=== PATIENT | male | born 1980 | race Hispanic/Latino ===

== ENCOUNTER 2020-10-26 19:21 | Emergency (ER) | payer SELFPAY ==
--- NOTE | 2020-10-26 22:32 | ER ---
Nurse's Notes [facility] Name: Piyush Sauer Age: 40 yrs Sex: Male : 1980 Arrival Date: 10/26/2020 Time: 19:26 Bed 20 Private MD: Diagnosis: Cellulitis of right lower limb Presentation: 10/26 19:57 Chief complaint: Patient states: R pinky toe pain, red and swollen x 1 week. Now it ca1 hurts to walk on it. Had new pair of shoes 2 weeks ago and then when it started. Denies injury to the toe. Coronavirus screen: Client denies travel out of the [place] in the last 14 days. At this time, the client does not indicate any symptoms associated with coronavirus-19. Ebola Screen: Patient negative for fever greater than or equal to 101.5 degrees Fahrenheit, and additional compatible Ebola Virus Disease symptoms Patient denies exposure to infectious person. Patient denies travel to an Ebola-affected area in the 21 days before illness onset. No symptoms or risks identified at this time. Initial Sepsis Screen: Does the patient meet any 2 criteria? No. Patient's initial sepsis screen is negative. Does the patient have a suspected source of infection? No. Patient's initial sepsis screen is negative. Risk Assessment: Do you want to hurt yourself or someone else? Patient reports no desire to harm self or others. Onset of symptoms was October 26, 2020. 19:57 Method Of Arrival: Ambulatory ca1 19:57 Acuity: DEEPA 3 ca1 Historical: - Allergies: 20:00 No Known Allergies; ca1 - Home Meds: 20:00 Metformin Oral [Active]; ca1 - PMHx: 20:00 Diabetes - NIDDM; ca1 - PSHx: 20:00 None; ca1 - Immunization history:: Flu vaccine is up to date. - Social history:: Smoking status: Patient denies any tobacco usage or history of. Screenin:32 Abuse screen: Denies threats or abuse. Nutritional screening: No deficits noted. ea Tuberculosis screening: No symptoms or risk factors identified. Fall Risk None identified. Assessment: 22:37 General: Appears in no apparent distress. Behavior is calm, cooperative, appropriate ea for age. Pain: Complains of pain in lateral aspect of right foot. Neuro: Level of Consciousness is awake, alert, obeys commands, Oriented to person, place, time. Cardiovascular: Patient's skin is warm and dry. Respiratory: Airway is patent Respiratory effort is even, unlabored, Respiratory pattern is regular, symmetrical. Derm: Skin is pink, warm \T\ dry. 22:42 Reassessment: Patient and/or family updated on plan of care and expected duration. Pain ea level reassessed. Patient is alert, oriented x 3, equal unlabored respirations, skin warm/dry/pink. Discharge instruction given to patient, verbalized the understanding of instruction. Vital Signs: 19:57 BP 208 / 120 LA; Pulse 107; Resp 16 S; Temp 99.1(TE); Pulse Ox 100% on R/A; Weight ca1 83.91 kg (R); Height 5 ft. 6 in. (167.64 cm) (R); Pain 9/10; 20:03 BP 189 / 109 RA; ca1 22:38 BP 172 / 98; Pulse 84; Resp 18; Pulse Ox 99% ; ea 19:57 Body Mass Index 29.86 (83.91 kg, 167.64 cm) ca1 ED Course: 19:26 Patient arrived in ED. bp1 20:00 Triage completed. ca1 20:00 Arm band placed on right wrist. ca1 21:58 Shahid Mcelroy PA is PHCP. jr8 21:58 Gerardo Simms MD is Attending Physician. jr8 22:29 Kamille Hermosillo, CECIYL is Primary Nurse. ea 22:32 Patient has correct armband on for positive identification. Bed in low position. Call ea light in reach. Side rails up X2. 22:38 No provider procedures requiring assistance completed. Patient did not have IV access ea during this emergency room visit. Administered Medications: No medications were administered Outcome: 22:31 Discharge ordered by . jr8 22:42 Discharged to home ambulatory. ea 22:42 Condition: stable 22:42 Discharge instructions given to patient, Instructed on discharge instructions, follow up and referral plans. medication usage, Demonstrated understanding of instructions, follow-up care, medications, Prescriptions given X 1. 22:43 Patient left the ED. ea Signatures: Shahid Mcelroy PA PA jrKamille Leija RN RN Mere Casarez RN RN ca1 Marcella Terrell bp1 Corrections: (The following items were deleted from the chart) 20:01 19:57 BP 208 / 120; Pulse 107bpm; Resp 16bpm; Spontaneous; Pulse Ox 100% RA; Temp 99.1F ca1 Temporal; 83.91 kg Reported; Height 5 ft. 6 in. Reported; BMI: 29.8; Pain 9/10; ca1 20:03 19:57 Chief complaint: Patient states: R pinky toe pain, red and swollen x 1 week. Now ca1 it hurts to walk on it ca1
--- NOTE | 2020-10-26 22:32 | EDPHYS ---
Physician Documentation [facility] Name: Piyush Sauer Age: 40 yrs Sex: Male : 1980 Arrival Date: 10/26/2020 Time: 19:26 Bed 20 Private MD: RISA Physician Gerardo Simms HPI: 10/26 22:27 This 40 yrs old Male presents to ER via Ambulatory with complaints of Foot jr8 Pain. 22:27 The patient presents with pain, tenderness, erythema. The complaints affect the lateral jr8 aspect of right foot. Onset: The symptoms/episode began/occurred gradually, 2 day(s) ago. Modifying factors: The symptoms are alleviated by nothing. the symptoms are aggravated by movement. Associated signs and symptoms: The patient has no apparent associated signs or symptoms. Severity of symptoms: At their worst the symptoms were mild, in the emergency department the symptoms are unchanged. The patient has not experienced similar symptoms in the past. The patient has not recently seen a physician. Patient stated that he bought some new shoes for work. Was rubbing on foot and was painful. Got another pair since then but now has redness, tenderness to right 5th digit with extension of redness to dorsum and lateral foot. Known history of diabetes . Historical: - Allergies: 20:00 No Known Allergies; ca1 - Home Meds: 20:00 Metformin Oral [Active]; ca1 - PMHx: 20:00 Diabetes - NIDDM; ca1 - PSHx: 20:00 None; ca1 - Immunization history:: Flu vaccine is up to date. - Social history:: Smoking status: Patient denies any tobacco usage or history of. ROS: 22:27 Eyes: Negative for injury, pain, redness, and discharge, ENT: Negative for injury, jr8 pain, and discharge, Neck: Negative for injury, pain, and swelling, Cardiovascular: Negative for chest pain, palpitations, and edema, Respiratory: Negative for shortness of breath, cough, wheezing, and pleuritic chest pain, Abdomen/GI: Negative for abdominal pain, nausea, vomiting, diarrhea, and constipation, Back: Negative for injury and pain, MS/Extremity: Negative for injury and deformity. Positive for pain, redness, tenderness to right foot Neuro: Negative for headache, weakness, numbness, tingling, and seizure. 22:27 Skin: Positive for erythema, of the right foot. Exam: 22:27 Constitutional: This is a well developed, well nourished patient who is awake, alert, jr8 and in no acute distress. Cardiovascular: Regular rate and rhythm with a normal S1 and S2. No gallops, murmurs, or rubs. Normal PMI, no JVD. No pulse deficits. Respiratory: Lungs have equal breath sounds bilaterally, clear to auscultation and percussion. No rales, rhonchi or wheezes noted. No increased work of breathing, no retractions or nasal flaring. Skin: Warm, dry with normal turgor. Normal color with no rashes, no lesions, and no evidence of cellulitis. Neuro: Awake and alert, GCS 15, oriented to person, place, time, and situation. Cranial nerves II-XII grossly intact. Motor strength 5/5 in all extremities. Sensory grossly intact. Cerebellar exam normal. Normal gait. 22:27 Musculoskeletal/extremity: Extremities: grossly normal except: noted in the lateral aspect of right foot: Patient has redness to right 5th digit with extension of erythema to right dorsum and lateral foot. Tender to palpation. No ulcerations or open wounds noted , ROM: intact in all extremities, Circulation is intact in all extremities. Sensation intact. Vital Signs: 19:57 BP 208 / 120 LA; Pulse 107; Resp 16 S; Temp 99.1(TE); Pulse Ox 100% on R/A; Weight ca1 83.91 kg (R); Height 5 ft. 6 in. (167.64 cm) (R); Pain 9/10; 20:03 BP 189 / 109 RA; ca1 22:38 BP 172 / 98; Pulse 84; Resp 18; Pulse Ox 99% ; ea 19:57 Body Mass Index 29.86 (83.91 kg, 167.64 cm) ca1 MDM: 22:01 Patient medically screened. [facility] 22:27 Data reviewed: vital signs, nurses notes, and as a result, I will discharge patient. jr8 Data interpreted: Pulse oximetry: on room air is 100 %. Interpretation: normal. Counseling: I had a detailed discussion with the patient and/or guardian regarding: the historical points, exam findings, and any diagnostic results supporting the discharge/admit diagnosis, the need for outpatient follow up, a family practitioner, to return to the emergency department if symptoms worsen or persist or if there are any questions or concerns that arise at home. Administered Medications: No medications were administered Disposition: 10/27 07:55 Co-signature as Attending Physician, Gerardo Simms MD I agree with the assessment and teodoro plan of care. Disposition: 10/26/20 22:31 Discharged to Home. Impression: Cellulitis of right lower limb. - Condition is Stable. - Discharge Instructions: Cellulitis, Adult. - Prescriptions for Bactrim DS 800- 160 mg Oral Tablet - take 1 tablet by ORAL route every 12 hours for 10 days; 20 tablet. - Medication Reconciliation Form, Thank You Letter, Antibiotic Education, Prescription Opioid Use form. - Follow up: Private Physician; When: 2 - 3 days; Reason: Recheck today's complaints, Continuance of care, Re-evaluation by your physician. - Problem is new. - Symptoms have improved. Signatures: Gerardo Simms MD MD cha Roszak, Josh, PA PA jr8 Kamille Hermosillo RN RN ea Acob, Cheryl, RN RN ca1 Corrections: (The following items were deleted from the chart) 10/26 22:43 22:31 10/26/2020 22:31 Discharged to Home. Impression: Cellulitis of right lower limb. ea Condition is Stable. Forms are Medication Reconciliation Form, Thank You Letter, Antibiotic Education, Prescription Opioid Use. Follow up: Private Physician; When: 2 - 3 days; Reason: Recheck today's complaints, Continuance of care, Re-evaluation by your physician. Problem is new. Symptoms have improved. jr8
[2020-10-27 02:42] VITALS: TEMP 99.1
[2020-10-27 02:44] VITALS: BP 172/98; O2SAT 99
== END 2020-10-26 22:43 | disposition home or self-care (01) ==
LOC: ER 19:21
DX: L03.115 Cellulitis of right lower limb (principal); E11.9 Type 2 diabetes mellitus without complications; Z79.84 Long term (current) use of oral hypoglycemic drugs
CPT/HCPCS: 99282

== ENCOUNTER 2022-01-22 12:25 | Inpatient (IN) | payer SELFPAY ==
--- OUTSIDE RECORDS SUMMARY | 2022-01-22 12:35 | XMS REPORT | Continuity of Care Document ---
:1980 Author Organization [facility] t Address [address] [place] [address] Care Team Providers Name Role Phone SONG Attending Clinician Unavailable Doctor Unassigned, Name Attending Clinician Unavailable Erwin Attending Clinician Parish Oakes MD Attending Clinician Abdulaziz CABRERA Attending Clinician Satya NEWMAN Attending Clinician Leonid JONES, E Attending Clinician Abdulaziz CABRERA Admitting Clinician Payers Payer Name Policy Type Policy Number Effective Date Expiration Date S ource Problems Condition Condition Condition Status Onset Resolution Last Treating Co mments Source Name Details Category Date Date Treatment Clinician Date Type 2 Type 2 Disease Active Univers diabetes diabetes 4-10 ity of mellitus mellitus 00:00: [place] without without 00 Medical complicati complicati Br anch on, on, without without long-term long-term current current use of use of insulin insulin Essential Essential Disease Active Uni vers hypertensi hypertensi 4-10 it y of on on 00:00: [address] Branch BRYCE (acute BRYCE (acute Disease Active U nivers kidney kidney 4-10 ity of injury) injury) 00:00: [address] Branch Elevated Elevated Disease Active Unive rs brain brain 4-10 ity of natriureti natriureti [place] c peptide c peptide 00 Medi mala (BNP) (BNP) Branch level level Hypertensi Hypertensi Disease Active U nivers ve urgency ve urgency 4-10 it y of 00:00: [address] Branch Preop Preop Disease Active Univers cardiovasc cardiovasc 4-10 it y of ular exam ular exam [place] 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 Branch Obesity Obesity Disease Active Univers (BMI (BMI 5-31 ity of 30-39.9) 30-39.9) 00:00: [place] 00 Medical Branch Cellulitis Cellulitis Disease Active U nivers 5-31 ity of 00:00: 00 Medical [place] Allergies, Adverse Reactions, Alerts Allergy Allergy Status Severity Reaction(s) Onset Inactive Treating Comm ents Source Name Type Date Date Clinician NO KNOWN Drug Active [facility] ALLERGIE Class ity of S [facility] Social History Social Habit Start Date Stop Date Quantity Comments Source Exposure to Not sure [facility] SARS-CoV-2 [facility] (event) [place] Tobacco use and 2020-11-15 2020-11-15 Never used Universit y of exposure 00:00:00 00:00:00 [facility] Alcohol intake 2020-11-15 2020-11-15 Current drinker of Un iversity of 00:00:00 00:00:00 alcohol (finding) [facility] edical [place] Alcohol Comment 2019-01-02 2019-01-02 occasional drinks Un iversity of 00:00:00 00:00:00 [facility] Sex Ass[birth year] At [birth year] Universit y of 00:00:00 00:00:00 [facility] Smoking Status Start Date Stop Date Source Former smoker 2020-11-15 00:00:00 2020-11-15 00:00:00 Universi ty of [facility] Medications Ordered Filled Start Stop Current Ordering Indication Dosage Frequency Signature Comments Components Source Medication Medication Date Date Medication? Clinician (SIG) Name Name amLODIPine 2020- No [id number] 10mg Take 1 Univers 10 mg 4-15 05-16 tablet by ity of tablet 00:00: 04:59 mouth [place] 00 :00 daily for Medical 30 days. Branch glipiZIDE 5 2020- No [id number] 5mg Take 1 Univers mg tablet 4-15 05-16 tablet by ity of 00:00: 04:59 mouth [place] 00 :00 daily for Medical 30 days. Branch amLODIPine 2020- No [id number] 10mg Take 1 Univers 10 mg 4-15 05-16 tablet by ity of tablet 00:00: 04:59 mouth [place] 00 :00 daily for Medical 30 days. Branch glipiZIDE 5 2020- No [id number] 5mg Take 1 Univers mg tablet 11-17-16 tablet by ity of 00:00: 04:59 mouth [place] 00 :00 daily for Medical 30 days. Branch aspirin 81 Yes 81mg Take 81 mg U nivers mg chewable 4-14 by mouth ity of tablet 23:26: daily. [address] metFORMIN Yes 500mg Take 500 Uni vers 500 mg 4-14 mg by ity of tablet 23:26: mouth 2 [place] [address] [facility] daily with meals. aspirin 81 Yes 81mg Take 81 mg U nivers mg chewable 4-14 by mouth ity of tablet 23:26: daily. [address] metFORMIN Yes 500mg Take 500 Uni vers 500 mg 4-14 mg by ity of tablet 23:26: mouth 2 [place] [address] [facility] daily with meals. aspirin 81 Yes 81mg Take 81 mg U nivers mg chewable 4-14 by mouth ity of tablet 23:26: daily. [address] metFORMIN Yes 500mg Take 500 Uni vers 500 mg 4-14 mg by ity of tablet 23:26: mouth 2 [place] [address] [facility] daily with meals. doxycycline Yes 100mg 100 mg, Un angel hyclate 4-14 Oral, ity of (Vibramycin 23:00: Q12HA2, Xavi as ) capsule 00 First dose Medi mala 100 mg on Sat [place] 11/16/20 at 1800, Until Discontinu ed, LUPE
Re ason for Anti-Infec tive: Documented Infection< br>Documen cesar Infection Site: Skin / Soft Tissue<br& gt;Duratio n of Therapy: Other (see Comments) vancomycin Yes 1250mg 1,250 mg, Univers 1250 mg in 4-14 IV ity of NS 250 mL 02:00: Infusion, [place] as RTU IV 00 Q24H ABX, Medical Piggyback First dose Bran ch 1,250 mg on Sat11/15/20 at 2100, Until Discontinu ed
Reas on for Anti-Infec tive: Documented Infection< br>Documen cesar Infection Site: Skin / Soft Tissue
Duration of Therapy: Other (see Comments) vancomycin 2020- No 1250mg 1,250 mg, Univers 1250 mg in 11-16-14 IV ity of NS 250 mL 02:00: 17:16 Infusion, [place] RTU IV 00 :39 Q24H ABX, Medical Piggyback First dose Bran ch 1,250 mg on Sat11/15/20 at 2100, Until Discontinu ed
Reas on for Anti-Infec tive: Documented Infection< br>Documen cesar Infection Site: Skin / Soft Tissue
Duration of Therapy: Other (see Comments) atorvastati 2020- No [id number] 20mg Take 1 Univers n 20 mg 11-16-15 tablet by ity of tablet 00:00: 04:59 mouth at [place] 00 :00 bedtime Medical for 30 Branch days. carvediloL 2020- No [id number] 12.5mg Take 1 Univers 12.5 mg 11-16-15 tablet by ity of tablet 00:00: 04:59 mouth 2 [place] 00 :00 (two) Medical times Branch daily with meals for 30 days. ferrous 2020- No [id number] 325mg Take 1 U nivers sulfate 325 11-16-15 tablet by it y of mg (65 mg 00:00: 04:59 [place] iron[place] 00 :00 (two) Medical tablet times Branch daily for 30 days. atorvastati 2020- No [id number] 20mg Take 1 Univers n 20 mg 11-16-15 tablet by ity of tablet 00:00: 04:59 mouth at [place] 00 :00 bedtime Medical for 30 Branch days. carvediloL 2020- No [id number] 12.5mg Take 1 Univers 12.5 mg 4-14 05-15 tablet by ity of tablet 00:00: 04:59 mouth 2 [place] 00 :00 (two) Medical times Branch daily with meals for 30 days. ferrous 2020- No [id number] 325mg Take 1 U nivers sulfate 325 11-16 tablet by it y of mg (65 mg 00:00: 04:59 [place] iron[place] 00 :00 (two) Medical tablet times Branch daily for 30 days. lactobacill 2020- No [id number] 1{tbl} Take 1 Univers us 11-16-25 tablet by ity of acidophilus 00:00: 04:59 mouth 2 [place] 25 million 00 :00 (two) Medical cell -100 times Branch mg captab daily for 10 days. lactobacill 2020- No [id number] 1{tbl} Take 1 Univers us 11-16-25 tablet by ity of acidophilus 00:00: 04:59 mouth 2 [place] 25 million 00 :00 (two) Medical cell -100 times Branch mg captab daily for 10 days. doxycycline 2020- No [id number] 100mg Take 1 Univers hyclate 100 11-16-20 capsule by i ty of mg capsule 00:00: 04:59 mouth [place] 00 :00 every 12 Medical (twelve) Branch hours for 5 days. doxycycline 2020- No [id number] 100mg Take 1 Univers hyclate 100 11-16-20 capsule by i ty of mg capsule 00:00: 04:59 mouth [place] 00 :00 every 12 Medical (twelve) Branch hours for 5 days. sulfamethox 2020- No [id number] 1{tbl} Take 1 Univers azole-trime 11-16 tablet by it y of thoprim 00:00: 00:00 mouth 2 [place] 800-160 mg 00 :00 (two) Medical per tablet times Branch daily for 5 days. HYDROcodone Yes 1{tbl} 1 tablet, Univers -acetaminop 11-15 Oral, ity of hen (NORCO) 17:56: Q6HPRN, [place] as 10-325 mg 59 Starting Medica l tablet 1 Tue Branch tablet 11/15/20 at 1256, Until Discontinu ed, Routine, Pain (scale 4-6), pain HYDROcodone 2020-0 Yes 1{tbl} 1 tablet, Univers -acetaminop 4-13 Oral, ity of hen (NORCO) 17:56: Q6HPRN, [place] 10-325 mg 59 Starting Medica l tablet 1 Sat Branch tablet 11/15/20 at 1256, Until Discontinu ed, Routine, Pain (scale 4-6), pain amLODIPine 2020-0 Yes 10mg 10 mg, Unive rs (NORVASC) 4-13 Oral, ity of tablet 10 13:30: DAILY, [place] mg 00 First dose Medical (after Branch last modificati on) on Sat11/15/20 at 0830, Until Discontinu ed, Routine amLODIPine 2020-0 Yes 10mg 10 mg, Unive rs (NORVASC) 4-13 Oral, ity of tablet 10 13:30: DAILY, [place] mg 00 First dose Medical (after Branch last modificati on) on Sat11/15/20 at 0830, Until Discontinu ed, Routine metFORMIN 2020-0 Yes 500mg Take 500 Uni vers 500 mg 4-12 mg by ity of tablet 16:58: mouth 2 [place] 30 (two) Medical times Branch daily with meals. metFORMIN 2020-0 Yes 500mg Take 500 Uni vers 500 mg 4-12 mg by ity of tablet 16:58: mouth 2 [place] 30 (two) Medical times Branch daily with meals. bupivacaine 2021-0 2021- No PRN, Unive rs (preserv 11-14 04-12 Starting ity of free) 0.5% 16:06: 16:58 [facility] (SENSORCAIN 00 :30 11/14/20 at [facility]) 0.5 1106, Branch % (5 mg/mL) Intra-op 10 mL, lidocaine 1% (PF) (XYLOCAINE) 10 mL glipiZIDE 2020-0 Yes 5mg 5 mg, Univers (GLUCOTROL) 4-12 Oral, ity of tablet 5 mg 14:00: DAILY, [place] 00 First dose Medical (after Branch last modificati on) on Sat11/14/20 at 0900, Until Discontinu ed, Routine glipiZIDE 2020-0 Yes 5mg 5 mg, Univers (GLUCOTROL) 4-12 Oral, ity of tablet 5 mg 14:00: DAILY, [place] 00 First dose Medical (after Branch last modificati on) on Sat11/14/20 at 0900, Until Discontinu ed, Routine glipiZIDE 2020-0 Yes 5mg 5 mg, Univers (GLUCOTROL) 4-12 Oral, ity of tablet 5 mg 14:00: DAILY, [place] 00 First dose Medical (after Branch last modificati on) on Sat11/14/20 at 0900, Until Discontinu ed, Routine NaCl 0.45% 2020-0 Yes 1000mL at 100 Uni vers (1/2NS) IV 4-11 mL/hr, ity of infusion 23:45: 1,000 mL, [place] 1,000 mL 00 IV Medical Infusion, Branch CONTINUOUS , Starting [place] 11/13/20 at 1845, Until Discontinu ed, Routine NaCl 0.45% 1-0 Yes 1000mL at 100 Uni vers (1/2NS) IV 4-11 mL/hr, ity of infusion 23:45: 1,000 mL, [place] 1,000 mL 00 IV Medical Infusion, Branch CONTINUOUS , Starting [place] 11/13/20 at 1845, Until Discontinu ed, Routine NaCl 0.45% 2021-0 Yes 1000mL at 100 Uni vers (1/2NS) IV 4-11 mL/hr, ity of infusion 23:45: 1,000 mL, [place] 1,000 mL 00 IV Medical Infusion, Branch CONTINUOUS , Starting [place] 11/13/20 at 1845, Until Discontinu ed, Routine hydralAZINE 2020-0 Yes 10mg 10 mg, Univ ers (APRESOLINE 4-11 Slow IV ity o f ) injection 22:15: [place], [place] 10 mg 07 Q4HPRN, Medical Starting [facility] 11/13/20 at 1715, Until Discontinu ed, STAT, DBP=>100; SBP=>180<b r>Indicati on: Hypertensi ve Emergency hydralAZINE 2020-0 Yes 10mg 10 mg, Univ ers (APRESOLINE 4-11 Slow IV ity o f ) injection 22:15: [place], [place] 10 mg 07 Q4HPRN, Medical Starting [facility] 11/13/20 at 1715, Until Discontinu ed, STAT, DBP=>100; SBP=>180<b r>Indicati on: Hypertensi ve Emergency hydralAZINE 2020-0 Yes 10mg 10 mg, Univ ers (APRESOLINE 11-13 Slow IV ity o f ) injection 22:15: Push, [place] 10 mg 07 Q4HPRN, Medical Starting Branch [place] 11/13/20 at 1715, Until Discontinu ed, STAT, DBP=>100; SBP=>180<b r>Indicati on: Hypertensi ve Emergency carvediloL 2020-0 Yes 12.5mg 12.5 mg, U nivers (COREG) 4-11 Oral, BID ity of tablet 12.5 22:15: MEALS, [place] mg 00 First dose Medical (after Branch last modificati on) on [place] 11/13/20 at 1715, Until Discontinu ed, Routine carvediloL 0 Yes 12.5mg 12.5 mg, U nivers (COREG) 4-11 Oral, BID ity of tablet 12.5 22:15: MEALS, [place] mg 00 First dose Medical (after Branch last modificati on) on [place] 11/13/20 at 1715, Until Discontinu ed, Routine carvediloL 2020-0 Yes 12.5mg 12.5 mg, U nivers (COREG) 4-11 Oral, BID ity of tablet 12.5 22:15: MEALS, [place] mg 00 First dose Medical (after Branch last modificati on) on [place] 11/13/20 at 1715, Until Discontinu ed, Routine calcitrioL 0 Yes .5ug 0.5 mcg, Uni vers (ROCALTROL) 11-13 Oral, ity of capsule 0.5 14:00: DAILY, [place] mcg 00 First dose Medical on [place] Branch 11/13/20 at 0900, Until Discontinu ed, Routine calcitrioL 0 Yes .5ug 0.5 mcg, Uni vers (ROCALTROL) 11 Oral, ity of capsule 0.5 14:00: DAILY, [place] mcg 00 First dose Medical on [place] Branch 11/13/20 at 0900, Until Discontinu ed, Routine calcitrioL 2020-0 Yes .5ug 0.5 mcg, Uni vers (ROCALTROL) 4-11 Oral, ity of capsule 0.5 14:00: DAILY, [place] mcg First dose Medical on [facility] 11/13/20 at 0900, Until Discontinu ed, Routine ferrous Yes 325mg 325 mg, Univer s sulfate 11-13 Oral, BID, ity of tablet 325 13:00: First dose [place] mg on [facility] 11/13/20 at Branch 0800, Until Discontinu ed, Routine ferrous Yes 325mg 325 mg, Univer s sulfate 11-13 Oral, BID, ity of tablet 325 13:00: First dose [place] mg 00 on [facility] 11/13/20 at Branch 0800, Until Discontinu ed, Routine ferrous Yes 325mg 325 mg, Univer s sulfate 11-13 Oral, BID, ity of tablet 325 13:00: First dose [place] mg 00 on [facility] 11/13/20 at Branch 0800, Until Discontinu ed, Routine glipiZIDE 2020- No 2.5mg 2.5 mg, Uni vers (GLUCOTROL) 11-13 04-12 Oral, QAM it y of tablet 2.5 13:00: 12:50 WITH [place] mg 00 :36 BREAKFAST, Medical First dose Branch on [place] 11/13/20 at 0800, Until Discontinu ed, Routine insulin NPH Yes 3U 3 Units, Un angel and regular 11-13 Subcutaneo it y of human 70-30 12:30: , [place], [place] (HUMULIN 00 First dose Medic al 70-30 U-100 on [facility] INSULIN) 11/13/20 at 100 unit/mL 0730, (70-30) Until injection 3 Discontinu Units ed, Routine insulin NPH Yes 3U 3 Units, Un angel and regular 11-13 Subcutaneo it y of human 70-30 12:30: , [place], [place] (HUMULIN 00 First dose Medic al 70-30 U-100 on [facility] INSULIN) 11/13/20 at 100 unit/mL 0730, (70-30) Until injection 3 Discontinu Units ed, Routine insulin NPH Yes 3U 3 Units, Un angel and regular 11-13 Subcutaneo it y of human 70-30 12:30: us, BIDAC, [place] (HUMULIN 00 First dose Medic al 70-30 U-100 on [facility] INSULIN) 11/13/20 at 100 unit/mL 0730, (70-30) Until injection 3 Discontinu Units ed, Routine magnesium 2021-0 Yes 400mg 400 mg, Univ ers oxide 4-11 Oral, BID, ity of (MAG-OX 11:30: First dose [place] 400) tablet 00 on [facility] 400 mg 11/13/20 at [place] 0630, Until Discontinu ed, Routine magnesium 2020-0 Yes 400mg 400 mg, Univ ers oxide 4-11 Oral, BID, ity of (MAG-OX 11:30: First dose [place] 400) tablet 00 on [facility] 400 mg 11/13/20 at [place] 0630, Until Discontinu ed, Routine magnesium 2020-0 Yes 400mg 400 mg, Univ ers oxide 4-11 Oral, BID, ity of (MAG-OX 11:30: First dose [place] 400) tablet 00 on [facility] 400 mg 11/13/20 at Branch 0630, Until Discontinu ed, Routine atorvastati 2020-0 Yes 20mg 20 mg, Univ ers n (LIPITOR) 4-11 Oral, QHS, it y of tablet 20 02:00: First dose [place] mg 00 on [facility] 11/12/20 at Branch 2100, Until Discontinu ed, Routine atorvastati 2020-0 Yes 20mg 20 mg, Univ ers n (LIPITOR) 4-11 Oral, QHS, it y of tablet 20 02:00: First dose [place] mg 00 on [facility] 11/12/20 at Branch 2100, Until Discontinu ed, Routine vancomycin 2020-0 Yes 1000mg 1,000 mg, Univers (VANCOCIN) 4-11 IV ity of 1,000 mg in 02:00: [place], [place] NaCl 0.9% 00 Q24H, Medical (NS) 250 mL First dose Br anch VIAL-MATE (after IV last piggyback modificati on) on [facility] 11/12/20 at 2100, Until Discontinu ed, 250 mL
Reas on for Anti-Infec tive: Documented Infection< br>Documen cesar Infection Site: Skin / Soft Tissue
Duration of Therapy: Other (see Comments) atorvastati Yes 20mg 20 mg, Univ ers n (LIPITOR) 4-11 Oral, QHS, it y of tablet 20 02:00: First dose [place] mg 00 on [facility] 11/12/20 at Branch 2100, Until Discontinu ed, Routine vancomycin 2020-0 2020- No 1000mg 1,000 mg, Univers (VANCOCIN) 11-13 04-13 IV ity of 1,000 mg in 02:00: 13:00 [place], [place] NaCl 0.9% 00 :56 Q24H, Medical (NS) 250 mL First dose Br anch VIAL-MATE (after IV last piggyback modificati on) on [facility] 11/12/20 at 2100, Until Discontinu ed, 250 mL
Reas on for Anti-Infec tive: Documented Infection< br>Documen cesar Infection Site: Skin / Soft Tissue
Duration of Therapy: Other (see Comments) NaCl 0.9% 2020- No 1000mL at 100 Uni vers (NS) IV 11-12 04-11 mL/hr, IV ity of infusion 18:15: 22:38 Infusion, [place] 1,000 mL 00 :44 CONTINUOUS Medic al , Starting [facility] 11/12/20 at 1315, Until [place] 11/13/20 at 1738, Routine morpHINE Yes 2mg 2 mg, Slow Uni vers injection 2 4-10 IV [place], ity of mg 17:07: [place] [id number] Starting [facility] 11/12/20 at 1207, Until Discontinu ed, Routine, Pain (scale 7-10) morpHINE 2020-0 Yes 2mg 2 mg, Slow Uni vers injection 2 4-10 IV [place], ity of mg 17:07: [place] [id number] Starting [facility] 11/12/20 at 1207, Until Discontinu ed, Routine, Pain (scale 7-10) morpHINE 2020-0 Yes 2mg 2 mg, Slow Uni vers injection 2 4-10 IV Push, ity of mg 17:07: Q4HPRN, [place] [id number] Starting [facility] 11/12/20 at 1207, Until Discontinu ed, Routine, Pain (scale 7-10) HYDROcodone 2020-0 Yes 1{tbl} 1 tablet, Univers -acetaminop 4-10 Oral, ity of hen (NORCO 17:07: Q4HPRN, [place] 5) 5-325 mg 24 Starting Medi mala tablet 1 Sat Branch tablet 11/12/20 at 1207, Until Discontinu ed, Routine, Pain (scale 4-6) HYDROcodone 2020-0 202- No 1{tbl} 1 tablet, Univers -acetaminop 4-10 - Oral, ity of hen (NORCO 17:07: 17:58 Q4HPRN, [place] 5) 5-325 mg 24 :40 Starting Medi mala tablet 1 Sat Branch tablet 11/12/20 at 1207, Until 11/15/20 at 1258, Routine, Pain (scale 4-6) acetaminoph 2020-0 Yes 650mg 650 mg, Un angel en 4-10 Oral, ity of (TYLENOL) 17:07: Q4HPRN, [place] tablet 650 07 Starting Medic al mg Sat Branch 11/12/20 at 1207, Until Discontinu ed, Routine, Pain (scale 1-3) acetaminoph 2020-0 Yes 650mg 650 mg, Un angel en 4-10 Oral, ity of (TYLENOL) 17:07: Q4HPRN, [place] tablet 650 07 Starting Medic al mg Sat Branch 11/12/20 at 1207, Until Discontinu ed, Routine, Pain (scale 1-3) acetaminoph 2020-0 Yes 650mg 650 mg, Un angel en 4-10 Oral, ity of (TYLENOL) 17:07: Q4HPRN, [place] tablet 650 07 Starting Medic al mg Sat Branch 11/12/20 at 1207, Until Discontinu ed, Routine, Pain (scale 1-3) bupivacaine 2020-0 2020- No PRN, Unive rs (preserv 11-1212 Starting ity of free) 0.5% 15:40: 16:58 Sat [place] (SENSORCAIN 00 :30 11/12/20 at [facility]) 0.5 1040, Branch % (5 mg/mL) Intra-op 7.5 mL, lidocaine 1% (PF) (XYLOCAINE) 7.5 mL enoxaparin 2020-0 Yes 30mg 30 mg, Unive rs (LOVENOX) 4-10 Subcutaneo ity of injection 14:00: [place], DAILY, [place] 30 mg 00 First dose Medical on [facility] Branch 11/12/20 at 0900, Until Discontinu ed, Routine enoxaparin 2020-0 Yes 30mg 30 mg, Unive rs (LOVENOX) 4-10 Subcutaneo ity of injection 14:00: [place], DAILY, [place] 30 mg 00 First dose Medical on [facility] Branch 11/12/20 at 0900, Until Discontinu ed, Routine enoxaparin 2020-0 Yes 30mg 30 mg, Unive rs (LOVENOX) 4-10 Subcutaneo ity of injection 14:00: [place], DAILY, [place] 30 mg 00 First dose Medical on [facility] Branch 11/12/20 at 0900, Until Discontinu ed, Routine NaCl 0.9% 2020- No 1000mL at 100 Uni vers (NS) IV 410 04-10 mL/hr, IV ity of infusion 13:15: 17:06 Infusion, [place] 1,000 mL 00 :58 CONTINUOUS Medic al , Starting Branch [facility] 11/12/20 at 0815, Until [facility] 11/12/20 at 1206, Routine docusate 2020-0 Yes 100mg 100 mg, Unive rs (COLACE) 4-10 Oral, BID, ity o f capsule 100 13:00: First dose [place] mg 00 on [facility] 11/12/20 at Branch 0800, Until Discontinu ed, Routine docusate 2020-0 Yes 100mg 100 mg, Unive rs (COLACE) 4-10 Oral, BID, ity o f capsule 100 13:00: First dose [place] mg 00 on [facility] 11/12/20 at Branch 0800, Until Discontinu ed, Routine docusate 2020-0 Yes 100mg 100 mg, Unive rs (COLACE) 4-10 Oral, BID, ity o f capsule 100 13:00: First dose [place] mg 00 on [facility] 11/12/20 at Branch 0800, Until Discontinu ed, Routine traMADoL 2020-0 2020- No 50mg 50 mg, Univer s (ULTRAM) 4-10 04-10 Oral, ity of tablet 50 10:30: 09:25 ONCE, 1 [place] mg 00 :00 dose, [facility] Medical 11/12/20 at Branch 0530, Routine piperacilli No 2.25g 2.25 g, IV Univers n-tazobacta 11-12 04-12 Piggyback, i ty of m (ZOSYN) 07:30: 16:13 Q8H ABX, [place] as 2.25 g in 00 :42 First dose Medi mala NaCl 0.9% (after Branch (NS) 100 mL last MINI-BAG reorder) on 11/12/20 at 0230, Until Discontinu ed, 100 mL
Reas on for Anti-Infec tive: Documented Infection< br>Documen cesar Infection Site: Skin / Soft Tissue
Duration of Therapy: Other (see Comments) Sliding Yes [facility] ers Scale 4-10 us, TID ity of Insulin - 06:45: MEALS, [place] Lispro 00 First dose Medical (HumaLOG) + on [facility] Branch [facility] 11/12/20 at Testing 0145, Until Discontinu ed, Routine aspirin Yes 81mg 81 mg, Univers chewable 4-10 Oral, QAM ity of tablet 81 06:45: WITH [place] mg 00 BREAKFAST, Medical First dose Branch on 11/12/20 at 0145, Until Discontinu ed, Routine lactobacill Yes 1{tbl} 1 tablet, Univers us 4-10 Oral, BID, ity of acidophilus 06:45: First dose [place] (ACIDOPHILL 00 on [facility] Medica l US) 25 11/12/20 at Branch million 0145, cell -100 Until mg captab 1 Discontinu tablet ed, Routine [facility] 4-10 us, TID ity of Insulin - 06:45: MEALS, [place] Lispro 00 First dose Medical (HumaLOG) + on [facility] Branch [facility] 11/12/20 at Testing 0145, Until Discontinu ed, Routine aspirin 2020-0 Yes 81mg 81 mg, Univers chewable 4-10 Oral, QAM ity of tablet 81 06:45: WITH [place] mg 00 BREAKFAST, Medical First dose Branch on 11/12/20 at 0145, Until Discontinu ed, Routine lactobacill Yes 1{tbl} 1 tablet, Univers us 4-10 Oral, BID, ity of acidophilus 06:45: First dose [facility] at [facility] 0145, cell -100 Until mg captab 1 Discontinu tablet ed, Routine amLODIPine Yes 5mg 5 mg, Univer s ([facility]) 4-10 Oral, ity of tablet 5 mg 06:45: DAILY, [place] 00 First dose Medical on [facility] 11/12/20 at 0145, Until Discontinu ed, Routine Sliding Yes Subcutaneo Univ ers Scale 4-10 us, TID ity of Insulin - 06:45: MEALS, [place] Lispro 00 First dose Medical (HumaLOG) + on [facility] 11/12/20 at Testing 0145, Until Discontinu ed, Routine aspirin Yes 81mg 81 mg, Univers chewable 4-10 Oral, QAM ity of tablet 81 06:45: WITH [place] mg 00 BREAKFAST, Medical First dose Branch on [facility] 11/12/20 at 0145, Until Discontinu ed, Routine lactobacill Yes 1{tbl} 1 tablet, Univers us 4-10 Oral, BID, ity of acidophilus 06:45: First dose [place] (ACIDOPHILL 00 on [facility]) 11/12/20 at [facility] 0145, cell -100 Until mg captab 1 Discontinu tablet ed, Routine amLODIPine 2020- No 5mg 5 mg, Unive rs ([facility]) 11-12-13 Oral, ity of tablet 5 mg 06:45: 13:16 DAILY, [place] as 00 :33 First dose Medical on [facility] 11/12/20 at 0145, Until Discontinu ed, Routine carvediloL 2020- No 6.25mg 6.25 mg, Univers (COREG) 11-12-11 Oral, BID ity of tablet 6.25 06:45: 22:14 MEALS, [place] mg 00 :43 First dose Medical on [facility] 11/12/20 at 0145, Until Discontinu ed, Routine NaCl 0.9% 2020- No 1000mL at 125 Uni vers (NS) IV 4-10 04-10 mL/hr, IV ity of infusion 06:45: 13:10 Infusion, [place] as 1,000 mL 00 :52 CONTINUOUS Medic al , Starting Branch 11/12/20 at 0145, Until 11/12/20 at 0810, Routine aspirin 81 1-0 Yes 81mg Take 81 mg U nivers mg chewable 4-10 by mouth ity of tablet 06:38: daily. [address] aspirin 81 1-0 Yes 81mg Take 81 mg U nivers mg chewable 4-10 by mouth ity of tablet 06:38: daily. [address] ondansetron 1-0 Yes 4mg 4 mg, Slow Univers (ZOFRAN 4-10 IV Push, ity of (PF)) 06:37: Q6HPRN, [place] injection 4 47 Starting Medi mala mg Sat Branch 11/12/20 at 0137, Until Discontinu ed, Routine, Nausea and Vomiting (N/V) ondansetron 1-0 Yes 4mg 4 mg, Slow Univers (ZOFRAN 4-10 IV Push, ity of (PF)) 06:37: Q6HPRN, [place] injection 4 47 Starting Medi mala mg Sat Branch 11/12/20 at 0137, Until Discontinu ed, Routine, Nausea and Vomiting (N/V) ondansetron 1-0 Yes 4mg 4 mg, Slow Univers (ZOFRAN 4-10 IV Push, ity of (PF)) 06:37: Q6HPRN, [place] injection 4 47 Starting Medi mala mg Sat Branch 11/12/20 at 0137, Until Discontinu ed, Routine, Nausea and Vomiting (N/V) glucagon 2020-0 Yes 1mg 1 mg, Univers (GLUCAGEN 4-10 Intramuscu ity of DIAGNOSTIC 06:35: [place] 31 Starting Medical injection 1 Sat Branch mg 11/12/20 at 0135, Until Discontinu ed, LUPE, Blood Glucose < or = 70 mg/dL and patient is unable to swallow or has mental changes. dextrose 50 1-0 Yes 25mL 25 mL, Univ ers % in water 4-10 Slow IV ity of (D50W) 06:35: Push, PRN, [place] injection 31 Starting Medica l 25 mL Sat Branch 11/12/20 at 0135, Until Discontinu ed, LUPE, Blood Glucose < or = 70 mg/dL and patient is unable to swallow or has mental status changes. glucagon Yes 1mg 1 mg, Univers (GLUCAGEN 4-10 Intramuscu ity of DIAGNOSTIC 06:35: [place], [place], [place]) 31 Starting Medical injection 1 Sat Branch mg 11/12/20 at 0135, Until Discontinu ed, LUPE, Blood Glucose < or = 70 mg/dL and patient is unable to swallow or has mental changes. dextrose 50 Yes 25mL 25 mL, Univ ers % in water 4-10 Slow IV ity of (D50W) 06:35: Push, PRN, [place] injection 31 Starting Medica l 25 mL Sat Branch 11/12/20 at 0135, Until Discontinu ed, LUPE, Blood Glucose < or = 70 mg/dL and patient is unable to swallow or has mental status changes. glucagon Yes 1mg 1 mg, Univers (GLUCAGEN 4-10 Intramuscu ity of DIAGNOSTIC 06:35: [place]N, [place]) 31 Starting Medical injection 1 Sat Branch mg 11/12/20 at 0135, Until Discontinu ed, LUPE, Blood Glucose < or = 70 mg/dL and patient is unable to swallow or has mental changes. dextrose 50 0 Yes 25mL 25 mL, Univ ers % in water 4-10 Slow IV ity of (D50W) 06:35: Push, PRN, [place] injection 31 Starting Medica l 25 mL Sat Branch 11/12/20 at 0135, Until Discontinu ed, LUPE, Blood Glucose < or = 70 mg/dL and patient is unable to swallow or has mental status changes. FENTanyl PF 2020- No 50ug 50 mcg, Un angel (SUBLIMAZE 11-1210 Slow IV ity o f (PF)) 02:45: 01:51 Push, [place] injection 00 :00 ONCE, 1 Medical 50 mcg dose, Fri Branch 11/11/20 at 2145, Routine piperacilli 2020-2020- No 3.375g 3.375 g, Univers n-tazobacta 4-10 04-10 IV ity of m (ZOSYN) 02:45: 02:21 [place], [place] 3.375 g in 00 :00 ONCE, 1 Medica l NaCl 0.9% dose, Satc h (NS) 100 mL 11/11/20 at MINI-BAG 2145, 100 mL
Reas on for Anti-Infec tive: Documented Infection< br>Documen cesar Infection Site: Skin / Soft Tissue
Duration of Therapy: Other (see Comments) vancomycin 2020- No 1000mg 1,000 mg, Univers (VANCOCIN) 11-12 IV ity of 1,000 mg in 02:45: 06:33 [place], [place] NaCl 0.9% 00 :16 Q12H ABX, Medic al (NS) 250 mL First dose Br anch VIAL-MATE on Sat IV 11/11/20 at piggyback 2145, Until Discontinu ed, 250 mL
R pia for Anti-Infec tive: Documented Infection< br>Documen cesar Infection Site: Skin / Soft Tissue
Duration of Therapy: Other (see Comments) lisinopril Yes [id number] 10mg Take 1 Univers 10 mg 6-05 [id number] tablet by ity of tablet 00:00: mouth [place] 00 daily. Medical Branch lisinopril Yes [id number] 10mg Take 1 Univers 10 mg 6-05 [id number] tablet by ity of tablet 00:00: mouth [place] 00 daily. Medical Branch lisinopril 2020- No [id number] 10mg Take 1 Univers 10 mg 6-05 -14 [id number] tablet by ity of tablet 00:00: 00:00 mouth [place] 00 :00 daily. Medical Branch Insulin Yes [id number] Use as U nivers Syringe-Nee 6-04 [id number] directed it y of dle U-100 00:00: [place] 0.3 mL 30 00 Medical gauge x Branch 12/18 Syrg acetaminoph 2018- Yes [id number] 1{tbl} Take 1 Univers en-codeine 6-04 tablet by ity of (TYLENOL-CO 00:00: mouth [place] DEINE #3) 00 every 4 Medical 300-30 mg (four) Branch tablet hours as needed for Pain (scale 4-6). acetaminoph Yes [id number] 1{tbl} Take 1 Univers en-codeine 6-04 tablet by ity of (TYLENOL-CO 00:00: mouth [place] DEINE #3) 00 every 4 Medical 300-30 mg (four) Branch tablet hours as needed for Pain (scale 4-6). Insulin Yes [id number] Use as U nivers Syringe-Nee - [id number] directed it y of dle U-100 00:00: [place] 0.3 mL 30 00 Medical gauge x Branch 5/16 Syrg acetaminoph Yes [id number] 1{tbl} Take 1 Univers en-codeine 6-04 tablet by ity of (TYLENOL-CO 00:00: mouth [place] DEINE #3) 00 every 4 Medical 300-30 mg (four) Branch tablet hours as needed for Pain (scale 4-6). acetaminoph Yes [id number] 1{tbl} Take 1 Univers en-codeine 6-04 tablet by ity of (TYLENOL-CO 00:00: mouth [place] DEINE #3) 00 every 4 Medical 300-30 mg (four) Branch tablet hours as needed for Pain (scale 4-6). Insulin Yes [id number] Use as U nivers Syringe-Nee 01-06 [id number] directed it y of dle U-100 00:00: [place] 0.3 mL 30 00 Medical gauge x Branch 5/16 Syrg acetaminoph Yes [id number] 1{tbl} Take 1 Univers en-codeine 6-04 tablet by ity of (TYLENOL-CO 00:00: mouth [place] DEINE #3) 00 every 4 Medical 300-30 mg (four) Branch tablet hours as needed for Pain (scale 4-6). acetaminoph Yes [id number] 1{tbl} Take 1 Univers en-codeine 6-04 tablet by ity of (TYLENOL-CO 00:00: mouth [place] DEINE #3) 00 every 4 Medical 300-30 mg (four) Branch tablet hours as needed for Pain (scale 4-6). Insulin Yes [id number] Use as U nivers Syringe-Nee - [id number] directed it y of dle U-100 00:00: [place] 0.3 mL 30 00 Medical gauge x Branch 5/16 Syrg acetaminoph Yes [id number] 1{tbl} Take 1 Univers en-codeine 6-04 tablet by ity of (TYLENOL-CO 00:00: mouth [place] DEINE #3) 00 every 4 Medical 300-30 mg (four) Branch tablet hours as needed for Pain (scale 4-6). acetaminoph Yes [id number] 1{tbl} Take 1 Univers en-codeine 6-04 tablet by ity of (TYLENOL-CO 00:00: mouth [place] DEINE #3) 00 every 4 Medical 300-30 mg (four) Branch tablet hours as needed for Pain (scale 4-6). Insulin Yes [id number] Use as U nivers Syringe-Nee 01-06 [id number] directed it y of dle U-100 00:00: [place] 0.3 mL 30 00 Medical gauge x Branch 5/16 Syrg acetaminoph Yes [id number] 1{tbl} Take 1 Univers en-codeine 6-04 tablet by ity of (TYLENOL-CO 00:00: mouth [place] DEINE #3) 00 every 4 Medical 300-30 mg (four) Branch tablet hours as needed for Pain (scale 4-6). acetaminoph Yes [id number] 1{tbl} Take 1 Univers en-codeine 6-04 tablet by ity of (TYLENOL-CO 00:00: mouth [place] DEINE #3) 00 every 4 Medical 300-30 mg (four) Branch tablet hours as needed for Pain (scale 4-6). Immunizations Ordered Filled Immunization Date Status Comments [facility] e Immunization Name Name Pneumococcal 2019-01-06 Completed [place] o f Polysaccharide, 00:00:00 [place] Med ical PPSV23 (PNEUMOVAX) Branch Pneumococcal 2019-01-06 Completed [place] o f Polysaccharide, 00:00:00 [place] Med ical PPSV23 (PNEUMOVAX) Branch Pneumococcal 2019-01-06 Completed [place] o f Polysaccharide, 00:00:00 [place] Med ical PPSV23 (PNEUMOVAX) Branch Pneumococcal 2019-01-06 Completed [place] o f Polysaccharide, 00:00:00 [place] Med ical PPSV23 (PNEUMOVAX) Branch Pneumococcal 2019-01-06 Completed University o f Polysaccharide, 00:00:00 [place] Med ical PPSV23 (PNEUMOVAX) Branch Vital Signs Vital Name Observation Time Observation Value Comments Source Systolic blood 2020-11-16 21:30:00 144 mm[Hg] Univer sity of pressure [place] Medical [place] Diastolic blood 2020-11-16 21:30:00 88 mm[Hg] Unive rsity of pressure [facility] Heart rate 2020-11-16 21:30:00 68 /min [facility] ty [facility] [place] [facility] Body temperature 2020-11-16 21:30:00 36.39 [place] Univ ersity of [place] [facility] Respiratory rate 2020-11-16 21:30:00 18 /min Univ ersity of [place] [facility] Oxygen saturation in 2020-11-16 21:30:00 96 /min University of Arterial blood by [place] [employer] mala Pulse oximetry Branch Body weight 2020-11-12 09:44:00 78.971 kg [facility] ty [facility] [place] [facility] BMI 2020-11-12 09:44:00 28.10 kg/m2 [facility] [place] [facility] Body height 2020-11-12 04:54:00 167.6 cm [facility] [place] [facility] Systolic blood 2020-11-14 17:28:00 177 mm[Hg] Univer sity of pressure [facility] Branch Diastolic blood 2020-11-14 17:28:00 99 mm[Hg] Unive rsity of pressure [place] [facility] Heart rate 2020-11-14 17:28:00 73 /min [facility]i ty [facility] [place] [facility] Body temperature 2020-11-14 17:28:00 36.61 [place] Univ ersity of [place] [facility] Respiratory rate 2020-11-14 17:28:00 18 /min Univ ersity of [place] [facility] Oxygen saturation in 2020-11-14 17:28:00 98 /min University of Arterial blood by [place] [employer] mal[facility] Pulse oximetry Branch Body weight 2020-11-12 09:44:00 78.971 kg [facility]i ty [facility] [place] [facility] BMI 2020-11-12 09:44:00 28.10 kg/m2 [facility] [place] [facility] Body height 2020-11-12 04:54:00 167.6 cm [facility] [place] [facility] Systolic blood 2020-11-12 16:14:00 165 mm[Hg] Univer sity of pressure [facility] Diastolic blood 2020-11-12 16:14:00 97 mm[Hg] Unive rsity of [facility] Heart rate 2020-11-12 16:14:00 97 /min [facility] Body temperature 2020-11-12 16:14:00 36.94 [place] [facility] Respiratory rate 2020-11-12 16:14:00 15 /min [facility] Oxygen saturation in 2020-11-12 16:14:00 100 /min [facility] Arterial blood by [facility] Pulse oximetry [place] Body weight 2020-11-12 09:44:00 78.971 kg [facility] BMI 2020-11-12 09:44:00 28.10 kg/m2 [facility] Body height 2020-11-12 04:54:00 167.6 cm [facility] Procedures Procedure Date / Time Performing Clinician Source Performed AUTHORIZATION FOR RELEASE 2021-02-21 05:01:00 Doctor Unassigned, [facility] OF [facility] [place] [facility] POCT GLUCOSE (AUTOMATED) 2020-11-16 21:51:00 Chava Oakes Un iversity of [facility] POCT GLUCOSE (AUTOMATED) 2020-11-16 16:23:00 Chava Oakes Un iversity of [facility] POCT GLUCOSE (AUTOMATED) 2020-11-16 12:34:00 Chava Oakes Un iversity of [facility] COMP. METABOLIC PANEL 2020-11-16 08:41:00 Derek Cintron [facility] ([id number]) [facility] CBC WITH DIFF 2020-11-16 08:41:00 Erum Daniel [place] o f [facility] POCT GLUCOSE (AUTOMATED) 2020-11-16 00:38:00 Chava Oakes Un iversity of [facility] POCT GLUCOSE (AUTOMATED) 2020-11-15 21:08:00 Chava Oakes Un iversity of [facility] POCT GLUCOSE (AUTOMATED) 2020-11-15 16:39:00 Chava Oakes Un iversity of [facility] POCT GLUCOSE (AUTOMATED) 2020-11-15 16:39:00 Chava Oakes Un iversity of [facility] Branch TRANSTHORACIC ECHO (TTE) 2020-11-15 13:25:00 John Díaz [facility] POCT GLUCOSE (AUTOMATED) 2020-11-15 12:32:00 Chava Oakes Un iversity of [facility] POCT GLUCOSE (AUTOMATED) 2020-11-15 12:32:00 Chava Oakes Un iversity of [facility] COMP. METABOLIC PANEL 2020-11-15 08:30:00 Abdulaziz litzy [facility] ([id number]) [facility] CBC WITH DIFF 2020-11-15 08:30:[address] [facility] COMP. METABOLIC PANEL 2020-11-15 08:30:00 Derek Cintron [facility] ([id number]) [facility] CBC WITH DIFF 2020-11-15 08:30:[address] [facility] POCT GLUCOSE (AUTOMATED) 2020-11-15 08:11:00 Chava Oakes Un iversity of [facility] POCT GLUCOSE (AUTOMATED) 2020-11-15 08:11:00 Chava Oakes Un iversity of [facility] VANCOMYCIN TROUGH 2020-11-15 01:34:00 Abdulaziz [facility] VANCOMYCIN TROUGH 2020-11-15 01:34:00 Derek Cintron [facility] POCT GLUCOSE (AUTOMATED) 2020-11-14 21:40:00 Chava Oakes Un iversity of [facility] POCT GLUCOSE (AUTOMATED) 2020-11-14 21:40:00 Chava Oakes Un iversity of [facility] POCT GLUCOSE (AUTOMATED) 2020-11-14 17:28:00 hCava Oakes Un iversity of [facility] POCT GLUCOSE (AUTOMATED) 2020-11-14 17:28:00 Chava Oakes Un [facility] [place] [facility] POCT GLUCOSE (AUTOMATED) 2020-11-14 17:28:00 Chava Oakes Un iversity of [place] [facility] CLOSURE SURGICAL WOUND 2020-11-14 15:36:00 [facility]nie [facility]z [facility] [place] LOWER EXTREMITY Medical Branch INCISION AND DRAINAGE 2020-11-14 15:36:00 Ronnie Jaquez [facility] [place] sity of [place] LOWER EXTREMITY Medical Branch CLOSURE SURGICAL WOUND 2020-11-14 15:36:00 Ronnie [facility]z [facility] [place] LOWER EXTREMITY Medical Branch INCISION AND DRAINAGE 2020-11-14 15:36:[address] [facility] of [place] LOWER EXTREMITY Medical Branch US RETROPERITONEAL 2020-11-14 13:43:05 Abdulaziz litzy [facility] COMPLETE Medical Branch US RETROPERITONEAL 2020-11-14 13:43:05 Abdulaziz [facility] COMPLETE Medical Branch US RETROPERITONEAL 2020-11-14 13:43:05 Abdulaziz [facility] Medical Branch POCT GLUCOSE (AUTOMATED) 2020-11-14 12:55:00 Chava Oakes Un iversity of [facility] POCT GLUCOSE (AUTOMATED) 2020-11-14 12:55:00 Chava Oakes Un [facility]versity of [place] [facility] POCT GLUCOSE (AUTOMATED) 2020-11-14 12:55:00 Chava Oakes [facility] [place] [facility] POCT GLUCOSE (AUTOMATED) 2020-11-14 08:26:00 Chava Oakes [facility] [place] [facility] POCT GLUCOSE (AUTOMATED) 2020-11-14 08:26:00 Chava Oakes [facility] [place] [facility] POCT GLUCOSE (AUTOMATED) 2020-11-14 08:26:00 Chava Oakes Un [facility] [place] [facility] COMP. METABOLIC PANEL 2020-11-14 08:21:00 Derek Cintron [facility] ([id number]) Medical Branch CBC WITH DIFF 2020-11-14 08:21:00 Derek Cintron [facility] Branch COMP. METABOLIC PANEL 2020-11-14 08:21:00 Abdulaziz litzy [facility] ([id number]) Medical Branch CBC WITH DIFF 2020-11-14 08:21:00 Abdulaziz [facility] COMP. METABOLIC PANEL 2020-11-14 08:21:00 Derek Cintron [facility] ([id number]) Medical Branch CBC WITH DIFF 2020-11-14 08:21:00 Abdulaziz [facility] POCT GLUCOSE (AUTOMATED) 2020-11-13 21:30:00 Chava Oakes Un iversity of [place] [facility] POCT GLUCOSE (AUTOMATED) 2020-11-13 21:30:00 Chava Oakes Un [facility] [place] [facility] POCT GLUCOSE (AUTOMATED) 2020-11-13 21:30:00 Chava Oakes [facility] [place] [facility] POCT GLUCOSE (AUTOMATED) 2020-11-13 16:26:00 Chava Oakes Un [facility] [place] [facility] POCT GLUCOSE (AUTOMATED) 2020-11-13 16:26:00 Chava Oakes Un iversity of [place] [facility] POCT GLUCOSE (AUTOMATED) 2020-11-13 16:26:00 Chava Oakes Un iversity of [place] [facility] POCT GLUCOSE (AUTOMATED) 2020-11-13 12:32:00 Chava Oakes Un iversity of [place] [facility] POCT GLUCOSE (AUTOMATED) 2020-11-13 12:32:00 Chava Oakes Un iversity of [place] [facility] POCT GLUCOSE (AUTOMATED) 2020-11-13 12:32:00 Chava Oakes Un iversity of [place] [facility] POCT GLUCOSE (AUTOMATED) 2020-11-13 08:55:00 Chava Oakes Un [facility] [place] [facility] POCT GLUCOSE (AUTOMATED) 2020-11-13 08:55:00 Chava Oakes Un [facility] [place] [facility] POCT GLUCOSE (AUTOMATED) 2020-11-13 08:55:00 [facility] 2020-11-13 08:51:00 Abdulaziz [facility] CREATINE KINASE 2020-11-13 08:51:00 Abdulaziz [facility] URIC ACID 2020-11-13 08:51:00 Abdulaziz [facility] MAGNESIUM 2020-11-13 08:51:00 Abdulaziz [facility] COMP. METABOLIC PANEL 2020-11-13 08:51:00 Abdulaziz [facility] ([id number]) [facility] CBC WITH DIFF 2020-11-13 08:51:00 Abdulaziz [facility] N-TERMINAL PRO-BNP 2020-11-13 08:51:00 Abdulaziz [facility] PHOSPHORUS 2020-11-13 08:51:00 Abdulaziz [facility] CREATINE KINASE 2020-11-13 08:51:00 Abdulaziz [facility] URIC ACID 2020-11-13 08:51:00 Abdulaziz [facility] MAGNESIUM 2020-11-13 08:51:00 Abdulaziz [facility] COMP. METABOLIC PANEL 2020-11-13 08:51:00 Abdulaziz litzy [facility] ([id number]) [facility] CBC WITH DIFF 2020-11-13 08:51:00 Abdulaziz [facility] N-TERMINAL PRO-BNP 2020-11-13 08:51:00 Abdulaziz [facility] PHOSPHORUS 2020-11-13 08:51:00 Abdulaziz [facility] CREATINE KINASE 2020-11-13 08:51:00 Abdulaziz [facility] URIC ACID 2020-11-13 08:51:00 Abdulaziz [facility] MAGNESIUM 2020-11-13 08:51:00 Abdulaziz [facility] COMP. METABOLIC PANEL 2020-11-13 08:51:00 Derek Cintron [facility] ([id number]) Medical Branch CBC WITH DIFF 2020-11-13 08:51:[address] [facility] N-TERMINAL PRO-BNP 2020-11-13 08:51:[address] [facility] POCT GLUCOSE (AUTOMATED) 2020-11-12 21:39:00 Chava Oakes Un iversity of [facility] POCT GLUCOSE (AUTOMATED) 2020-11-12 21:39:00 Chava Oakes Un iversity of [facility] POCT GLUCOSE (AUTOMATED) 2020-11-12 21:39:00 Chava Oakes Un iversity of [facility] POCT GLUCOSE (AUTOMATED) 2020-11-12 17:03:00 Chava Oakes Un iversity of [facility] POCT GLUCOSE (AUTOMATED) 2020-11-12 17:03:00 Chava Oakes Un iversity of [facility] POCT GLUCOSE (AUTOMATED) 2020-11-12 17:03:00 Chava Oakes Un iversity of [facility] ASPIRATE OR ABSCESS 2020-11-12 15:58:00 Ronnie Jaquez [facility] CULTURE(AEROBIC/ANAEROBIC) [facility] [employer] CULTURE 2020-11-12 15:58:[address] [facility] FUNGUS (ROUTINE) CULTURE 2020-11-12 15:58:00 Ronnie Jaquez Uni versity of [facility] ASPIRATE OR ABSCESS 2020-11-12 15:58:00 Ronnie [facility]aquez [facility] CULTURE(AEROBIC/ANAEROBIC) [facility] [employer] CULTURE 2020-11-12 15:58:[address] [facility] FUNGUS (ROUTINE) CULTURE 2020-11-12 15:58:00 Ronnie Jaquez Uni versity of [facility] ASPIRATE OR ABSCESS 2020-11-12 15:58:00 Ronnie [facility]aquez [facility] CULTURE(AEROBIC/ANAEROBIC) [facility] Branch [employer] CULTURE 2020-11-12 15:58:[address] [facility] FUNGUS (ROUTINE) CULTURE 2020-11-12 15:58:00 Ronnie Jaquez [facility] SURGICAL PATHOLOGY EXAM 2020-11-12 15:56:00 Ronnie Jaquez [facility] TOE AMPUTATION 2020-11-12 15:18:[address] [facility] TOE AMPUTATION 2020-11-12 15:18:[address] [facility] URINALYSIS 2020-11-12 14:10:[address] [facility] SODIUM, URINE RANDOM 2020-11-12 14:10:00 Derek Cintron [facility] PROTEIN CREAT RATIO URINE 2020-11-12 14:10:00 Derek Cintron iversity of [facility] URINALYSIS 2020-11-12 14:10:[address] [facility] SODIUM, URINE RANDOM 2020-11-12 14:10:00 Derek Cintron [facility] PROTEIN CREAT RATIO URINE 2020-11-12 14:10:00 Derek Cintron Un iversity of [facility] URINALYSIS 2020-11-12 14:10:[address] [facility] SODIUM, URINE RANDOM 2020-11-12 14:10:00 Derek Cintron [facility] PROTEIN CREAT RATIO URINE 2020-11-12 14:10:00 Derek Cintron iversity of [facility] POCT GLUCOSE (AUTOMATED) 2020-11-12 13:03:00 Chava Oakes Un iversity [facility] POCT GLUCOSE (AUTOMATED) 2020-11-12 13:03:00 Chava Oakes Un iversity [facility] POCT GLUCOSE (AUTOMATED) 2020-11-12 13:03:00 [facility] ROUT[facility] & RHYTHM 2020-11-12 09:07:57 Derek Cintron [facility] HB ECG ROUTINE & RHYTHM 2020-11-12 09:07:57 Abdulaziz [facility] HB ECG ROUTINE & RHYTHM 2020-11-12 09:07:57 [facility] 2020-11-12 08:45:00 Abdulaziz [facility] CREATINE KINASE 2020-11-12 08:45:00 Abdulaziz [facility] URIC ACID 2020-11-12 08:45:00 Abdulaziz [facility] MAGNESIUM 2020-11-12 08:45:00 Abdulaziz [facility] FERRITIN SERUM 2020-11-12 08:45:00 Abdulaziz [facility] VITAMIN B12, LEVEL 2020-11-12 08:45:00 Abdulaziz [facility] C-REACTIVE PROTEIN 2020-11-12 08:45:00 Abdulaziz [facility] THYROID STIMULATING 2020-11-12 08:45:00 Abdulaziz litzy [facility] HORMONE [facility] COMP. METABOLIC PANEL 2020-11-12 08:45:00 Derek Cintron [facility] ([id number]) Medical [place] LIPID PANEL ([id number])(TOTAL 2020-11-12 08:45:00 Derek Cintron [facility] TRIGLYCERIDES, HDL) IRON PANEL 2020-11-12 08:45:00 Abdulaziz [facility] CBC WITH DIFF 2020-11-12 08:45:00 Abdulaziz [facility] PROTHROMBIN TIME / INR 2020-11-12 08:45:00 Abdulaziz litzy [facility] N-TERMINAL PRO-BNP 2020-11-12 08:45:00 Abdulaziz [facility] LACTIC ACID WHOLE BLOOD 2020-11-12 08:45:00 Abdulaziz [facility] PROCALCITONIN 2020-11-12 08:45:00 Abdulaziz [facility] PHOSPHORUS 2020-11-12 08:45:00 Abdulaziz [facility] CREATINE KINASE 2020-11-12 08:45:00 Abdulaziz [facility] URIC ACID 2020-11-12 08:45:00 Abdulaziz [facility] MAGNESIUM 2020-11-12 08:45:00 Abdulaziz [facility] FERRITIN SERUM 2020-11-12 08:45:00 Abdulaziz [facility] VITAMIN B12, LEVEL 2020-11-12 08:45:00 Abdulaziz [facility] C-REACTIVE PROTEIN 2020-11-12 08:45:00 Abdulaziz [facility] THYROID STIMULATING 2020-11-12 08:45:00 Abdulaziz litzy [facility] HORMONE [facility] COMP. METABOLIC PANEL 2020-11-12 08:45:00 Derek Cintron [facility] ([id number]) Medical [place] LIPID PANEL ([id number])(TOTAL 2020-11-12 08:45:00 Derek Cintron [facility] TRIGLYCERIDES, HDL) IRON PANEL 2020-11-12 08:45:00 Abdulaziz [facility] CBC WITH DIFF 2020-11-12 08:45:00 Abdulaziz [facility] PROTHROMBIN TIME / INR 2020-11-12 08:45:00 Derek Cintron [facility] N-TERMINAL PRO-BNP 2020-11-12 08:45:[address] [facility] VITAMIN D, 25-OH 2020-11-12 08:45:00 Abdulaziz [facility] LACTIC ACID WHOLE BLOOD 2020-11-12 08:45:00 Derek Cintron [facility] PROCALCITONIN 2020-11-12 08:45:00 Abdulaziz [facility] PHOSPHORUS 2020-11-12 08:45:00 Abdulaziz [facility] CREATINE KINASE 2020-11-12 08:45:00 Abdulaziz [facility] URIC ACID 2020-11-12 08:45:[address] [facility] MAGNESIUM 2020-11-12 08:45:00 Abdulaziz [facility] FERRITIN SERUM 2020-11-12 08:45:00 Abdulaziz [facility] VITAMIN B12, LEVEL 2020-11-12 08:45:[address] [facility] C-REACTIVE PROTEIN 2020-11-12 08:45:[address] [facility] THYROID STIMULATING 2020-11-12 08:45:00 Derek Cintron [facility] HORMONE [facility] COMP. METABOLIC PANEL 2020-11-12 08:45:00 Derek Cintron [facility] ([id number]) Medical Branch LIPID PANEL ([id number])(TOTAL 2020-11-12 08:45:00 Derek Cintron [facility] CHOLESTEROL, [facility] TRIGLYCERIDES, HDL) IRON PANEL 2020-11-12 08:45:[address] [facility] CBC WITH DIFF 2020-11-12 08:45:00 Abdulaziz [facility] PROTHROMBIN TIME / INR 2020-11-12 08:45:00 Derek Cintron [facility] N-TERMINAL PRO-BNP 2020-11-12 08:45:[address] [facility] VITAMIN D, 25-OH 2020-11-12 08:45:00 Abdulaziz litzy [facility] LACTIC ACID WHOLE BLOOD 2020-11-12 08:45:00 Derek Cintron [facility] PROCALCITONIN 2020-11-12 08:45:[address] [facility] SEDIMENTATION RATE 2020-11-12 08:38:00 Abdulaziz [facility] SEDIMENTATION RATE 2020-11-12 08:38:00 Abdulaziz [facility] SEDIMENTATION RATE 2020-11-12 08:38:[address] [facility] CT FOOT RIGHT WO CONTRAST 2020-11-12 07:09:41 [facility] CONTRAST 2020-11-12 07:09:41 [facility]OT RIGHT WO CONTRAST 2020-11-12 07:09:41 Derek Cintron [facility] XR CHEST 1 VW 2020-11-12 07:09:[address] [facility] XR CHEST 1 VW 2020-11-12 07:09:[address] [facility] XR CHEST 1 VW 2020-11-12 07:09:[address] [facility] XR FOOT 3+ VW RIGHT 2020-11-12 01:44:18 Chava Oakes [facility] XR FOOT 3+ VW RIGHT 2020-11-12 01:44:18 Chava Oakes [facility] XR FOOT 3+ VW RIGHT 2020-11-12 01:44:18 Chava Oakes [facility] BLOOD CULTURE SCREEN 2020-11-12 01:37:00 Chava Oakes [facility] COMP. METABOLIC PANEL 2020-11-12 01:37:00 Chava Oakes [facility] ([id number]) [facility] CBC WITH DIFF 2020-11-12 01:37:00 Chava Oakes [facility] GLYCOSYLATED HEMOGLOBIN 2020-11-12 01:37:00 Derek Cintron [facility] (A1C) [facility] EXTRA TUBE LT. BLUE 2020-11-12 01:37:00 Chava Oakes [facility] EXTRA TUBE LT. GREEN 2020-11-12 01:37:00 Chava Oakes [facility] COVID-19 (ID NOW RAPID 2020-11-12 01:37:00 Chava Oakes [facility] TESTING) Medical Branch BLOOD CULTURE SCREEN 2020-11-12 01:37:00 Chava Oakes [facility] COMP. METABOLIC PANEL 2020-11-12 01:37:00 Chava Oakes [facility] ([id number]) Medical Branch CBC WITH DIFF 2020-11-12 01:37:00 Chava Oakes [facility] GLYCOSYLATED HEMOGLOBIN 2020-11-12 01:37:00 Derek Cintron [facility] (A1C) Medical Branch EXTRA TUBE LT. BLUE 2020-11-12 01:37:00 Chava Oakes [facility] EXTRA TUBE LT. GREEN 2020-11-12 01:37:00 Chava Oakes [facility] COVID-19 (ID NOW RAPID 2020-11-12 01:37:00 Chava Oakes [facility] TESTING) Medical Branch BLOOD CULTURE SCREEN 2020-11-12 01:37:00 Chava Oakes [facility] COMP. METABOLIC PANEL 2020-11-12 01:37:00 Chava Oakes [facility] ([id number]) Medical Branch CBC WITH DIFF 2020-11-12 01:37:00 Chava Oakes [facility] GLYCOSYLATED HEMOGLOBIN 2020-11-12 01:37:00 Derek Cintron [facility] (A1C) Medical [place] EXTRA TUBE LT. BLUE 2020-11-12 01:37:00 Chava Oakes [facility] EXTRA TUBE LT. GREEN 2020-11-12 01:37:00 Chava Oakes [facility] COVID-19 (ID NOW RAPID 2020-11-12 01:37:00 Chava Oakes [facility] TESTING) Medical Branch BLOOD CULTURE SCREEN 2020-11-12 01:22:00 Chava Oakes [facility] BLOOD CULTURE SCREEN 2020-11-12 01:22:00 Chava Oakes [facility] BLOOD CULTURE SCREEN 2020-11-12 01:22:00 Chava Oakes [facility] NOTICE OF PRIVACY 2020-11-12 00:41:02 Doctor Unassmichelle, [facility] [place] [facility] [place] NOTICE OF PRIVACY 2020-11-12 00:41:02 Doctor Unassigned, [facility] [place] [facility] [place] NOTICE OF PRIVACY 2020-11-12 00:41:02 Doctor Unassigned, [facility] [place] [facility] CONSENT/REFUSAL FOR 2020-11-12 00:40:11 [facility] [place] [facility] CONSENT/REFUSAL FOR 2020-11-12 00:40:11 [facility] [place] [facility] CONSENT/REFUSAL FOR 2020-11-12 00:40:11 Doctor Unassmichelle, [facility] DIAGNOSIS AND TREATMENT [place] [facility] [place] Encounters Start End Encounter Admission Attending Care Care Encounter Source Date/Time Date/Time Type Type Clinicians Facility Department ID 2021-04-03 2021-04-03 Outpatient R ANGEL [facility] [id number] Univers 19:00:00 19:00:00 ETHAN [facility] 2021-02-21 2021-02-21 Orders Doctor ESPOSITO [id number] Univers 00:00:00 00:00:00 Only Unassigned, SONIDO [id number] [facility] [place] [facility] 4.2.7.2.686 Xavi as [phone] [facility] 009 Branch 2020-11-17 2020-11-17 Transition Manny Hood [id number] Univers 00:00:00 00:00:00 of Care Leandra Allred [id number] [place] [id number] [facility] 403 Branch 2020-11-11 2020-11-16 [facility] Chava Oakes [facility] 1.2.840. 114 [id number] Univers 19:49:00 18:26:00 Encounter Derek Cintron Am[place] [id number] ity of [place] 4.2.7.2.686 [facility] [id number] [facility] 081 Branch 2020-11-14 2020-11-14 Surgery [facility] [id number] Univers 10:50:00 12:42:00 Ronnie Goel [id number] [place] [id number] [facility] 020 Branch 2020-11-12 2020-11-12 Surgery [facility] [id number] Univers 10:10:00 11:17:00 Ronnie Crump [place] [id number] [place] [id number] [facility] 020 Branch 2020-11-11 2020-11-11 Emergency X [facility] ERT [id number] Univers 19:43:00 19:43:00 [facility] Results Test Description Test Time Test Comments Results Result Comments Source POCT GLUCOSE (AUTOMATED) 2020-11-16 22:18:06 Test Item Value Reference Range Interpretation Comme nts POCT GLU (test code = 9106293405) 108 mg/dL 70-110 Lab Interpretation (test code = 74990-8) [facility]-11-16 16:49:24 Test Item Value Reference Range Interpretation Comments POCT GLU (test code = 5340069656) 93 mg/dL 70-110 Lab Interpretation (test code = Normal 00128-3) [facility] [id number] 14:39:00 Test Item Value Reference Range Interpretation Comments Case Report (test code Surgical Pathology ? ? = [id number]) ?Case: [id number] ? Authorizing Provider: ?Ronnie Jaquez Jr., DPM ? Collected: ? 11/12/2020 1056 ?Ordering Location: ? ? [facility] ? ? ?Received: ?11/12/20201130 ? [facility] Center ?Pathologist: ? Sia, Kam, PHD ?Specimens: ? A) - TOE, FIFTH METATARSAL/TOE, RIGHT ? B) - BONE, FIFTH METATARSAL BONE BIOPSY, RIGHT ? Final Diagnosis (test q9krtAZnUJWsm6niWDGvcZG code = 4105726978) uZzEwMzNcZnRuYmpcdWMxIH tccnRmMVxlcGljOTQwMlxhb rViQEZvrKAjY8NkltugWCrp PZ4cLI8puLrzxQQstBQxTTW cXkGtf4fel336gVNkl3muXM YEtqqbmLu0qYvcU52ga9T8Z slrN83viQOkDQR8HAXsIYXj kNEiQAEnYVP8THDxtSVxB7g fKNVeMD5zbpzoEUupUPqjYR WhaHR3MYCllDLgE3DeJCDhS RczONBczos8DeWwGe4haXGb eTcyMFxwYXJkXHBsYWluXGZ eYlRzpQWyBFBmKHQUB7hPLL BSSUdIVCBGSUZUSCBNRVRBV BEGX0AVFXVAXRKMP1BkLSEB MRIYALYZN116UINaupEsROE jDWNEW3OJAWDGE1UDO35CXH tBIVrVOSiANMvmF3MXCvhCV Y3IDMOTW7ZZZZNEU81qvYSz ICAgICAtIEFSVElDVUxBUiB TVVJGQUNFIFdJVEggQUNVVE HpI6PKCG6DFKAMBTYATyVDG KRJEAHLT0JYT3EjY7dECJzQ NYHJIsJBMF7YWHYAPfSfPHU hciAgICAgICBUSVNTVUVccG UzNHWoCOLuTOSXEF9xRC1UK PFMKgHmBDwRF9PSUJ2BKoqQ MhWQBADUALTSJ4PXH6LkVGV mifuxOMXyPy1iAu4FCTbuOc lHSFQgRklGVEggTUVUQVRBU lNBTCwgQklPUFNZOlxwYXIg TBFaEN8gYk7uSWYBRNYJCE5 TVEVPTVlFTElUSVMgSURFTl RJRklFRFxwYXJccGFyIEFyd 9isKGI5vb0ihvxrUV7iXBEJ FSAlldkiQCJ7v2bukZFdJDL nmKRpKwCuAGZxUMVlf0sxBD VmbGFuZzEwMzNcZnRuYmpcd JJtGGPkXwZlt5siv822zPQg z4lyUSSgPsJ4vLMoIDEfjVf gqlb3oAfvOuBrIQIto8azli BcZmNoYXJzZXQwIEFyaWFsO 661ZUNyRXrhk2bcj3ZdGVRg lXVlm3X6KUTXBHfxXbCgS47 8y5sta8sxkwOfcXE3DICaRB Y2NZousrTzgiQ0FNgyjPKqT xW9SAteneUvCGbwchQhetVo Cyi0CVUmX462WHG0yCcjx6o yAUH5QKFxLAAeWcnmJx6yiD AsR311PZIzXDXFDAFuyCc6A OTafrGbmvLtcROUd851M662 j5ooHIZejyDtoPkRpmvyb9u aU940JCPkdEWzaaDpNzNnFH RdnLNnnRM3MCNpDW2ascwnF TeaVGfgUQMrswM5OBZkgPHr K7HfUCBfMA2wynknHQL2WFn nPGKhMXJ8FfQmEZDeb4Jhov b3NjFpxa8btp64ZNQ8x3Bpj YxaCKN1DJH4XwUiZb9gdABf UUMkGG5kLvRoiUCbOIIuzh3 8tPfpFRoxspSgzT8pZaQvOJ NouXHcXBLpKE6qzFNeRAEkq T3jzodvGQXlTaIxzmvwGVLg iFwqqqMtTx4wxUzyGCB3HGb tK2djmO9aRdO4QIotO9ktiK 2rJCn1KSohcTQ9KQCrjN5jV F3tbqoni8yzXWljGFssTLZj vvW5xpF0NFYbnCTaN3RyqO9 dJOIvUD2uqleml5kwYDO8OL lqWAUsAYI4BvNxRZIsk5Gnc nt8DkYha5PqkFGlCTbnO76e r935YTLlqfPoU5nwuLAkyjl rzBKwrcdaEQxakzO1AYRbEX BsYWluXGYxXGZzMjBcbGFuZ zEwMzNcaGljaFxmMVxkYmNo OXOcJHvzN7sdDlQsF5CmFLB vWcUtxPAiMNhopUL4GYRdMR Izp83fsGf5IUEsgcrdm9OsE XDjhLRfmODdqK6crmKjr8bf CUIpONLgDHZmG1ZlQMA0xVQ gTMZnpUWzfIM3SJ7inxKqPD 1hZGUgYnkgcmVzaWRlbnRzL ILwPQdem0fjTX1nWUHxbVgs yI9jgGE9INRqz5khtFWueTY ic9pep9GqulDpPFbkVYZzWA fgLZWlAOWbLO9pFUDdeWTss rBms4D7JwqjlVEumpgnIewq bkT6ACyefiphCMPaCRdkE3f bKqMhNMWufDbnSpojc0HtGV YyXGZzMjhccGFyfX0= Clinical Information RIGHT FIFTH DIGIT (test code = OSTEOMYELITIS WITH FOOT [id number]) ABSCESS Gross Description b5uvyVSdHQTukMCJOOUeFvw (test code = qlbNqVMMxpDDzB0PehocuDQ 9336589471) brXQ7mAU1bnPwijJLeoACdJ P0VPSGyMyMkGYOasZZbflTn OiMeVSIlfGOsmDT5ACJaDJ8 argleIJaeBHshXGJuyuP6EU WcmAUtN4AgIXHjDK0mtkqjD LA7HBoltW2ltsZSApfvCe7o dHRibHtcZjFcZmNoYXJzZXQ dAFOulKaoVBHvHIs5mX3MUn etVWF5FYMTWthsTJRzGJ0Vh 9ccDXFitAUjXOB3RZjseSFp UZPvXFRfYTf4ODLqOWuktXL kOX6rsVaxNnedzAdvs6JfgE BcXGlkIDUxMDAyIFxcZGIgI C4BJpGjIMy4HpB5QxEvNIn3 JVq5ZG9BWgIzXBUlKEl2ZuQ 5TJVnBBa5HNukET2YJEIlIX M5AUw6ZSFqDQM0KPShUMi8E DIgXFxmIEFyaWFsIFxcZnMg GOVvWEaszQQqGL2ndSxqwGZ pblxmczIwXHBhciANClxwbG FpblxlcGljTmVzdERvYzEgD QpcbHRycGFyXGxpbjBccmlu MCANClxsdHJjaFxmczIyIFN wZWNpbWVuIEEgaXMgcmVjZW h1RGTwkF9ePd0hsIWubW6wa XSaXUziOOE3ePIfKXAyLSLw XVQhON10N0LjkzNpBHgsWLj irqWeXvXmETEdmYB0dLOeLK SpcWFyq4LtB7KlKZpjavkrq UJlBFPxfoTiQ70nx2yecAXu m1QeKEZzuIG4fIAkyXirdCO gLY5fKYuxGr7rDYdxCX28BC WoVTIkvBOqsrQdC0IlTVZrI IYzrXC6rUAclUJ3YTGsirHi sDvteYVjI4VnxOFzn5ithU6 iPATtPCUdk2lkMYtpTEKqne 3jlB5lPWCuEUNyz4P2iMMeF EnurJibZDX7SJ6mjAYrpM17 NEU7cAnev9JrSLOxyiYrpL3 yBImyGHAsZ8l0TPuvFQGoX9 Cay15uJFW1bnZmBAYbICxiN OI9RY3toWNlhL56MGWbc4O4 NP5eRLCtbuRlNQhlFhBvcJT qHwObeKZwZljbW01pSOIzRE PlWGO2cFEpmFalULFdqlOpv 89zdKfmPFByKZ08UXTgh4re NMGyslPiI0Chn0VpqHItgnP zdRYqxkP6qWPqu2hgxfYwko Hwn51bjOH0xKLvnBItatHjZ FK2cM9hFB2viplanoZhkaEz kARqe5UoBHOcXT63WEZuJVO ml56mlCryTMLbjlHkYLqyAW H7zUM4kXE1LVZqk8PgLmEcF D4fMHzsRCR0fNYniJEgICPf wcMcExF4yPNfLj4qBSAhscC leUwomq21ZPjji8mjIP6nWD Ehvr9vONHXWDWyMLWztwGpj Jb9DUZaTKJ7dH2uldStqzPn g7EthFz2cGJdJOvcFTMrICD oHRUla7fuk7zdylvmHGLnJL fdeHFoN8P2uB6oFE8dFWKuY BBnOaoqCFJuTHwkbKUpFJ9C X7RjmXnbkxUlp4XhIxrySAB xTGxHATnuB6xokqMouaBdl3 0mlCP0oSOvdGSlqcXwSZG1k I2tXG7mapmarbxdDP24zLSy fZiwCFEmTEJoY5BqzFRpRC5 LXXE5YLRbdvIwPMntZEX0tU D5wQV1MQCie3XxBgFeIDorV B49mVLwgShhKXWaGPNqF8Jz MVLmmRwzt5dtTsEdOZNwaZE sByyaEYVgm80osGWdMS8ICP I3FDKjtPCda9NypLS6uJDfZ BHsf4JuCTMrQ5Tid70gi4Vn SWtkgYAfKGTauUqlo0yuGaZ kCLFqiLKnPprsAIGil66GJh xwbGFpblxlcGljTmVzdERvY sOvpLufsH88HZYdcBWfRHE6 DG5vSFRewphxLYOvCNAfEGY 7QKyskH70zVSmVPFxXBIvqC KkfF0Hu0lbYCAyeTIrQOB8Q FxcaWQgNTEwMDIgXFxkYiAg P7MTODRwVOxqTDt7KzOkKTm 3XEbbE2OTZZTeWYB6XWn8DN BvAdU1KJe9DYGSWi4pHVD9S CB6BFO5KlS5JJY3LPLeODQe MiBcXGYgQXJpYWwgXFxmcyA cMWEjBMUlDJutxzM7JOGjVa CaqNYhYS0KMODlBUvmUTUdm GPTYUC7ED5qCPZMGstfxLWn HFUmzBqcQUvkpL4hZG5JLCl 4zwPxLIFjErGcK1OnH6hnML 4gQiBpcyByZWNpZXZlZCBpb iAck4LhHLybxgNiASElcFSs IHdpdGggdGhlIHBhdGllbnQ bydAsOV3qTWJFJMNukT3dVP MxFcCoaUC3dNUhRDMwwXWoa 1VnUFBqkiVaPviiyNT5QUOs kEpmlVJuFB9lBMOaerGjd1X fHN3kLLPrh9mqN0igQMAgmz 4zxQ8sRUIbunMiQxYyL69yh bAtNMLtNpG4FGXgYbF1KODj MiBjbSkuIFRoZSBzcGVjaW1 detZancHfuFq0JRWjZDI9xR LbgOgbDRQcSzkdtWY8WNKwG fQlfzYrp0HcmLu3jLGsAKtq KWQmgA1nyX9lPfIhQBSsyJg fc6kuSpDdHDCxrANxHvmfHN Lfk17yRUJxpaYSYbqfZGSlU YjQTKV8MGTpmnCtgHlyFRDI JNCjCGDbY1V2TZGngFapWXD tXJaJcNmmIARAF3pdaTHiCP uyVZMYDFbNR0ZRTY4YBPVuL ZwoZCWqdWCVXIZ0BW4pPLxs qRNwrwngVLMaB6YiT3TmfpV ylBYgBZInhdXhd6xeBLF3ZC IbySPwwOUwNcUxHjlpTDM6V Vkib7wvBYU1MVEhdESgpHBj CGtvNhJtBnkgXJGrU5OzI4L vtkJ6KRn7 Embedded Images (test code = 0827760156) [facility] GLUCOSE (AUTOMATED)2020-11-16 12:40:09 Test Item Value Reference Range Interpretation Comments POCT GLU (test code = 0048276562) 179 mg/dL 70-110 H Lab Interpretation (test code = Abnormal 46153-4) [facility] METABOLIC PANEL (00652)2020-11-16 09:53:25 Test Item Value Reference Range Interpretation Comments NA (test code = 137 mmol/L 135-145 7597958234) K (test code = 3.9 mmol/L 3.5-5.0 8876840052) CL (test code = 107 mmol/L 98-108 1855749348) CO2 TOTAL (test code = 24 mmol/L 23-31 0445622713) AGAP (test code = 2-16 7224872381) BUN (test code = 25 mg/dL 7-23 H 7721988397) GLUCOSE (test code = 161 mg/dL 70-110 H 0416692071) CREATININE (test code = 2.03 mg/dL 0.60-1.25 H 4518428083) TOTAL BILI (test code = 0.3 mg/dL 0.1-1.1 5961683156) CALCIUM (test code = 8.4 mg/dL 8.6-10.6 L 8223945087) T PROTEIN (test code = 5.7 g/dL 6.3-8.2 L 4679739660) ALBUMIN (test code = 2.6 g/dL 3.5-5.0 L 7015870233) ALK PHOS (test code = 74 U/L 34-122 6415289509) ALTv (test code = 23 U/L 5-50 1742-6) AST(SGOT) (test code = 38 U/L 13-40 0918118556) eGFR (test code = mL/min/1.73m2 7165060791) REBECCA (test code = REBECCA) Association of Glomerular Filtration Rate (GFR) and Staging of Kidney Disease* + --+ --+ ------+| GFR (mL/min/1.73 m2) ?| With Kidney Damage ?| ?Without Kidney Damage+ --------+ --------+ +| ?>90 ?| ?Stage one ?| ? Normal ?+ ---+ ---+ -------+| ?60-89 ?| ?Stage two ?| ? Decreased GFR ? + --+ --+ ------+| ?30-59 ?| ?Stage three ?| ? Stage three ? + --+ --+ ------+| ?15-29 ?| ?Stage four ? | ? Stage four ?+ ---+ ---+ -------+| ?<15 (or dialysis) ? ?| ?Stage five ? | ? Stage five ?+ ---+ ---+ -------+ *Each stage assumes the associated GFR level has been in effect for at least three months. ?Stages 1 to 5, with or without kidney disease, indicate chronic kidney disease. Notes: Determination of stages one and two (with eGFR >59mL/min/1.73 m2) requires estimation of kidney damage for at least three months as defined by structural or functional abnormalities of the kidney, manifested by either:Pathological abnormalities or Markers of kidney damage (including abnormalities in the composition of the blood or urine or abnormalities in imaging tests). Lab Interpretation Abnormal (test code = 62002-8) [facility] WITH [id number] 09:10:57 Test Item Value Reference Range Interpretation Comments WBC (test code = See_Comment [Automated 6690-2) message] The sy stem which generated this result transmitted reference range : 4.20 - 10.70 10*3/?L. The reference range was not used to interpret this result as normal/abnormal . RBC (test code = See_Comment L [Automated 789-8) message] The sy stem which generated this result transmitted reference range : 4.26 - 5.52 10*6/?L. The reference range was not used to interpret this result as normal/abnormal . HGB (test code = 10.8 g/dL 12.2-16.4 L 718-7) HCT (test code = 31.8 % 38.4-49.3 L 4544-3) MCV (test code = 85.0 fL 81.7-95.6 787-2) MCH (test code = 28.9 pg 26.1-32.7 785-6) MCHC (test code = 34.0 g/dL 31.2-35.0 786-4) RDW-SD (test code = 36.2 fL 38.5-51.6 L 31782-0) RDW-CV (test code = 11.7 % 12.1-15.4 L 788-0) PLT (test code = See_Comment H [Automated 777-3) message] The sy stem which generated this result transmitted reference range : 150 - 328 10*3/ ?L. The reference r rose was not used to interpret this result as normal/abnormal . MPV (test code = 9.7 fL 9.8-13.0 L 36271-7) NRBC/100 WBC (test See_Comment [Automat ed code = 3575579441) message] The system which generated this result transmitted reference range : 0.0 - 10.0 /100 WBCs. The refer ence range was not u sed to interpret th is result as normal/abnormal . NRBC x10^3 (test code <0.01 See_Comment [Auto mated = 5136509383) message] The s ystem which generated this result transmitted reference range : 10*3/?L. The reference range was not used to interpret this result as normal/abnormal . GRAN MAT (NEUT) % 68.8 % (test code = 770-8) IMM GRAN % (test code 0.50 % = 6618277263) LYMPH % (test code = 17.8 % 736-9) MONO % (test code = 7.2 % 5905-5) EOS % (test code = 5.0 % 713-8) BASO % (test code = 0.7 % 706-2) GRAN MAT x10^3(ANC) 7.09 10*3/uL 1.99-6.95 H (test code = 9204246865) IMM GRAN x10^3 (test 0.05 10*3/uL 0.00-0.06 code = 1574765409) LYMPH x10^3 (test code 1.83 10*3/uL 1.09-3.23 = 731-0) MONO x10^3 (test code 0.74 10*3/uL 0.36-1.02 = 742-7) EOS x10^3 (test code = 0.51 10*3/uL 0.06-0.53 711-2) BASO x10^3 (test code 0.07 10*3/uL 0.01-0.09 = 704-7) Lab Interpretation Abnormal (test code = 46139-6) [facility] GLUCOSE (AUTOMATED)2020-11-16 01:41:59 Test Item Value Reference Range Interpretation Comments POCT GLU (test code = 6221625357) 101 mg/dL 70-110 Lab Interpretation (test code = Normal 23704-0) [facility] GLUCOSE (AUTOMATED)2020-11-15 21:10:22 Test Item Value Reference Range Interpretation Comments POCT GLU (test code = 4748216807) 100 mg/dL 70-110 Lab Interpretation (test code = Normal 34483-1) [facility] GLUCOSE (AUTOMATED)2020-11-15 16:46:17 Test Item Value Reference Range Interpretation Comments POCT GLU (test code = 8120242712) 164 mg/dL 70-110 H Lab Interpretation (test code = Abnormal 09924-6) [facility] GLUCOSE (AUTOMATED)2020-11-15 16:46:17 Test Item Value Reference Range Interpretation Comments POCT GLU (test code = 2688893873) 164 mg/dL 70-110 H Lab Interpretation (test code = Abnormal 58085-1) [facility] 2020-11-15 14:19:34 Test Item Value Reference Range Interpretation Comments Aspirate or Abscess No aerobic/anaerobic Culture (test code = organisms isolated 07368-2) Gram stain (test code No PMNs or Mononuclear = 664-3) [facility]ANAEROBIC) 2020-11-15 14:19:34 Test Item Value Reference Range Interpretation Comments Aspirate or Abscess No aerobic/anaerobic Culture (test code = organisms isolated 73849-0) Gram stain (test code No PMNs or Mononuclear = 664-3) cells observed [facility] GLUCOSE (AUTOMATED)2020-11-15 12:59:29 Test Item Value Reference Range Interpretation Comments POCT GLU (test code = 9870545413) 162 mg/dL 70-110 H Lab Interpretation (test code = Abnormal 42470-0) [facility] GLUCOSE (AUTOMATED)2020-11-15 12:59:29 Test Item Value Reference Range Interpretation Comments POCT GLU (test code = 8183252082) 162 mg/dL 70-110 H Lab Interpretation (test code = Abnormal 74622-0) [facility] METABOLIC PANEL ([id number])2020-11-15 09:57:17 Test Item Value Reference Range Interpretation Comments NA (test code = 137 mmol/L 135-145 4752495104) K (test code = 3.9 mmol/L 3.5-5.0 4181987382) CL (test code = 109 mmol/L 98-108 H 0150838086) CO2 TOTAL (test code = 24 mmol/L 23-31 5995122521) AGAP (test code = 2-16 5090765964) BUN (test code = 23 mg/dL 7-23 5119891550) GLUCOSE (test code = 162 mg/dL 70-110 H 7130547071) CREATININE (test code = 1.98 mg/dL 0.60-1.25 H 9090521846) TOTAL BILI (test code = 0.3 mg/dL 0.1-1.1 5838711522) CALCIUM (test code = 8.0 mg/dL 8.6-10.6 L 3213060242) T PROTEIN (test code = 5.3 g/dL 6.3-8.2 L 7308635819) ALBUMIN (test code = 2.4 g/dL 3.5-5.0 L 6156665674) ALK PHOS (test code = 63 U/L 34-122 5027433221) ALTv (test code = 10 U/L 5-50 1742-6) AST(SGOT) (test code = 19 U/L 13-40 1759287293) eGFR (test code = mL/min/1.73m2 8837060949) REBECCA (test code = REBECCA) Association of Glomerular Filtration Rate (GFR) and Staging of Kidney Disease* + --+ --+ ------+| GFR (mL/min/1.73 m2) ?| With Kidney Damage ?| ?Without Kidney Damage+ --------+ --------+ +| ?>90 ?| ?Stage one ?| ? Normal ?+ ---+ ---+ -------+| ?60-89 ?| ?Stage two ?| ? Decreased GFR ? + --+ --+ ------+| ?30-59 ?| ?Stage three ?| ? Stage three ? + --+ --+ ------+| ?15-29 ?| ?Stage four ? | ? Stage four ?+ ---+ ---+ -------+| ?<15 (or dialysis) ? ?| ?Stage five ? | ? Stage five ?+ ---+ ---+ -------+ *Each stage assumes the associated GFR level has been in effect for at least three months. ?Stages 1 to 5, with or without kidney disease, indicate chronic kidney disease. Notes: Determination of stages one and two (with eGFR >59mL/min/1.73 m2) requires estimation of kidney damage for at least three months as defined by structural or functional abnormalities of the kidney, manifested by either:Pathological abnormalities or Markers of kidney damage (including abnormalities in the composition of the blood or urine or abnormalities in imaging tests). Lab Interpretation Abnormal (test code = 33716-9) [facility]. METABOLIC PANEL ([id number])2020-11-15 09:57:17 Test Item Value Reference Range Interpretation Comments NA (test code = 137 mmol/L 135-145 8857671723) K (test code = 3.9 mmol/L 3.5-5.0 0146925867) CL (test code = 109 mmol/L 98-108 H 1997351034) CO2 TOTAL (test code = 24 mmol/L 23-31 1096590845) AGAP (test code = 2-16 3529766975) BUN (test code = 23 mg/dL 7-23 5178551809) GLUCOSE (test code = 162 mg/dL 70-110 H 2187726524) CREATININE (test code = 1.98 mg/dL 0.60-1.25 H 3422673926) TOTAL BILI (test code = 0.3 mg/dL 0.1-1.9 3741780319) CALCIUM (test code = 8.0 mg/dL 8.6-10.6 L 0486921402) T PROTEIN (test code = 5.3 g/dL 6.3-8.2 L 7842892539) ALBUMIN (test code = 2.4 g/dL 3.5-5.0 L 3831399445) ALK PHOS (test code = 63 U/L 34-122 0461963174) ALTv (test code = 10 U/L 5-50 1742-6) AST(SGOT) (test code = 19 U/L 13-40 2206929754) eGFR (test code = mL/min/1.73m2 9981531046) REBECCA (test code = REBECCA) Association of Glomerular Filtration Rate (GFR) and Staging of Kidney Disease* + --+ --+ ------+| GFR (mL/min/1.73 m2) ?| With Kidney Damage ?| ?Without Kidney Damage+ --------+ --------+ +| ?>90 ?| ?Stage one ?| ? Normal ?+ ---+ ---+ -------+| ?60-89 ?| ?Stage two ?| ? Decreased GFR ? + --+ --+ ------+| ?30-59 ?| ?Stage three ?| ? Stage three ? + --+ --+ ------+| ?15-29 ?| ?Stage four ? | ? Stage four ?+ ---+ ---+ -------+| ?<15 (or dialysis) ? ?| ?Stage five ? | ? Stage five ?+ ---+ ---+ -------+ *Each stage assumes the associated GFR level has been in effect for at least three months. ?Stages 1 to 5, with or without kidney disease, indicate chronic kidney disease. Notes: Determination of stages one and two (with eGFR >59mL/min/1.73 m2) requires estimation of kidney damage for at least three months as defined by structural or functional abnormalities of the kidney, manifested by either:Pathological abnormalities or Markers of kidney damage (including abnormalities in the composition of the blood or urine or abnormalities in imaging tests). Lab Interpretation Abnormal (test code = 80114-0) [facility] WITH [id number] 09:20:14 Test Item Value Reference Range Interpretation Comments WBC (test code = See_Comment H [Automated 3390-2) message] The sy stem which generated this result transmitted reference range : 4.20 - 10.70 10*3/?L. The reference range was not used to interpret this result as normal/abnormal . RBC (test code = See_Comment L [Automated 539-8) message] The sy stem which generated this result transmitted reference range : 4.26 - 5.52 10*6/?L. The reference range was not used to interpret this result as normal/abnormal . HGB (test code = 10.4 g/dL 12.2-16.4 L 718-7) HCT (test code = 31.2 % 38.4-49.3 L 4544-3) MCV (test code = 86.7 fL 81.7-95.6 787-2) MCH (test code = 28.9 pg 26.1-32.7 785-6) MCHC (test code = 33.3 g/dL 31.2-35.0 786-4) RDW-SD (test code = 37.5 fL 38.5-51.6 L 04541-5) RDW-CV (test code = 11.9 % 12.1-15.4 L 788-0) PLT (test code = See_Comment H [Automated 777-3) message] The sy stem which generated this result transmitted reference range : 150 - 328 10*3/ ?L. The reference r rose was not used to interpret this result as normal/abnormal . MPV (test code = 9.8 fL 9.8-13.0 69273-9) NRBC/100 WBC (test See_Comment [Automat ed code = 0622248197) message] The system which generated this result transmitted reference range : 0.0 - 10.0 /100 WBCs. The refer ence range was not u sed to interpret th is result as normal/abnormal . NRBC x10^3 (test code <0.01 See_Comment [Auto mated = 8551663749) message] The s ystem which generated this result transmitted reference range : 10*3/?L. The reference range was not used to interpret this result as normal/abnormal . GRAN MAT (NEUT) % 69.2 % (test code = 770-8) IMM GRAN % (test code 0.20 % = 5863716139) LYMPH % (test code = 18.2 % 736-9) MONO % (test code = 8.3 % 5905-5) EOS % (test code = 3.4 % 713-8) BASO % (test code = 0.7 % 706-2) GRAN MAT x10^3(ANC) 7.42 10*3/uL 1.99-6.95 H (test code = 4558731361) IMM GRAN x10^3 (test <0.03 0.00-0.06 code = 8548703010) LYMPH x10^3 (test code 1.95 10*3/uL 1.09-3.23 = 731-0) MONO x10^3 (test code 0.89 10*3/uL 0.36-1.02 = 742-7) EOS x10^3 (test code = 0.36 10*3/uL 0.06-0.53 711-2) BASO x10^3 (test code 0.07 10*3/uL 0.01-0.09 = 704-7) Lab Interpretation Abnormal (test code = 03841-2) [facility] WITH [id number] 09:20:14 Test Item Value Reference Range Interpretation Comments WBC (test code = See_Comment H [Automated 6690-2) message] The sy stem which generated this result transmitted reference range : 4.20 - 10.70 10*3/?L. The reference range was not used to interpret this result as normal/abnormal . RBC (test code = See_Comment L [Automated 789-8) message] The sy stem which generated this result transmitted reference range : 4.26 - 5.52 10*6/?L. The reference range was not used to interpret this result as normal/abnormal . HGB (test code = 10.4 g/dL 12.2-16.4 L 718-7) HCT (test code = 31.2 % 38.4-49.3 L 4544-3) MCV (test code = 86.7 fL 81.7-95.6 787-2) MCH (test code = 28.9 pg 26.1-32.7 785-6) MCHC (test code = 33.3 g/dL 31.2-35.0 786-4) RDW-SD (test code = 37.5 fL 38.5-51.6 L 51695-9) RDW-CV (test code = 11.9 % 12.1-15.4 L 788-0) PLT (test code = See_Comment H [Automated 777-3) message] The sy stem which generated this result transmitted reference range : 150 - 328 10*3/ ?L. The reference r rose was not used to interpret this result as normal/abnormal . MPV (test code = 9.8 fL 9.8-13.0 17681-7) NRBC/100 WBC (test See_Comment [Automat ed code = 0815870740) message] The system which generated this result transmitted reference range : 0.0 - 10.0 /100 WBCs. The refer ence range was not u sed to interpret th is result as normal/abnormal . NRBC x10^3 (test code <0.01 See_Comment [Auto mated = 0031612095) message] The s ystem which generated this result transmitted reference range : 10*3/?L. The reference range was not used to interpret this result as normal/abnormal . GRAN MAT (NEUT) % 69.2 % (test code = 770-8) IMM GRAN % (test code 0.20 % = 8532431984) LYMPH % (test code = 18.2 % 736-9) MONO % (test code = 8.3 % 5905-5) EOS % (test code = 3.4 % 713-8) BASO % (test code = 0.7 % 706-2) GRAN MAT x10^3(ANC) 7.42 10*3/uL 1.99-6.95 H (test code = 1065831501) IMM GRAN x10^3 (test <0.03 0.00-0.06 code = 9626547171) LYMPH x10^3 (test code 1.95 10*3/uL 1.09-3.23 = 731-0) MONO x10^3 (test code 0.89 10*3/uL 0.36-1.02 = 742-7) EOS x10^3 (test code = 0.36 10*3/uL 0.06-0.53 711-2) BASO x10^3 (test code 0.07 10*3/uL 0.01-0.09 = 704-7) Lab Interpretation Abnormal (test code = 64496-2) [facility] GLUCOSE (AUTOMATED)2020-11-15 08:17:07 Test Item Value Reference Range Interpretation Comments POCT GLU (test code = 1039748582) 187 mg/dL 70-110 H Lab Interpretation (test code = Abnormal 32404-6) [facility] GLUCOSE (AUTOMATED)2020-11-15 08:17:07 Test Item Value Reference Range Interpretation Comments POCT GLU (test code = 7261652191) 187 mg/dL 70-110 H Lab Interpretation (test code = Abnormal 99864-8) [facility] - Draw immediately prior to the 2100 dose, but, no more than 60 minutes [id number] 03:04:05 Test Item Value Reference Range Interpretation Comments VANCO TROUGH (test code 8.8 ug/mL 10.0-20.0 L = 0147416464) REBECCA (test code = REBECCA) Toxic Range: ?>20 ug/mL 15-20 ug/mL is recommended for severe infection or when Vancomycin KVNG is greater than or equal to 2. Lab Interpretation (test Abnormal code = 31677-4) [facility] - Draw immediately prior to the 2100 dose, but, no more than 60 minutes [id number] 03:04:05 Test Item Value Reference Range Interpretation Comments VANCO TROUGH (test code 8.8 ug/mL 10.0-20.0 L = 0621928586) REBECCA (test code = REBECCA) Toxic Range: ?>20 ug/mL 15-20 ug/mL is recommended for severe infection or when Vancomycin KVNG is greater than or equal to 2. Lab Interpretation (test Abnormal code = 12995-1) [facility] GLUCOSE (AUTOMATED)2020-11-14 21:55:02 Test Item Value Reference Range Interpretation Comments POCT GLU (test code = 2290340913) 218 mg/dL 70-110 H Lab Interpretation (test code = Abnormal 31584-6) [facility] GLUCOSE (AUTOMATED)2020-11-14 21:55:02 Test Item Value Reference Range Interpretation Comments POCT GLU (test code = 4687231261) 218 mg/dL 70-110 H Lab Interpretation (test code = Abnormal 42208-9) [facility], [id number] 21:08:00 Test Item Value Reference Range Interpretation Comments VIT D 25OH (test code = <13 25-80 L 01719-5) REBECCA (test code = REBECCA) Deficiency: <20 ng/mLInsufficiency: 20-24 ng/mLOptimal: 25-80 ng/mL Lab Interpretation (test Abnormal code = 77389-4) [facility], [id number] 21:08:00 Test Item Value Reference Range Interpretation Comments VIT D 25OH (test code = <13 25-80 L 85630-2) REBECCA (test code = REBECCA) Deficiency: <20 ng/mLInsufficiency: 20-24 ng/mLOptimal: 25-80 ng/mL Lab Interpretation (test Abnormal code = 86658-0) [facility] GLUCOSE (AUTOMATED)2020-11-14 17:35:51 Test Item Value Reference Range Interpretation Comments POCT GLU (test code = 8146728926) 161 mg/dL 70-110 H Lab Interpretation (test code = Abnormal 59300-0) [facility] GLUCOSE (AUTOMATED)2020-11-14 17:35:51 Test Item Value Reference Range Interpretation Comments POCT GLU (test code = 3385967170) 161 mg/dL 70-110 H Lab Interpretation (test code = Abnormal 21087-6) [facility] GLUCOSE (AUTOMATED)2020-11-14 17:35:51 Test Item Value Reference Range Interpretation Comments POCT GLU (test code = 9787800198) 161 mg/dL 70-110 H Lab Interpretation (test code = Abnormal 85856-6) [facility] GLUCOSE (AUTOMATED)2020-11-14 17:19:43 Test Item Value Reference Range Interpretation Comments POCT GLU (test code = 5624739690) 174 mg/dL 70-110 H Lab Interpretation (test code = Abnormal 24107-1) [facility] GLUCOSE (AUTOMATED)2020-11-14 17:19:43 Test Item Value Reference Range Interpretation Comments POCT GLU (test code = 4171357274) 174 mg/dL 70-110 H Lab Interpretation (test code = Abnormal 05823-8) [facility] GLUCOSE (AUTOMATED)2020-11-14 17:19:43 Test Item Value Reference Range Interpretation Comments POCT GLU (test code = 2871665209) 174 mg/dL 70-110 H Lab Interpretation (test code = Abnormal 86816-1) [facility] [id number] 14:06:58 Unremarkable sonographic appearance of the kidneys. No hydronephrosis ornephrolithiasis seen. Hepatomegaly. Preliminary Report Dictated by Resident: Roland Coffman. I, Fabian Cabrera MD., have reviewed this study and agree with theabove report.EXAM: US RETROPERITONEAL COMPLETE HISTORY: 40 years- old Male with BRYCE. TECHNIQUE: Survey ultrasound of the kidneys and bladder was performed withgrayscale and selected color Doppler imaging. [employer] images wereobtained for the record. COMPARISON: Ultrasound kidneys 01/02/2019. FINDINGS: RIGHT KIDNEY:Size: The right kidney is normal in size, and measures 11.2 x 5.9 x 5.6.Parenchyma: The renal parenchyma exhibits normal cortical echogenicity andthickness. No focal solid or cystic renal lesion is detected.Collecting System: No hydronephrosis is seen. LEFT KIDNEY:Size: The left kidney is normal in size, and measures 1.1 x 6.0 x 5.0.Parenchyma: The renal parenchyma exhibits normal cortical echogenicity andthickness. No focal solid or cystic renal lesion is detected.Collecting System: No hydronephrosis is seen. Bladder: The urinary bladder isunremarkable. OTHER: The liver is enlarged measuring 18.4 cm in length. [facility], Radiant Results Inft User - 11/14/2020 9:08 AM CDTEXAM: US RETROPERITONEAL COMPLETEHISTORY: 40 years-old Male with BRYCE.SOLA HNIQUE: Survey ultrasound of the kidneys and bladder was performed withgrayscale and selected color Doppler imaging. [employer] images wereobtained for the record.COMPARISON: Ultrasound kidneys 01/02/2019.FINDINGS: RIGHT KIDNEY:Size: The right kidney is normal in size, and measures 11.2 x 5.9 x 5.6.Parenchyma: The renal parenchyma exhibits normal cortical echogenicity andthickness. No focal solid or cystic renal lesion is detected.Collecting System: No hydronephrosis is seen.LEFT KIDNEY:Size: Theleft kidney is normal in size, and measures 1.1 x 6.0 x 5.0.Parenchyma: The renal parenchyma exhibits normal cortical echogenicity andthickness. No focal solid or cystic renal lesion is detected.Collecting System: No hydronephrosis is seen.Bladder: The urinary bladder is unremarkable. OTHER: The liveris enlarged measuring 18.4 cm in length.IMPRESSIONUnremarkable sonographic appearance of the kidneys. No hydronephrosis ornephrolithiasis seen.Hepatomegaly.Preliminary Report Dictated by Resident: Roland Coffman.I, Fabian Tiwari MD., have reviewed this study and agree with theabove report.[facility] RETROPERITONEAL [id number] 14:06:58 Unremarkable sonographic appearance of the kidneys. No hydronephrosis ornephrolithiasis seen. Hepatomegaly. Preliminary Report Dictated by Resident: Roland Coffman. Fabian Augustin MD., have reviewed this study and agree with theabove report.EXAM: US RETROPERITONEAL COMPLETE HISTORY: 40 years- old Male with BRYCE. TECHNIQUE: Survey ultrasound of the kidneys and bladder was performed withgrayscale and selected color Doppler imaging. [employer] images wereobtained for the record. COMPARISON: Ultrasound kidneys 01/02/2019. FINDINGS: RIGHT KIDNEY:Size: The right kidney is normal in size, and measures 11.2 x 5.9 x 5.6.Parenchyma: The renal parenchyma exhibits normal cortical echogenicity andthickness. No focal solid or cystic renal lesion is detected.Collecting System: No hydronephrosis is seen. LEFT KIDNEY:Size: The left kidney is normal in size, and measures 1.1 x 6.0 x 5.0.Parenchyma: The renal parenchyma exhibits normal cortical echogenicity andthickness. No focal solid or cystic renal lesion is detected.Collecting System: No hydronephrosis is seen. Bladder: The urinary bladder isunremarkable. OTHER: The liver is enlarged measuring 18.4 cm in length. [facility], Radiant Results Inft User - 11/14/2020 9:08 AM CDTEXAM: US RETROPERITONEAL COMPLETEHISTORY: 40 years-old Male with BRYCE.SOLA HNIQUE: Survey ultrasound of the kidneys and bladder was performed withgrayscale and selected color Doppler imaging. [employer] images wereobtained for the record.COMPARISON: Ultrasound kidneys 01/02/2019.FINDINGS: RIGHT KIDNEY:Size: The right kidney is normal in size, and measures 11.2 x 5.9 x 5.6.Parenchyma: The renal parenchyma exhibits normal cortical echogenicity andthickness. No focal solid or cystic renal lesion is detected.Collecting System: No hydronephrosis is seen.LEFT KIDNEY:Size: Theleft kidney is normal in size, and measures 1.1 x 6.0 x 5.0.Parenchyma: The renal parenchyma exhibits normal cortical echogenicity andthickness. No focal solid or cystic renal lesion is detected.Collecting System: No hydronephrosis is seen.Bladder: The urinary bladder is unremarkable. OTHER: The liveris enlarged measuring 18.4 cm in length.IMPRESSIONUnremarkable sonographic appearance of the kidneys. No hydronephrosis ornephrolithiasis seen.Hepatomegaly.Preliminary Report Dictated by Resident: Fabian Nichole MD., have reviewed this study and agree with theabove report.[facility] RETROPERITONEAL [id number] 14:06:58 Unremarkable sonographic appearance of the kidneys. No hydronephrosis ornephrolithiasis seen. Hepatomegaly. Preliminary Report Dictated by Resident: Fabian Sotelo MD., have reviewed this study and agree with theabove report.EXAM: US RETROPERITONEAL COMPLETE HISTORY: 40 years- old Male with BRYCE. TECHNIQUE: Survey ultrasound of the kidneys and bladder was performed withgrayscale and selected color Doppler imaging. [employer] images wereobtained for the record. COMPARISON: Ultrasound kidneys 01/02/2019. FINDINGS: RIGHT KIDNEY:Size: The right kidney is normal in size, and measures 11.2 x 5.9 x 5.6.Parenchyma: The renal parenchyma exhibits normal cortical echogenicity andthickness. No focal solid or cystic renal lesion is detected.Collecting System: No hydronephrosis is seen. LEFT KIDNEY:Size: The left kidney is normal in size, and measures 1.1 x 6.0 x 5.0.Parenchyma: The renal parenchyma exhibits normal cortical echogenicity andthickness. No focal solid or cystic renal lesion is detected.Collecting System: No hydronephrosis is seen. Bladder: The urinary bladder isunremarkable. OTHER: The liver is enlarged measuring 18.4 cm in length. [facility], Radiant Results Inft User - 11/14/2020 9:08 AM CDTEXAM: US RETROPERITONEAL COMPLETEHISTORY: 40 years-old Male with BRYCE.SOLA HNIQUE: Survey ultrasound of the kidneys and bladder was performed withgrayscale and selected color Doppler imaging. [employer] images wereobtained for the record.COMPARISON: Ultrasound kidneys 01/02/2019.FINDINGS: RIGHT KIDNEY:Size: The right kidney is normal in size, and measures 11.2 x 5.9 x 5.6.Parenchyma: The renal parenchyma exhibits normal cortical echogenicity andthickness. No focal solid or cystic renal lesion is detected.Collecting System: No hydronephrosis is seen.LEFT KIDNEY:Size: Theleft kidney is normal in size, and measures 1.1 x 6.0 x 5.0.Parenchyma: The renal parenchyma exhibits normal cortical echogenicity andthickness. No focal solid or cystic renal lesion is detected.Collecting System: No hydronephrosis is seen.Bladder: The urinary bladder is unremarkable. OTHER: The liveris enlarged measuring 18.4 cm in length.IMPRESSIONUnremarkable sonographic appearance of the kidneys. No hydronephrosis ornephrolithiasis seen.Hepatomegaly.Preliminary Report Dictated by Resident: Roland Coffman.I, Fabian Tiwari MD., have reviewed this study and agree with theabove report.[facility] GLUCOSE (AUTOMATED)2020-11-14 11:07:45 Test Item Value Reference Range Interpretation Comments POCT GLU (test code = 8043297342) 175 mg/dL 70-110 H Lab Interpretation (test code = Abnormal 31781-6) [facility] GLUCOSE (AUTOMATED)2020-11-14 11:07:45 Test Item Value Reference Range Interpretation Comments POCT GLU (test code = 9733095040) 175 mg/dL 70-110 H Lab Interpretation (test code = Abnormal 96572-9) [facility] GLUCOSE (AUTOMATED)2020-11-14 11:07:45 Test Item Value Reference Range Interpretation Comments POCT GLU (test code = 1678606830) 175 mg/dL 70-110 H Lab Interpretation (test code = Abnormal 89619-9) [facility] WITH [id number] 11:00:52 Test Item Value Reference Range Interpretation Comments WBC (test code = See_Comment [Automated 2590-2) message] The sy stem which generated this result transmitted reference range : 4.20 - 10.70 10*3/?L. The reference range was not used to interpret this result as normal/abnormal . RBC (test code = See_Comment L [Automated 609-8) message] The sy stem which generated this result transmitted reference range : 4.26 - 5.52 10*6/?L. The reference range was not used to interpret this result as normal/abnormal . HGB (test code = 10.8 g/dL 12.2-16.4 L 718-7) HCT (test code = 32.9 % 38.4-49.3 L 4544-3) MCV (test code = 86.8 fL 81.7-95.6 787-2) MCH (test code = 28.5 pg 26.1-32.7 785-6) MCHC (test code = 32.8 g/dL 31.2-35.0 786-4) RDW-SD (test code = 37.6 fL 38.5-51.6 L 12481-1) RDW-CV (test code = 11.9 % 12.1-15.4 L 788-0) PLT (test code = See_Comment H [Automated 777-3) message] The sy stem which generated this result transmitted reference range : 150 - 328 10*3/ ?L. The reference r rose was not used to interpret this result as normal/abnormal . MPV (test code = 10.0 fL 9.8-13.0 21081-8) NRBC/100 WBC (test See_Comment [Automat ed code = 0029483785) message] The system which generated this result transmitted reference range : 0.0 - 10.0 /100 WBCs. The refer ence range was not u sed to interpret th is result as normal/abnormal . NRBC x10^3 (test code <0.01 See_Comment [Auto mated = 7106180705) message] The s ystem which generated this result transmitted reference range : 10*3/?L. The reference range was not used to interpret this result as normal/abnormal . GRAN MAT (NEUT) % 66.7 % (test code = 770-8) IMM GRAN % (test code 0.40 % = 5380714123) LYMPH % (test code = 21.0 % 736-9) MONO % (test code = 7.7 % 5905-5) EOS % (test code = 3.4 % 713-8) BASO % (test code = 0.8 % 706-2) GRAN MAT x10^3(ANC) 7.10 10*3/uL 1.99-6.95 H (test code = 4342630545) IMM GRAN x10^3 (test 0.04 10*3/uL 0.00-0.06 code = 4510541256) LYMPH x10^3 (test code 2.23 10*3/uL 1.09-3.23 = 731-0) MONO x10^3 (test code 0.82 10*3/uL 0.36-1.02 = 742-7) EOS x10^3 (test code = 0.36 10*3/uL 0.06-0.53 711-2) BASO x10^3 (test code 0.09 10*3/uL 0.01-0.09 = 704-7) Lab Interpretation Abnormal (test code = 65004-4) [facility] WITH [id number] 11:00:52 Test Item Value Reference Range Interpretation Comments WBC (test code = See_Comment [Automated 6690-2) message] The sy stem which generated this result transmitted reference range : 4.20 - 10.70 10*3/?L. The reference range was not used to interpret this result as normal/abnormal . RBC (test code = See_Comment L [Automated 789-8) message] The sy stem which generated this result transmitted reference range : 4.26 - 5.52 10*6/?L. The reference range was not used to interpret this result as normal/abnormal . HGB (test code = 10.8 g/dL 12.2-16.4 L 718-7) HCT (test code = 32.9 % 38.4-49.3 L 4544-3) MCV (test code = 86.8 fL 81.7-95.6 787-2) MCH (test code = 28.5 pg 26.1-32.7 785-6) MCHC (test code = 32.8 g/dL 31.2-35.0 786-4) RDW-SD (test code = 37.6 fL 38.5-51.6 L 38772-3) RDW-CV (test code = 11.9 % 12.1-15.4 L 788-0) PLT (test code = See_Comment H [Automated 777-3) message] The sy stem which generated this result transmitted reference range : 150 - 328 10*3/ ?L. The reference r rose was not used to interpret this result as normal/abnormal . MPV (test code = 10.0 fL 9.8-13.0 83963-8) NRBC/100 WBC (test See_Comment [Automat ed code = 1593040886) message] The system which generated this result transmitted reference range : 0.0 - 10.0 /100 WBCs. The refer ence range was not u sed to interpret th is result as normal/abnormal . NRBC x10^3 (test code <0.01 See_Comment [Auto mated = 2698484565) message] The s ystem which generated this result transmitted reference range : 10*3/?L. The reference range was not used to interpret this result as normal/abnormal . GRAN MAT (NEUT) % 66.7 % (test code = 770-8) IMM GRAN % (test code 0.40 % = 3555551748) LYMPH % (test code = 21.0 % 736-9) MONO % (test code = 7.7 % 5905-5) EOS % (test code = 3.4 % 713-8) BASO % (test code = 0.8 % 706-2) GRAN MAT x10^3(ANC) 7.10 10*3/uL 1.99-6.95 H (test code = 9972868063) IMM GRAN x10^3 (test 0.04 10*3/uL 0.00-0.06 code = 7255422091) LYMPH x10^3 (test code 2.23 10*3/uL 1.09-3.23 = 731-0) MONO x10^3 (test code 0.82 10*3/uL 0.36-1.02 = 742-7) EOS x10^3 (test code = 0.36 10*3/uL 0.06-0.53 711-2) BASO x10^3 (test code 0.09 10*3/uL 0.01-0.09 = 704-7) Lab Interpretation Abnormal (test code = 14285-8) [facility] WITH [id number] 11:00:52 Test Item Value Reference Range Interpretation Comments WBC (test code = See_Comment [Automated 6690-2) message] The sy stem which generated this result transmitted reference range : 4.20 - 10.70 10*3/?L. The reference range was not used to interpret this result as normal/abnormal . RBC (test code = See_Comment L [Automated 789-8) message] The sy stem which generated this result transmitted reference range : 4.26 - 5.52 10*6/?L. The reference range was not used to interpret this result as normal/abnormal . HGB (test code = 10.8 g/dL 12.2-16.4 L 718-7) HCT (test code = 32.9 % 38.4-49.3 L 4544-3) MCV (test code = 86.8 fL 81.7-95.6 787-2) MCH (test code = 28.5 pg 26.1-32.7 785-6) MCHC (test code = 32.8 g/dL 31.2-35.0 786-4) RDW-SD (test code = 37.6 fL 38.5-51.6 L 88038-6) RDW-CV (test code = 11.9 % 12.1-15.4 L 788-0) PLT (test code = See_Comment H [Automated 777-3) message] The sy stem which generated this result transmitted reference range : 150 - 328 10*3/ ?L. The reference r rose was not used to interpret this result as normal/abnormal . MPV (test code = 10.0 fL 9.8-13.0 92920-3) NRBC/100 WBC (test See_Comment [Automat ed code = 2980071961) message] The system which generated this result transmitted reference range : 0.0 - 10.0 /100 WBCs. The refer ence range was not u sed to interpret th is result as normal/abnormal . NRBC x10^3 (test code <0.01 See_Comment [Auto mated = 7200993094) message] The s ystem which generated this result transmitted reference range : 10*3/?L. The reference range was not used to interpret this result as normal/abnormal . GRAN MAT (NEUT) % 66.7 % (test code = 770-8) IMM GRAN % (test code 0.40 % = 9182759282) LYMPH % (test code = 21.0 % 736-9) MONO % (test code = 7.7 % 5905-5) EOS % (test code = 3.4 % 713-8) BASO % (test code = 0.8 % 706-2) GRAN MAT x10^3(ANC) 7.10 10*3/uL 1.99-6.95 H (test code = 5592497134) IMM GRAN x10^3 (test 0.04 10*3/uL 0.00-0.06 code = 6463047432) LYMPH x10^3 (test code 2.23 10*3/uL 1.09-3.23 = 731-0) MONO x10^3 (test code 0.82 10*3/uL 0.36-1.02 = 742-7) EOS x10^3 (test code = 0.36 10*3/uL 0.06-0.53 711-2) BASO x10^3 (test code 0.09 10*3/uL 0.01-0.09 = 704-7) Lab Interpretation Abnormal (test code = 40816-2) [facility]. METABOLIC PANEL (08380)2020-11-14 09:48:42 Test Item Value Reference Range Interpretation Comments NA (test code = 137 mmol/L 135-145 2793777351) K (test code = 4.0 mmol/L 3.5-5.0 0654255886) CL (test code = 111 mmol/L 98-108 H 0705629011) CO2 TOTAL (test code = 22 mmol/L 23-31 L 6973670698) AGAP (test code = 2-16 3641189849) BUN (test code = 29 mg/dL 7-23 H 7162772910) GLUCOSE (test code = 174 mg/dL 70-110 H 6056020637) CREATININE (test code = 2.22 mg/dL 0.60-1.25 H 1658595303) TOTAL BILI (test code = 0.4 mg/dL 0.1-1.2 1903889550) CALCIUM (test code = 8.0 mg/dL 8.6-10.6 L 0261766485) T PROTEIN (test code = 5.3 g/dL 6.3-8.2 L 6263673390) ALBUMIN (test code = 2.4 g/dL 3.5-5.0 L 0080527457) ALK PHOS (test code = 59 U/L 34-122 4430282453) ALTv (test code = 11 U/L 5-50 1742-6) AST(SGOT) (test code = 20 U/L 13-40 2302894347) eGFR (test code = mL/min/1.73m2 9284022454) REBECCA (test code = REBECCA) Association of Glomerular Filtration Rate (GFR) and Staging of Kidney Disease* + --+ --+ ------+| GFR (mL/min/1.73 m2) ?| With Kidney Damage ?| ?Without Kidney Damage+ --------+ --------+ +| ?>90 ?| ?Stage one ?| ? Normal ?+ ---+ ---+ -------+| ?60-89 ?| ?Stage two ?| ? Decreased GFR ? + --+ --+ ------+| ?30-59 ?| ?Stage three ?| ? Stage three ? + --+ --+ ------+| ?15-29 ?| ?Stage four ? | ? Stage four ?+ ---+ ---+ -------+| ?<15 (or dialysis) ? ?| ?Stage five ? | ? Stage five ?+ ---+ ---+ -------+ *Each stage assumes the associated GFR level has been in effect for at least three months. ?Stages 1 to 5, with or without kidney disease, indicate chronic kidney disease. Notes: Determination of stages one and two (with eGFR >59mL/min/1.73 m2) requires estimation of kidney damage for at least three months as defined by structural or functional abnormalities of the kidney, manifested by either:Pathological abnormalities or Markers of kidney damage (including abnormalities in the composition of the blood or urine or abnormalities in imaging tests). Lab Interpretation Abnormal (test code = 90484-5) [facility]. METABOLIC PANEL ([id number])2020-11-14 09:48:42 Test Item Value Reference Range Interpretation Comments NA (test code = 137 mmol/L 135-145 7550700789) K (test code = 4.0 mmol/L 3.5-5.0 9178033769) CL (test code = 111 mmol/L 98-108 H 4752317469) CO2 TOTAL (test code = 22 mmol/L 23-31 L 8368762792) AGAP (test code = 2-16 7032928420) BUN (test code = 29 mg/dL 7-23 H 4901421321) GLUCOSE (test code = 174 mg/dL 70-110 H 9982895193) CREATININE (test code = 2.22 mg/dL 0.60-1.25 H 4531884428) TOTAL BILI (test code = 0.4 mg/dL 0.1-1.5 5669798462) CALCIUM (test code = 8.0 mg/dL 8.6-10.6 L 8372209916) T PROTEIN (test code = 5.3 g/dL 6.3-8.2 L 3607023295) ALBUMIN (test code = 2.4 g/dL 3.5-5.0 L 9294047755) ALK PHOS (test code = 59 U/L 34-122 5427126073) ALTv (test code = 11 U/L 5-50 1742-6) AST(SGOT) (test code = 20 U/L 13-40 1040565805) eGFR (test code = mL/min/1.73m2 1968643271) REBECCA (test code = REBECCA) Association of Glomerular Filtration Rate (GFR) and Staging of Kidney Disease* + --+ --+ ------+| GFR (mL/min/1.73 m2) ?| With Kidney Damage ?| ?Without Kidney Damage+ --------+ --------+ +| ?>90 ?| ?Stage one ?| ? Normal ?+ ---+ ---+ -------+| ?60-89 ?| ?Stage two ?| ? Decreased GFR ? + --+ --+ ------+| ?30-59 ?| ?Stage three ?| ? Stage three ? + --+ --+ ------+| ?15-29 ?| ?Stage four ? | ? Stage four ?+ ---+ ---+ -------+| ?<15 (or dialysis) ? ?| ?Stage five ? | ? Stage five ?+ ---+ ---+ -------+ *Each stage assumes the associated GFR level has been in effect for at least three months. ?Stages 1 to 5, with or without kidney disease, indicate chronic kidney disease. Notes: Determination of stages one and two (with eGFR >59mL/min/1.73 m2) requires estimation of kidney damage for at least three months as defined by structural or functional abnormalities of the kidney, manifested by either:Pathological abnormalities or Markers of kidney damage (including abnormalities in the composition of the blood or urine or abnormalities in imaging tests). Lab Interpretation Abnormal (test code = 52076-9) [facility]. METABOLIC PANEL ([id number])2020-11-14 09:48:42 Test Item Value Reference Range Interpretation Comments NA (test code = 137 mmol/L 135-145 9157915410) K (test code = 4.0 mmol/L 3.5-5.0 3546096228) CL (test code = 111 mmol/L 98-108 H 2104324499) CO2 TOTAL (test code = 22 mmol/L 23-31 L 6703388537) AGAP (test code = 2-16 8211538573) BUN (test code = 29 mg/dL 7-23 H 4135435154) GLUCOSE (test code = 174 mg/dL 70-110 H 6594867250) CREATININE (test code = 2.22 mg/dL 0.60-1.25 H 1918320984) TOTAL BILI (test code = 0.4 mg/dL 0.1-1.7 7245834395) CALCIUM (test code = 8.0 mg/dL 8.6-10.6 L 3967988057) T PROTEIN (test code = 5.3 g/dL 6.3-8.2 L 4108155728) ALBUMIN (test code = 2.4 g/dL 3.5-5.0 L 2350772980) ALK PHOS (test code = 59 U/L 34-122 3174565025) ALTv (test code = 11 U/L 5-50 1742-6) AST(SGOT) (test code = 20 U/L 13-40 0216512445) eGFR (test code = mL/min/1.73m2 2407228387) REBECCA (test code = REBECCA) Association of Glomerular Filtration Rate (GFR) and Staging of Kidney Disease* + --+ --+ ------+| GFR (mL/min/1.73 m2) ?| With Kidney Damage ?| ?Without Kidney Damage+ --------+ --------+ +| ?>90 ?| ?Stage one ?| ? Normal ?+ ---+ ---+ -------+| ?60-89 ?| ?Stage two ?| ? Decreased GFR ? + --+ --+ ------+| ?30-59 ?| ?Stage three ?| ? Stage three ? + --+ --+ ------+| ?15-29 ?| ?Stage four ? | ? Stage four ?+ ---+ ---+ -------+| ?<15 (or dialysis) ? ?| ?Stage five ? | ? Stage five ?+ ---+ ---+ -------+ *Each stage assumes the associated GFR level has been in effect for at least three months. ?Stages 1 to 5, with or without kidney disease, indicate chronic kidney disease. Notes: Determination of stages one and two (with eGFR >59mL/min/1.73 m2) requires estimation of kidney damage for at least three months as defined by structural or functional abnormalities of the kidney, manifested by either:Pathological abnormalities or Markers of kidney damage (including abnormalities in the composition of the blood or urine or abnormalities in imaging tests). Lab Interpretation Abnormal (test code = 46906-2) [facility] GLUCOSE (AUTOMATED)2020-11-13 21:54:23 Test Item Value Reference Range Interpretation Comments POCT GLU (test code = 0666327534) 204 mg/dL 70-110 H Lab Interpretation (test code = Abnormal 21885-9) [facility] GLUCOSE (AUTOMATED)2020-11-13 21:54:23 Test Item Value Reference Range Interpretation Comments POCT GLU (test code = 1951082312) 204 mg/dL 70-110 H Lab Interpretation (test code = Abnormal 71033-0) [facility] GLUCOSE (AUTOMATED)2020-11-13 21:54:23 Test Item Value Reference Range Interpretation Comments POCT GLU (test code = 0230392031) 204 mg/dL 70-110 H Lab Interpretation (test code = Abnormal 87957-5) [facility] GLUCOSE (AUTOMATED)2020-11-13 17:00:50 Test Item Value Reference Range Interpretation Comments POCT GLU (test code = 2555184884) 222 mg/dL 70-110 H Lab Interpretation (test code = Abnormal 84282-1) [facility] GLUCOSE (AUTOMATED)2020-11-13 17:00:50 Test Item Value Reference Range Interpretation Comments POCT GLU (test code = 2887328812) 222 mg/dL 70-110 H Lab Interpretation (test code = Abnormal 37644-8) [facility] GLUCOSE (AUTOMATED)2020-11-13 17:00:50 Test Item Value Reference Range Interpretation Comments POCT GLU (test code = 1744149925) 222 mg/dL 70-110 H Lab Interpretation (test code = Abnormal 71414-9) [facility] GLUCOSE (AUTOMATED)2020-11-13 12:56:35 Test Item Value Reference Range Interpretation Comments POCT GLU (test code = 1657693820) 182 mg/dL 70-110 H Lab Interpretation (test code = Abnormal 37460-8) [facility] GLUCOSE (AUTOMATED)2020-11-13 12:56:35 Test Item Value Reference Range Interpretation Comments POCT GLU (test code = 0643002342) 182 mg/dL 70-110 H Lab Interpretation (test code = Abnormal 53944-6) [facility] GLUCOSE (AUTOMATED)2020-11-13 12:56:35 Test Item Value Reference Range Interpretation Comments POCT GLU (test code = 2617638639) 182 mg/dL 70-110 H Lab Interpretation (test code = Abnormal 23366-7) [id number] 09:53:52 Test Item Value Reference Range Interpretation Comments NT-proBNP (test code 495 pg/mL See_Comment H [Autom ated = 5087934504) message] The system which generated this result transmitted reference range : <=125. The reference range was not used to interpret this result as normal/abnormal . REBECCA (test code = REBECCA) Biotin has been reported to cause a negative bias, interpret results relative to patient's use of biotin. Lab Interpretation Abnormal (test code = 20744-1) [id number] 09:53:52 Test Item Value Reference Range Interpretation Comments NT-proBNP (test code 495 pg/mL See_Comment H [Autom ated = 0121656192) message] The system which generated this result transmitted reference range : <=125. The reference range was not used to interpret this result as normal/abnormal . REBECCA (test code = REBECCA) Biotin has been reported to cause a negative bias, interpret results relative to patient's use of biotin. Lab Interpretation Abnormal (test code = 85065-5) [facility] [id number] 09:53:52 Test Item Value Reference Range Interpretation Comments NT-proBNP (test code 495 pg/mL See_Comment H [Autom ated = 1555313515) message] The system which generated this result transmitted reference range : <=125. The reference range was not used to interpret this result as normal/abnormal . REBECCA (test code = REBECCA) Biotin has been reported to cause a negative bias, interpret results relative to patient's use of biotin. Lab Interpretation Abnormal (test code = 72646-9) [facility] Test Item Value Reference Range Interpretation Comments MAGNESIUM (test code = 5799976641) 1.8 mg/dL 1.7-2.4 Lab Interpretation (test code = Normal 28696-2) [facility] Test Item Value Reference Range Interpretation Comments MAGNESIUM (test code = 7277006907) 1.8 mg/dL 1.7-2.4 Lab Interpretation (test code = Normal 10059-7) [facility] Test Item Value Reference Range Interpretation Comments MAGNESIUM (test code = 9175099303) 1.8 mg/dL 1.7-2.4 Lab Interpretation (test code = Normal 96683-3) [facility]OLIC PAN[facility] (09588)2020-11-13 09:48:31 Test Item Value Reference Range Interpretation Comments NA (test code = 140 mmol/L 135-145 7148164046) K (test code = 4.1 mmol/L 3.5-5.0 7954116395) CL (test code = 113 mmol/L 98-108 H 7482002933) CO2 TOTAL (test code = 24 mmol/L 23-31 0348572440) AGAP (test code = 2-16 6834476370) BUN (test code = 34 mg/dL 7-23 H 4232774480) GLUCOSE (test code = 209 mg/dL 70-110 H 6031568576) CREATININE (test code = 2.54 mg/dL 0.60-1.25 H 8122858166) TOTAL BILI (test code = 0.3 mg/dL 0.1-1.9 9429706661) CALCIUM (test code = 8.0 mg/dL 8.6-10.6 L 6150115375) T PROTEIN (test code = 6.1 g/dL 6.3-8.2 L 3694440816) ALBUMIN (test code = 2.9 g/dL 3.5-5.0 L 9882807254) ALK PHOS (test code = 67 U/L 34-122 7455329470) ALTv (test code = 14 U/L 5-50 1742-6) AST(SGOT) (test code = 22 U/L 13-40 5606273901) eGFR (test code = mL/min/1.73m2 1208359893) REBECCA (test code = REBECCA) Association of Glomerular Filtration Rate (GFR) and Staging of Kidney Disease* + --+ --+ ------+| GFR (mL/min/1.73 m2) ?| With Kidney Damage ?| ?Without Kidney Damage+ --------+ --------+ +| ?>90 ?| ?Stage one ?| ? Normal ?+ ---+ ---+ -------+| ?60-89 ?| ?Stage two ?| ? Decreased GFR ? + --+ --+ ------+| ?30-59 ?| ?Stage three ?| ? Stage three ? + --+ --+ ------+| ?15-29 ?| ?Stage four ? | ? Stage four ?+ ---+ ---+ -------+| ?<15 (or dialysis) ? ?| ?Stage five ? | ? Stage five ?+ ---+ ---+ -------+ *Each stage assumes the associated GFR level has been in effect for at least three months. ?Stages 1 to 5, with or without kidney disease, indicate chronic kidney disease. Notes: Determination of stages one and two (with eGFR >59mL/min/1.73 m2) requires estimation of kidney damage for at least three months as defined by structural or functional abnormalities of the kidney, manifested by either:Pathological abnormalities or Markers of kidney damage (including abnormalities in the composition of the blood or urine or abnormalities in imaging tests). Lab Interpretation Abnormal (test code = 35247-1) [facility]. METABOLIC PANEL (99194)2020-11-13 09:48:31 Test Item Value Reference Range Interpretation Comments NA (test code = 140 mmol/L 135-145 7583134423) K (test code = 4.1 mmol/L 3.5-5.0 3802775545) CL (test code = 113 mmol/L 98-108 H 0054998200) CO2 TOTAL (test code = 24 mmol/L 23-31 8658383929) AGAP (test code = 2-16 2600999243) BUN (test code = 34 mg/dL 7-23 H 5300291376) GLUCOSE (test code = 209 mg/dL 70-110 H 8891088177) CREATININE (test code = 2.54 mg/dL 0.60-1.25 H 9428102363) TOTAL BILI (test code = 0.3 mg/dL 0.1-1.3 4500993686) CALCIUM (test code = 8.0 mg/dL 8.6-10.6 L 4370841826) T PROTEIN (test code = 6.1 g/dL 6.3-8.2 L 7984137958) ALBUMIN (test code = 2.9 g/dL 3.5-5.0 L 0331194982) ALK PHOS (test code = 67 U/L 34-122 3779068893) ALTv (test code = 14 U/L 5-50 1742-6) AST(SGOT) (test code = 22 U/L 13-40 1446598563) eGFR (test code = mL/min/1.73m2 3856879364) REBECCA (test code = REBECCA) Association of Glomerular Filtration Rate (GFR) and Staging of Kidney Disease* + --+ --+ ------+| GFR (mL/min/1.73 m2) ?| With Kidney Damage ?| ?Without Kidney Damage+ --------+ --------+ +| ?>90 ?| ?Stage one ?| ? Normal ?+ ---+ ---+ -------+| ?60-89 ?| ?Stage two ?| ? Decreased GFR ? + --+ --+ ------+| ?30-59 ?| ?Stage three ?| ? Stage three ? + --+ --+ ------+| ?15-29 ?| ?Stage four ? | ? Stage four ?+ ---+ ---+ -------+| ?<15 (or dialysis) ? ?| ?Stage five ? | ? Stage five ?+ ---+ ---+ -------+ *Each stage assumes the associated GFR level has been in effect for at least three months. ?Stages 1 to 5, with or without kidney disease, indicate chronic kidney disease. Notes: Determination of stages one and two (with eGFR >59mL/min/1.73 m2) requires estimation of kidney damage for at least three months as defined by structural or functional abnormalities of the kidney, manifested by either:Pathological abnormalities or Markers of kidney damage (including abnormalities in the composition of the blood or urine or abnormalities in imaging tests). Lab Interpretation Abnormal (test code = 86391-5) [facility]. METABOLIC PANEL ([id number])2020-11-13 09:48:31 Test Item Value Reference Range Interpretation Comments NA (test code = 140 mmol/L 135-145 2704250394) K (test code = 4.1 mmol/L 3.5-5.0 4483707437) CL (test code = 113 mmol/L 98-108 H 8584227835) CO2 TOTAL (test code = 24 mmol/L 23-31 2318875939) AGAP (test code = 2-16 9648228278) BUN (test code = 34 mg/dL 7-23 H 0429559974) GLUCOSE (test code = 209 mg/dL 70-110 H 9753152574) CREATININE (test code = 2.54 mg/dL 0.60-1.25 H 7744643500) TOTAL BILI (test code = 0.3 mg/dL 0.1-1.9 7522991360) CALCIUM (test code = 8.0 mg/dL 8.6-10.6 L 8081479343) T PROTEIN (test code = 6.1 g/dL 6.3-8.2 L 4112527227) ALBUMIN (test code = 2.9 g/dL 3.5-5.0 L 0436239328) ALK PHOS (test code = 67 U/L 34-122 5986513112) ALTv (test code = 14 U/L 5-50 1742-6) AST(SGOT) (test code = 22 U/L 13-40 0503869026) eGFR (test code = mL/min/1.73m2 8629624204) REBECCA (test code = REBECCA) Association of Glomerular Filtration Rate (GFR) and Staging of Kidney Disease* + --+ --+ ------+| GFR (mL/min/1.73 m2) ?| With Kidney Damage ?| ?Without Kidney Damage+ --------+ --------+ +| ?>90 ?| ?Stage one ?| ? Normal ?+ ---+ ---+ -------+| ?60-89 ?| ?Stage two ?| ? Decreased GFR ? + --+ --+ ------+| ?30-59 ?| ?Stage three ?| ? Stage three ? + --+ --+ ------+| ?15-29 ?| ?Stage four ? | ? Stage four ?+ ---+ ---+ -------+| ?<15 (or dialysis) ? ?| ?Stage five ? | ? Stage five ?+ ---+ ---+ -------+ *Each stage assumes the associated GFR level has been in effect for at least three months. ?Stages 1 to 5, with or without kidney disease, indicate chronic kidney disease. Notes: Determination of stages one and two (with eGFR >59mL/min/1.73 m2) requires estimation of kidney damage for at least three months as defined by structural or functional abnormalities of the kidney, manifested by either:Pathological abnormalities or Markers of kidney damage (including abnormalities in the composition of the blood or urine or abnormalities in imaging tests). Lab Interpretation Abnormal (test code = 86506-7) [facility]11 Test Item Value Reference Range Interpretation Comments PHOSPHORUS (test code = 4938480533) 4.5 mg/dL 2.5-5.0 Lab Interpretation (test code = Normal 34057-3) [facility] 09:48:11 Test Item Value Reference Range Interpretation Comments PHOSPHORUS (test code = 4897185490) 4.5 mg/dL 2.5-5.0 Lab Interpretation (test code = Normal 00510-7) [facility] 09:48:11 Test Item Value Reference Range Interpretation Comments PHOSPHORUS (test code = 8724163288) 4.5 mg/dL 2.5-5.0 Lab Interpretation (test code = Normal 91184-8) [facility] [id number] 09:47:51 Test Item Value Reference Range Interpretation Comments URIC ACID (test code = 1201767151) 5.6 mg/dL 3.6-8.0 Lab Interpretation (test code = Normal 80745-2) [facility] [id number] 09:47:51 Test Item Value Reference Range Interpretation Comments URIC ACID (test code = 2309156551) 5.6 mg/dL 3.6-8.0 Lab Interpretation (test code = Normal 54738-8) [facility] [id number] 09:47:51 Test Item Value Reference Range Interpretation Comments URIC ACID (test code = 6119291908) 5.6 mg/dL 3.6-8.0 Lab Interpretation (test code = Normal 12925-6) [facility] [id number] 09:47:50 Test Item Value Reference Range Interpretation Comments CK (test code = 0975001858) 121 U/L 33-194 Lab Interpretation (test code = Normal 13135-4) [facility] [id number] 09:47:50 Test Item Value Reference Range Interpretation Comments CK (test code = 9981685778) 121 U/L 33-194 Lab Interpretation (test code = Normal 35435-8) [facility] [id number] 09:47:50 Test Item Value Reference Range Interpretation Comments CK (test code = 5069393468) 121 U/L 33-194 Lab Interpretation (test code = Normal 73502-4) [facility] WITH [id number] 09:30:30 Test Item Value Reference Range Interpretation Comments WBC (test code = See_Comment H [Automated 6690-2) message] The sy stem which generated this result transmitted reference range : 4.20 - 10.70 10*3/?L. The reference range was not used to interpret this result as normal/abnormal . RBC (test code = See_Comment L [Automated 789-8) message] The sy stem which generated this result transmitted reference range : 4.26 - 5.52 10*6/?L. The reference range was not used to interpret this result as normal/abnormal . HGB (test code = 10.5 g/dL 12.2-16.4 L 718-7) HCT (test code = 31.6 % 38.4-49.3 L 4544-3) MCV (test code = 88.0 fL 81.7-95.6 787-2) MCH (test code = 29.2 pg 26.1-32.7 785-6) MCHC (test code = 33.2 g/dL 31.2-35.0 786-4) RDW-SD (test code = 38.5 fL 38.5-51.6 13839-1) RDW-CV (test code = 11.9 % 12.1-15.4 L 788-0) PLT (test code = See_Comment H [Automated 777-3) message] The sy stem which generated this result transmitted reference range : 150 - 328 10*3/ ?L. The reference r rose was not used to interpret this result as normal/abnormal . MPV (test code = 9.8 fL 9.8-13.0 80815-6) NRBC/100 WBC (test See_Comment [Automat ed code = 4879240736) message] The system which generated this result transmitted reference range : 0.0 - 10.0 /100 WBCs. The refer ence range was not u sed to interpret th is result as normal/abnormal . NRBC x10^3 (test code <0.01 See_Comment [Auto mated = 9555368410) message] The s ystem which generated this result transmitted reference range : 10*3/?L. The reference range was not used to interpret this result as normal/abnormal . GRAN MAT (NEUT) % 71.0 % (test code = 770-8) IMM GRAN % (test code 0.40 % = 1026144171) LYMPH % (test code = 17.4 % 736-9) MONO % (test code = 7.9 % 5905-5) EOS % (test code = 2.7 % 713-8) BASO % (test code = 0.6 % 706-2) GRAN MAT x10^3(ANC) 8.76 10*3/uL 1.99-6.95 H (test code = 7441696268) IMM GRAN x10^3 (test 0.05 10*3/uL 0.00-0.06 code = 0628363490) LYMPH x10^3 (test code 2.15 10*3/uL 1.09-3.23 = 731-0) MONO x10^3 (test code 0.97 10*3/uL 0.36-1.02 = 742-7) EOS x10^3 (test code = 0.33 10*3/uL 0.06-0.53 711-2) BASO x10^3 (test code 0.07 10*3/uL 0.01-0.09 = 704-7) Lab Interpretation Abnormal (test code = 84423-2) [facility] WITH [id number] 09:30:30 Test Item Value Reference Range Interpretation Comments WBC (test code = See_Comment H [Automated 6690-2) message] The sy stem which generated this result transmitted reference range : 4.20 - 10.70 10*3/?L. The reference range was not used to interpret this result as normal/abnormal . RBC (test code = See_Comment L [Automated 789-8) message] The sy stem which generated this result transmitted reference range : 4.26 - 5.52 10*6/?L. The reference range was not used to interpret this result as normal/abnormal . HGB (test code = 10.5 g/dL 12.2-16.4 L 718-7) HCT (test code = 31.6 % 38.4-49.3 L 4544-3) MCV (test code = 88.0 fL 81.7-95.6 787-2) MCH (test code = 29.2 pg 26.1-32.7 785-6) MCHC (test code = 33.2 g/dL 31.2-35.0 786-4) RDW-SD (test code = 38.5 fL 38.5-51.6 76935-8) RDW-CV (test code = 11.9 % 12.1-15.4 L 788-0) PLT (test code = See_Comment H [Automated 777-3) message] The sy stem which generated this result transmitted reference range : 150 - 328 10*3/ ?L. The reference r rose was not used to interpret this result as normal/abnormal . MPV (test code = 9.8 fL 9.8-13.0 33976-8) NRBC/100 WBC (test See_Comment [Automat ed code = 3954911436) message] The system which generated this result transmitted reference range : 0.0 - 10.0 /100 WBCs. The refer ence range was not u sed to interpret th is result as normal/abnormal . NRBC x10^3 (test code <0.01 See_Comment [Auto mated = 5854641687) message] The s ystem which generated this result transmitted reference range : 10*3/?L. The reference range was not used to interpret this result as normal/abnormal . GRAN MAT (NEUT) % 71.0 % (test code = 770-8) IMM GRAN % (test code 0.40 % = 8541155002) LYMPH % (test code = 17.4 % 736-9) MONO % (test code = 7.9 % 5905-5) EOS % (test code = 2.7 % 713-8) BASO % (test code = 0.6 % 706-2) GRAN MAT x10^3(ANC) 8.76 10*3/uL 1.99-6.95 H (test code = 6902961882) IMM GRAN x10^3 (test 0.05 10*3/uL 0.00-0.06 code = 8070251706) LYMPH x10^3 (test code 2.15 10*3/uL 1.09-3.23 = 731-0) MONO x10^3 (test code 0.97 10*3/uL 0.36-1.02 = 742-7) EOS x10^3 (test code = 0.33 10*3/uL 0.06-0.53 711-2) BASO x10^3 (test code 0.07 10*3/uL 0.01-0.09 = 704-7) Lab Interpretation Abnormal (test code = 32319-4) [facility] WITH [id number] 09:30:30 Test Item Value Reference Range Interpretation Comments WBC (test code = See_Comment H [Automated 6690-2) message] The sy stem which generated this result transmitted reference range : 4.20 - 10.70 10*3/?L. The reference range was not used to interpret this result as normal/abnormal . RBC (test code = See_Comment L [Automated 789-8) message] The sy stem which generated this result transmitted reference range : 4.26 - 5.52 10*6/?L. The reference range was not used to interpret this result as normal/abnormal . HGB (test code = 10.5 g/dL 12.2-16.4 L 718-7) HCT (test code = 31.6 % 38.4-49.3 L 4544-3) MCV (test code = 88.0 fL 81.7-95.6 787-2) MCH (test code = 29.2 pg 26.1-32.7 785-6) MCHC (test code = 33.2 g/dL 31.2-35.0 786-4) RDW-SD (test code = 38.5 fL 38.5-51.6 70922-8) RDW-CV (test code = 11.9 % 12.1-15.4 L 788-0) PLT (test code = See_Comment H [Automated 777-3) message] The sy stem which generated this result transmitted reference range : 150 - 328 10*3/ ?L. The reference r rose was not used to interpret this result as normal/abnormal . MPV (test code = 9.8 fL 9.8-13.0 91638-8) NRBC/100 WBC (test See_Comment [Automat ed code = 1220366439) message] The system which generated this result transmitted reference range : 0.0 - 10.0 /100 WBCs. The refer ence range was not u sed to interpret th is result as normal/abnormal . NRBC x10^3 (test code <0.01 See_Comment [Auto mated = [id number]) message] The s ystem which generated this result transmitted reference range : 10*3/?L. The reference range was not used to interpret this result as normal/abnormal . GRAN MAT (NEUT) % 71.0 % (test code = 770-8) IMM GRAN % (test code 0.40 % = 4375545502) LYMPH % (test code = 17.4 % 736-9) MONO % (test code = 7.9 % 5905-5) EOS % (test code = 2.7 % 713-8) BASO % (test code = 0.6 % 706-2) GRAN MAT x10^3(ANC) 8.76 10*3/uL 1.99-6.95 H (test code = 0342613009) IMM GRAN x10^3 (test 0.05 10*3/uL 0.00-0.06 code = 5526646102) LYMPH x10^3 (test code 2.15 10*3/uL 1.09-3.23 = 731-0) MONO x10^3 (test code 0.97 10*3/uL 0.36-1.02 = 742-7) EOS x10^3 (test code = 0.33 10*3/uL 0.06-0.53 711-2) BASO x10^3 (test code 0.07 10*3/uL 0.01-0.09 = 704-7) Lab Interpretation Abnormal (test code = 27862-7) [facility] GLUCOSE (AUTOMATED)2020-11-13 08:58:39 Test Item Value Reference Range Interpretation Comments POCT GLU (test code = 8123309911) 203 mg/dL 70-110 H Lab Interpretation (test code = Abnormal 46428-3) [facility] GLUCOSE (AUTOMATED)2020-11-13 08:58:39 Test Item Value Reference Range Interpretation Comments POCT GLU (test code = 6519845274) 203 mg/dL 70-110 H Lab Interpretation (test code = Abnormal 93407-7) [facility] GLUCOSE (AUTOMATED)2020-11-13 08:58:39 Test Item Value Reference Range Interpretation Comments POCT GLU (test code = 4115169402) 203 mg/dL 70-110 H Lab Interpretation (test code = Abnormal 32784-5) [facility] GLUCOSE (AUTOMATED)2020-11-12 21:41:59 Test Item Value Reference Range Interpretation Comments POCT GLU (test code = 4146792147) 228 mg/dL 70-110 H Lab Interpretation (test code = Abnormal 78606-1) [facility] GLUCOSE (AUTOMATED)2020-11-12 21:41:59 Test Item Value Reference Range Interpretation Comments POCT GLU (test code = 5501507825) 228 mg/dL 70-110 H Lab Interpretation (test code = Abnormal 22097-6) [facility] GLUCOSE (AUTOMATED)2020-11-12 21:41:59 Test Item Value Reference Range Interpretation Comments POCT GLU (test code = 3413170548) 228 mg/dL 70-110 H Lab Interpretation (test code = Abnormal 80583-4) [facility] [id number] 19:53:58 Test Item Value Reference Range Interpretation Comments VIT B12 (test code = 686 pg/mL 240-930 6495931441) REBECCA (test code = REBECCA) Biotin has been reported to cause a positive bias, interpret results relative to patient's use of biotin. Lab Interpretation (test Normal code = 21803-9) [facility] [id number] 19:53:58 Test Item Value Reference Range Interpretation Comments VIT B12 (test code = 686 pg/mL 240-930 8596053539) REBECCA (test code = REBECCA) Biotin has been reported to cause a positive bias, interpret results relative to patient's use of biotin. Lab Interpretation (test Normal code = 05155-3) [facility], [id number] 19:53:58 Test Item Value Reference Range Interpretation Comments VIT B12 (test code = 686 pg/mL 240-930 0897795434) REBECCA (test code = REBECCA) Biotin has been reported to cause a positive bias, interpret results relative to patient's use of biotin. Lab Interpretation (test Normal code = 09143-6) [facility] [id number] 18:41:36 Test Item Value Reference Range Interpretation Comments CRP (test code = 9505998029) 7.6 mg/dL <0.8 H Lab Interpretation (test code = Abnormal 01253-9) [facility] [id number] 18:41:36 Test Item Value Reference Range Interpretation Comments CRP (test code = 6321927135) 7.6 mg/dL <0.8 H Lab Interpretation (test code = Abnormal 58003-4) [facility] [id number] 18:41:36 Test Item Value Reference Range Interpretation Comments CRP (test code = 0794261039) 7.6 mg/dL <0.8 H Lab Interpretation (test code = Abnormal 70170-5) [facility] GLUCOSE (AUTOMATED)2020-11-12 17:10:56 Test Item Value Reference Range Interpretation Comments POCT GLU (test code = 2434156642) 164 mg/dL 70-110 H Lab Interpretation (test code = Abnormal 97584-6) [facility] GLUCOSE (AUTOMATED)2020-11-12 17:10:56 Test Item Value Reference Range Interpretation Comments POCT GLU (test code = 7482462663) 164 mg/dL 70-110 H Lab Interpretation (test code = Abnormal 27802-5) [facility] GLUCOSE (AUTOMATED)2020-11-12 17:10:56 Test Item Value Reference Range Interpretation Comments POCT GLU (test code = 4862705090) 164 mg/dL 70-110 H Lab Interpretation (test code = Abnormal 36098-8) [facility] 16:49:34 Test Item Value Reference Range Interpretation Comments Procalcitonin (test 0.09 ng/mL <0.07 H code = 8326384340) REBECCA (test code = REBECCA) INTERPRETATION OF PROCALCITONIN RESULTS IN ADULTS >= 18 YEARS OF AGE Initiation and discontinuation of antibiotics on patients with suspected or confirmed Lower Respiratory Tract Infection in Adults >= 18 years of age. + +-------- --------+ + -----+|Procalcitonin |Interpretation ?|Antibiotic ? ? |Considerations ? |ng/mL ? | ?|recommendation | ? + +-------- --------+ + -----+| <0.1 ? | Bacterial ? ? ?| Strongly ? ? ?| ? | ?| infection very | discouraged ? | Overruling: ? | ?| unlikely ? ? ? | ? | ? Clinically unstable ? ? ? + +-------- --------+ + ? High risk for adverse ? ? | <0.25 ?| Bacterial ? ? ?| Discouraged ? | ? outcome ? | ?| infection ? ? ?| ? | ? SEE IMPORTANT NOTE ?| ?| unlikely ? ? ? | ? | ? + +-------- --------+ + -----+| >=0.25 ? ? ? | Bacterial ? ? ?| Encouraged ? ?| ? | ?| infection ? ? ?| ? | ? | ?| likely ? | ? | Consider treatment failure ?+ +------- ---------+ -+ if levels does not decrease | >0.5 ? | Bacterial ? ? ?| Strongly ? ? ?| appropriately ? | ?| infection very | encouraged ? ?| ? | ?| likely ? | ? | ? + +-------- --------+ + -----+ Discontinuation of antibiotics in high-acuity patients with suspected or confirmed sepsis in Adults >= 18 years of age. + +-------- --------+ + -----+|Procalcitonin |Interpretation ?|Antibiotic ? ? |Considerations ? |ng/mL ? | ?|recommendation | ? + +-------- --------+ + -----+| <0.25 ?| Bacterial ? ? ?| Strongly ? ? ?| ? | ?| infection very | discouraged ? | Overruling: ? | ?| unlikely ? ? ? | ? | ? Clinically unstable ? ? ? + +-------- --------+ + ? High risk for adverse ? ? | <0.5 or drop | Bacterial ? ? ?| Discouraged ? | ? outcome ? | >80% from ? ?| infection ? ? ?| ? | ? SEE IMPORTANT NOTE ?| highest PCT ?| unlikely ? ? ? | ? | ? | level ?| ?| ? | ? + +-------- --------+ + -----+| >=0.5 ?| Bacterial ? ? ?| Encouraged ? ?| ? | ?| infection ? ? ?| ? | ? | ?| likely ? | ? | Consider treatment failure ?+ +------- ---------+ -+ if levels does not decrease | >1.0 ? | Bacterial ? ? ?| Strongly ? ? ?| appropriately ? | ?| infection very | encouraged ? ?| ? | ?| likely ? | ? | ? + +-------- --------+ + -----+ Percentage of drop of Procalcitonin calculation for Discontinuation of antibiotics in high-acuity patients with suspected or confirmed sepsis in Adults >= 18 years of age. ? Procalcitonin highest{}-Procalcitonin current{}Delta Procalcitonin = x100% ? Procalcitonin current {} IMPORTANT NOTE: Procalcitonin may be elevated without bacterial infection by physiologic stress related to trauma, rees, chronic dialysis, metastatic cancer, surgery in the past seven days, malaria, some fungal infections, and some forms of vasculitis. The interpretation algorithm may not apply to patients with immunosuppression (equivalent of >10 mg of prednisone daily), HIV with CD4 cell count < 350 cells/mm3, active malignancy on systemic chemotherapy, solid organ transplant or hematopoietic stem cell transplantation, or hospital acquired pneumonia. Additionally, some clinical trials of procalcitonin have excluded patients with shock requiring vasopressor use, acute respiratory failure requiring mechanical ventilation, or those with known lung abscess/empyema. For further information please refer to:[email or web address] Lab Interpretation Abnormal (test code = 31492-6) [facility] 16:49:34 Test Item Value Reference Range Interpretation Comments Procalcitonin (test 0.09 ng/mL <0.07 H code = 9289932940) REBECCA (test code = REBECCA) INTERPRETATION OF PROCALCITONIN RESULTS IN ADULTS >= 18 YEARS OF AGE Initiation and discontinuation of antibiotics on patients with suspected or confirmed Lower Respiratory Tract Infection in Adults >= 18 years of age. + +-------- --------+ + -----+|Procalcitonin |Interpretation ?|Antibiotic ? ? |Considerations ? |ng/mL ? | ?|recommendation | ? + +-------- --------+ + -----+| <0.1 ? | Bacterial ? ? ?| Strongly ? ? ?| ? | ?| infection very | discouraged ? | Overruling: ? | ?| unlikely ? ? ? | ? | ? Clinically unstable ? ? ? + +-------- --------+ + ? High risk for adverse ? ? | <0.25 ?| Bacterial ? ? ?| Discouraged ? | ? outcome ? | ?| infection ? ? ?| ? | ? SEE IMPORTANT NOTE ?| ?| unlikely ? ? ? | ? | ? + +-------- --------+ + -----+| >=0.25 ? ? ? | Bacterial ? ? ?| Encouraged ? ?| ? | ?| infection ? ? ?| ? | ? | ?| likely ? | ? | Consider treatment failure ?+ +------- ---------+ -+ if levels does not decrease | >0.5 ? | Bacterial ? ? ?| Strongly ? ? ?| appropriately ? | ?| infection very | encouraged ? ?| ? | ?| likely ? | ? | ? + +-------- --------+ + -----+ Discontinuation of antibiotics in high-acuity patients with suspected or confirmed sepsis in Adults >= 18 years of age. + +-------- --------+ + -----+|Procalcitonin |Interpretation ?|Antibiotic ? ? |Considerations ? |ng/mL ? | ?|recommendation | ? + +-------- --------+ + -----+| <0.25 ?| Bacterial ? ? ?| Strongly ? ? ?| ? | ?| infection very | discouraged ? | Overruling: ? | ?| unlikely ? ? ? | ? | ? Clinically unstable ? ? ? + +-------- --------+ + ? High risk for adverse ? ? | <0.5 or drop | Bacterial ? ? ?| Discouraged ? | ? outcome ? | >80% from ? ?| infection ? ? ?| ? | ? SEE IMPORTANT NOTE ?| highest PCT ?| unlikely ? ? ? | ? | ? | level ?| ?| ? | ? + +-------- --------+ + -----+| >=0.5 ?| Bacterial ? ? ?| Encouraged ? ?| ? | ?| infection ? ? ?| ? | ? | ?| likely ? | ? | Consider treatment failure ?+ +------- ---------+ -+ if levels does not decrease | >1.0 ? | Bacterial ? ? ?| Strongly ? ? ?| appropriately ? | ?| infection very | encouraged ? ?| ? | ?| likely ? | ? | ? + +-------- --------+ + -----+ Percentage of drop of Procalcitonin calculation for Discontinuation of antibiotics in high-acuity patients with suspected or confirmed sepsis in Adults >= 18 years of age. ? Procalcitonin highest{}-Procalcitonin current{}Delta Procalcitonin = x100% ? Procalcitonin current {} IMPORTANT NOTE: Procalcitonin may be elevated without bacterial infection by physiologic stress related to trauma, rees, chronic dialysis, metastatic cancer, surgery in the past seven days, malaria, some fungal infections, and some forms of vasculitis. The interpretation algorithm may not apply to patients with immunosuppression (equivalent of >10 mg of prednisone daily), HIV with CD4 cell count < 350 cells/mm3, active malignancy on systemic chemotherapy, solid organ transplant or hematopoietic stem cell transplantation, or hospital acquired pneumonia. Additionally, some clinical trials of procalcitonin have excluded patients with shock requiring vasopressor use, acute respiratory failure requiring mechanical ventilation, or those with known lung abscess/empyema. For further information please refer to:[email or web address] Lab Interpretation Abnormal (test code = 97714-0) [facility] 16:49:34 Test Item Value Reference Range Interpretation Comments Procalcitonin (test 0.09 ng/mL <0.07 H code = 2032551092) REBECCA (test code = REBECCA) INTERPRETATION OF PROCALCITONIN RESULTS IN ADULTS >= 18 YEARS OF AGE Initiation and discontinuation of antibiotics on patients with suspected or confirmed Lower Respiratory Tract Infection in Adults >= 18 years of age. + +-------- --------+ + -----+|Procalcitonin |Interpretation ?|Antibiotic ? ? |Considerations ? |ng/mL ? | ?|recommendation | ? + +-------- --------+ + -----+| <0.1 ? | Bacterial ? ? ?| Strongly ? ? ?| ? | ?| infection very | discouraged ? | Overruling: ? | ?| unlikely ? ? ? | ? | ? Clinically unstable ? ? ? + +-------- --------+ + ? High risk for adverse ? ? | <0.25 ?| Bacterial ? ? ?| Discouraged ? | ? outcome ? | ?| infection ? ? ?| ? | ? SEE IMPORTANT NOTE ?| ?| unlikely ? ? ? | ? | ? + +-------- --------+ + -----+| >=0.25 ? ? ? | Bacterial ? ? ?| Encouraged ? ?| ? | ?| infection ? ? ?| ? | ? | ?| likely ? | ? | Consider treatment failure ?+ +------- ---------+ -+ if levels does not decrease | >0.5 ? | Bacterial ? ? ?| Strongly ? ? ?| appropriately ? | ?| infection very | encouraged ? ?| ? | ?| likely ? | ? | ? + +-------- --------+ + -----+ Discontinuation of antibiotics in high-acuity patients with suspected or confirmed sepsis in Adults >= 18 years of age. + +-------- --------+ + -----+|Procalcitonin |Interpretation ?|Antibiotic ? ? |Considerations ? |ng/mL ? | ?|recommendation | ? + +-------- --------+ + -----+| <0.25 ?| Bacterial ? ? ?| Strongly ? ? ?| ? | ?| infection very | discouraged ? | Overruling: ? | ?| unlikely ? ? ? | ? | ? Clinically unstable ? ? ? + +-------- --------+ + ? High risk for adverse ? ? | <0.5 or drop | Bacterial ? ? ?| Discouraged ? | ? outcome ? | >80% from ? ?| infection ? ? ?| ? | ? SEE IMPORTANT NOTE ?| highest PCT ?| unlikely ? ? ? | ? | ? | level ?| ?| ? | ? + +-------- --------+ + -----+| >=0.5 ?| Bacterial ? ? ?| Encouraged ? ?| ? | ?| infection ? ? ?| ? | ? | ?| likely ? | ? | Consider treatment failure ?+ +------- ---------+ -+ if levels does not decrease | >1.0 ? | Bacterial ? ? ?| Strongly ? ? ?| appropriately ? | ?| infection very | encouraged ? ?| ? | ?| likely ? | ? | ? + +-------- --------+ + -----+ Percentage of drop of Procalcitonin calculation for Discontinuation of antibiotics in high-acuity patients with suspected or confirmed sepsis in Adults >= 18 years of age. ? Procalcitonin highest{}-Procalcitonin current{}Delta Procalcitonin = x100% ? Procalcitonin current {} IMPORTANT NOTE: Procalcitonin may be elevated without bacterial infection by physiologic stress related to trauma, rees, chronic dialysis, metastatic cancer, surgery in the past seven days, malaria, some fungal infections, and some forms of vasculitis. The interpretation algorithm may not apply to patients with immunosuppression (equivalent of >10 mg of prednisone daily), HIV with CD4 cell count < 350 cells/mm3, active malignancy on systemic chemotherapy, solid organ transplant or hematopoietic stem cell transplantation, or hospital acquired pneumonia. Additionally, some clinical trials of procalcitonin have excluded patients with shock requiring vasopressor use, acute respiratory failure requiring mechanical ventilation, or those with known lung abscess/empyema. For further information please refer to:[email or web address] Lab Interpretation Abnormal (test code = 51732-6) [facility] URINE [id number] 16:33:00 Test Item Value Reference Range Interpretation Comments T. PROT U (test code = 2888-6) 793 mg/dL CREAT U (test code = 2329096915) 85.4 mg/dL Protein/Creatinine Ratio Urine 0.0-2.0 H (test code = 7872673119) Lab Interpretation (test code = Abnormal 57962-3) [facility] [id number] 16:33:00 Test Item Value Reference Range Interpretation Comments T. PROT U (test code = 2888-6) 793 mg/dL CREAT U (test code = 4363698064) 85.4 mg/dL Protein/Creatinine Ratio Urine 0.0-2.0 H (test code = 8871509146) Lab Interpretation (test code = Abnormal 32991-3) [facility] [id number] 16:33:00 Test Item Value Reference Range Interpretation Comments T. PROT U (test code = 2888-6) 793 mg/dL CREAT U (test code = 9322786282) 85.4 mg/dL Protein/Creatinine Ratio Urine 0.0-2.0 H (test code = 1600871128) Lab Interpretation (test code = Abnormal 89642-5) [facility] 15:39:39 Test Item Value Reference Range Interpretation Comments APPEARANCE (test code = Clear Clear 4119991219) COLOR (test code = Yellow Yellow 6981688388) PH (test code = 4.8-8.0 1549255126) SP GRAVITY (test code = 1.003-1.030 0019536060) GLU U QUAL (test code = 500 mg/dL Normal A 3708640905) BLOOD (test code = Negative Negative 4338682100) KETONES (test code = Negative Negative 2645542168) PROTEIN (test code = 100 mg/dL Negative A 2887-8) UROBILIN (test code = Normal Normal 5732673546) BILIRUBIN (test code = Negative Negative 1475451399) NITRITE (test code = Negative Negative 8219447681) LEUK ABDULKADIR (test code = Negative Negative 5069972889) RBC/HPF (test code = See_Comment H [Autom ated message] 8439955175) The system [employer] generated this result transmit cesar reference range : 0 - 3 HPF. The refe rence range was not u sed to interpret th is result as normal/abnormal . WBC/HPF (test code = See_Comment [Autom ated message] 1622041501) The system [employer] generated this result transmit cesar reference range : 0 - 5 HPF. The refe rence range was not u sed to interpret th is result as normal/abnormal . BACTERIA (test code = Negative Negative 8972170499) MUCOUS (test code = Slight Negative LPF A 9753197379) AMORPHOUS (test code = Rare Rare HPF 6079659355) SQ EPITH (test code = <1 HPF 7147216553) Lab Interpretation (test Abnormal code = 49799-3) [facility] 15:39:39 Test Item Value Reference Range Interpretation Comments APPEARANCE (test code = Clear Clear 1949533665) COLOR (test code = Yellow Yellow 6837419575) PH (test code = 4.8-8.0 4291522238) SP GRAVITY (test code = 1.003-1.030 8056244640) GLU U QUAL (test code = 500 mg/dL Normal A 9680689678) BLOOD (test code = Negative Negative 0303577425) KETONES (test code = Negative Negative 6367447426) PROTEIN (test code = 100 mg/dL Negative A 2887-8) UROBILIN (test code = Normal Normal 6607231598) BILIRUBIN (test code = Negative Negative 5567265841) NITRITE (test code = Negative Negative 8823925979) LEUK ABDULKADIR (test code = Negative Negative 5495425257) RBC/HPF (test code = See_Comment H [Autom ated message] 6315988909) The system [employer] generated this result transmit cesar reference range : 0 - 3 HPF. The refe rence range was not u sed to interpret th is result as normal/abnormal . WBC/HPF (test code = See_Comment [Autom ated message] 9857192221) The system [employer] generated this result transmit cesar reference range : 0 - 5 HPF. The refe rence range was not u sed to interpret th is result as normal/abnormal . BACTERIA (test code = Negative Negative 1580631515) MUCOUS (test code = Slight Negative LPF A 9909249192) AMORPHOUS (test code = Rare Rare HPF 2650606334) SQ EPITH (test code = <1 HPF 0509564993) Lab Interpretation (test Abnormal code = 15922-4) [facility] 15:39:39 Test Item Value Reference Range Interpretation Comments APPEARANCE (test code = Clear Clear 1516111963) COLOR (test code = Yellow Yellow 4737404027) PH (test code = 4.8-8.0 6430496071) SP GRAVITY (test code = 1.003-1.030 5957964893) GLU U QUAL (test code = 500 mg/dL Normal A 1834704516) BLOOD (test code = Negative Negative 9856565247) KETONES (test code = Negative Negative 3551652242) PROTEIN (test code = 100 mg/dL Negative A 2887-8) UROBILIN (test code = Normal Normal 4700358116) BILIRUBIN (test code = Negative Negative 9540523429) NITRITE (test code = Negative Negative 9136120146) LEUK ABDULKADIR (test code = Negative Negative 2646286410) RBC/HPF (test code = See_Comment H [Autom ated message] 6721196586) The system [employer] generated this result transmit cesar reference range : 0 - 3 HPF. The refe rence range was not u sed to interpret th is result as normal/abnormal . WBC/HPF (test code = See_Comment [Autom ated message] 6810173840) The system [employer] generated this result transmit cesar reference range : 0 - 5 HPF. The refe rence range was not u sed to interpret th is result as normal/abnormal . BACTERIA (test code = Negative Negative 9849452913) MUCOUS (test code = Slight Negative LPF A 4205426819) AMORPHOUS (test code = Rare Rare HPF 8571203323) SQ EPITH (test code = <1 HPF 5936449778) Lab Interpretation (test Abnormal code = 80559-7) [facility], URINE [id number] 15:29:18 Test Item Value Reference Range Interpretation Comments NA URINE (test code = 4931433861) 83 mmol/L [facility], URINE [id number] 15:29:18 Test Item Value Reference Range Interpretation Comments NA URINE (test code = 8421650800) 83 mmol/L [facility], URINE [id number] 15:29:18 Test Item Value Reference Range Interpretation Comments NA URINE (test code = 2171175344) 83 mmol/L [facility] GLUCOSE (AUTOMATED)2020-11-12 13:14:12 Test Item Value Reference Range Interpretation Comments POCT GLU (test code = 2249976755) 186 mg/dL 70-110 H Lab Interpretation (test code = Abnormal 03206-9) [facility] GLUCOSE (AUTOMATED)2020-11-12 13:14:12 Test Item Value Reference Range Interpretation Comments POCT GLU (test code = 9684370323) 186 mg/dL 70-110 H Lab Interpretation (test code = Abnormal 76516-5) [facility] GLUCOSE (AUTOMATED)2020-11-12 13:14:12 Test Item Value Reference Range Interpretation Comments POCT GLU (test code = 8597648938) 186 mg/dL 70-110 H Lab Interpretation (test code = Abnormal 50940-4) [facility] [id number] 11:15:35 Test Item Value Reference Range Interpretation Comments FERRITIN (test code = 129.0 ng/mL 18.0-464.0 5576055981) REBECCA (test code = REBECCA) Biotin has been reported to cause a negative bias, interpret results relative to patient's use of biotin. Lab Interpretation (test Normal code = 51728-4) [facility] [id number] 11:15:35 Test Item Value Reference Range Interpretation Comments FERRITIN (test code = 129.0 ng/mL 18.0-464.0 8545956285) REBECCA (test code = REBECCA) Biotin has been reported to cause a negative bias, interpret results relative to patient's use of biotin. Lab Interpretation (test Normal code = 71981-3) [facility] [id number] 11:15:35 Test Item Value Reference Range Interpretation Comments FERRITIN (test code = 129.0 ng/mL 18.0-464.0 3450130745) REBECCA (test code = REBECCA) Biotin has been reported to cause a negative bias, interpret results relative to patient's use of biotin. Lab Interpretation (test Normal code = 43474-1) [facility] VW [id number] 11:15:00 Small toe distal phalanx osteomyelitis. Preliminary Report Dictated by Resident: Wyatt Jacome I, Zaki Wynne MD., have reviewed this study and agree with the abovereport.EXAM: XR FOOT 3+ VW RIGHT HISTORY: Right Fifth toe pain, erthema, swelling. R/O Osteo COMPARISON: None. FINDINGS: Radiographs of the right foot demonstrate cystic resorption of the smalltoe distal phalanx. Prominent talar beaking is noted. An os peroneum isnoted. Joint spaces are preserved. Alignment is within normal limits. Softtissue swelling over the lateral forefoot. Extensive diabetic type vascularcalcifications are visualized. [facility], Radiant Results Inft User - 11/12/2020 6:16 AM CDTEXAM: XR FOOT 3+ VW RIGHTHISTORY: Right Fifth toe pain, erthema, swelling. R/O Osteo COMPARISON: None.FINDINGS: Radiographs of the right foot demonstrate cystic resorption of the smalltoe distal phalanx. Prominent talar beaking is noted. An os peroneum isnoted. Joint spaces are preserved. Alignment is within normal limits. Softtissue swelling over the lateral forefoot. Extensive diabetic type vascularcalcifications are visualized.IMPRESSIONSmall toe distal phalanx osteomyelitis.Preliminary Report Dictated by Resident: Aviva Mejía MD., have reviewed this study and agree with the abovereport.[facility] [id number] 11:15:00 Small toe distal phalanx osteomyelitis. Preliminary Report Dictated by Resident: Zaki Bond MD., have reviewed this study and agree with the abovereport.EXAM: XR FOOT 3+ VW RIGHT HISTORY: Right Fifth toe pain, erthema, swelling. R/O Osteo COMPARISON: None. FINDINGS: Radiographs of the right foot demonstrate cystic resorption of the smalltoe distal phalanx. Prominent talar beaking is noted. An os peroneum isnoted. Joint spaces are preserved. Alignment is within normal limits. Softtissue swelling over the lateral forefoot. Extensive diabetic type vascularcalcifications are visualized. [facility], Radiant Results Inft User - 11/12/2020 6:16 AM CDTEXAM: XR FOOT 3+ VW RIGHTHISTORY: Right Fifth toe pain, erthema, swelling. R/O Osteo COMPARISON: None.FINDINGS: Radiographs of the right foot demonstrate cystic resorption of the smalltoe distal phalanx. Prominent talar beaking is noted. An os peroneum isnoted. Joint spaces are preserved. Alignment is within normal limits. Softtissue swelling over the lateral forefoot. Extensive diabetic type vascularcalcifications are visualized.IMPRESSIONSmall toe distal phalanx osteomyelitis.Preliminary Report Dictated by Resident: Aviva Mejía MD., have reviewed this study and agree with the abovereport.[facility] VW [id number] 11:15:00 Small toe distal phalanx osteomyelitis. Preliminary Report Dictated by Resident: Wyatt Jacome I, Zaki M Ricci, MD., have reviewed this study and agree with the abovereport.EXAM: XR FOOT 3+ VW RIGHT HISTORY: Right Fifth toe pain, erthema, swelling. R/O Osteo COMPARISON: None. FINDINGS: Radiographs of the right foot demonstrate cystic resorption of the smalltoe distal phalanx. Prominent talar beaking is noted. An os peroneum isnoted. Joint spaces are preserved. Alignment is within normal limits. Softtissue swelling over the lateral forefoot. Extensive diabetic type vascularcalcifications are visualized. [facility], Radiant Results Inft User - 11/12/2020 6:16 AM CDTEXAM: XR FOOT 3+ VW RIGHTHISTORY: Right Fifth toe pain, erthema, swelling. R/O Osteo COMPARISON: None.FINDINGS: Radiographs of the right foot demonstrate cystic resorption of the smalltoe distal phalanx. Prominent talar beaking is noted. An os peroneum isnoted. Joint spaces are preserved. Alignment is within normal limits. Softtissue swelling over the lateral forefoot. Extensive diabetic type vascularcalcifications are visualized.IMPRESSIONSmall toe distal phalanx osteomyelitis.Preliminary Report Dictated by Resident: Wyatt Skinner, Aviva Wynne MD., have reviewed this study and agree with the abovereport.[facility] LancasterTHYROID STIMULATING [id number] 11:11:36 Test Item Value Reference Range Interpretation Comments TSH (test code = See_Comment [Automated message] [id number]) The system Night Up generated this result transmitted ref erence range: 0.45 - 4 .70 mIU/L. The refe rence range was not u sed to interpret this result as normal/abnor mal. Lab Interpretation (test Normal code = 54699-7) [facility] [id number] 11:11:36 Test Item Value Reference Range Interpretation Comments TSH (test code = See_Comment [Automated message] [id number]) The system Night Up generated this result transmitted ref erence range: 0.45 - 4 .70 mIU/L. The refe rence range was not u sed to interpret this result as normal/abnor mal. Lab Interpretation (test Normal code = 38022-9) [facility] [id number] 11:11:36 Test Item Value Reference Range Interpretation Comments TSH (test code = See_Comment [Automated message] [id number]) The system Night Up generated this result transmitted ref erence range: 0.45 - 4 .70 mIU/L. The refe rence range was not u sed to interpret this result as normal/abnor mal. Lab Interpretation (test Normal code = 85393-9) [facility] [id number] 11:02:44 Test Item Value Reference Range Interpretation Comments ESR (test code = See_Comment [Automated message] [id number]) The system Night Up generated this result transmitted ref erence range: 0 - 10 m m/HR. The reference r rose was not used to interpret this result as normal/abnor mal. Lab Interpretation (test Normal code = 02915-7) [facility] [id number] 11:02:44 Test Item Value Reference Range Interpretation Comments ESR (test code = See_Comment [Automated message] 9587605421) The system Night Up generated this result transmitted ref erence range: 0 - 10 m m/HR. The reference r rose was not used to interpret this result as normal/abnor mal. Lab Interpretation (test Normal code = 27806-2) [facility] [id number] 11:02:44 Test Item Value Reference Range Interpretation Comments ESR (test code = See_Comment [Automated message] 6124765380) The system Night Up generated this result transmitted ref erence range: 0 - 10 m m/HR. The reference r rose was not used to interpret this result as normal/abnor mal. Lab Interpretation (test Normal code = 56713-2) [facility] WITH [id number] 10:55:36 Test Item Value Reference Range Interpretation Comments WBC (test code = See_Comment H [Automated 6690-2) message] The system which generated this result transmit cesar reference range : 4.20 - 10.70 10*3/?L. The reference range was not used to interpret this result as normal/abnormal . RBC (test code = See_Comment L [Automated 789-8) message] The system which generated this result transmit cesar reference range : 4.26 - 5.52 10*6/?L. The reference range was not used to interpret this result as normal/abnormal . HGB (test code = 11.6 g/dL 12.2-16.4 L 718-7) HCT (test code = 35.1 % 38.4-49.3 L 4544-3) MCV (test code = 86.5 fL 81.7-95.6 787-2) MCH (test code = 28.6 pg 26.1-32.7 785-6) MCHC (test code = 33.0 g/dL 31.2-35.0 786-4) RDW-SD (test code = 38.0 fL 38.5-51.6 L 99555-5) RDW-CV (test code = 11.9 % 12.1-15.4 L 788-0) PLT (test code = See_Comment H [Automated 777-3) message] The system which generated this result transmit cesar reference range : 150 - 328 10*3/ ?L. The reference range was not u sed to interpret th is result as normal/abnormal . MPV (test code = 9.9 fL 9.8-13.0 35673-8) NRBC/100 WBC (test See_Comment [Automat ed code = 1763135016) message] The system which generated this result transmit cesar reference range : 0.0 - 10.0 /100 WBCs. The reference range was not used to interpret this result as normal/abnormal . NRBC x10^3 (test code <0.01 See_Comment [Auto mated = 8125005517) message] The system which generated this result transmit cesar reference range : 10*3/?L. The reference range was not used to interpret this result as normal/abnormal . GRAN MAT (NEUT) % 77.8 % (test code = 770-8) IMM GRAN % (test code 0.50 % = 7708339869) LYMPH % (test code = 11.4 % 736-9) MONO % (test code = 6.7 % 5905-5) EOS % (test code = 3.1 % 713-8) BASO % (test code = 0.5 % 706-2) GRAN MAT x10^3(ANC) 11.98 10*3/uL 1.99-6.95 H (test code = 6778653792) IMM GRAN x10^3 (test 0.08 10*3/uL 0.00-0.06 H code = 1847091759) LYMPH x10^3 (test code 1.76 10*3/uL 1.09-3.23 = 731-0) MONO x10^3 (test code 1.03 10*3/uL 0.36-1.02 H = 742-7) EOS x10^3 (test code = 0.47 10*3/uL 0.06-0.53 711-2) BASO x10^3 (test code 0.08 10*3/uL 0.01-0.09 = 704-7) Lab Interpretation Abnormal (test code = 42441-4) [facility] WITH [id number] 10:55:36 Test Item Value Reference Range Interpretation Comments WBC (test code = See_Comment H [Automated 6690-2) message] The system which generated this result transmit cesar reference range : 4.20 - 10.70 10*3/?L. The reference range was not used to interpret this result as normal/abnormal . RBC (test code = See_Comment L [Automated 789-8) message] The system which generated this result transmit cesar reference range : 4.26 - 5.52 10*6/?L. The reference range was not used to interpret this result as normal/abnormal . HGB (test code = 11.6 g/dL 12.2-16.4 L 718-7) HCT (test code = 35.1 % 38.4-49.3 L 4544-3) MCV (test code = 86.5 fL 81.7-95.6 787-2) MCH (test code = 28.6 pg 26.1-32.7 785-6) MCHC (test code = 33.0 g/dL 31.2-35.0 786-4) RDW-SD (test code = 38.0 fL 38.5-51.6 L 97512-0) RDW-CV (test code = 11.9 % 12.1-15.4 L 788-0) PLT (test code = See_Comment H [Automated 777-3) message] The system which generated this result transmit cesar reference range : 150 - 328 10*3/ ?L. The reference range was not u sed to interpret th is result as normal/abnormal . MPV (test code = 9.9 fL 9.8-13.0 54219-2) NRBC/100 WBC (test See_Comment [Automat ed code = 4465435741) message] The system which generated this result transmit cesar reference range : 0.0 - 10.0 /100 WBCs. The reference range was not used to interpret this result as normal/abnormal . NRBC x10^3 (test code <0.01 See_Comment [Auto mated = 3879547043) message] The system which generated this result transmit cesar reference range : 10*3/?L. The reference range was not used to interpret this result as normal/abnormal . GRAN MAT (NEUT) % 77.8 % (test code = 770-8) IMM GRAN % (test code 0.50 % = 7583535563) LYMPH % (test code = 11.4 % 736-9) MONO % (test code = 6.7 % 5905-5) EOS % (test code = 3.1 % 713-8) BASO % (test code = 0.5 % 706-2) GRAN MAT x10^3(ANC) 11.98 10*3/uL 1.99-6.95 H (test code = 3396503813) IMM GRAN x10^3 (test 0.08 10*3/uL 0.00-0.06 H code = 5024773306) LYMPH x10^3 (test code 1.76 10*3/uL 1.09-3.23 = 731-0) MONO x10^3 (test code 1.03 10*3/uL 0.36-1.02 H = 742-7) EOS x10^3 (test code = 0.47 10*3/uL 0.06-0.53 711-2) BASO x10^3 (test code 0.08 10*3/uL 0.01-0.09 = 704-7) Lab Interpretation Abnormal (test code = 90039-5) [facility] WITH [id number] 10:55:36 Test Item Value Reference Range Interpretation Comments WBC (test code = See_Comment H [Automated 6690-2) message] The system which generated this result transmit cesar reference range : 4.20 - 10.70 10*3/?L. The reference range was not used to interpret this result as normal/abnormal . RBC (test code = See_Comment L [Automated 789-8) message] The system which generated this result transmit cesar reference range : 4.26 - 5.52 10*6/?L. The reference range was not used to interpret this result as normal/abnormal . HGB (test code = 11.6 g/dL 12.2-16.4 L 718-7) HCT (test code = 35.1 % 38.4-49.3 L 4544-3) MCV (test code = 86.5 fL 81.7-95.6 787-2) MCH (test code = 28.6 pg 26.1-32.7 785-6) MCHC (test code = 33.0 g/dL 31.2-35.0 786-4) RDW-SD (test code = 38.0 fL 38.5-51.6 L 89593-8) RDW-CV (test code = 11.9 % 12.1-15.4 L 788-0) PLT (test code = See_Comment H [Automated 777-3) message] The system which generated this result transmit cesar reference range : 150 - 328 10*3/ ?L. The reference range was not u sed to interpret th is result as normal/abnormal . MPV (test code = 9.9 fL 9.8-13.0 05475-1) NRBC/100 WBC (test See_Comment [Automat ed code = 8744772622) message] The system which generated this result transmit cesar reference range : 0.0 - 10.0 /100 WBCs. The reference range was not used to interpret this result as normal/abnormal . NRBC x10^3 (test code <0.01 See_Comment [Auto mated = 6125659264) message] The system which generated this result transmit cesar reference range : 10*3/?L. The reference range was not used to interpret this result as normal/abnormal . GRAN MAT (NEUT) % 77.8 % (test code = 770-8) IMM GRAN % (test code 0.50 % = 7643863412) LYMPH % (test code = 11.4 % 736-9) MONO % (test code = 6.7 % 5905-5) EOS % (test code = 3.1 % 713-8) BASO % (test code = 0.5 % 706-2) GRAN MAT x10^3(ANC) 11.98 10*3/uL 1.99-6.95 H (test code = 2593816664) IMM GRAN x10^3 (test 0.08 10*3/uL 0.00-0.06 H code = 9931943685) LYMPH x10^3 (test code 1.76 10*3/uL 1.09-3.23 = 731-0) MONO x10^3 (test code 1.03 10*3/uL 0.36-1.02 H = 742-7) EOS x10^3 (test code = 0.47 10*3/uL 0.06-0.53 711-2) BASO x10^3 (test code 0.08 10*3/uL 0.01-0.09 = 704-7) Lab Interpretation Abnormal (test code = 49797-0) [facility] [id number] 10:51:55 Test Item Value Reference Range Interpretation Comments IRON (test code = 0109074945) 29 ug/dL 50-160 L TIBC (test code = 1510178935) 245 ug/dL 250-410 L % FE SAT (test code = 8630811883) 12 % 20-50 L Lab Interpretation (test code = Abnormal 33314-4) [facility] [id number] 10:51:55 Test Item Value Reference Range Interpretation Comments IRON (test code = 4437033614) 29 ug/dL 50-160 L TIBC (test code = 4890156446) 245 ug/dL 250-410 L % FE SAT (test code = 4741897883) 12 % 20-50 L Lab Interpretation (test code = Abnormal 28111-2) [facility] [id number] 10:51:55 Test Item Value Reference Range Interpretation Comments IRON (test code = 5569796445) 29 ug/dL 50-160 L TIBC (test code = 1849905268) 245 ug/dL 250-410 L % FE SAT (test code = 6929918681) 12 % 20-50 L Lab Interpretation (test code = Abnormal 72008-5) [facility] [id number] 10:49:53 Test Item Value Reference Range Interpretation Comments NT-proBNP (test code 439 pg/mL See_Comment H [Autom ated = 2991676030) message] The system which generated this result transmitted reference range : <=125. The reference range was not used to interpret this result as normal/abnormal . REBECCA (test code = REBECCA) Biotin has been reported to cause a negative bias, interpret results relative to patient's use of biotin. Lab Interpretation Abnormal (test code = 94012-3) [facility] [id number] 10:49:53 Test Item Value Reference Range Interpretation Comments NT-proBNP (test code 439 pg/mL See_Comment H [Autom ated = 3136044396) message] The system which generated this result transmitted reference range : <=125. The reference range was not used to interpret this result as normal/abnormal . REBECCA (test code = REBECCA) Biotin has been reported to cause a negative bias, interpret results relative to patient's use of biotin. Lab Interpretation Abnormal (test code = 15517-5) [facility] [id number] 10:49:53 Test Item Value Reference Range Interpretation Comments NT-proBNP (test code 439 pg/mL See_Comment H [Autom ated = 1993407036) message] The system which generated this result transmitted reference range : <=125. The reference range was not used to interpret this result as normal/abnormal . REBECCA (test code = REBECCA) Biotin has been reported to cause a negative bias, interpret results relative to patient's use of biotin. Lab Interpretation Abnormal (test code = 76924-3) [facility] Lancaster[facility]2021-04-10 10:48:12 Test Item Value Reference Range Interpretation Comments MAGNESIUM (test code = 3309530178) 1.8 mg/dL 1.7-2.4 Lab Interpretation (test code = Normal 48779-8) [facility] LancasterLIPID PANEL (26645)(TOTAL CHOLESTEROL, TRIGLYCERIDES, HDL)2020-11-12 10:48:12 Test Item Value Reference Range Interpretation Comments CHOL (test code = 199 mg/dL 120-200 5888901810) HDL (test code = 33 mg/dL >40 L 3331907525) HDLC RATIO (test code = See_Comment H [Au tomated message] 0588079871) The system Night Up generated this result transmit cesar reference range : <=5.0. The refe rence range was not u sed to interpret th is result as normal/abnormal . TRIG (test code = 219 mg/dL 30-170 H 3388334602) LDL CHOL (test code = 122 mg/dL See_Comment [Auto mated message] 49274-2) The system Night Up generated this result transmit cesar reference range : <=160. The refe rence range was not u sed to interpret th is result as normal/abnormal . VLDL (test code = 44 mg/dL 5-60 4553808599) Lab Interpretation (test Abnormal code = 11368-7) [facility]2021-04-10 10:48:12 Test Item Value Reference Range Interpretation Comments MAGNESIUM (test code = 0060791529) 1.8 mg/dL 1.7-2.4 Lab Interpretation (test code = Normal 58335-5) [facility] Lancaster[facility]IP[facility] (16719)(TOTAL CHOLESTEROL, TRIGLYCERIDES, HDL)2020-11-12 10:48:12 Test Item Value Reference Range Interpretation Comments CHOL (test code = 199 mg/dL 120-200 6672424701) HDL (test code = 33 mg/dL >40 L 8798777799) HDLC RATIO (test code = See_Comment H [Au tomated message] 7722720686) The system Night Up generated this result transmit cesar reference range : <=5.0. The refe rence range was not u sed to interpret th is result as normal/abnormal . TRIG (test code = 219 mg/dL 30-170 H 7377117502) LDL CHOL (test code = 122 mg/dL See_Comment [Auto mated message] 12327-7) The system Night Up generated this result transmit cesar reference range : <=160. The refe rence range was not u sed to interpret th is result as normal/abnormal . VLDL (test code = 44 mg/dL 5-60 9600986947) Lab Interpretation (test Abnormal code = 12746-0) [facility]2021-04-10 10:48:12 Test Item Value Reference Range Interpretation Comments MAGNESIUM (test code = 0748263311) 1.8 mg/dL 1.7-2.4 Lab Interpretation (test code = Normal 14919-8) [facility] (76342)(TOTAL CHOLESTEROL, TRIGLYCERIDES, HDL)2020-11-12 10:48:12 Test Item Value Reference Range Interpretation Comments CHOL (test code = 199 mg/dL 120-200 2677462543) HDL (test code = 33 mg/dL >40 L 3843136183) HDLC RATIO (test code = See_Comment H [Au tomated message] 0860043499) The system Night Up generated this result transmit cesar reference range : <=5.0. The refe rence range was not u sed to interpret th is result as normal/abnormal . TRIG (test code = 219 mg/dL 30-170 H 1565595426) LDL CHOL (test code = 122 mg/dL See_Comment [Auto mated message] 84370-5) The system Night Up generated this result transmit cesar reference range : <=160. The refe rence range was not u sed to interpret th is result as normal/abnormal . VLDL (test code = 44 mg/dL 5-60 0782313024) Lab Interpretation (test Abnormal code = 81890-7) [facility] [id number] 10:47:51 Test Item Value Reference Range Interpretation Comments URIC ACID (test code = 4116702469) 6.2 mg/dL 3.6-8.0 Lab Interpretation (test code = Normal 63406-7) [facility]PHOSPH[facility]US2021-04-10 10:47:51 Test Item Value Reference Range Interpretation Comments PHOSPHORUS (test code = 7974142936) 5.3 mg/dL 2.5-5.0 H Lab Interpretation (test code = Abnormal 19787-6) [facility] [id number] 10:47:51 Test Item Value Reference Range Interpretation Comments URIC ACID (test code = 2207933852) 6.2 mg/dL 3.6-8.0 Lab Interpretation (test code = Normal 74322-0) [facility]2021-04-10 10:47:51 Test Item Value Reference Range Interpretation Comments PHOSPHORUS (test code = 1526667279) 5.3 mg/dL 2.5-5.0 H Lab Interpretation (test code = Abnormal 76031-9) [facility] [id number] 10:47:51 Test Item Value Reference Range Interpretation Comments URIC ACID (test code = 3230503760) 6.2 mg/dL 3.6-8.0 Lab Interpretation (test code = Normal 43761-7) [facility]2021-04-10 10:47:51 Test Item Value Reference Range Interpretation Comments PHOSPHORUS (test code = 0240789205) 5.3 mg/dL 2.5-5.0 H Lab Interpretation (test code = Abnormal 18806-4) [facility] LancasterCREAT[facility] [id number] 10:47:31 Test Item Value Reference Range Interpretation Comments CK (test code = 8065711631) 368 U/L 33-194 H Lab Interpretation (test code = Abnormal 06864-3) [facility]CREAT[facility] [id number] 10:47:31 Test Item Value Reference Range Interpretation Comments CK (test code = 0185614269) 368 U/L 33-194 H Lab Interpretation (test code = Abnormal 81917-8) [facility] LancasterCREATINE [id number] 10:47:31 Test Item Value Reference Range Interpretation Comments CK (test code = 3228573084) 368 U/L 33-194 H Lab Interpretation (test code = Abnormal 76471-8) [facility] LancasterCOMP. METABOLIC PANEL (22604)2020-11-12 10:42:51 Test Item Value Reference Range Interpretation Comments NA (test code = 138 mmol/L 135-145 1871361300) K (test code = 4.3 mmol/L 3.5-5.0 9486949353) CL (test code = 108 mmol/L 98-108 7670680627) CO2 TOTAL (test code = 22 mmol/L 23-31 L 5190279783) AGAP (test code = 2-16 0533962474) BUN (test code = 37 mg/dL 7-23 H 9122472880) GLUCOSE (test code = 256 mg/dL 70-110 H 4588080965) CREATININE (test code = 2.96 mg/dL 0.60-1.25 H 4925202187) TOTAL BILI (test code = 0.3 mg/dL 0.1-1.1 0435342489) CALCIUM (test code = 8.0 mg/dL 8.6-10.6 L 4360264387) T PROTEIN (test code = 5.9 g/dL 6.3-8.2 L 0855878649) ALBUMIN (test code = 2.8 g/dL 3.5-5.0 L 7767545133) ALK PHOS (test code = 90 U/L 34-122 9711331581) ALTv (test code = 18 U/L 5-50 1742-6) AST(SGOT) (test code = 25 U/L 13-40 5849581050) eGFR (test code = mL/min/1.73m2 7119501619) REBECCA (test code = REBECCA) Association of Glomerular Filtration Rate (GFR) and Staging of Kidney Disease* + --+ --+ ------+| GFR (mL/min/1.73 m2) ?| With Kidney Damage ?| ?Without Kidney Damage+ --------+ --------+ +| ?>90 ?| ?Stage one ?| ? Normal ?+ ---+ ---+ -------+| ?60-89 ?| ?Stage two ?| ? Decreased GFR ? + --+ --+ ------+| ?30-59 ?| ?Stage three ?| ? Stage three ? + --+ --+ ------+| ?15-29 ?| ?Stage four ? | ? Stage four ?+ ---+ ---+ -------+| ?<15 (or dialysis) ? ?| ?Stage five ? | ? Stage five ?+ ---+ ---+ -------+ *Each stage assumes the associated GFR level has been in effect for at least three months. ?Stages 1 to 5, with or without kidney disease, indicate chronic kidney disease. Notes: Determination of stages one and two (with eGFR >59mL/min/1.73 m2) requires estimation of kidney damage for at least three months as defined by structural or functional abnormalities of the kidney, manifested by either:Pathological abnormalities or Markers of kidney damage (including abnormalities in the composition of the blood or urine or abnormalities in imaging tests). Lab Interpretation Abnormal (test code = 35260-9) [facility]. METABOLIC PANEL (74866)2020-11-12 10:42:51 Test Item Value Reference Range Interpretation Comments NA (test code = 138 mmol/L 135-145 5474522223) K (test code = 4.3 mmol/L 3.5-5.0 1488992236) CL (test code = 108 mmol/L 98-108 0445883433) CO2 TOTAL (test code = 22 mmol/L 23-31 L 8340636023) AGAP (test code = 2-16 0053893155) BUN (test code = 37 mg/dL 7-23 H 3343912882) GLUCOSE (test code = 256 mg/dL 70-110 H 3880757759) CREATININE (test code = 2.96 mg/dL 0.60-1.25 H 5140926109) TOTAL BILI (test code = 0.3 mg/dL 0.1-1.1 2635080010) CALCIUM (test code = 8.0 mg/dL 8.6-10.6 L 9997836566) T PROTEIN (test code = 5.9 g/dL 6.3-8.2 L 7286444198) ALBUMIN (test code = 2.8 g/dL 3.5-5.0 L 0804169896) ALK PHOS (test code = 90 U/L 34-122 1648231700) ALTv (test code = 18 U/L 5-50 1742-6) AST(SGOT) (test code = 25 U/L 13-40 6987090974) eGFR (test code = mL/min/1.73m2 3614289174) REBECCA (test code = REBECCA) Association of Glomerular Filtration Rate (GFR) and Staging of Kidney Disease* + --+ --+ ------+| GFR (mL/min/1.73 m2) ?| With Kidney Damage ?| ?Without Kidney Damage+ --------+ --------+ +| ?>90 ?| ?Stage one ?| ? Normal ?+ ---+ ---+ -------+| ?60-89 ?| ?Stage two ?| ? Decreased GFR ? + --+ --+ ------+| ?30-59 ?| ?Stage three ?| ? Stage three ? + --+ --+ ------+| ?15-29 ?| ?Stage four ? | ? Stage four ?+ ---+ ---+ -------+| ?<15 (or dialysis) ? ?| ?Stage five ? | ? Stage five ?+ ---+ ---+ -------+ *Each stage assumes the associated GFR level has been in effect for at least three months. ?Stages 1 to 5, with or without kidney disease, indicate chronic kidney disease. Notes: Determination of stages one and two (with eGFR >59mL/min/1.73 m2) requires estimation of kidney damage for at least three months as defined by structural or functional abnormalities of the kidney, manifested by either:Pathological abnormalities or Markers of kidney damage (including abnormalities in the composition of the blood or urine or abnormalities in imaging tests). Lab Interpretation Abnormal (test code = 12234-5) [facility] [facility]. METABOLIC PANEL ([id number])2020-11-12 10:42:51 Test Item Value Reference Range Interpretation Comments NA (test code = 138 mmol/L 135-145 5343846268) K (test code = 4.3 mmol/L 3.5-5.0 9479543762) CL (test code = 108 mmol/L 98-108 4556585139) CO2 TOTAL (test code = 22 mmol/L 23-31 L 7661803140) AGAP (test code = 2-16 6079653920) BUN (test code = 37 mg/dL 7-23 H 2968731096) GLUCOSE (test code = 256 mg/dL 70-110 H 7261647562) CREATININE (test code = 2.96 mg/dL 0.60-1.25 H 1172617928) TOTAL BILI (test code = 0.3 mg/dL 0.1-1.4 6744215353) CALCIUM (test code = 8.0 mg/dL 8.6-10.6 L 5180436989) T PROTEIN (test code = 5.9 g/dL 6.3-8.2 L 0563571046) ALBUMIN (test code = 2.8 g/dL 3.5-5.0 L 7927543105) ALK PHOS (test code = 90 U/L 34-122 1717954429) ALTv (test code = 18 U/L 5-50 1742-6) AST(SGOT) (test code = 25 U/L 13-40 9049064416) eGFR (test code = mL/min/1.73m2 7924348970) REBECCA (test code = REBECCA) Association of Glomerular Filtration Rate (GFR) and Staging of Kidney Disease* + --+ --+ ------+| GFR (mL/min/1.73 m2) ?| With Kidney Damage ?| ?Without Kidney Damage+ --------+ --------+ +| ?>90 ?| ?Stage one ?| ? Normal ?+ ---+ ---+ -------+| ?60-89 ?| ?Stage two ?| ? Decreased GFR ? + --+ --+ ------+| ?30-59 ?| ?Stage three ?| ? Stage three ? + --+ --+ ------+| ?15-29 ?| ?Stage four ? | ? Stage four ?+ ---+ ---+ -------+| ?<15 (or dialysis) ? ?| ?Stage five ? | ? Stage five ?+ ---+ ---+ -------+ *Each stage assumes the associated GFR level has been in effect for at least three months. ?Stages 1 to 5, with or without kidney disease, indicate chronic kidney disease. Notes: Determination of stages one and two (with eGFR >59mL/min/1.73 m2) requires estimation of kidney damage for at least three months as defined by structural or functional abnormalities of the kidney, manifested by either:Pathological abnormalities or Markers of kidney damage (including abnormalities in the composition of the blood or urine or abnormalities in imaging tests). Lab Interpretation Abnormal (test code = 81180-5) [facility] [id number] 10:19:48 Test Item Value Reference Range Interpretation Comments PROTIME PATIENT (test See_Comment [Auto mated message] code = 5964-2) The system Mersive generated this result transmitted ref erence range: 12.0 - 1 4.7 Seconds. The re ference range was not u sed to interpret this result as normal/abnor mal. INR (test code = 6301-6) Nor mal INR <1.1; Warfarin Therap eutic range 2.0 to 3. 0 or 2.5 to 3.5, dep ending upon the indica tions. Lab Interpretation (test Normal code = 55948-0) [facility] / [id number] 10:19:48 Test Item Value Reference Range Interpretation Comments PROTIME PATIENT (test See_Comment [Auto mated message] code = 5964-2) The system Micello generated this result transmitted ref erence range: 12.0 - 1 4.7 Seconds. The re ference range was not u sed to interpret this result as normal/abnor mal. INR (test code = 6301-6) Nor mal INR <1.1; Warfarin Therap eutic range 2.0 to 3. 0 or 2.5 to 3.5, dep ending upon the indica tions. Lab Interpretation (test Normal code = 52991-5) [facility] / [id number] 10:19:48 Test Item Value Reference Range Interpretation Comments PROTIME PATIENT (test See_Comment [Auto mated message] code = 5964-2) The system Micello generated this result transmitted ref erence range: 12.0 - 1 4.7 Seconds. The re ference range was not u sed to interpret this result as normal/abnor mal. INR (test code = 6301-6) Nor mal INR <1.1; Warfarin Therap eutic range 2.0 to 3. 0 or 2.5 to 3.5, dep ending upon the indica tions. Lab Interpretation (test Normal code = 77883-7) [facility]A1C)2020-11-12 09:34:14 Test Item Value Reference Range Interpretation Comments HGB A1C (test code = 9.7 % 4.0-6.0 H 4548-4) REBECCA (test code = REBECCA) %A1C (NGSP) Interpretation (ADA)4.8-5.6 ? ? Normal or (Non-Diabetic Range)5.7-6.4 ? ? Increased Risk (Pre-Diabetic)>6.5 ?Diabetes Indicated Lab Interpretation Abnormal (test code = 43065-6) [facility]2020-11-12 09:34:14 Test Item Value Reference Range Interpretation Comments HGB A1C (test code = 9.7 % 4.0-6.0 H 4548-4) REBECCA (test code = REBECCA) %A1C (NGSP) Interpretation (ADA)4.8-5.6 ? ? Normal or (Non-Diabetic Range)5.7-6.4 ? ? Increased Risk (Pre-Diabetic)>6.5 ?Diabetes Indicated Lab Interpretation Abnormal (test code = 45892-2) [facility]2020-11-12 09:34:14 Test Item Value Reference Range Interpretation Comments HGB A1C (test code = 9.7 % 4.0-6.0 H 4548-4) REBECCA (test code = REBECCA) %A1C (NGSP) Interpretation (ADA)4.8-5.6 ? ? Normal or (Non-Diabetic Range)5.7-6.4 ? ? Increased Risk (Pre-Diabetic)>6.5 ?Diabetes Indicated Lab Interpretation Abnormal (test code = 41278-8) [facility] [id number] 08:57:48 Test Item Value Reference Range Interpretation Comments LACTIC ACID (test code = 0.71 mmol/L 0.50-2.20 2567479676) Lab Interpretation (test code = Normal 95081-0) [facility] [id number] 08:57:48 Test Item Value Reference Range Interpretation Comments LACTIC ACID (test code = 0.71 mmol/L 0.50-2.20 1719099576) Lab Interpretation (test code = Normal 81378-0) [facility] [id number] 08:57:48 Test Item Value Reference Range Interpretation Comments LACTIC ACID (test code = 0.71 mmol/L 0.50-2.20 7829633146) Lab Interpretation (test code = Normal 47978-1) [facility] [id number] 07:41:31 Destruction of the plantar aspect of the fifth distal phalanx, suggestiveof osteomyelitis. No soft tissue air is appreciated. RL: 460 AFC: [id number] Ordering physician: DEREK CINTRON INDICATION: Right foot wound COMPARISON: Right foot radiographs dated 11/11/2020 TECHNIQUE: Axial images of the right foot were performed without theadministration of intravenous contrast. Images were reformatted in thecoronal and sagittal plane. CT scanwas performed according to ALARA (aslow as reasonably achievable) policy. FINDINGS: No acute fracture or dislocation of the right foot isappreciated. There is destruction of the plantar aspect of the fifth distalphalanx (series 6, image 11). There is no soft tissue air. [facility], Radiant Results Inft User- 11/12/2020 2:42 AM CDTOrdering physician: DEREK FELIXNDICATION: Right foot woundCOMPARISON: Right foot radiographs dated 11/11/2020TECHNIQUE: Axial images of the right foot were performed without theadministration of intravenous contrast. Images were reformatted in thecoronal and sagittal plane. CT scan was performed according to ALARA (aslow as reasonably achievable) policy.FINDINGS: No acute fracture or dislocation of the right foot isappreciated. There is destruction of the plantar aspect of the fifth distalphalanx (series 6, image 11). There is no soft tissue air.IMPRESSIONDestruction of the plantar aspect of the fifth distal phalanx, suggestiveof osteomyelitis. No soft tissue air is appreciated.RL: 460AFC: [id number] signed by Radha Cunningham MD, PhD at 11/12/2020 2:41 AM [facility] WO [id number] 07:41:31 Destruction of the plantar aspect of the fifth distal phalanx, suggestiveof osteomyelitis. No soft tissue air is appreciated. RL: 460 AFC: [id number] Ordering physician: DEREK CINTRON INDICATION: Right foot wound COMPARISON: Right foot radiographs dated 11/11/2020 TECHNIQUE: Axial images of the right foot were performed without theadministration of intravenous contrast. Images were reformatted in thecoronal and sagittal plane. CT scanwas performed according to ALARA (aslow as reasonably achievable) policy. FINDINGS: No acute fracture or dislocation of the right foot isappreciated. There is destruction of the plantar aspect of the fifth distalphalanx (series 6, image 11). There is no soft tissue air. [facility], Radiant Results Inft User- 11/12/2020 2:42 AM CDTOrdering physician: DEREK JAMESICATION: Right foot woundCOMPARISON: Right foot radiographs dated 11/11/2020TECHNIQUE: Axial images of the right foot were performed without theadministration of intravenous contrast. Images were reformatted in thecoronal and sagittal plane. CT scan was performed according to ALARA (aslow as reasonably achievable) policy.FINDINGS: No acute fracture or dislocation of the right foot isappreciated. There is destruction of the plantar aspect of the fifth distalphalanx (series 6, image 11). There is no soft tissue air.IMPRESSIONDestruction of the plantar aspect of the fifth distal phalanx, suggestiveof osteomyelitis. No soft tissue air is appreciated.RL: 460AFC: [id number] signed by Radha Cunningham MD, PhD at 11/12/2020 2:41 AM [facility] WO [id number] 07:41:31 Destruction of the plantar aspect of the fifth distal phalanx, suggestiveof osteomyelitis. No soft tissue air is appreciated. RL: 460 AFC: [id number] Ordering physician: DEREK CINTRON INDICATION: Right foot wound COMPARISON: Right foot radiographs dated 11/11/2020 TECHNIQUE: Axial images of the right foot were performed without theadministration of intravenous contrast. Images were reformatted in thecoronal and sagittal plane. CT scanwas performed according to ALARA (aslow as reasonably achievable) policy. FINDINGS: No acute fracture or dislocation of the right foot isappreciated. There is destruction of the plantar aspect of the fifth distalphalanx (series 6, image 11). There is no soft tissue air. [facility], Radiant Results Inft User- 11/12/2020 2:42 AM CDTOrdering physician: DEREK JAMESICATION: Right foot woundCOMPARISON: Right foot radiographs dated 11/11/2020TECHNIQUE: Axial images of the right foot were performed without theadministration of intravenous contrast. Images were reformatted in thecoronal and sagittal plane. CT scan was performed according to ALARA (aslow as reasonably achievable) policy.FINDINGS: No acute fracture or dislocation of the right foot isappreciated. There is destruction of the plantar aspect of the fifth distalphalanx (series 6, image 11). There is no soft tissue air.IMPRESSIONDestruction of the plantar aspect of the fifth distal phalanx, suggestiveof osteomyelitis. No soft tissue air is appreciated.RL: 460AFC: [id number] signed by Radha Cunningham MD, PhD at 11/12/2020 2:41 AM [facility] LancasterXR CHEST 1 [id number] 07:34:361. ?No radiographic evidence of acute cardiopulmonary process. RL: 6214AFC: [id number] End of Report EXAM: XR CHEST 1 VW ORDERING PHYSICIAN: Isabel BECKHAM HISTORY: Preoperative exam. COMPARISON: none TECHNICAL QUALITY: Adequate FINDIN GS:Portable semiupright frontal view of the chest. ?The lungs are clear. ?Theheart is normal in size. Mediastinal and hilar contours are normal. Pulmonary vascularity is normal. Osseous structures are unremarkable. [facility], Radiant Results Inft User - 11/12/2020 2:35 AM CDTEXAM: XR CHEST 1 VWORDERING PHYSICIAN: DEREK CINTRON HISTORY: Preoperative exam.COMPARISON: noneTECHNICAL QUALITY: AdequateFINDINGS:Portable semiupright frontal view of the chest. The lungs are clear. Theheart is normal in size. Mediastinal and hilar contours are normal. Pulmonary vascularity is normal. Osseous structures are unremarkable.IMPRESSION1. No radiographic evidence of acute cardiopulmonary process.RL: 6214AFC: [id number] of Report [facility] CHEST 1 [id number] 07:34:361. ?No radiographic evidence of acute cardiopulmonary process. RL: 6214AFC: [id number] End of Report EXAM: XR CHEST 1 VW ORDERING PHYSICIAN: Isabel BECKHAM HISTORY: Preoperative exam. COMPARISON: none TECHNICAL QUALITY: Adequate FINDINGS:Portable semiupright frontal view of the chest. ?The lungs are clear. ?Theheart is normal in size. Mediastinal and hilar contours are normal. Pulmonary vascularity is normal. Osseous structures are unremarkable. [facility], Radiant Results Inft User - 11/12/2020 2:35 AM CDTEXAM: XR CHEST 1 VWORDERING PHYSICIAN: DEREK CINTRON HISTORY: Preoperative exam.COMPARISON: noneTECHNICAL QUALITY: AdequateFINDINGS:Portable semiupright frontal view of the chest. The lungs are clear. Theheart is normal in size. Mediastinal and hilar contours are normal. Pulmonary vascularity is normal. Osseous structures are unremarkable.IMPRESSION1. No radiographic evidence of acute cardiopulmonary process.RL: 6214AFC: [id number] of Report [facility]ST 1 [id number] 07:34:361. ?No radiographic evidence of acute cardiopulmonary process. RL: 6214AFC: [id number] End of Report EXAM: XR CHEST 1 VW ORDERING PHYSICIAN: Isabel BECKHAM HISTORY: Preoperative exam. COMPARISON: none TECHNICAL QUALITY: Adequate FINDINGS:Portable semiupright frontal view of the chest. ?The lungs are clear. ?Theheart is normal in size. Mediastinal and hilar contours are normal. Pulmonary vascularity is normal. Osseous structures are unremarkable. [facility], Radiant Results Inft User - 11/12/2020 2:35 AM CDTEXAM: XR CHEST 1 VWORDERING PHYSICIAN: DEREK CINTRON HISTORY: Preoperative exam.COMPARISON: noneTECHNICAL QUALITY: AdequateFINDINGS:Portable semiupright frontal view of the chest. The lungs are clear. Theheart is normal in size. Mediastinal and hilar contours are normal. Pulmonary vascularity is normal. Osseous structures are unremarkable.IMPRESSION1. No radiographic evidence of acute cardiopulmonary process.RL: 6214AFC: [id number] of Report [facility]. METABOLIC PANEL ([id number])2020-11-12 02:53:14 Test Item Value Reference Range Interpretation Comments NA (test code = 138 mmol/L 135-145 2917138979) K (test code = 4.2 mmol/L 3.5-5.0 9971485868) CL (test code = 105 mmol/L 98-108 5451556580) CO2 TOTAL (test code = 23 mmol/L 23-31 8256439259) AGAP (test code = 2-16 9194418131) BUN (test code = 39 mg/dL 7-23 H 2159353091) GLUCOSE (test code = 284 mg/dL 70-110 H 3307817287) CREATININE (test code = 3.38 mg/dL 0.60-1.25 H 8565696941) TOTAL BILI (test code = 0.3 mg/dL 0.1-1.9 1888890662) CALCIUM (test code = 8.0 mg/dL 8.6-10.6 L 7008545915) T PROTEIN (test code = 7.3 g/dL 6.3-8.2 0393343122) ALBUMIN (test code = 3.4 g/dL 3.5-5.0 L 3048474633) ALK PHOS (test code = 105 U/L 34-122 8637637751) ALTv (test code = 21 U/L 5-50 1742-6) AST(SGOT) (test code = 33 U/L 13-40 8071661051) eGFR (test code = mL/min/1.73m2 8166313154) REBECCA (test code = REBECCA) Association of Glomerular Filtration Rate (GFR) and Staging of Kidney Disease* + --+ --+ ------+| GFR (mL/min/1.73 m2) ?| With Kidney Damage ?| ?Without Kidney Damage+ --------+ --------+ +| ?>90 ?| ?Stage one ?| ? Normal ?+ ---+ ---+ -------+| ?60-89 ?| ?Stage two ?| ? Decreased GFR ? + --+ --+ ------+| ?30-59 ?| ?Stage three ?| ? Stage three ? + --+ --+ ------+| ?15-29 ?| ?Stage four ? | ? Stage four ?+ ---+ ---+ -------+| ?<15 (or dialysis) ? ?| ?Stage five ? | ? Stage five ?+ ---+ ---+ -------+ *Each stage assumes the associated GFR level has been in effect for at least three months. ?Stages 1 to 5, with or without kidney disease, indicate chronic kidney disease. Notes: Determination of stages one and two (with eGFR >59mL/min/1.73 m2) requires estimation of kidney damage for at least three months as defined by structural or functional abnormalities of the kidney, manifested by either:Pathological abnormalities or Markers of kidney damage (including abnormalities in the composition of the blood or urine or abnormalities in imaging tests). Lab Interpretation Abnormal (test code = 77962-0) [facility]. METABOLIC PANEL ([id number])2020-11-12 02:53:14 Test Item Value Reference Range Interpretation Comments NA (test code = 138 mmol/L 135-145 4570234552) K (test code = 4.2 mmol/L 3.5-5.0 0056856235) CL (test code = 105 mmol/L 98-108 2975426397) CO2 TOTAL (test code = 23 mmol/L 23-31 2947756316) AGAP (test code = 2-16 4058236881) BUN (test code = 39 mg/dL 7-23 H 0702607952) GLUCOSE (test code = 284 mg/dL 70-110 H 1402939765) CREATININE (test code = 3.38 mg/dL 0.60-1.25 H 2252888393) TOTAL BILI (test code = 0.3 mg/dL 0.1-1.8 3698496324) CALCIUM (test code = 8.0 mg/dL 8.6-10.6 L 4264975110) T PROTEIN (test code = 7.3 g/dL 6.3-8.2 9613453536) ALBUMIN (test code = 3.4 g/dL 3.5-5.0 L 2616216970) ALK PHOS (test code = 105 U/L 34-122 7737038542) ALTv (test code = 21 U/L 5-50 1742-6) AST(SGOT) (test code = 33 U/L 13-40 1938239827) eGFR (test code = mL/min/1.73m2 1809442443) REBECCA (test code = REBECCA) Association of Glomerular Filtration Rate (GFR) and Staging of Kidney Disease* + --+ --+ ------+| GFR (mL/min/1.73 m2) ?| With Kidney Damage ?| ?Without Kidney Damage+ --------+ --------+ +| ?>90 ?| ?Stage one ?| ? Normal ?+ ---+ ---+ -------+| ?60-89 ?| ?Stage two ?| ? Decreased GFR ? + --+ --+ ------+| ?30-59 ?| ?Stage three ?| ? Stage three ? + --+ --+ ------+| ?15-29 ?| ?Stage four ? | ? Stage four ?+ ---+ ---+ -------+| ?<15 (or dialysis) ? ?| ?Stage five ? | ? Stage five ?+ ---+ ---+ -------+ *Each stage assumes the associated GFR level has been in effect for at least three months. ?Stages 1 to 5, with or without kidney disease, indicate chronic kidney disease. Notes: Determination of stages one and two (with eGFR >59mL/min/1.73 m2) requires estimation of kidney damage for at least three months as defined by structural or functional abnormalities of the kidney, manifested by either:Pathological abnormalities or Markers of kidney damage (including abnormalities in the composition of the blood or urine or abnormalities in imaging tests). Lab Interpretation Abnormal (test code = 69327-1) [facility]. METABOLIC PANEL ([id number])2020-11-12 02:53:14 Test Item Value Reference Range Interpretation Comments NA (test code = 138 mmol/L 135-145 6055837049) K (test code = 4.2 mmol/L 3.5-5.0 7662827618) CL (test code = 105 mmol/L 98-108 4874159321) CO2 TOTAL (test code = 23 mmol/L 23-31 3842556311) AGAP (test code = 2-16 8435628567) BUN (test code = 39 mg/dL 7-23 H 6625457174) GLUCOSE (test code = 284 mg/dL 70-110 H 5059104712) CREATININE (test code = 3.38 mg/dL 0.60-1.25 H 8103922777) TOTAL BILI (test code = 0.3 mg/dL 0.1-1.5 0496605866) CALCIUM (test code = 8.0 mg/dL 8.6-10.6 L 4894895033) T PROTEIN (test code = 7.3 g/dL 6.3-8.2 6505014890) ALBUMIN (test code = 3.4 g/dL 3.5-5.0 L 5106835957) ALK PHOS (test code = 105 U/L 34-122 0429835689) ALTv (test code = 21 U/L 5-50 1742-6) AST(SGOT) (test code = 33 U/L 13-40 5198044633) eGFR (test code = mL/min/1.73m2 2393819365) REBECCA (test code = REBECCA) Association of Glomerular Filtration Rate (GFR) and Staging of Kidney Disease* + --+ --+ ------+| GFR (mL/min/1.73 m2) ?| With Kidney Damage ?| ?Without Kidney Damage+ --------+ --------+ +| ?>90 ?| ?Stage one ?| ? Normal ?+ ---+ ---+ -------+| ?60-89 ?| ?Stage two ?| ? Decreased GFR ? + --+ --+ ------+| ?30-59 ?| ?Stage three ?| ? Stage three ? + --+ --+ ------+| ?15-29 ?| ?Stage four ? | ? Stage four ?+ ---+ ---+ -------+| ?<15 (or dialysis) ? ?| ?Stage five ? | ? Stage five ?+ ---+ ---+ -------+ *Each stage assumes the associated GFR level has been in effect for at least three months. ?Stages 1 to 5, with or without kidney disease, indicate chronic kidney disease. Notes: Determination of stages one and two (with eGFR >59mL/min/1.73 m2) requires estimation of kidney damage for at least three months as defined by structural or functional abnormalities of the kidney, manifested by either:Pathological abnormalities or Markers of kidney damage (including abnormalities in the composition of the blood or urine or abnormalities in imaging tests). Lab Interpretation Abnormal (test code = 93965-2) [facility]2020-11[facility]12 02:03:46 Test Item Value Reference Range Interpretation Comments SARS-CoV-2 Rapid ID NOW Not Detected Not Detected (test code = 98757-9) REBECCA (test code = REBECCA) ID NOW COVID-19 Assay is an isothermal nucleic acid amplification test intended for the qualitative detection of nucleic acid from SARS-CoV-2 viral RNA in nasopharyngeal ([employer]REET [employer]) specimens. It is used under Emergency Use Authorization (EUA) by FDA. The limit of detection (LOD) of the assay is 125 Genome Equivalents/mL. A positive result is indicative of the presence of SARS-CoV-2 RNA. ?Clinical correlation with patient history and other diagnostic information is necessary to determine patient infection status. A negative (Not Detected) result does not preclude SARS-CoV-2 infection. In patients with clinical symptoms and other tests that are consistent with SARS-CoV-2 infection, negative results should be treated as presumptive negative and a new specimen should be tested with alternative PCR molecular test. Invalid: Please collect a new specimen for repeat patient testing if clinically indicated. Lab Interpretation Normal (test code = 77920-9) [facility] (ID NOW RAPID TESTING)2020-11-12 02:03:46 Test Item Value Reference Range Interpretation Comments SARS-CoV-2 Rapid ID NOW Not Detected Not Detected (test code = 47151-7) REBECCA (test code = REBECCA) ID NOW COVID-19 Assay is an isothermal nucleic acid amplification test intended for the qualitative detection of nucleic acid from SARS-CoV-2 viral RNA in nasopharyngeal (STRE[employer]) specimens. It is used under Emergency Use Authorization (EUA) by FDA. The limit of detection (LOD) of the assay is 125 Genome Equivalents/mL. A positive result is indicative of the presence of SARS-CoV-2 RNA. ?Clinical correlation with patient history and other diagnostic information is necessary to determine patient infection status. A negative (Not Detected) result does not preclude SARS-CoV-2 infection. In patients with clinical symptoms and other tests that are consistent with SARS-CoV-2 infection, negative results should be treated as presumptive negative and a new specimen should be tested with alternative PCR molecular test. Invalid: Please collect a new specimen for repeat patient testing if clinically indicated. Lab Interpretation Normal (test code = 17095-4) [facility]2020-11-12 02:03:46 Test Item Value Reference Range Interpretation Comments SARS-CoV-2 Rapid ID NOW Not Detected Not Detected (test code = 59389-5) REBECCA (test code = REBECCA) ID NOW COVID-19 Assay is an isothermal nucleic acid amplification test intended for the qualitative detection of nucleic acid from SARS-CoV-2 viral RNA in nasopharyngeal (STRE[employer]) specimens. It is used under Emergency Use Authorization (EUA) by FDA. The limit of detection (LOD) of the assay is 125 Genome Equivalents/mL. A positive result is indicative of the presence of SARS-CoV-2 RNA. ?Clinical correlation with patient history and other diagnostic information is necessary to determine patient infection status. A negative (Not Detected) result does not preclude SARS-CoV-2 infection. In patients with clinical symptoms and other tests that are consistent with SARS-CoV-2 infection, negative results should be treated as presumptive negative and a new specimen should be tested with alternative PCR molecular test. Invalid: Please collect a new specimen for repeat patient testing if clinically indicated. Lab Interpretation Normal (test code = 83304-8) [facility] WITH [id number] 01:49:45 Test Item Value Reference Range Interpretation Comments WBC (test code = See_Comment H [Automated 8925-2) message] The system which generated this result transmit cesar reference range : 4.20 - 10.70 10*3/?L. The reference range was not used to interpret this result as normal/abnormal . RBC (test code = See_Comment L [Automated 119-8) message] The system which generated this result transmit cesar reference range : 4.26 - 5.52 10*6/?L. The reference range was not used to interpret this result as normal/abnormal . HGB (test code = 12.1 g/dL 12.2-16.4 L 718-7) HCT (test code = 35.9 % 38.4-49.3 L 4544-3) MCV (test code = 85.5 fL 81.7-95.6 787-2) MCH (test code = 28.8 pg 26.1-32.7 785-6) MCHC (test code = 33.7 g/dL 31.2-35.0 786-4) RDW-SD (test code = 36.7 fL 38.5-51.6 L 47137-1) RDW-CV (test code = 11.9 % 12.1-15.4 L 788-0) PLT (test code = See_Comment H [Automated 777-3) message] The system which generated this result transmit cesar reference range : 150 - 328 10*3/ ?L. The reference range was not u sed to interpret th is result as normal/abnormal . MPV (test code = 9.3 fL 9.8-13.0 L 08550-9) NRBC/100 WBC (test See_Comment [Automat ed code = [id number]) message] The system which generated this result transmit cesar reference range : 0.0 - 10.0 /100 WBCs. The reference range was not used to interpret this result as normal/abnormal . NRBC x10^3 (test code <0.01 See_Comment [Auto mated = [id number]) message] The system which generated this result transmit cesar reference range : 10*3/?L. The reference range was not used to interpret this result as normal/abnormal . GRAN MAT (NEUT) % 73.8 % (test code = 770-8) IMM GRAN % (test code 0.60 % = [id number]) LYMPH % (test code = 14.3 % 736-9) MONO % (test code = 7.9 % 5905-5) EOS % (test code = 2.8 % 713-8) BASO % (test code = 0.6 % 706-2) GRAN MAT x10^3(ANC) 11.28 10*3/uL 1.99-6.95 H (test code = 0530784413) IMM GRAN x10^3 (test 0.09 10*3/uL 0.00-0.06 H code = 0291638790) LYMPH x10^3 (test code 2.18 10*3/uL 1.09-3.23 = 731-0) MONO x10^3 (test code 1.21 10*3/uL 0.36-1.02 H = 742-7) EOS x10^3 (test code = 0.43 10*3/uL 0.06-0.53 711-2) BASO x10^3 (test code 0.09 10*3/uL 0.01-0.09 = 704-7) Lab Interpretation Abnormal (test code = 19964-3) [facility] WITH [id number] 01:49:45 Test Item Value Reference Range Interpretation Comments WBC (test code = See_Comment H [Automated 6690-2) message] The system which generated this result transmit cesar reference range : 4.20 - 10.70 10*3/?L. The reference range was not used to interpret this result as normal/abnormal . RBC (test code = See_Comment L [Automated 789-8) message] The system which generated this result transmit cesar reference range : 4.26 - 5.52 10*6/?L. The reference range was not used to interpret this result as normal/abnormal . HGB (test code = 12.1 g/dL 12.2-16.4 L 718-7) HCT (test code = 35.9 % 38.4-49.3 L 4544-3) MCV (test code = 85.5 fL 81.7-95.6 787-2) MCH (test code = 28.8 pg 26.1-32.7 785-6) MCHC (test code = 33.7 g/dL 31.2-35.0 786-4) RDW-SD (test code = 36.7 fL 38.5-51.6 L 91049-2) RDW-CV (test code = 11.9 % 12.1-15.4 L 788-0) PLT (test code = See_Comment H [Automated 777-3) message] The system which generated this result transmit cesar reference range : 150 - 328 10*3/ ?L. The reference range was not u sed to interpret th is result as normal/abnormal . MPV (test code = 9.3 fL 9.8-13.0 L 95751-6) NRBC/100 WBC (test See_Comment [Automat ed code = 3389329246) message] The system which generated this result transmit cesar reference range : 0.0 - 10.0 /100 WBCs. The reference range was not used to interpret this result as normal/abnormal . NRBC x10^3 (test code <0.01 See_Comment [Auto mated = [id number]) message] The system which generated this result transmit cesar reference range : 10*3/?L. The reference range was not used to interpret this result as normal/abnormal . GRAN MAT (NEUT) % 73.8 % (test code = 770-8) IMM GRAN % (test code 0.60 % = 7554034511) LYMPH % (test code = 14.3 % 736-9) MONO % (test code = 7.9 % 5905-5) EOS % (test code = 2.8 % 713-8) BASO % (test code = 0.6 % 706-2) GRAN MAT x10^3(ANC) 11.28 10*3/uL 1.99-6.95 H (test code = 5499802904) IMM GRAN x10^3 (test 0.09 10*3/uL 0.00-0.06 H code = 8811596181) LYMPH x10^3 (test code 2.18 10*3/uL 1.09-3.23 = 731-0) MONO x10^3 (test code 1.21 10*3/uL 0.36-1.02 H = 742-7) EOS x10^3 (test code = 0.43 10*3/uL 0.06-0.53 711-2) BASO x10^3 (test code 0.09 10*3/uL 0.01-0.09 = 704-7) Lab Interpretation Abnormal (test code = 54236-8) [facility] WITH [id number] 01:49:45 Test Item Value Reference Range Interpretation Comments WBC (test code = See_Comment H [Automated 2190-2) message] The system which generated this result transmit cesar reference range : 4.20 - 10.70 10*3/?L. The reference range was not used to interpret this result as normal/abnormal . RBC (test code = See_Comment L [Automated 659-8) message] The system which generated this result transmit cesar reference range : 4.26 - 5.52 10*6/?L. The reference range was not used to interpret this result as normal/abnormal . HGB (test code = 12.1 g/dL 12.2-16.4 L 718-7) HCT (test code = 35.9 % 38.4-49.3 L 4544-3) MCV (test code = 85.5 fL 81.7-95.6 787-2) MCH (test code = 28.8 pg 26.1-32.7 785-6) MCHC (test code = 33.7 g/dL 31.2-35.0 786-4) RDW-SD (test code = 36.7 fL 38.5-51.6 L 26800-4) RDW-CV (test code = 11.9 % 12.1-15.4 L 788-0) PLT (test code = See_Comment H [Automated 777-3) message] The system which generated this result transmit cesar reference range : 150 - 328 10*3/ ?L. The reference range was not u sed to interpret th is result as normal/abnormal . MPV (test code = 9.3 fL 9.8-13.0 L 74781-3) NRBC/100 WBC (test See_Comment [Automat ed code = 5267029912) message] The system which generated this result transmit cesar reference range : 0.0 - 10.0 /100 WBCs. The reference range was not used to interpret this result as normal/abnormal . NRBC x10^3 (test code <0.01 See_Comment [Auto mated = 6475433942) message] The system which generated this result transmit cesar reference range : 10*3/?L. The reference range was not used to interpret this result as normal/abnormal . GRAN MAT (NEUT) % 73.8 % (test code = 770-8) IMM GRAN % (test code 0.60 % = 3225462806) LYMPH % (test code = 14.3 % 736-9) MONO % (test code = 7.9 % 5905-5) EOS % (test code = 2.8 % 713-8) BASO % (test code = 0.6 % 706-2) GRAN MAT x10^3(ANC) 11.28 10*3/uL 1.99-6.95 H (test code = 6201665657) IMM GRAN x10^3 (test 0.09 10*3/uL 0.00-0.06 H code = 6575152208) LYMPH x10^3 (test code 2.18 10*3/uL 1.09-3.23 = 731-0) MONO x10^3 (test code 1.21 10*3/uL 0.36-1.02 H = 742-7) EOS x10^3 (test code = 0.43 10*3/uL 0.06-0.53 711-2) BASO x10^3 (test code 0.09 10*3/uL 0.01-0.09 = 704-7) Lab Interpretation Abnormal (test code = 20844-8) [facility]"
[2022-01-22] MEDS ORDERED: NA CHLORIDE 0.9% 1,000 ML ONE ×2 (12:44→17:45)
[2022-01-22] MEDS ORDERED: ASPIRIN 81 MG CHEWABLE TABLET ONE (12:44)
--- NOTE | 2022-01-22 13:12 | RAD REPORT ---
EXAM DESCRIPTION: RAD - Chest Single View - 01/22/2022 1:06 pm CLINICAL HISTORY: CHEST PAIN COMPARISON: No comparisons FINDINGS: Lines: None. Lungs: No evidence of edema or pneumonia. Pleural: No significant pleural effusions or pneumothorax. Cardiac: The heart size is within normal limits. Bones: No acute fractures. Other: IMPRESSION: No acute cardiopulmonary disease.
[2022-01-22 13:13] LABS: Absolute Lymphocytes (CBC) 1.8 K/uL (0.7-4.9); Hematocrit 36.7 % (39.6-49.0); Lymphocytes % 19.3 % (15.3-44.8); MCV 87.6 fL (80-100); MPV 7.8 fL (7.6-11.3); RBC Red Blood Cell Count 4.19 M/uL (4.33-5.43)
[2022-01-22 13:36] LABS: ALT/SGPT 31 U/L (12-78); AST/SGOT 32 U/L (15-37); Albumin 2.4 g/dL (3.4-5.0); Alkaline Phosphatase 109 U/L (45-117); BUN Blood Urea Nitrogen 50 mg/dL (7-18); Bicarbonate 25 mmol/L (21-32); Bilirubin Total 0.2 mg/dL (0.2-1.0); Glomerular Filtration Rate 12 ml/min (=/>90); Glucose Level 159 mg/dL (74-106); Lipase 268 U/L (73-393); Magnesium 1.9 mg/dL (1.8-2.4); NT PRO-BNP 2956 pg/mL (<125); Potassium 3.8 mmol/L (3.5-5.1); Protein, Total 6.8 g/dL (6.4-8.2); Sodium Level 142 mmol/L (136-145); Troponin High Sensitivity 355.9 pg/mL (<58.9)
[2022-01-22 13:37] LABS: Bilirubin Direct < 0.1 mg/dL (0-0.2)
--- NOTE | 2022-01-22 14:35 | ER ---
Nurse's Notes [facility] Name: Piyush Sauer Age: 41 yrs Sex: Male : 1980 Arrival Date: 01/22/2022 Time: 12:33 Bed 3 Private MD: Diagnosis: Hypertensive heart and chronic kidney disease without heart failure, with stage 5 chronic kidney disease, or end stage renal disease;Dizziness and giddiness;Type 2 diabetes mellitus with hyperglycemia Presentation: 01/22 12:33 Chief complaint: EMS states: "pt reporting he was having some dizziness with high blood jd3 pressure and working out in the heat. we gave him 2 nitro's and started an 18 G in his left AC. his BGL was 176. his pressures 216/120 and lowest we were able to get his pressure was 184/100. reports he has not been taking his blood pressure medications.". Coronavirus screen: At this time, the client does not indicate any symptoms associated with coronavirus-19. Ebola Screen: No symptoms or risks identified at this time. Initial Sepsis Screen: Does the patient meet any 2 criteria? No. Patient's initial sepsis screen is negative. Does the patient have a suspected source of infection? No. Patient's initial sepsis screen is negative. Risk Assessment: Do you want to hurt yourself or someone else? Patient reports no desire to harm self or others. Onset of symptoms was January 22, 2022. 12:33 Method Of Arrival: EMS: [facility] jd3 12:33 Acuity: DEEPA 2 jd3 Triage Assessment: 12:35 General: Appears distressed, comfortable, Behavior is cooperative, appropriate for age, bp anxious. Pain: Complains of pain in chest. EENT: No deficits noted. Neuro: Level of Consciousness is awake, alert, obeys commands, Oriented to Appropriate for age. Cardiovascular: Rhythm is sinus rhythm. Respiratory: No deficits noted. GI: No signs and/or symptoms were reported involving the gastrointestinal system. : No signs and/or symptoms were reported regarding the genitourinary system. Derm: No deficits noted. Musculoskeletal: No deficits noted. Historical: - Allergies: 12:37 No Known Allergies; jd3 - Home Meds: 12:37 Metformin Oral [Active]; jd3 - PMHx: 12:37 Diabetes - NIDDM; Hypertensive disorder; jd3 - PSHx: 12:37 right foot; jd3 - Immunization history:: Adult Immunizations up to date, Client reports having NOT received the Covid vaccine. Flu vaccine is not up to date. - Social history:: Smoking status: Patient denies any tobacco usage or history of. - Family history:: not pertinent. Screenin:35 Abuse screen: Denies threats or abuse. Denies injuries from another. Nutritional bp screening: No deficits noted. Tuberculosis screening: No symptoms or risk factors identified. Fall Risk None identified. Assessment: 12:35 General: SEE TRIAGE NOTE. bp 12:35 General: Appears in no apparent distress. comfortable, Behavior is calm, cooperative, jd3 appropriate for age. Pain: Complains of pain in head Quality of pain is described as aching. Neuro: Marques Agitation-Sedation Scale (RASS): 0 - Alert and Calm Level of Consciousness is awake, alert, obeys commands, Oriented to person, place, time, situation, Reports dizziness. Cardiovascular: Heart tones present Capillary refill < 3 seconds Patient's skin is warm and dry. Rhythm is regular. Respiratory: Airway is patent Respiratory effort is even, unlabored, Respiratory pattern is regular, symmetrical, Breath sounds are clear bilaterally. Denies cough, shortness of breath. GI: Abdomen is non-distended, Bowel sounds present X 4 quads. Abd is soft and non tender X 4 quads. Reports nausea. : No signs and/or symptoms were reported regarding the genitourinary system. EENT: No signs and/or symptoms were reported regarding the EENT system. Derm: Skin is intact, Skin is dry, Skin is normal, Skin temperature is warm. Musculoskeletal: Circulation, motion, and sensation intact. Range of motion: intact in all extremities. 13:31 Reassessment: Patient appears in no apparent distress at this time. No changes from jd3 previously documented assessment. Patient and/or family updated on plan of care and expected duration. Pain level reassessed. Patient is alert, oriented x 3, equal unlabored respirations, skin warm/dry/pink. 15:30 Reassessment: No changes from previously documented assessment. Patient and/or family bp updated on plan of care and expected duration. Pain level reassessed. PT SEEN BY HOSPITALIST. 15:58 Reassessment: ADMIT INITIATED. bp 16:05 Reassessment: Patient appears in no apparent distress at this time. Patient and/or jd3 family updated on plan of care and expected duration. Pain level reassessed. Patient is alert, oriented x 3, equal unlabored respirations, skin warm/dry/pink. 16:06 Reassessment: Patient appears in no apparent distress at this time. Patient and/or jd3 family updated on plan of care and expected duration. Pain level reassessed. Patient is alert, oriented x 3, equal unlabored respirations, skin warm/dry/pink. 17:32 Reassessment: Patient appears in no apparent distress at this time. No changes from jd3 previously documented assessment. Patient and/or family updated on plan of care and expected duration. Pain level reassessed. Patient is alert, oriented x 3, equal unlabored respirations, skin warm/dry/pink. Vital Signs: 12:38 BP 207 / 113; Pulse 101; Resp 17 S; Temp 98.0(O); Pulse Ox 98% on R/A; Weight 77.11 kg jd3 (R); Height 5 ft. 6 in. (167.64 cm) (R); Pain 3/10; 13:31 BP 198 / 107; Pulse 83; Resp 16 S; Pulse Ox 99% on R/A; jd3 14:30 BP 207 / 117; Pulse 85; Resp 13; Pulse Ox 100% ; bp 15:30 BP 211 / 108; Pulse 87; Resp 19; Pulse Ox 99% ; bp 16:05 BP 176 / 101; Pulse 69; Resp 18 S; Pulse Ox 99% on R/A; jd3 17:32 BP 193 / 105; Pulse 65; Resp 18 S; Pulse Ox 100% on R/A; jd3 12:38 Body Mass Index 27.44 (77.11 kg, 167.64 cm) jd3 13:31 provider notified of high blood pressure jd3 ED Course: 12:33 Patient arrived in ED. jd3 12:34 Gerardo iSmms MD is Attending Physician. teodoro 12:35 Patient has correct armband on for positive identification. Bed in low position. Call bp light in reach. Side rails up X2. 12:35 Inserted saline lock: 18 gauge in left antecubital area, using aseptic technique. bp 12:37 Triage completed. jd3 12:38 Arm band placed on. EKG completed in triage. Results shown to MD. jd3 12:39 EKG done, by ED staff, reviewed by Gerardo Simms MD. em1 12:44 Wyatt Brownlee, CECILY is Primary Nurse. bp 12:53 Primary Nurse role handed off by Wyatt Brownlee RN jd3 12:53 Juan Robertson, RN is Primary Nurse. jd3 13:07 XRAY Chest (1 view) In Process Unspecified. EDMS 14:[address] In Process Unspecified. EDMS 14:33 Mannie Reyes MD is Hospitalizing Provider. teodoro 14:33 Hospitalizing Provider role handed off by Mannie Reyes MD teodoro 14:33 Eden Mancia MD is Hospitalizing Provider. teodoro 15:51 Renal Ultrasound-Complete In Process Unspecified. EDMS 18:19 No provider procedures requiring assistance completed. Patient admitted, IV remains in jd3 place. Administered Medications: 12:44 Drug: Aspirin 81 mg Route: PO; bp 13:40 Follow up: Response: No adverse reaction jd3 12:44 Drug: NS 0.9% 1000 ml Route: IV; Rate: 1 bolus; Site: left antecubital; bp 13:40 Follow up: Response: No adverse reaction; IV Status: Completed infusion jd3 14:37 Drug: Norvasc (amlodipine) 10 mg Route: PO; jd3 15:30 Follow up: Response: No adverse reaction jd3 14:37 Drug: Lopressor (metoprolol TARTRATE) 50 mg Route: PO; jd3 15:30 Follow up: Response: No adverse reaction jd3 15:40 Drug: Labetalol 20 mg Route: IV; Rate: bolus; Infused Over: 2 mins; Site: left bp antecubital; 16:40 Follow up: Response: No adverse reaction; IV Status: Completed infusion jd3 Medication: 12:35 VIS not applicable for this client. bp Outcome: 14:34 Decision to Hospitalize by Provider. teodoro 18:20 Admitted to ER Hold. Please see [facility] for further documentation. jd3 18:20 Condition: stable 18:20 Instructed on the need for admit. 20:04 Patient left the ED. bb Signatures: Dispatcher [employer] Gerardo Choi MD MD cha Ballard, Brenda, RN RN bb Martinez, Eric em1 Juan Robertson RN RN jWyatt Parekh RN RN bp Corrections: (The following items were deleted from the chart) 13:53 13:31 BP 198 / 107; Pulse 83bpm; Resp 16bpm; Spontaneous; Pulse Ox 99% RA; thomas guzman
--- NOTE | 2022-01-22 14:35 | EDPHYS ---
Physician Documentation [facility] Name: Piyush Sauer Age: 41 yrs Sex: Male : 1980 Arrival Date: 01/22/2022 Time: 12:33 Bed 3 Private MD: ED Physician Gerardo Simms HPI: 01/22 14:29 This 41 yrs old Male presents to ER via EMS with complaints of Dizziness, High teodoro Blood Pressure. 14:29 The patient presents with dizziness, generalized weakness. Onset: The symptoms/episode teodoro began/occurred just prior to arrival. Context: occurred while the patient was working. Modifying factors: The symptoms are alleviated by nothing, the symptoms are aggravated by nothing. Associated signs and symptoms: Pertinent positives: nausea, shortness of breath. Severity of symptoms: At their worst the symptoms were mild moderate in the emergency department the symptoms have improved mildly. Patient's baseline: Neuro: alert and fully oriented. The patient has experienced similar episodes in the past, several times. Historical: - Allergies: 12:37 No Known Allergies; jd3 - Home Meds: 12:37 Metformin Oral [Active]; jd3 - PMHx: 12:37 Diabetes - NIDDM; Hypertensive disorder; jd3 - PSHx: 12:37 right foot; jd3 - Immunization history:: Adult Immunizations up to date, Client reports having NOT received the Covid vaccine. Flu vaccine is not up to date. - Social history:: Smoking status: Patient denies any tobacco usage or history of. - Family history:: not pertinent. ROS: 14:29 Constitutional: Negative for fever, chills, and weight loss, Eyes: Negative for injury, teodoro pain, redness, and discharge, ENT: Negative for injury, pain, and discharge, Neck: Negative for injury, pain, and swelling, Cardiovascular: Negative for chest pain, palpitations, and edema, Respiratory: Negative for shortness of breath, cough, wheezing, and pleuritic chest pain, Abdomen/GI: Negative for abdominal pain, nausea, vomiting, diarrhea, and constipation, Back: Negative for injury and pain, : Negative for injury, bleeding, discharge, and swelling, MS/Extremity: Negative for injury and deformity, Skin: Negative for injury, rash, and discoloration, Psych: Negative for depression, anxiety, suicide ideation, homicidal ideation, and hallucinations, Allergy/Immunology: Negative for hives, rash, and allergies, Endocrine: Negative for neck swelling, polydipsia, polyuria, polyphagia, and marked weight changes, Hematologic/Lymphatic: Negative for swollen nodes, abnormal bleeding, and unusual bruising. 14:29 Neuro: Positive for dizziness, weakness. Exam: 14:29 Constitutional: This is a well developed, well nourished patient who is awake, alert, teodoro and in no acute distress. Head/Face: Normocephalic, atraumatic. Eyes: Pupils equal round and reactive to light, extra-ocular motions intact. Lids and lashes normal. Conjunctiva and sclera are non-icteric and not injected. Cornea within normal limits. Periorbital areas with no swelling, redness, or edema. ENT: Nares patent. No nasal discharge, no septal abnormalities noted. Tympanic membranes are normal and external auditory canals are clear. Oropharynx with no redness, swelling, or masses, exudates, or evidence of obstruction, uvula midline. Mucous membranes moist. Neck: Trachea midline, no thyromegaly or masses palpated, and no cervical lymphadenopathy. Supple, full range of motion without nuchal rigidity, or vertebral point tenderness. No Meningismus. Chest/axilla: Normal chest wall appearance and motion. Nontender with no deformity. No lesions are appreciated. Cardiovascular: Regular rate and rhythm with a normal S1 and S2. No gallops, murmurs, or rubs. Normal PMI, no JVD. No pulse deficits. Respiratory: Lungs have equal breath sounds bilaterally, clear to auscultation and percussion. No rales, rhonchi or wheezes noted. No increased work of breathing, no retractions or nasal flaring. Abdomen/GI: Soft, non-tender, with normal bowel sounds. No distension or tympany. No guarding or rebound. No evidence of tenderness throughout. Back: No spinal tenderness. No costovertebral tenderness. Full range of motion. Male : Normal genitalia with no discharge or lesions. Skin: Warm, dry with normal turgor. Normal color with no rashes, no lesions, and no evidence of cellulitis. MS/ Extremity: Pulses equal, no cyanosis. Neurovascular intact. Full, normal range of motion. Neuro: Awake and alert, GCS 15, oriented to person, place, time, and situation. Cranial nerves II-XII grossly intact. Motor strength 5/5 in all extremities. Sensory grossly intact. Cerebellar exam normal. Normal gait. Psych: Awake, alert, with orientation to person, place and time. Behavior, mood, and affect are within normal limits. 14:36 ECG was reviewed by the Attending Physician. [facility] Vital Signs: 12:38 BP 207 / 113; Pulse 101; Resp 17 S; Temp 98.0(O); Pulse Ox 98% on R/A; Weight 77.11 kg jd3 (R); Height 5 ft. 6 in. (167.64 cm) (R); Pain 3/10; 13:31 BP 198 / 107; Pulse 83; Resp 16 S; Pulse Ox 99% on R/A; jd3 14:30 BP 207 / 117; Pulse 85; Resp 13; Pulse Ox 100% ; bp 15:30 BP 211 / 108; Pulse 87; Resp 19; Pulse Ox 99% ; bp 16:05 BP 176 / 101; Pulse 69; Resp 18 S; Pulse Ox 99% on R/A; jd3 17:32 BP 193 / 105; Pulse 65; Resp 18 S; Pulse Ox 100% on R/A; jd3 12:38 Body Mass Index 27.44 (77.11 kg, 167.64 cm) jd3 13:31 provider notified of high blood pressure jd3 MDM: 12:34 Patient medically screened. teodoro 14:31 Differential diagnosis: cardiac arrhythmia, generalized weakness, hypovolemia, teodoro idiopathic dizziness. Data reviewed: vital signs, nurses notes, lab test result(s), EKG, radiologic studies, CT scan, plain films. Data interpreted: business consult: rate is 83 beats/min, rhythm is regular, Pulse oximetry: on room air is 99 %. Test interpretation: by ED physician or midlevel provider: ECG, plain radiologic studies. Counseling: I had a detailed discussion with the patient and/or guardian regarding: the historical points, exam findings, and any diagnostic results supporting the discharge/admit diagnosis, lab results, radiology results, the need for further work-up and treatment in the hospital. 01/22 12:35 Order name: Basic Metabolic Panel; Complete Time: 14:16 teodoro 01/22 12:35 Order name: CBC with Diff; Complete Time: 14:16 [facility] 01/22 12:35 Order name: LFT's; Complete Time: 14:16 [facility] 01/22 12:35 Order name: Magnesium; Complete Time: 14:16 [facility] 01/22 12:35 Order name: NT PRO-BNP; Complete Time: 14:16 [facility] 01/22 12:35 Order name: PT-INR; Complete Time: 14:16 [facility] 01/22 12:35 Order name: Troponin HS; Complete Time: 14:16 [facility] 01/22 12:35 Order name: Lipase; Complete Time: 14:16 [facility] 01/22 14:30 Order name: COVID-19 SARS RT PCR (Document "Date of Onset" if Symptomatic); Complete bd Time: 17:01/22 14:52 Order name: Creatine Phosphokinase; Complete Time: 17:25 EDMI 01/22 14:52 Order name: Thyroid Stimulating Hormone; Complete Time: 17:25 EDMI 01/22 14:52 Order name: UR CREAT EDMS 01/22 14:52 Order name: UR SODIUM EDMS 01/22 14:52 Order name: CBC with Automated Diff EDMS 01/22 14:52 Order name: CBC with Automated Diff EDMS 01/22 14:52 Order name: Comprehensive Metabolic Panel EDMS 01/22 14:52 Order name: Comprehensive Metabolic Panel EDMS 01/22 14:52 Order name: Comprehensive Metabolic Panel EDMS 01/22 14:52 Order name: Comprehensive Metabolic Panel EDMS 01/22 14:52 Order name: Lipid Profile EDMS 01/22 14:52 Order name: Lipid Profile EDMS 01/22 14:52 Order name: Magnesium EDMS 01/22 14:52 Order name: Magnesium; Complete Time: 17:25 EDMS 01/22 14:52 Order name: Magnesium EDMS 01/22 14:52 Order name: Magnesium EDMS 01/22 14:54 Order name: Hemoglobin A1c EDMS 01/22 14:54 Order name: Hepatitis B Core IgM Antibody EDMS 01/22 14:54 Order name: Hepatitis B Surface Ab,Quant EDMS 01/22 14:54 Order name: Hepatitis B Surface Antibody EDMS 01/22 14:54 Order name: Hepatitis C RNA, Quant (PCR) EDMS 01/22 12:35 Order name: XRAY Chest (1 view); Complete Time: 14:16 [facility] 01/22 12:35 Order name: EKG; Complete Time: 12:36 [facility] 01/22 12:35 Order name: Cardiac monitoring; Complete Time: 12:44 teodoro 01/22 12:35 Order name: EKG - Nurse/Tech; Complete Time: 12:44 teodoro 01/22 12:35 Order name: IV Saline Lock; Complete Time: 12:44 teodoro 01/22 12:35 Order name: Labs collected and sent; Complete Time: 12:44 teodoro 01/22 12:35 Order name: O2 Per Protocol; Complete Time: 12:44 teodoro 01/22 12:35 Order name: O2 Sat Monitoring; Complete Time: 12:44 [facility] 01/22 13:51 Order name: Stone Protocol CT; Complete Time: 17:25 bd 01/22 14:52 Order name: Renal Ultrasound-Complete; Complete Time: 17:25 EDMS 01/22 14:54 Order name: Troponin High Sensitivity EDMS 01/22 14:54 Order name: Troponin High Sensitivity; Complete Time: 17:25 EDMS 01/22 14:54 Order name: Troponin High Sensitivity EDMS 01/22 15:07 Order name: CONS Physician Consult EDMS 01/22 19:30 Order name: Miscellaneous Test Lab EDMS EC:36 Rate is 95 beats/min. Rhythm is regular. QRS [place] is Normal. [place] interval is normal. QRS teodoro interval is normal. QT interval is normal. No Q waves. T waves are Normal. No ST changes noted. Clinical impression: NSR w/ Non-specific ST/T Changes and No evidence of ischemia. Interpreted by me. Reviewed by me. Administered Medications: 12:44 Drug: Aspirin 81 mg Route: PO; bp 13:40 Follow up: Response: No adverse reaction jd3 12:44 Drug: NS 0.9% 1000 ml Route: IV; Rate: 1 bolus; Site: left antecubital; bp 13:40 Follow up: Response: No adverse reaction; IV Status: Completed infusion jd3 14:37 Drug: Norvasc (amlodipine) 10 mg Route: PO; jd3 15:30 Follow up: Response: No adverse reaction jd3 14:37 Drug: Lopressor (metoprolol TARTRATE) 50 mg Route: PO; jd3 15:30 Follow up: Response: No adverse reaction jd3 15:40 Drug: Labetalol 20 mg Route: IV; Rate: bolus; Infused Over: 2 mins; Site: left bp antecubital; 16:40 Follow up: Response: No adverse reaction; IV Status: Completed infusion jd3 Disposition Summary: 01/22/22 14:34 Hospitalization Ordered Hospitalization Status: Observation teodoro Provider: Eden Mancia cha Condition: Stable teodoro Problem: new teodoro Symptoms: have improved teodoro Bed/Room Type: Standard teodoro Location: Intensive Care Unit(01/22/22 18:32) bd Room Assignment: 2-(01/22/22 18:32) bd Diagnosis - Hypertensive heart and chronic kidney disease without heart failure, with stage 5 teodoro chronic kidney disease, or end stage renal disease - Dizziness and giddiness teodoro - Type 2 diabetes mellitus with hyperglycemia teodoro Forms: - Medication Reconciliation Form teodoro - SBAR form teodoro Signatures: Dispatcher [employer] EDAkanksha Vallejo Corey, MD MD cha Davies, Jonathon, RN RN jWyatt Parekh RN RN bp Corrections: (The following items were deleted from the chart) 18:32 14:34 Telemetry/MedSurg (Inpatient) teodoro bd 18:32 14:34 teodoro bd
--- NOTE | 2022-01-22 14:38 | RAD REPORT ---
EXAM DESCRIPTION: CTStone Protocol - 01/22/2022 2:10 pm CLINICAL HISTORY: Abd pain COMPARISON: No comparisons TECHNIQUE: CT of the abdomen and pelvis was performed. All CT scans are performed using dose optimization technique as appropriate and may include automated exposure control or mA/KV adjustment according to patient size. FINDINGS: Lower chest: Coronary artery calcifications. Circumferential thickened distal esophagus [place] ggesting gastroesophageal reflux. Liver: No acute abnormality or suspicious lesions. Biliary: No biliary ductal dilatation. Stomach: No significant focal abnormality. Duodenum: No significant focal abnormality. Pancreas: No significant abnormality. Spleen: No significant abnormality. Adrenal: No suspicious lesions. Kidney/ureter: No hydronephrosis. No renal calculi. Renal vascular calcifications though tiny stones difficult to exclude. Retroperitoneum: No retroperitoneal adenopathy. Vascular: No aneurysm. Bowel: Moderate colonic stool.. Normal appendix. Peritoneum: No ascites or free air. Small fat containing umbilical hernia. Bladder: Grossly unremarkable. Reproductive: Mild prostatomegaly. Bones: No acute fracture. Other: n/a IMPRESSION: No acute intra-abdominal or pelvic finding. Incidental findings as noted above.
[2022-01-22] MEDS ORDERED: MORPHINE 2 MG/ML SYR IV PRN (14:40)
[2022-01-22] MEDS ORDERED: ACETAMINOPHEN 500 MG TAB PO PRN (14:40)
[2022-01-22] MEDS ORDERED: ONDANSETRON 4 MG/2 ML VIAL IV PRN (14:40)
[2022-01-22] MEDS ORDERED: METOPROLOL TAR 50 MG TAB ONE (14:41)
[2022-01-22] MEDS ORDERED: AMLODIPINE 10 MG TAB ONE (14:41)
[2022-01-22] MEDS ORDERED: LORAZEPAM 0.5 MG TABLET PO PRN (14:47)
[2022-01-22] MEDS ORDERED: GLUCAGON 1 MG/VIAL IM PRN (14:48)
[2022-01-22] MEDS ORDERED: D50W 25 GM/50 ML SYRINGE IV PRN (14:48)
--- NOTE | 2022-01-22 15:02 | P.HP ---
Certification for Inpatient With expected LOS: >2 Midnights Patient will require the following post-hospital care: None Practitioner: I am a practitioner with admitting privileges, knowledge of patient current condition, hospital course, and medical plan of care. Services: Services provided to patient in accordance with Admission requirements found in Title 42 Section 412.3 of the Code of Federal Regulations Patient History Date of Service: 01/22/22 Reason for admission: Dizziness History of Present Illness: 41-year-old male with past medical history of longstanding hypertension, diabetes mellitus type 2 since age 13 but on metformin, history of self-reported CKD -told at a [facility] year ago but not following up with any PCP, not on any blood pressure regimen since over the last 1 year after running out of his previous medication, only taking metformin presented because of new onset dizziness while at work today. He felt unwell and weak. Blood pressure was checked by the safety risk lead and noted to be markedly elevated and he was asked to come to the ED. He admits to increased sunlight exposure and decreased p.o. intake. He admits to transient nausea. He denies any diarrhea. He denies any fainting or syncope episode. He denies any chest pain. On presentation in the ED he was noted with marked elevated blood pressure with systolic of 230s over 120s. He was given p.o. amlodipine as well as IV metoprolol with slight improvement in blood pressure to the 190s over low 100s now. EKG shows normal sinus rhythm with LVH strain pattern, chest x-ray shows no acute infiltrate or pulmonary edema. Troponin was mildly elevated at 325. BNP was elevated at greater than 2600. Creatinine elevated at 5.6 with BUN of 50. Patient has been admitted for hypertensive emergency as well as acute kidney injury He admits to father being on dialysis from diabetes complication prior to his Home medications list reviewed: Yes - Past Medical/Surgical History -: Hypertension -: Diabetes mellitus -: Self-reported CKD -: Foot surgery-right great toe amputation 1 year ago - Family History Father -: Kidney disease - Social History Smoking Status: Never smoker Smoking therapy provided: No Alcohol use: No CD- Drugs: No Caffeine use: No Place of Residence: Home Review of Systems General: Weakness, Malaise Physical Examination - Physical Exam General: Alert, In no apparent distress, Oriented x3 HEENT: Atraumatic, Normocephalic Neck: Supple, 2+ carotid pulse no bruit, JVD not distended Respiratory: Clear to auscultation bilaterally, Normal air movement Cardiovascular: No edema, Normal pulses, Regular rate/rhythm, Normal S1 S2 Gastrointestinal: Normal bowel sounds, Soft and benign, Non-distended Musculoskeletal: No clubbing, No swelling Neurological: Normal gait, Normal speech, Normal strength at 5/5 x4 extr, Normal tone, Sensation intact, Cranial nerves 3-12 intact - Studies Laboratory Data (last 24 hrs) 01/22/22 12:45: PT 11.0, INR 1.00 01/22/22 12:45: WBC 9.4, Hgb 12.4 L, Hct 36.7 L, Plt Count 313 01/22/22 12:45: Sodium 142, Potassium 3.8, BUN 50 H, Creatinine 5.64 H*, Glucose 159 H, Magnesium 1.9, Total Bilirubin 0.2, AST 32, ALT 31, Alkaline Phosphatase 109, Lipase 268 Assessment and Plan - Advance Directives Does patient have a Living Will: No Does patient have a Durable POA for Healthcare: No - Code Status/Comfort Care Code Status Assessed: Yes Code Status: Full Code Physician Review: Patient Assessed, Agree with Above Assessment and Plan Physician Review Additional Text: Impression Acute kidney injurylikely due to prerenal versus malignant hypertensive nephrosclerosis CKDunclear stage Hypertensive emergency Diabetes mellitus Non-STEMI Plan We will admit patient to inpatient status Will start gentle IV fluid hydration Obtain urine studies for fractional excretion of sodium Obtain renal sonogram Minus urology work-up Follow creatinine with hydration Troponin elevated, follow trend Start aspirin/ Plavix and low-dose statin Follow cardiology consult Strict glycemic control Hold metformin for now Insulin regimen as tolerated Follow hemoglobin A1c level Initiate patient on amlodipine/metoprolol for now IV hydralazine as needed Subcutaneous heparin for DVT prophylaxis Advance directivefull code
[2022-01-22] MEDS ORDERED: LABETALOL 20 MG/4ML SYRINGE IV ONE (15:41)
--- NOTE | 2022-01-22 16:03 | RAD REPORT ---
EXAM DESCRIPTION: US - Renal Ultrasound-Complete - 01/22/2022 3:50 pm CLINICAL HISTORY: ARF COMPARISON: Stone Protocol dated 01/22/2022 FINDINGS: Both kidneys are normal in size, shape and echotexture. The right kidney measures 9.7 cm. No hydronephrosis, focal mass or perinephric fluid. The left kidney measures 10.4 cm. No hydronephrosis, focal mass or perinephric fluid. The urinary bladder is incompletely distended without gross abnormality seen. IMPRESSION: No evidence of hydronephrosis or other significant abnormality.
[2022-01-22 16:09] LABS: Thyroid Stimulating Hormone 2.28 uIU/mL (0.360-3.740)
[2022-01-22] MEDS: INSULIN -REGULAR HUMAN 50 UNIT/0.5 ML ML SQ SCH ×2 (16:30→21:00)
[2022-01-22] MEDS: NA CHLORIDE 0.9% 1,000 ML IV SCH (17:30)
[2022-01-22] MEDS: CLOPIDOGREL 75 MG TABLET PO SCH (17:30)
[2022-01-22] MEDS: ASPIRIN EC 81 MG TAB PO SCH (17:36)
[2022-01-22] MEDS ORDERED: CLOPIDOGREL 75 MG TABLET ONE (17:45)
[2022-01-22] MEDS: FAMOTIDINE 20 MG TAB PO SCH (21:00)
[2022-01-22] MEDS: ATORVASTATIN 40 MG TAB PO SCH (21:42)
[2022-01-22] MEDS: HEPARIN 5000 UNIT/ML 1 ML VIAL SQ SCH (21:42)
[2022-01-23] MEDS: HYDRALAZINE HCL 20 MG/ML VIAL IV PRN (02:08)
[2022-01-23] MEDS: NA CHLORIDE 0.9% 1,000 ML IV SCH ×3 (04:19→17:25)
[2022-01-23 05:06] LABS: Hematocrit 36.1 % (39.6-49.0); Lymphocytes % 26.5 % (15.3-44.8); MPV 7.6 fL (7.6-11.3)
[2022-01-23 05:37] LABS: Albumin 2.1 g/dL (3.4-5.0); Bilirubin Total 0.3 mg/dL (0.2-1.0); Potassium 3.7 mmol/L (3.5-5.1); Protein, Total 6.2 g/dL (6.4-8.2)
[2022-01-23] MEDS: INSULIN -REGULAR HUMAN 50 UNIT/0.5 ML ML SQ SCH ×4 (07:30→21:00)
[2022-01-23] MEDS: FAMOTIDINE 20 MG TAB PO SCH (09:52)
[2022-01-23] MEDS: HEPARIN 5000 UNIT/ML 1 ML VIAL SQ SCH ×2 (09:52→21:35)
[2022-01-23] MEDS: ZINC SULFATE 220 MG CAP PO SCH (09:53)
[2022-01-23] MEDS: AMLODIPINE 10 MG TAB PO SCH (09:53)
[2022-01-23] MEDS: CLOPIDOGREL 75 MG TABLET PO SCH (09:53)
[2022-01-23] MEDS: ASPIRIN EC 81 MG TAB PO SCH (09:53)
[2022-01-23] MEDS: METOPROLOL TAR 25 MG TAB PO SCH ×2 (09:54→17:22)
--- NOTE | 2022-01-23 12:16 | P.PN ---
Subjective Date of Service: 01/23/22 Chief Complaint: Dizziness Subjective: No new changes, Tolerating diet (Feels much better, denies any nausea vomiting No headache or dizziness Blood pressure much controlled overnight) Physical Examination - Vital Signs Temperature: 98.6 F Blood Pressure: 153/89 Pulse: 86 Respirations: 12 Pulse Ox (%): 98 - Studies Laboratory Data (last 24 hrs) 01/22/22 12:45: PT 11.0, INR 1.00 01/22/22 12:45: WBC 9.4, Hgb 12.4 L, Hct 36.7 L, Plt Count 313 01/22/22 12:45: Sodium 142, Potassium 3.8, BUN 50 H, Creatinine 5.64 H*, Glucose 159 H, Magnesium 1.9, Total Bilirubin 0.2, AST 32, ALT 31, Alkaline Phosphatase 109, Lipase 268 Assessment And Plan Physician Review: Patient Assessed, Agree with Above Assessment and Plan Physician Review Additional Text: - Physical Exam General: Alert, In no apparent distress, Oriented x3 HEENT: Atraumatic, Normocephalic Neck: Supple, 2+ carotid pulse no bruit, JVD not distended Respiratory: Clear to auscultation bilaterally, Normal air movement Cardiovascular: No edema, Normal pulses, Regular rate/rhythm, Normal S1 S2 Gastrointestinal: Normal bowel sounds, Soft and benign, Non-distended Musculoskeletal: No clubbing, No swelling Neurological: Normal gait, Normal speech, Normal strength at 5/5 x4 extr, Normal tone, Sensation intact, Cranial nerves 3-12 intact - Studies Laboratory Data (last 24 hrs) 01/22/22 12:45: PT 11.0, INR 1.00 01/22/22 12:45: WBC 9.4, Hgb 12.4 L, Hct 36.7 L, Plt Count 313 01/22/22 12:45: Sodium 142, Potassium 3.8, BUN 50 H, Creatinine 5.64 H*, Glucose 159 H, Magnesium 1.9, Total Bilirubin 0.2, AST 32, ALT 31, Alkaline Phosphatase 109, Lipase 268 Renal sonogram with normal-sized kidney 10 cm bilaterally, mild corticomedullary differentiation Urine studiespending Assessment and Plan Impression Acute kidney injurylikely due to prerenal versus malignant hypertensive nephrosclerosis CKDunclear stage Hypertensive emergency Diabetes mellitus Non-STEMI Plan Creatinine marginally improved to 5.2 Continue gentle IV fluid HbA1c of 7.0, continue insulin sliding scale with Accu-Cheks Might benefit from glipizide Mild elevated cholesterol levelstart statin Since nonuremic, no urgent need for dialysis initiation at this time, will follow for now Continue aspirin follow cardiology consult May benefit from stress test in a.m. given trending elevated troponin No urgent need for cardiac cath if not absolutely necessary since mild creatinine elevation Blood pressure much improved, continue amlodipine/metoprolol for now IV hydralazine as needed Subcutaneous heparin for DVT prophylaxis Advance directivefull code
[2022-01-23] MEDS: PENTOXIFYLLINE ER 400 MG TAB PO SCH ×2 (13:38→21:35)
[2022-01-23] MEDS: NA CIT/CITRIC AC 30 ML ORAL UDC PO SCH ×2 (13:43→21:35)
[2022-01-23] MEDS: ATORVASTATIN 40 MG TAB PO SCH (21:35)
[2022-01-24 04:09] LABS: UR PROTEIN 863.6 mg/dL (<11.9); Urine Protein/Creatinine Ratio 8.15 ratio (<0.15)
[2022-01-24 04:23] LABS: Albumin 1.9 g/dL (3.4-5.0); Bilirubin Total 0.2 mg/dL (0.2-1.0); Potassium 3.5 mmol/L (3.5-5.1); Protein, Total 5.6 g/dL (6.4-8.2)
[2022-01-24] MEDS: METOPROLOL TAR 25 MG TAB PO SCH ×2 (05:47→17:28)
--- NOTE | 2022-01-24 07:27 | EKG ---
Test Date: 2022-01-22 Test Time: 12:29:12 Linoleum Mechanic: BRADLEY MEASUREMENT RESULTS: Intervals: Rate: 95 HI: 134 QRSD: 88 QT: 364 QTc: 457 [place]: P: 57 HI: 134 QRS: 83 T: 24 INTERPRETIVE STATEMENTS: Normal sinus rhythm Normal ECG No previous ECG available for comparison Electronically Signed On 01-24-22 07:19:47 CDT by Frank Darnell
[2022-01-24] MEDS: INSULIN -REGULAR HUMAN 50 UNIT/0.5 ML ML SQ SCH ×4 (07:30→20:02)
--- NOTE | 2022-01-24 07:45 | ECHO ---
HEIGHT: 5 ft 6 in WEIGHT: 186 lb 4 oz DATE OF STUDY: 01/23/[address]: Frank Darnell MD 2-DIMENSIONAL: YES M.MODE: YES DOPPLER: YES COLOR FLOW: YES TDS: NO PORTABLE: YES DEFINITY: NO BUBBLE STUDY: NO DIAGNOSIS: TROPONIN ELEVATION CARDIAC HISTORY: CATHERIZATION: SURGERY: PROSTHETIC VALVE: PACEMAKER: MEASUREMENTS (cm) DIASTOLIC (NORMALS) SYSTOLIC (NORMALS) IVSd 1.3 (0.6-1.2) LA Diam 3.5 (1.9-4.0) LVEF 51% LVIDd 4.4 (3.5-5.7) LVIDs 3.2 (2.0-3.5) %FS 26% LVPWd 1.2 (0.6-1.2) Ao Diam 2.9 (2.0-3.7) 2 DIMENSIONAL ASSESSMENT: RIGHT ATRIUM: LEFT ATRIUM: RIGHT VENTRICLE: LEFT VENTRICLE: TRICUSPID VALVE: MITRAL VALVE: PULMONIC VALVE: AORTIC VALVE: PERICARDIAL EFFUSION: AORTIC ROOT: LEFT VENTRICULAR WALL MOTION: DOPPLER/COLOR FLOW: COMMENTS: NORMAL 2D ECHO WITH DOPPLER. NO WALL MOTION ABNORMALITY TECHNOLOGIST: JONY THOMAS
[2022-01-24] MEDS: NA CHLORIDE 0.9% 1,000 ML IV SCH ×3 (09:07→17:28)
[2022-01-24] MEDS: HEPARIN 5000 UNIT/ML 1 ML VIAL SQ SCH ×2 (09:08→20:56)
[2022-01-24] MEDS: ASPIRIN EC 81 MG TAB PO SCH (09:08)
[2022-01-24] MEDS: FAMOTIDINE 20 MG TAB PO SCH (09:08)
[2022-01-24] MEDS: AMLODIPINE 10 MG TAB PO SCH (09:08)
[2022-01-24] MEDS: ZINC SULFATE 220 MG CAP PO SCH (09:08)
[2022-01-24] MEDS: NA CIT/CITRIC AC 30 ML ORAL UDC PO SCH ×2 (09:08→21:00)
[2022-01-24] MEDS: PENTOXIFYLLINE ER 400 MG TAB PO SCH ×2 (09:08→21:29)
[2022-01-24] MEDS: HYDRALAZINE HCL 25 MG TABLET PO SCH ×2 (10:36→21:28)
[2022-01-24] MEDS: HYDRALAZINE HCL 20 MG/ML VIAL IV PRN (11:46)
--- NOTE | 2022-01-24 14:31 | P.PN ---
Subjective Date of Service: 01/24/22 Chief Complaint: Dizziness Subjective: No new changes, Ambulating Physical Examination - Vital Signs Temperature: 98.2 F Blood Pressure: 180/86 Pulse: 63 Respirations: 19 Pulse Ox (%): 98 Assessment And Plan Physician Review: Patient Assessed, Agree with Above Assessment and Plan Physician Review Additional Text: - Physical Exam General: Alert, In no apparent distress, Oriented x3 HEENT: Atraumatic, Normocephalic Neck: Supple, 2+ carotid pulse no bruit, JVD not distended Respiratory: Clear to auscultation bilaterally, Normal air movement Cardiovascular: No edema, Normal pulses, Regular rate/rhythm, Normal S1 S2 Gastrointestinal: Normal bowel sounds, Soft and benign, Non-distended Musculoskeletal: No clubbing, No swelling Neurological: Normal gait, Normal speech, Normal strength at 5/5 x4 extr, Normal tone, Sensation intact, Cranial nerves 3-12 intact - Studies Laboratory Data (last 24 hrs) 01/22/22 12:45: PT 11.0, INR 1.00 01/22/22 12:45: WBC 9.4, Hgb 12.4 L, Hct 36.7 L, Plt Count 313 01/22/22 12:45: Sodium 142, Potassium 3.8, BUN 50 H, Creatinine 5.64 H*, Glucose 159 H, Magnesium 1.9, Total Bilirubin 0.2, AST 32, ALT 31, Alkaline Phosphatase 109, Lipase 268 Renal sonogram with normal-sized kidney 10 cm bilaterally, mild corticomedullary differentiation Urine protein creatinine ratio of 8.15 Assessment and Plan Impression Acute kidney injurylikely due to prerenal versus malignant hypertensive nephrosclerosis CKDunclear stage Hypertensive emergency Diabetes mellitus Non-STEMI Hypocalcemia Plan Creatinine marginally improved to 5.1 Continue gentle IV fluid Continue pentoxifylline/Bicitra We will plan for renal biopsy in a.m. Follow pending serology Uncontrolled blood pressure today, add hydralazine, continue Norvasc/metoprolol HbA1c of 7.0, continue insulin sliding scale with Accu-Cheks Might benefit from glipizide Mild elevated cholesterol levelstarted statin Since nonuremic, no urgent need for dialysis initiation at this time Continue aspirin Start calcitriol for low calcium follow cardiology consult No urgent need for cardiac cath if not absolutely necessary since mild creatinine elevation Blood pressure much improved, continue amlodipine/metoprolol for now IV hydralazine as needed Subcutaneous heparin for DVT prophylaxis Advance directivefull code
[2022-01-24 15:37] LABS: Magnesium 1.8 mg/dL (1.8-2.4)
[2022-01-24 15:47] LABS: Troponin High Sensitivity 570.4 pg/mL (<58.9)
[2022-01-24] MEDS: ATORVASTATIN 40 MG TAB PO SCH (21:28)
[2022-01-24] MEDS ORDERED: NA CIT/CITRIC AC 30 ML ORAL UDC ONE (22:31)
[2022-01-25] MEDS: NA CHLORIDE 0.9% 1,000 ML IV SCH (02:36)
[2022-01-25 05:14] LABS: Bilirubin Total 0.2 mg/dL (0.2-1.0); Potassium 3.6 mmol/L (3.5-5.1)
[2022-01-25 05:15] LABS: Troponin High Sensitivity 505.9 pg/mL (<58.9)
[2022-01-25] MEDS: METOPROLOL TAR 25 MG TAB PO SCH (05:18)
[2022-01-25] MEDS: HYDRALAZINE HCL 20 MG/ML VIAL IV PRN (05:20)
[2022-01-25] MEDS: INSULIN -REGULAR HUMAN 50 UNIT/0.5 ML ML SQ SCH ×2 (07:30→11:30)
[2022-01-25] MEDS ORDERED: REGADENOSON 0.4 MG/5 ML SYR IV ONE (08:18)
[2022-01-25] MEDS: NA CIT/CITRIC AC 30 ML ORAL UDC PO SCH (09:00)
--- NOTE | 2022-01-25 10:10 | RAD REPORT ---
EXAM DESCRIPTION: NM - Rest Stress Cardiac Imaging - 01/25/2022 10:04 am CLINICAL HISTORY: Elevated troponin COMPARISON: None. TECHNIQUE: The patient was administered 10. 6mCi of Tc 99m Sestamibi prior to resting SPECT imaging of the heart. The patient was then administered 31.4 mCi of Tc 99m Sestamibi following exercise or ph armacologic stress. Multiplanar SPECT images were reviewed. FINDINGS: There is uniformity of radiotracer uptake involving the entire left ventricular myocardiu m on rest and stress images. The left ventricular ejection fraction equals 52% IMPRESSION: Negative for a myocardial perfusion defect
[2022-01-25] MEDS: HYDRALAZINE HCL 25 MG TABLET PO SCH (10:28)
[2022-01-25] MEDS: ZINC SULFATE 220 MG CAP PO SCH (10:28)
[2022-01-25] MEDS: FAMOTIDINE 20 MG TAB PO SCH (10:28)
[2022-01-25] MEDS: AMLODIPINE 10 MG TAB PO SCH (10:29)
[2022-01-25] MEDS: ASPIRIN EC 81 MG TAB PO SCH (10:29)
[2022-01-25] MEDS: HEPARIN 5000 UNIT/ML 1 ML VIAL SQ SCH (10:29)
[2022-01-25] MEDS: PENTOXIFYLLINE ER 400 MG TAB PO SCH (10:29)
--- NOTE | 2022-01-25 12:23 | CON ---
Date of Consultation: 01/23/2022 Reason For Consultation: Hypertensive emergency. History Of Present Illness: Mr. Sauer is 41. Has a history of hypertension, diabetes, noncomplian ce. Comes in to the emergency room with a creatinine of 5.64, his BNP was , glucose is 153 , BNP was 2956. No cardiac symptoms. Denied PND, orthopnea, pedal edema, palpitations, or syncope. Denied any fever or chills. Denied any chest pain, nausea, vomiting, or diaphoresis. He is mostly having headache and dizziness. Past Medical History: As stated above. Allergies: HE IS ALLERGIC TO NO MEDICATIONS. Medications: At home include metformin. Review of Systems: Negative. Social History: Negative. Family History: Positive for hypertension. Physical Examination: Vital Signs: Blood pressure 168/116, sinus rhythm. HEENT: Negative. Neck: Supple with no bruit. Chest: Clear to auscultation and percussion. Cardiac: Revealed a regular rhythm and rate with S4 gallops. Abdomen: Benign. Extremities: Revealed no clubbing, cyanosis, or edema. Diagnostic Data: As stated earlier. Chest x-ray is negative. EKG, LVH. CPK . Impression And Plan: 1.Hypertensive crisis. 2.Elevated BNP and CPK secondary to hypertension. 3.Diabetes. 4.Renal failure. The patient is presently on hydralazine, metoprolol, Norvasc, and metformin. Neph rology has been consulted. Echocardiogram is pending. He may have to be dialyzed down the road, but hopefully his creatinine will improve slowly with controlling his pressure and glucose. We will see what the echocardiogram shows. The patient needs to be instructed on being compliant with his regim en. NB/MODL Voice ID: [id number] Report ID: [id number]
[2022-01-25 12:43] VITALS: BP 128/71; TEMP 97.8; O2SAT 97
--- NOTE | 2022-01-25 12:45 | P.DS ---
Admission Date: 01/22/22 Discharge Date: 01/25/22 Disposition: ROUTINE DISCHARGE Discharge Condition: FAIR Reason for Admission: Dizziness Brief History of Present Illness: 41-year-old male with past medical history of longstanding hypertension, diabetes mellitus type 2 since age 13 but on metformin, history of self-reported CKD -told at a [facility] 1 year ago but not following up with any PCP, not on any blood pressure regimen since over the last 1 year after running out of his previous medication, only taking metformin presented because of new onset dizziness while at work today. He felt unwell and weak. Blood pressure was checked by the chief security and safety officer and noted to be markedly elevated and he was asked to come to the ED. He admits to increased sunlight exposure and decreased p.o. intake. He admits to transient nausea. He denies any diarrhea. He denies any fainting or syncope episode. He denies any chest pain. On presentation in the ED he was noted with marked elevated blood pressure with systolic of 230s over 120s. He was given p.o. amlodipine as well as IV metoprolol with slight improvement in blood pressure to the 190s over low 100s now. EKG shows normal sinus rhythm with LVH strain pattern, chest x-ray shows no acute infiltrate or pulmonary edema. Troponin was mildly elevated at 325. BNP was elevated at greater than 2600. Creatinine elevated at 5.6 with BUN of 50. Patient has been admitted for hypertensive emergency as well as acute kidney injury He admits to father being on dialysis from diabetes complication prior to his Hospital Course: History of diabetes admitted for hypertensive encephalopathy. Noted with elevated troponin and marked elevated creatinine. Renal sonogram showed normal- sized kidneys with no with mild corticomedullary differentiation. Urine random proteinuria level of 8.3 g/g. Patient blood pressure was controlled with adjustment of her medications. His metformin was switched to glipizide. He had an echocardiogram done with normal EF. He had a stress test for Elevated troponin with normal myocardial perfusion. His EGFR is marginally improved from 12-14 mils per minute now. He will be discharged home today and to follow-up in renal clinic. Patient has been advised to get insurance to help with his CKD outpatient management. Vital Signs/Physical Exam: Temp Pulse Resp BP Pulse Ox 97.8 F 85 18 128/71 98 01/25/22 12:00 01/25/22 12:00 01/25/22 12:00 01/25/22 12:00 01/24/22 14:36 Laboratory Data at Discharge: WBC 7.7 K/uL (4.3-10.9) D 01/23/22 04:45 Hgb 12.2 g/dL (13.6-17.9) L 01/23/22 04:45 Hct 36.1 % (39.6-49.0) L 01/23/22 04:45 Plt Count 298 K/uL (152-406) 01/23/22 04:45 PT 11.0 SECONDS (9.5-12.5) 01/22/22 12:45 INR 1.00 01/22/22 12:45 Sodium 142 mmol/L (136-145) 01/25/22 04:10 Potassium 3.6 mmol/L (3.5-5.1) 01/25/22 04:10 BUN 43 mg/dL (7-18) H 01/25/22 04:10 Creatinine 4.94 mg/dL (0.55-1.3) H 01/25/22 04:10 Glucose 129 mg/dL (74-106) H 01/25/22 04:10 Magnesium 1.8 mg/dL (1.8-2.4) 01/24/22 14:55 Total Bilirubin 0.2 mg/dL (0.2-1.0) 01/25/22 04:10 AST 21 U/L (15-37) 01/25/22 04:10 ALT 23 U/L (12-78) 01/25/22 04:10 Alkaline Phosphatase 93 U/L (45-117) 01/25/22 04:10 Triglycerides 214 mg/dL (<150) H 01/23/22 04:45 Cholesterol 238 mg/dL (<200) H 01/23/22 04:45 HDL Cholesterol 50 mg/dL (40-60) 01/23/22 04:45 Cholesterol/HDL Ratio 4.76 01/23/22 04:45 Lipase 268 U/L (73-393) 01/22/22 12:45 Home Medications: Amlodipine [Norvasc*] 10 mg PO DAILY #30 tab 01/25/22 Calcitrol [Rocaltrol*] 0.25 mcg PO DAILY #30 cap 01/25/22 Glipizide [Glipizide Xl] 2.5 mg PO DAILY #30 tab.er.24 01/25/22 Hydralazine HCl 50 mg PO BID #60 tablet 01/25/22 Metoprolol Tartrate 50 mg PO BID #60 tablet 01/25/22 Pentoxifylline 400 mg PO BID #60 tablet.er 01/25/22 New Medications: Glipizide [Glipizide Xl] 2.5 mg PO DAILY #30 tab.er.24 Hydralazine HCl 50 mg PO BID #60 tablet Metoprolol Tartrate 50 mg PO BID #60 tablet Amlodipine [Norvasc*] 10 mg PO DAILY #30 tab Pentoxifylline 400 mg PO BID #60 tablet.er Calcitrol [Rocaltrol*] 0.25 mcg PO DAILY #30 cap Physician Discharge Instructions: call Dr Mancia office - [phone] for follow up Followup: Eden Mancia [ACTIVE - CAN ADMIT] - QUAN PADILLA [Primary Care Provider] -
--- NOTE | 2022-01-25 14:25 | TREADPHA ---
DX: ELEVATED TROPONIN Date of Study: 01/25/2022 Ht: 5' 6 " Wt: 186 lb 4 oz Consulting Physician: DORCAS MEDICATIONS: TYLENOL, NORVASC, ASPIRIN, LIPITOR, ROCALTROL, PEPCID, GLUCAGEN, HEPARIN, APRESOLINE, NOVOLIN-R, ATIVAN, LOPRESSOR, MORPHINE, ZOFRAN, TRENTAL, ZINC HISTORY: 41 YEAR OLD MALE WITH COMPLAINTS OF CHEST PAIN. HISTORY OF END STAGE RENAL DISEASE, DIABETES MELLITUS TYPE 2. DENIES ALCOHOL, DRUG AND TOBACCO USE. PHYSICIAL EXAMINATION: RESTING B.P.: 159/86 RESTING H.R.: 83 RESTING EKG: WITHIN NORMAL LIMITS PROTOCOL: PHARMACOLOGIC EXERCISE TIME: 3:30 B.P. AT PEAK STRESS: 174/83 IMPRESSION: LEXISCAN INJECTED, CARDIOLITE GIVEN PER PROTOCOL. SEE NUCLEAR MEDICINE REPORT. NO COMPLAINTS OF CHEST PAIN. NO SUPRAVENTRICULAR TACHYCARDIA, VENTRICULAR TACHYCARDIA, PREMATURE ATRIAL COMPLEXES OR PREMATURE VENTRICULAR COMPLEXES. PATIENT COMPLAINS OF SHORTNESS OF BREATH. NO ST CHANGES WITH LEXISCAN, NEGATIVE ELECTROCARDIOGRAM, POSITIVE FOR ISCHEMIA.
[2022-01-25] MEDS ORDERED: CALCITROL 0.25 MCG CAP PO SCH (15:00)
== END 2022-01-25 13:16 | disposition home or self-care (01) | DRG 683 ==
LOC: ER 12:25 → ERHOLD 14:42 → 3RD-ICU 19:28 → 4TH 01-23 14:05
PROVIDERS: ADMIT Internal Medicine; ATTEND Internal Medicine
DX: N17.9 Acute kidney failure, unspecified (principal); I16.1 Hypertensive emergency; I67.4 Hypertensive encephalopathy; I12.9 Hypertensive chronic kidney disease with stage 1 through stage 4 chronic kidney disease, or unspecified chronic kidney disease; N18.9 Chronic kidney disease, unspecified; E83.51 Hypocalcemia; Z91.14 Patient's other noncompliance with medication regimen; Z89.411 Acquired absence of right great toe; Z20.822 Contact with and (suspected) exposure to COVID-19
CPT/HCPCS: 36415; 71045; 74176; 76377; 76770; 78452; 80048; 80053; 80061; 80076; 82550; 82570; 82947; 83036; 83690; 83735; 83880; 84156; 84300; 84443; 84484; 85025; 85610; 86317; 86705; 86706; 87522; 93005; 93017; 93306; 96361; 96365; 99285; A9500; J0360; J1644; J2785; J7030; U0003

== ENCOUNTER 2022-08-28 06:47 | Emergency (ER) | payer OTHER ==
--- OUTSIDE RECORDS SUMMARY | 2022-08-28 07:07 | XMS REPORT | Continuity of Care Document ---
:[address] [facility] t Address [address] [place] [address] Care Team Providers Name Role Phone Etlan Artie CONNOR Primary Care Physician [phone] HARIS NEGRON Attending Clinician Unavailable Haris Negron MD Attending Clinician Doctor Unassigned, [place] Attending Clinician Unavailable Leandra Hood LVN Attending Clinician LOREE KIRK Attending Clinician Unavailable Allen Sen DO Attending Clinician Steve Pardo DO Attending Clinician Loree Kirk DO Attending Clinician [facility], Care Transition Attending Clinician Unavailable ETHAN ORTIZ Attending Clinician Unavailable Chava Oakes MD Attending Clinician Derek Cintron MD Attending Clinician Danny Hylton DO Attending Clinician DANNY HYLTON Attending Clinician Unavailable Ronnie Jaquez DPM Attending Clinician STEVE PARDO Admitting Clinician Unavailable Steve Pardo DO Admitting Clinician Derek Cintron MD Admitting Clinician DEREK CINTRON Admitting Clinician Unavailable Payers Payer Name Policy Type Policy Number Effective Date Expiration Date [place] [facility] MEDICARE PART A [id number] 2022 \\T\\ B 00:00:00 Problems Condition Condition Condition Status Onset Resolution Last Treating Co mments Source Name Details Category Date Date Treatment Clinician Date Hypertensi Hypertensi Disease Active 2021-08 U nivers on, on, 0-28 ity of unspecifie [place] type d type 00 Medical Branch Type 2 Type 2 Disease Active Univers diabetes diabetes 4-10 ity of mellitus mellitus 00:00: [place] without without 00 Medical complicati complicati Br anch on, on, without without long-term long-term current current use of use of insulin insulin Essential Essential Disease Active Uni vers hypertensi hypertensi 4-10 it y of on on 00:00: [place] [facility] BRYCE (acute BRYCE (acute Disease Active U nivers kidney kidney 4-10 ity of injury) injury) 00:00: Medical Branch Elevated Elevated Disease Active Unive rs brain brain 4-10 ity of natriureti natriureti 00:00[place] c peptide c peptide 00 Medi mala (BNP) (BNP) Branch level level Hypertensi Hypertensi Disease Active U nivers ve urgency ve urgency 4-10 it y of 00:00: [place] [facility] Preop Preop Disease Active Univers cardiovasc cardiovasc 4-10 it y of ular exam ular exam 00:00: [facility] Osteomyeli Osteomyeli Disease Active U nivers tis tis 4-09 ity of 00:00: [place] [facility] 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 5-31 ity of 00:00: [place] [facility] Obesity Obesity Disease Active Univers (BMI (BMI 5-31 ity of 30-39.9) 30-39.9) 00:00: [place] [facility] Cellulitis Cellulitis Disease Active U nivers 5-31 ity of 00:00: [place] [facility] Allergies, Adverse Reactions, Alerts Allergy Allergy Status Severity Reaction(s) Onset Inactive Treating Comm ents Source Name Type Date Date Clinician Nicolle Valdovinos Active Intraven ty to 6-25 ous adverse 00:00: reaction 00 to drug NO KNOWN Drug Active Univers ALLERGIE Class ity of S [facility] Family History Family Member Diagnosis Comments Start Date Stop Date Source Natural father Diabetes [facility] Natural mother Asthma [facility] Natural mother Diabetes [facility] Social History Social Habit Start Date Stop Date Quantity Comments Source History of Current smoker University of tobacco use [place] [facility] History SDOH 2022-06-04 2022-06-04 3 University o f Financial 00:00:00 00:00:00 [place] [facility] History SDOH Food 2022-06-04 2022-06-04 2 Univers ity of Worry 00:00:00 00:00:00 [place] [facility] History SDOH Food 2022-06-04 2022-06-04 2 Univers ity of Scarcity 00:00:00 00:00:00 [place] [facility] History SDOH 2022-06-04 2022-06-04 2 University o f Transport Med 00:00:00 00:00:00 [place] Medic al [facility] History SDOH 2022-06-04 2022-06-04 2 University o f Transport Non-Med 00:00:00 00:00:00 [facility] edical Branch Exposure to 2022-05-22 2022-06-01 Not sure University SARS-CoV-2 00:00:00 13:12:00 [facility] (event) Branch Alcohol intake 2022-06-01 2022-06-01 Current drinker Unive rsity of 00:00:00 00:00:00 of alcohol [facility] (finding) Branch Tobacco use and 2020-11-12 2020-11-12 Smokeless tobacco Un iversity of exposure 00:00:00 00:00:00 non-user [facility] Alcohol Comment 2019-01-02 2019-01-02 occasional drinks Un iversity of 00:00:00 00:00:00 [facility] Sex [birth year] Universit y of 00:00:00 00:00:00 [facility] Smoking Status Start Date Stop Date Source Ex-smoker 2020-11-12 00:00:00 2020-11-12 00:00:00 Universi ty of [facility] Medications Ordered Filled Start Stop Current Ordering Indication Dosage Frequency Signature Comments Components Source Medication Medication Date Date Medication? Clinician (SIG) Name Name TAKE 2021-08 No TABLET 2-07 DAILY. 00:00: 00 TAKE 2021-08 No TABLET 2-07 DAILY. 00:00: 00 ergocalcife 2021-08- Yes [id number] Take 1 Univers rol, 08-17 [id number] capsule by ity of vitamin d2, 00:00: 05:59 [place] 1,250 mcg 00 :00 weekly for Medi mala (50,000 5 doses. Branch unit) capsule ergocalcife 2021-08- Yes [id number] Take 1 Univers rol, 08-17 [id number] capsule by ity of vitamin d2, 00:00: 05:59 [place] 1,250 mcg 00 :00 weekly for Medi mala (50,000 5 doses. Branch unit) capsule ergocalcife 2021-08- Yes [id number] Take 1 Univers rol, 08-17 [id number] capsule by ity of vitamin d2, 00:00: 05:59 [place] 1,250 mcg 00 :00 weekly for Medi mala (50,000 5 doses. Branch unit) capsule pantoprazol 2021-08- Yes [id number] 40mg Take 1 Univers e 40 mg EC 08-12 [id number] tablet by i ty of tablet 00:00: 05:59 mouth in [place] 00 :00 [facility] for 30 days. pantoprazol 2021-08- Yes [id number] 40mg Take 1 Univers e 40 mg EC 08-12 [id number] tablet by i ty of tablet 00:00: 05:59 mouth in [place] 00 :00 [facility] for 30 days. pantoprazol 2021-08- Yes [id number] 40mg Take 1 Univers e 40 mg EC 08-12 [id number] tablet by i ty of tablet 00:00: 05:59 mouth in [place] 00 :00 [facility] for 30 days. aspirin 81 2021-08 Yes 81mg Take 81 mg U nivers mg chewable 08-11 by mouth ity of tablet 17:41: daily. [place] 41 Medical Branch metoprolol 2021-08 Yes 25mg Take 25 mg U nivers tartrate 25 1-07 by mouth ity of mg tablet 17:41: in the [place] [address] morning Medical and 25 mg Branch in the evening. calcitrioL 2021-08 Yes .25ug Take 0.25 U nivers 0.25 mcg 1-07 mcg by ity of capsule 17:41: mouth in [place] [address] the Medical morning. Branch aspirin 81 2021-08 Yes 81mg Take 81 mg U nivers mg chewable 1-07 by mouth ity of tablet 17:41: daily. [place] [address] Medical Branch metoprolol 2021-08 Yes 25mg Take 25 mg U nivers tartrate 25 1-07 by mouth ity of mg tablet 17:41: in the [place] [address] morning Medical and 25 mg Branch in the evening. calcitrioL 2021-08 Yes .25ug Take 0.25 U nivers 0.25 mcg 1-07 mcg by ity of capsule 17:41: mouth in [place] [address] the Medical morning. Branch aspirin 81 2021-08 Yes 81mg Take 81 mg U nivers mg chewable 1-07 by mouth ity of tablet 17:41: daily. [place] [address] Medical Branch metoprolol 2021-08 Yes 25mg Take 25 mg U nivers tartrate 25 1-07 by mouth ity of mg tablet 17:41: in the [place] [address] morning Medical and 25 mg Branch in the evening. calcitrioL 2021-08 Yes .25ug Take 0.25 U nivers 0.25 mcg 1-07 mcg by ity of capsule 17:41: mouth in [place] [address] the Medical morning. Branch aspirin 81 2021-08 Yes 81mg Take 81 mg U nivers mg chewable 1-07 by mouth ity of tablet 17:41: daily. [place] [address] Medical Branch metoprolol 2021-08 Yes 25mg Take 25 mg U nivers tartrate 25 1-07 by mouth ity of mg tablet 17:41: in the [place] [address] morning Medical and 25 mg Branch in the evening. calcitrioL 2021-08 Yes .25ug Take 0.25 U nivers 0.25 mcg 1-07 mcg by ity of capsule 17:41: mouth in [place] [address] the Medical morning. Branch aspirin 81 2021-08 Yes 81mg Take 81 mg U nivers mg chewable 1-07 by mouth ity of tablet 17:41: daily. [place] [address] Medical Branch metoprolol 2021-08 Yes 25mg Take 25 mg U nivers tartrate 25 07 by mouth ity of mg tablet 17:41: in the [place] [address] morning Medical and 25 mg Branch in the evening. calcitrioL 2021-08 Yes .25ug Take 0.25 U nivers 0.25 mcg 1-07 mcg by ity of capsule 17:41: mouth in [place] [address] the Medical morning. Branch metFORMIN 2021-08- No 500mg Take 500 Un angel 500 mg 08-11 11-07 mg by ity of tablet 15:06: 00:00 mouth 2 [place] 53 :00 (two) Medical times Branch daily with meals. glipiZIDE 2021-08- No 2.5mg Take 2.5 Un angel XL 2.5 mg 08-11 mg by ity of 24 hr 15:06: 00:00 mouth [place] tablet 53 :00 daily with Medical breakfast. Branch calcium 2021-08- Yes [id number] 667mg Take 1 Univers acetate,rafaela 08-11 [id number] capsule by ity of sphat bind, 00:00: 05:59 mouth in [place] 667 mg 00 :00 the Medical capsule morning Branch and 1 capsule at noon and 1 capsule in the evening. Take with meals. Do all this for 30 days. furosemide 2021-08- Yes [id number] 20mg Take 1 Univers 20 mg 08-11 [id number] tablet by ity of tablet 00:00: 05:59 mouth in [place] 00 :00 the Medical morning Branch and 1 tablet in the evening. Do all this for 30 days. calcium 2021-08- Yes [id number] 667mg Take 1 Univers acetate,rafaela 08-11 [id number] capsule by ity of sphat bind, 00:00: 05:59 mouth in [place] 667 mg 00 :00 the Medical capsule morning Branch and 1 capsule at noon and 1 capsule in the evening. Take with meals. Do all this for 30 days. furosemide 2021-08- Yes [id number] 20mg Take 1 Univers 20 mg 08-11 [id number] tablet by ity of tablet 00:00: 05:59 mouth in [place] 00 :00 the Medical morning Branch and 1 tablet in the evening. Do all this for 30 days. calcium 2021-08- Yes [id number] 667mg Take 1 Univers acetate,rafaela 08-11 capsule by ity of sphat bind, 00:00: 05:59 mouth in [place] 667 mg 00 :00 the Medical capsule morning Branch and 1 capsule at noon and 1 capsule in the evening. Take with meals. Do all this for 30 days. furosemide 2021-08- Yes [id number] 20mg Take 1 Univers 20 mg 08-11 tablet by ity of tablet 00:00: 05:59 mouth in [place] 00 :00 the Medical morning Branch and 1 tablet in the evening. Do all this for 30 days. furosemide 2021-08 Yes 20mg 20 mg, Unive rs (LASIX) 08-10 Oral, BID, ity of tablet 20 14:00: First dose [place] mg 00 (after Medical last Branch modificati on) on Sat06/10/22 at 0800, Until Discontinu ed, Routine NaCl 0.9% 2021-08- No 5mL 5 mL, Slow U nivers (NS) 08-09 IV Push, ity of injection 5 13:45: 16:30 ONCE, 1 [place] mL 00 :00 dose, On Medical Sat Branch 06/09/22 at 0845, Routine heparin 2021-08 Yes 2000U PRN - SEE [facility] ers 1,000 1- INSTRUCTIO ity of unit/mL (10 13:41: NS, [place] mL) - 31 Starting Medical dialysis on Sat Branch catheter 06/09/22 at care 0841, Until Discontinu ed, Routine
For Priming of Ports:&nbs p; &n bsp; After initial saline flush, prime each port with heparin according to the priming volume listed on each catheter port for catheter lock.
heparin 2021-08- No 2000U PRN - SEE Uni vers 1,000 1 11- INSTRUCTIO ity of unit/mL (10 13:03: 19:56 NS, [place] mL) - 24 :58 Starting Medical dialysis on [place] Branch catheter 06/07/22 at care 0803, Until Sat06/08/22 at 1456, Routine
For Priming of Ports:&nbs p; &n bsp; After initial saline flush, prime each port with heparin according to the priming volume listed on each catheter port for catheter lock.
furosemide 2021-08- No 40mg 40 mg, Univ ers (LASIX) 08-07 Oral, BID, ity o f tablet 40 01:00: 12:45 First dose [place] mg 00 :18 (after Medical [facility] Branch modificati on) on Sat06/06/22 at 2000, Until Discontinu ed, Routine magnesium 2021-08 Yes 400mg 400 mg, Univ ers oxide 08-06 Oral, ity of (MAG-OX 14:00: DAILY, [place] 400) tablet 00 First dose Me dical 400 mg on Sat06/06/22 at 0900, Until Discontinu ed, Routine NaCl 0.9% 2021-08- No 5mL 5 mL, Slow U nivers (NS) 08-05 IV Push, ity of injection 5 22:00: 22:00 ONCE, 1 [place] mL 00 :00 dose, On [facility] 06/05/22 at 1700, Routine heparin 2021-08 No 2000U PRN - SEE Uni vers 1,000 08-05 INSTRUCTIO ity of unit/mL (10 21:49: 19:56 NS, [place] mL) - 41 :58 Starting Medical dialysis on [facility] catheter 06/05/22 at care 1649, Until Sat06/08/22 at 1456, Routine
For Priming of Ports:&nbs p; &n bsp; After initial saline flush, prime each port with heparin according to the priming volume listed on each catheter port for catheter lock.
FENTanyl PF 2021-08- No Slow IV Un angel (SUBLIMAZE 08-05 Push, PRN, it y of (PF)) 18:16: 21:24 Starting [place] injection 00 :51 on [facility] 06/05/22 at Branch 1316, Until [place] 06/07/22 at 1624, Routine midazolam 2021-08- No IV Push, Uni vers (VERSED) 08-05 PRN, ity of injection 18:16: 21:24 Starting [place] 00 :51 on [facility] Medical 06/05/22 at Branch 1316, Until [place] 06/07/22 at 1624, Routine heparin 2021-08- No Slow IV Univer s 1,000 08-05 Push, PRN, ity of unit/mL 18:07: 19:56 Starting [place] injection 46 :58 on [facility] Medical 06/05/22 at Branch 1307, Until 06/08/22 at 1456, Routine lidocaine 2021-08- No PRN, Univers 1% (PF) 08-05 Starting ity of (XYLOCAINE) 18:07: 21:24 on Sat [place] injection 18 :51 06/05/22 at [facility] mala 1307, Branch Until [place] 06/07/22 at 1624, Routine hydrALAZINE 2021-08- No 10mg 10 mg, Uni vers (APRESOLINE 06-04 Oral, ity of ) tablet 10 14:15: 14:15 ONCE, 1 [place] mg 00 :00 dose, On Medical [facility] 06/04/22 at 0915, Routine amLODIPine 2021-08- No 10mg 10 mg, Univ ers (NORVASC) 06-07 Oral, ity of tablet 10 14:00: 19:12 DAILY, [place] mg 00 :58 First dose Medical (after Branch last modificati on) on [facility] 06/04/22 at 0900, Until Discontinu ed, Routine ergocalcife 2021-08 Yes [id number] 50,000 Un angel rol 0-30 Units, ity of (vitamin 14:00: Oral, [place] d2) 00 QWEEKLY, Medical (CALCIFEROL First dose Br anch ) capsule on Sun 50,000 06/03/22 Units at 0900, Until Discontinu ed, Routine calcium 2021-08 Yes 667mg 667 mg, Univer s acetate(rafaela 0-29 Oral, TID ity of sphat bind) 22:00: MEALS, [place] (PHOSLO) 00 First dose Medic al capsule 667 on [facility] Branch mg 06/02/22 at 1700, Until Discontinu ed, Routine sevelamer 2021-08- No 800mg 800 mg, Uni vers (RENVELA) 0-29 10- Oral, TID ity of tablet 800 17:00: 21:44 MEALS, [place] mg 00 :03 First dose Medical on [facility] Branch 06/02/22 at 1200, Until Discontinu ed, Routine pantoprazol 2021-08 Yes 40mg 40 mg, Univ ers e 0- Oral, ity of (PROTONIX) 14:00: DAILY, [place] EC tablet 00 First dose Medi mala 40 mg on [facility] Branch 06/02/22 at 0900, Until Discontinu ed, Routine calcitrioL 2021-08 Yes .25ug 0.25 mcg, U nivers (ROCALTROL) 0- Oral, ity of capsule 14:00: DAILY, [place] 0.25 mcg 00 First dose Medic al on [facility] Branch 06/02/22 at 0900, Until Discontinu ed, Routine aspirin 2021-08 Yes 81mg 81 mg, Univers chewable 0- Oral, ity of tablet 81 14:00: DAILY, [place] mg 00 First dose Medical on [facility] Branch 06/02/22 at 0900, Until Discontinu ed, Routine Sliding 2021-08 Yes Subcutaneo Univ ers Scale 0-29 us, TID ity of Insulin - 13:00: MEALS+HS, [place] Lispro 00 First dose Medical (HumaLOG) + on [facility] Branch Fsbg 06/02/22 Testing at 0800, Until Discontinu ed, Routine heparin 2021-08 Yes 5000U 5,000 Univers (porcine) 0- Units, ity of injection 13:00: Subcutaneo [place] 5,000 Units 00 us, Q12H, Med ical First dose Branch on 06/02/22 at 0800, Until Discontinu ed, Routine magnesium 2021-08- No 4g 4 g, IV Univ ers sulfate in 06-02 Piggyback, it y of water 4 10:45: 15:33 at 25 [place] gram/50 mL 00 :00 mL/hr Medical (8 %) IV Administer Branc h Piggyback 4 over 120 g Minutes, ONCE, 1 dose, On [facility] 06/02/22 at 0545, Routine metoprolol 2021-08 Yes 25mg 25 mg, Unive rs tartrate 0-29 Oral, BID, ity o f (LOPRESSOR) 05:00: First dose [place] tablet 25 00 (after Medical mg last Branch modificati on) on 06/02/22 at 0000, Until Discontinu ed, Routine calcium 2021-08- No 2g 2 g, IV Univer s gluconate 2 06-02 Infusion, it y of g in NaCl 04:45: 04:45 at 200 [place] 100 mL 00 :00 mL/hr Medical (ISO-OSM) Administer Bran ch RTU IV over 30 infusion 2 Minutes, g ONCE, 1 dose, On 06/01/22 at 2345, Routine amLODIPine 2021-08- No 5mg 5 mg, Unive rs (NORVASC) 06-04 Oral, ity of tablet 5 mg 04:30: 12:16 DAILY, [place] 00 :44 First dose Medical on Fri Branch 06/01/22 at 2330, Until Discontinu ed, Routine acetaminoph 2021-08 Yes 650mg 650 mg, Un angel en Oral, ity of (TYLENOL) 03:28: Q6HPRN, [place] tablet 650 22 Starting Medic al mg on Sat Branch 06/01/22 at 2228, Until Discontinu ed, Routine, Pain (scale 1-3) cloNIDine 2021-08 No .2mg 0.2 mg, Univ ers (CATAPRES) 06-02 Oral, ity of tablet 0.2 01:15: 01:19 ONCE, 1 [place] mg 00 :00 dose, On Medical Fri Branch 06/01/22 at 2015, STAT aspirin 81 2021-08 Yes 81mg Take 81 mg U nivers mg chewable 0-28 by mouth ity of tablet 23:19: daily. [place] Medical Branch metFORMIN 2021-08 Yes 500mg Take 500 Uni vers 500 mg 0-28 mg by ity of tablet 23:19: mouth 2 [place] 09 (two) Medical times Branch daily with meals. glipiZIDE 2021-08 Yes 2.5mg Take 2.5 Uni vers XL 2.5 mg 0-28 mg by ity of 24 hr 23:19: mouth [place] tablet 09 daily with Medical breakfast. Branch metoprolol 2021-08 Yes 25mg Take 25 mg U nivers tartrate 25 0-28 by mouth ity of mg tablet 23:19: in the [place] 09 morning Medical and 25 mg Branch in the evening. calcitrioL 2021-08 Yes .25ug Take 0.25 U nivers 0.25 mcg 0-28 mcg by ity of capsule 23:19: mouth in [place] 09 the Medical morning. Branch calcium 2021-08- No 2g 2 g, IV Univer s gluconate 2 06-01 Infusion, it y of g in NaCl 21:45: 22:00 at 200 [place] 100 mL 00 :00 mL/hr Medical (ISO-OSM) Administer Bran ch RTU IV over 30 infusion 2 Minutes, g ONCE, 1 dose, On Sat06/01/22 at 1645, Routine labetaloL 2021-08- No 20mg 20 mg, Unive rs (NORMODYNE) 06-01 Slow IV ity of injection 19:15: 18:43 Push, [place] 20 mg 00 :00 ONCE, 1 Medical dose, On Branch Sat06/01/22 at 1415, Routine Dose 2021-0 No Unknown 7-14 00:00: 00 Dose 2021-0 No Unknown 7-14 00:00: 00 Dose 2021-0 No Unknown 7-14 00:00: 00 Dose 2021-0 No Unknown 7-11 00:00: 00 Dose 2021-0 No Unknown 7-11 00:00: 00 Dose 2021-0 No Unknown 7-11 00:00: 00 Dose 2021-0 No Unknown 6-29 00:00: 00 TAKE 1 2021-0 No 10 TABLET 6-29 DAILY. 00:00: 00 Dose 2021-0 No Unknown 6-29 00:00: 00 Dose 2-0 No Unknown 6-29 00:00: 00 TAKE 1 2021-0 No 400 TABLET 6-29 TWICE DAILY 00:00: WITH MEALS. 00 Dose 2021-0 No Unknown 6-29 00:00: 00 Dose 2-0 No Unknown 6-29 00:00: 00 TAKE 1 2021-0 No 400 TABLET 6-29 TWICE DAILY 00:00: WITH MEALS. 00 Dose 2021-0 No Unknown 6-29 00:00: 00 TAKE 1 2021-0 No 10 TABLET 6-29 DAILY. 00:00: 00 Dose 2022-0 No Unknown 6-29 00:00: 00 Dose 2022-0 No Unknown 6 00:00: 00 Dose 2022-0 No Unknown 01-31 00:00: 00 TAKE 1 2-0 No 400 TABLET 6-29 TWICE DAILY 00:00: WITH MEALS. 00 Dose 2022-0 No Unknown 01-31 00:00: 00 Dose 2022-0 No Unknown 01-31 00:00: 00 TAKE 1 2-0 No 400 TABLET 6-29 TWICE DAILY 00:00: WITH MEALS. 00 TAKE 1 2-0 No 10 TABLET 6-29 DAILY. 00:00: 00 Dose 2022-0 No Unknown 01-31 00:00: 00 Dose 2022-0 No Unknown 01-31 00:00: 00 TAKE 1 2-0 No 400 TABLET 6-29 TWICE DAILY 00:00: WITH MEALS. 00 Dose 2-0 No Unknown 01-31 00:00: 00 Dose 2022-0 No Unknown 01-31 00:00: 00 TAKE 1 2-0 No 400 TABLET -29 TWICE DAILY 00:00: WITH MEALS. 00 Dose 2-0 No Unknown 6 00:00: 00 TAKE 1 2-0 No 25 CAPSULE BY 6-27 MOUTH ONCE 00:00: DAILY 00 Dose 2022-0 No Unknown 01-29 00:00: 00 TAKE 1 2-0 No 25 CAPSULE BY 6-27 MOUTH ONCE 00:00: DAILY 00 Dose 2022-0 No Unknown 6 00:00: 00 TAKE 1 2-0 No 25 CAPSULE BY 6-27 MOUTH ONCE 00:00: DAILY 00 Dose 2022-0 No Unknown 6- 00:00: 00 Dose 2022-0 No Unknown 6- 00:00: 00 Dose 2022-0 No Unknown 6- 00:00: 00 Dose 2022-0 No Unknown 6- 00:00: 00 Dose 2022-0 No Unknown 6- 00:00: 00 Dose 2022-0 No Unknown 6- 00:00: 00 Dose 2022-0 No Unknown 6- 00:00: 00 Dose 2022-0 No Unknown 6- 00:00: 00 Dose 2022-0 No Unknown 6- 00:00: 00 Dose 2022-0 No Unknown 6- 00:00: 00 Dose 2022-0 No Unknown 6-25 00:00: 00 Dose 2022-0 No Unknown 6-25 00:00: 00 Dose 2022-0 No Unknown 6-25 00:00: 00 Dose 2022-0 No Unknown 6-25 00:00: 00 Dose 2022-0 No Unknown 6-25 00:00: 00 Dose 2022-0 No Unknown 6-25 00:00: 00 Dose 2022-0 No Unknown 6-25 00:00: 00 Dose 2022-0 No Unknown 6-25 00:00: 00 Dose 2022-0 No Unknown 6-25 00:00: 00 Dose 2022-0 No Unknown 6-25 00:00: 00 Dose 2022-0 No Unknown 6-25 00:00: 00 Dose 2022-0 No Unknown 6-25 00:00: 00 Dose 2022-0 No Unknown 6-25 00:00: 00 Dose 2022-0 No Unknown 6-25 00:00: 00 Dose 2021-0 No Unknown 8-19 00:00: 00 Dose 2021-0 No Unknown 8-19 00:00: 00 Dose 2021-0 No Unknown 8-19 00:00: 00 lisinopril 2021-0 No 1mg 30 mg 4-26 tablet 00:00: 00 lisinopril 2021-0 No 1mg 30 mg 4-26 tablet 00:00: 00 lisinopril 2021-0 No 1mg 30 mg 4-26 tablet 00:00: 00 amLODIPine 2020-0 2020- No [id number] 10mg Take 1 Univers 10 mg 4-15 05-16 tablet by ity of tablet 00:00: 04:59 mouth [place] 00 :00 daily for Medical 30 days. Branch glipiZIDE 5 2020-2020- No [id number] 5mg Take 1 Univers mg tablet 4-15 05-16 tablet by ity of 00:00: 04:59 mouth [place] 00 :00 daily for Medical 30 days. Branch amLODIPine 2020-0 2020- No [id number] 10mg Take 1 Univers 10 mg 4-15 05-16 tablet by ity of tablet 00:00: 04:59 mouth [place] 00 :00 daily for Medical 30 days. Branch glipiZIDE 5 2020-2020- No [id number] 5mg Take 1 Univers mg tablet 4-15 05-16 tablet by ity of 00:00: 04:59 mouth [place] 00 :00 daily for Medical 30 days. Branch aspirin 81 2020-0 Yes 81mg Take 81 mg U nivers mg chewable 4-14 by mouth ity of tablet 23:26: daily. [address] metFORMIN 2020-0 Yes 500mg Take 500 Uni vers 500 mg 4-14 mg by ity of tablet 23:26: mouth 2 [place] [address] (two) Medical times [place] daily with meals. aspirin 81 0 Yes 81mg Take 81 mg U nivers mg chewable 4-14 by mouth ity of tablet 23:26: daily. [address] metFORMIN 0 Yes 500mg Take 500 Uni vers 500 mg 4-14 mg by ity of tablet 23:26: mouth 2 [place] [address] ([facility]) Medical times [place] daily with meals. aspirin 81 0 Yes 81mg Take 81 mg U nivers mg chewable 4-14 by mouth ity of tablet 23:26: daily. [address] metFORMIN Yes 500mg Take 500 Uni vers 500 mg 4-14 mg by ity of tablet 23:26: mouth 2 [place] [address] ([facility]) [facility] times [place] daily with meals. doxycycline Yes 100mg 100 mg, Un angel hyclate 4-14 Oral, ity of (Vibramycin 23:00: Q12HA2, [place] ) capsule 00 First dose Medi mala 100 mg on Sat11/16/20 at 1800, Until Discontinu ed, LUPE
Re ason for Anti-Infec tive: Documented Infection< br>Documen cesar Infection Site: Skin / Soft Tissue<br& gt;Duratio n of Therapy: Other (see Comments) vancomycin 0 Yes 1250mg 1,250 mg, Univers 1250 mg in 4-14 IV ity of NS 250 mL 02:00: Infusion, [place] RTU IV 00 Q24H ABX, Medical Piggyback First dose Bran ch 1,250 mg on Sat11/15/20 at 2100, Until Discontinu ed
Reas on for Anti-Infec tive: Documented Infection< br>Documen cesar Infection Site: Skin / Soft Tissue
Duration of Therapy: Other (see Comments) vancomycin 2020-0 2020- No 1250mg 1,250 mg, Univers 1250 mg in 11-16 IV ity of NS 250 mL 02:00: 17:16 Infusion, [place] RTU IV 00 :39 Q24H ABX, Medical Piggyback First dose Bran ch 1,250 mg on Sat11/15/20 at 2100, Until Discontinu ed
Reas on for Anti-Infec tive: Documented Infection< br>Documen cesar Infection Site: Skin / Soft Tissue
Duration of Therapy: Other (see Comments) atorvastati 2020- No [id number] 20mg Take 1 Univers n 20 mg 11-16-15 tablet by ity of tablet 00:00: 04:59 mouth at [place] 00 :00 bedtime Medical for 30 Branch days. carvediloL 2020- No [id number] 12.5mg Take 1 Univers 12.5 mg 11-16-15 tablet by ity of tablet 00:00: 04:59 mouth 2 [place] 00 :00 (two) Medical times Branch daily with meals for 30 days. ferrous 2020- No [id number] 325mg Take 1 U nivers sulfate 325 11-16-15 tablet by it y of mg (65 mg 00:00: 04:59 [place] iron[place] 00 :00 (two) Medical tablet times Branch daily for 30 days. atorvastati 2020- No [id number] 20mg Take 1 Univers n 20 mg 11-16-15 tablet by ity of tablet 00:00: 04:59 mouth at [place] 00 :00 bedtime Medical for 30 Branch days. carvediloL 2020- No [id number] 12.5mg Take 1 Univers 12.5 mg 11-16-15 tablet by ity of tablet 00:00: 04:59 mouth 2 [place] 00 :00 (two) Medical times Branch daily with meals for 30 days. ferrous 2020- No [id number] 325mg Take 1 U nivers sulfate 325 11-16-15 tablet by it y of mg (65 mg 00:00: 04:59 [place] iron[place] 00 :00 (two) Medical tablet times Branch daily for 30 days. lactobacill 2020- No [id number] 1{tbl} Take 1 Univers us 4-14 04-25 tablet by ity of acidophilus 00:00: 04:59 mouth 2 [place] 25 million 00 :00 (two) Medical cell -100 times Branch mg captab daily for 10 days. lactobacill 2020- No [id number] 1{tbl} Take 1 Univers us 4-14 04-25 tablet by ity of acidophilus 00:00: 04:59 mouth 2 [place] 25 million 00 :00 (two) Medical cell -100 times Branch mg captab daily for 10 days. doxycycline 2020- No [id number] 100mg Take 1 Univers hyclate 100 4-14 04-20 capsule by i ty of mg capsule 00:00: 04:59 mouth [place] 00 :00 every 12 Medical (twelve) Branch hours for 5 days. doxycycline 2020- No [id number] 100mg Take 1 Univers hyclate 100 4-14 04-20 capsule by i ty of mg capsule 00:00: 04:59 mouth [place] 00 :00 every 12 Medical (twelve) Branch hours for 5 days. sulfamethox 2020- No [id number] 1{tbl} Take 1 Univers azole-trime 4-14 04-14 tablet by it y of thoprim 00:00: 00:00 mouth 2 [place] 800-160 mg 00 :00 (two) Medical per tablet times Branch daily for 5 days. HYDROcodone Yes 1{tbl} 1 tablet, Univers -acetaminop 4-13 Oral, ity of hen (NORCO) 17:56: Q6HPRN, [place] 10-325 mg 59 Starting Medica l tablet 1 Tue Branch tablet 11/15/20 at 1256, Until Discontinu ed, Routine, Pain (scale 4-6), pain HYDROcodone Yes 1{tbl} 1 tablet, Univers -acetaminop 4-13 Oral, ity of hen (NORCO) 17:56: Q6HPRN, [place] 10-325 mg 59 Starting Medica l tablet 1 Tue Branch tablet 11/15/20 at 1256, Until Discontinu ed, Routine, Pain (scale 4-6), pain amLODIPine Yes 10mg 10 mg, Unive rs (NORVASC) 4-13 Oral, ity of tablet 10 13:30: DAILY, [place] mg 00 First dose Medical (after Branch last modificati on) on Sat11/15/20 at 0830, Until Discontinu ed, Routine amLODIPine 0 Yes 10mg 10 mg, Unive rs (NORVASC) 4-13 Oral, ity of tablet 10 13:30: DAILY, [place] mg 00 First dose Medical (after Branch last modificati on) on Sat11/15/20 at 0830, Until Discontinu ed, Routine metFORMIN 0 Yes 500mg Take 500 Uni vers 500 mg 4-12 mg by ity of tablet 16:58: mouth 2 [place] 30 (two) Medical times Branch daily with meals. metFORMIN 0 Yes 500mg Take 500 Uni vers 500 mg 4-12 mg by ity of tablet 16:58: mouth 2 [place] 30 (two) Medical times Branch daily with meals. bupivacaine 202- No PRN, Unive rs (preserv 11-14-12 Starting ity of free) 0.5% 16:06: 16:58 [facility] (SENSORCAIN 00 :30 11/14/20 at [facility]) 0.5 1106, Branch % (5 mg/mL) Intra-op 10 mL, lidocaine 1% (PF) (XYLOCAINE) 10 mL glipiZIDE 0 Yes 5mg 5 mg, Univers (GLUCOTROL) 4-12 Oral, ity of tablet 5 mg 14:00: DAILY, [place] 00 First dose Medical (after Branch last modificati on) on Sat11/14/20 at 0900, Until Discontinu ed, Routine glipiZIDE 0 Yes 5mg 5 mg, Univers (GLUCOTROL) 4-12 Oral, ity of tablet 5 mg 14:00: DAILY, [place] 00 First dose Medical (after Branch last modificati on) on Sat11/14/20 at 0900, Until Discontinu ed, Routine glipiZIDE 0 Yes 5mg 5 mg, Univers (GLUCOTROL) 4-12 Oral, ity of tablet 5 mg 14:00: DAILY, [place] 00 First dose Medical (after Branch last modificati on) on Sat11/14/20 at 0900, Until Discontinu ed, Routine NaCl 0.45% 2021-0 Yes 1000mL at 100 Uni vers (1/2NS) IV 4-11 mL/hr, ity of infusion 23:45: 1,000 mL, [place] 1,000 mL 00 IV Medical Infusion, Branch CONTINUOUS , Starting [place] 11/13/20 at 1845, Until Discontinu ed, Routine NaCl 0.45% 2021-0 Yes 1000mL at 100 Uni vers (1/2NS) IV 4-11 mL/hr, ity of infusion 23:45: 1,000 mL, [place] 1,000 mL 00 IV Medical Infusion, Branch CONTINUOUS , Starting [place] 11/13/20 at 1845, Until Discontinu ed, Routine NaCl 0.45% 2021-0 Yes 1000mL at 100 Uni vers (1/2NS) IV 4-11 mL/hr, ity of infusion 23:45: 1,000 mL, [place] 1,000 mL 00 IV Medical Infusion, Branch CONTINUOUS , Starting [place] 11/13/20 at 1845, Until Discontinu ed, Routine hydralAZINE 1-0 Yes 10mg 10 mg, Univ ers (APRESOLINE 4-11 Slow IV ity o f ) injection 22:15: Push, [place] 10 mg 07 Q4HPRN, [facility] 11/13/20 at 1715, Until Discontinu ed, STAT, DBP=>100; SBP=>180<b r>Indicati on: Hypertensi ve Emergency hydralAZINE 2020-0 Yes 10mg 10 mg, Univ ers (APRESOLINE 4-11 Slow IV ity o f ) injection 22:15: Push, [place] 10 mg 07 Q4HPRN, [facility] 11/13/20 at 1715, Until Discontinu ed, STAT, DBP=>100; SBP=>180<b r>Indicati on: Hypertensi ve Emergency hydralAZINE 2021-0 Yes 10mg 10 mg, Univ ers (APRESOLINE 4-11 Slow IV ity o f ) injection 22:15: Push, [place] 10 mg 07 Q4HPRN, [facility] 11/13/20 at 1715, Until Discontinu ed, STAT, DBP=>100; SBP=>180<b r>Indicati on: Hypertensi ve Emergency carvediloL 2020-0 Yes 12.5mg 12.5 mg, U nivers (COREG) 4-11 Oral, BID ity of tablet 12.5 22:15: MEALS, [place] mg 00 First dose Medical (after Branch last modificati on) on [place] 11/13/20 at 1715, Until Discontinu ed, Routine carvediloL 2020-0 Yes 12.5mg 12.5 mg, U nivers (COREG) 4-11 Oral, BID ity of tablet 12.5 22:15: MEALS, [place] mg 00 First dose Medical (after Branch last modificati on) on [place] 11/13/20 at 1715, Until Discontinu ed, Routine carvediloL 2020-0 Yes 12.5mg 12.5 mg, U nivers (COREG) 4-11 Oral, BID ity of tablet 12.5 22:15: MEALS, [place] mg 00 First dose Medical (after Branch last modificati on) on [place] 11/13/20 at 1715, Until Discontinu ed, Routine calcitrioL 0 Yes .5ug 0.5 mcg, Uni vers (ROCALTROL) 11-13 Oral, ity of capsule 0.5 14:00: DAILY, [place] mcg 00 First dose Medical on [facility] 11/13/20 at 0900, Until Discontinu ed, Routine calcitrioL 0 Yes .5ug 0.5 mcg, Uni vers (ROCALTROL) 11-13 Oral, ity of capsule 0.5 14:00: DAILY, [place] mcg First dose Medical on [facility] 11/13/20 at 0900, Until Discontinu ed, Routine calcitrioL 0 Yes .5ug 0.5 mcg, Uni vers (ROCALTROL) 11-13 Oral, ity of capsule 0.5 14:00: DAILY, [place] mcg 00 First dose Medical on [facility] 11/13/20 at 0900, Until Discontinu ed, Routine ferrous 2020-0 Yes 325mg 325 mg, Univer s sulfate 11-13 Oral, BID, ity of tablet 325 13:00: First dose [place] mg 00 on [facility] 11/13/20 at Branch 0800, Until Discontinu ed, Routine ferrous 2020-0 Yes 325mg 325 mg, Univer s sulfate 11-13 Oral, BID, ity of tablet 325 13:00: First dose [place] mg 00 on [facility] 11/13/20 at Branch 0800, Until Discontinu ed, Routine ferrous Yes 325mg 325 mg, Univer s sulfate 11-13 Oral, BID, ity of tablet 325 13:00: First dose [place] mg 00 on [facility] 11/13/20 at Branch 0800, Until Discontinu ed, Routine glipiZIDE 2020- No 2.5mg 2.5 mg, Uni vers (GLUCOTROL) 11-13 04-12 Oral, QAM it y of tablet 2.5 13:00: 12:50 WITH [place] mg 00 :36 BREAKFAST, Medical First dose Branch on [place] 11/13/20 at 0800, Until Discontinu ed, Routine insulin NPH Yes 3U 3 Units, Un angel and regular 11-13 Subcutaneo it y of human 70-30 12:30: [place], [place] (HUMULIN 00 First dose Medic al 70-30 U-100 on [facility] INSULIN) 11/13/20 at 100 unit/mL 0730, (70-30) Until injection 3 Discontinu Units ed, Routine insulin NPH Yes 3U 3 Units, Un angel and regular 11-13 Subcutaneo it y of human 70-30 12:30: [place], [place] (HUMULIN 00 First dose Medic al 70-30 U-100 on [facility] INSULIN) 11/13/20 at 100 unit/mL 0730, (70-30) Until injection 3 Discontinu Units ed, Routine insulin NPH Yes 3U 3 Units, Un angel and regular 11-13 Subcutaneo it y of human 70-30 12:30: [place], [place] (HUMULIN 00 First dose Medic al 70-30 U-100 on [facility] INSULIN) 11/13/20 at 100 unit/mL 0730, (70-30) Until injection 3 Discontinu Units ed, Routine magnesium Yes 400mg 400 mg, Univ ers oxide 11-13 Oral, BID, ity of (MAG-OX 11:30: [place] at Branch 0630, Until Discontinu ed, Routine magnesium 0 Yes 400mg 400 mg, Univ ers oxide 4-11 Oral, BID, ity of (MAG-OX 11:30: First dose [place] 400) tablet 00 on [facility] 400 mg 11/13/20 at Branch 0630, Until Discontinu ed, Routine magnesium 0 Yes 400mg 400 mg, Univ ers oxide 4-11 Oral, BID, ity of (MAG-OX 11:30: First dose [place] 400) tablet 00 on [facility] 400 mg 11/13/20 at Branch 0630, Until Discontinu ed, Routine atorvastati 0 Yes 20mg 20 mg, Univ ers n (LIPITOR) 4-11 Oral, QHS, it y of tablet 20 02:00: First dose [place] mg 00 on [facility] Medical 11/12/20 at Branch 2100, Until Discontinu ed, Routine atorvastati 0 Yes 20mg 20 mg, Univ ers n (LIPITOR) 4-11 Oral, QHS, it y of tablet 20 02:00: First dose [place] mg 00 on [facility] 11/12/20 at Branch 2100, Until Discontinu ed, Routine vancomycin Yes 1000mg 1,000 mg, Univers (VANCOCIN) 11 IV ity of 1,000 mg in 02:00: Piggyback, [place] NaCl 0.9% 00 Q24H, Medical (NS) 250 mL First dose Br anch VIAL-MATE (after IV last piggyback modificati on) on [facility] 11/12/20 at 2100, Until Discontinu ed, 250 mL
Reas on for Anti-Infec tive: Documented Infection< br>Documen cesar Infection Site: Skin / Soft Tissue
Duration of Therapy: Other (see Comments) atorvastati 0 Yes 20mg 20 mg, Univ ers n (LIPITOR) 4-11 Oral, QHS, it y of tablet 20 02:00: First dose [place] mg 00 on [facility] 11/12/20 at Branch 2100, Until Discontinu ed, Routine vancomycin 2020- No 1000mg 1,000 mg, Univers (VANCOCIN) 11-13 04-13 IV ity of 1,000 mg in 02:00: 13:00 Piggyback, [place] NaCl 0.9% 00 :56 Q24H, Medical (NS) 250 mL First dose Br anch VIAL-MATE (after IV last piggyback modificati on) on [facility] 11/12/20 at 2100, Until Discontinu ed, 250 mL
Reas on for Anti-Infec tive: Documented Infection< br>Documen cesar Infection Site: Skin / Soft Tissue
Duration of Therapy: Other (see Comments) NaCl 0.9% 0 2020- No 1000mL at 100 Uni vers (NS) IV 4-10 04-11 mL/hr, IV ity of infusion 18:15: 22:38 Infusion, [place] 1,000 mL 00 :44 CONTINUOUS Medic al , Starting Branch [facility] 11/12/20 at 1315, Until [place] 11/13/20 at 1738, Routine morpHINE 2020-0 Yes 2mg 2 mg, Slow Uni vers injection 2 4-10 IV Push, ity of mg 17:07: [place] [id number] Starting [facility] 11/12/20 at 1207, Until Discontinu ed, Routine, Pain (scale 7-10) morpHINE 2020-0 Yes 2mg 2 mg, Slow Uni vers injection 2 4-10 IV Push, ity of mg 17:07: [place] [id number] Starting [facility] 11/12/20 at 1207, Until Discontinu ed, Routine, Pain (scale 7-10) morpHINE 2020-0 Yes 2mg 2 mg, Slow Uni vers injection 2 4-10 IV Push, ity of mg 17:07: [place] [address] Starting [facility] 11/12/20 at 1207, Until Discontinu ed, Routine, Pain (scale 7-10) HYDROcodone 2020-0 Yes 1{tbl} 1 tablet, Univers -acetaminop 4-10 Oral, ity of hen (NORCO 17:07: Q4HPRN, [place] 5) 5-325 mg 24 Starting Medi mala tablet 1 [facility] tablet 11/12/20 at 1207, Until Discontinu ed, Routine, Pain (scale 4-6) HYDROcodone 2020-0 2020- No 1{tbl} 1 tablet, Univers -acetaminop 4-10 04-13 Oral, ity of hen (NORCO 17:07: 17:58 Q4HPRN, [place] 5) 5-325 mg 24 :40 Starting Medi mala tablet 1 Sat Branch tablet 11/12/20 at 1207, Until Tu11/15/20 at 1258, Routine, Pain (scale 4-6) acetaminoph 2020-0 Yes 650mg 650 mg, Un angel en 4-10 Oral, ity of (TYLENOL) 17:07: Q4HPRN, [place] tablet 650 07 Starting Medic al mg Sat Branch 11/12/20 at 1207, Until Discontinu ed, Routine, Pain (scale 1-3) acetaminoph 2020-0 Yes 650mg 650 mg, Un angel en 4-10 Oral, ity of (TYLENOL) 17:07: Q4HPRN, [place] tablet 650 07 Starting Medic al mg Sat Branch 11/12/20 at 1207, Until Discontinu ed, Routine, Pain (scale 1-3) acetaminoph 2020-0 Yes 650mg 650 mg, Un angel en 4-10 Oral, ity of (TYLENOL) 17:07: Q4HPRN, [place] tablet 650 07 Starting Medic al mg Sat Branch 11/12/20 at 1207, Until Discontinu ed, Routine, Pain (scale 1-3) bupivacaine 2020-0 202- No PRN, Unive rs (preserv 11-12 04-12 Starting ity of free) 0.5% 15:40: 16:58 [facility] (SENSORCAIN 00 :30 11/12/20 at [facility]) 0.5 1040, Branch % (5 mg/mL) Intra-op 7.5 mL, lidocaine 1% (PF) (XYLOCAINE) 7.5 mL enoxaparin 2020-0 Yes 30mg 30 mg, Unive rs (LOVENOX) 4-10 Subcutaneo ity of injection 14:00: [place], DAILY, [place] 30 mg 00 First dose Medical on [facility] Branch 11/12/20 at 0900, Until Discontinu ed, Routine enoxaparin 2020-0 Yes 30mg 30 mg, Unive rs (LOVENOX) 4-10 Subcutaneo ity of injection 14:00: us, DAILY, [place] 30 mg 00 First dose Medical on [facility] 11/12/20 at 0900, Until Discontinu ed, Routine enoxaparin Yes 30mg 30 mg, Unive rs (LOVENOX) 4-10 Subcutaneo ity of injection 14:00: us, DAILY, [place] 30 mg 00 First dose Medical on [facility] 11/12/20 at 0900, Until Discontinu ed, Routine NaCl 0.9% 2020- No 1000mL at 100 Uni vers (NS) IV 11-12 04-10 mL/hr, IV ity of infusion 13:15: 17:06 Infusion, [place] 1,000 mL 00 :58 CONTINUOUS Medic al , Starting Branch [facility] 11/12/20 at 0815, Until [facility] 11/12/20 at 1206, Routine docusate Yes 100mg 100 mg, Unive rs (COLACE) 4-10 Oral, BID, ity o f capsule 100 13:00: First dose [place] mg 00 on [facility] 11/12/20 at Branch 0800, Until Discontinu ed, Routine docusate Yes 100mg 100 mg, Unive rs (COLACE) 4-10 Oral, BID, ity o f capsule 100 13:00: First dose [place] mg 00 on [facility] 11/12/20 at Branch 0800, Until Discontinu ed, Routine docusate 0 Yes 100mg 100 mg, Unive rs (COLACE) 4-10 Oral, BID, ity o f capsule 100 13:00: First dose [place] mg 00 on [facility] 11/12/20 at Branch 0800, Until Discontinu ed, Routine traMADoL No 50mg 50 mg, Univer s (ULTRAM) 11-12 04-10 Oral, ity of tablet 50 10:30: 09:25 ONCE, 1 [place] mg 00 :00 dose, [facility] 11/12/20 at Branch 0530, Routine piperacilli No 2.25g 2.25 g, IV Univers n-tazobacta 11-12-12 Piggyback, i ty of m (ZOSYN) 07:30: 16:13 Q8H ABX, [place] 2.25 g in 00 :42 First dose Medi mala NaCl 0.9% (after Branch (NS) 100 mL last MINI-BAG reorder) on [facility] 11/12/20 at 0230, Until Discontinu ed, 100 mL
Reas on for Anti-Infec tive: Documented Infection< br>Documen cesar Infection Site: Skin / Soft Tissue
Duration of Therapy: Other (see Comments) Sliding 2020-0 Yes Subcutaneo Univ ers Scale 4-10 us, TID ity of Insulin - 06:45: MEALS, [place] Lispro 00 First dose Medical (HumaLOG) + on [facility] Branch [facility] 11/12/20 at Testing 0145, Until Discontinu ed, Routine aspirin 2020-0 Yes 81mg 81 mg, Univers chewable 4-10 Oral, QAM ity of tablet 81 06:45: WITH [place] mg 00 BREAKFAST, Medical First dose Branch on [facility] 11/12/20 at 0145, Until Discontinu ed, Routine lactobacill 2020-0 Yes 1{tbl} 1 tablet, Univers us 4-10 Oral, BID, ity of acidophilus 06:45: First dose [place] (ACIDOPHILL 00 on [facility] ) 11/12/20 at [place] million 0145, cell -100 Until mg captab 1 Discontinu tablet ed, Routine [facility]iding [facility] us, TID ity of Insulin - 06:45: MEALS, [place] Lispro 00 First dose Medical (HumaLOG) + on [facility] 11/12/20 at Testing 0145, Until Discontinu ed, Routine aspirin 2020-0 Yes 81mg 81 mg, Univers chewable 4-10 Oral, QAM ity of tablet 81 06:45: WITH [place] mg 00 BREAKFAST, Medical First dose Branch on [facility] 11/12/20 at 0145, Until Discontinu ed, Routine lactobacill 2020-0 Yes 1{tbl} 1 tablet, [employer] us 4-10 Oral, BID, ity of acidophilus 06:45: First dose [place] (ACIDOPHILL 00 on Sat Medica l ) 11/12/20 at [place] million 0145, cell -100 Until mg captab 1 Discontinu tablet ed, Routine amLODIPine 2020-0 Yes 5mg 5 mg, Univer s (NORVASC) 4-10 Oral, ity of tablet 5 mg 06:45: DAILY, [place] 00 First dose Medical on Sat Branch 11/12/20 at 0145, Until Discontinu ed, Routine Sliding Yes Subcutaneo Univ ers Scale 4-10 us, TID ity of Insulin - 06:45: MEALS, [place] Lispro 00 First dose Medical (HumaLOG) + on Sat Branch [facility] 11/12/20 at Testing 0145, Until Discontinu ed, Routine aspirin Yes 81mg 81 mg, Univers chewable 4-10 Oral, QAM ity of tablet 81 06:45: WITH [place] mg 00 BREAKFAST, Medical First dose Branch on 11/12/20 at 0145, Until Discontinu ed, Routine lactobacill Yes 1{tbl} 1 tablet, Univers us 4-10 Oral, BID, ity of acidophilus 06:45: First dose [place] (ACIDOPHILL 00 on Sat Medica l US) 25 11/12/20 at Branch million 0145, cell -100 Until mg captab 1 Discontinu tablet ed, Routine amLODIPine 2020- No 5mg 5 mg, Unive rs (NORVASC) 4- 04-13 Oral, ity of tablet 5 mg 06:45: 13:16 DAILY, [place] 00 :33 First dose Medical on Sat Branch 11/12/20 at 0145, Until Discontinu ed, Routine carvediloL 2020- No 6.25mg 6.25 mg, Univers (COREG) 4- 04-11 Oral, BID ity of tablet 6.25 06:45: 22:14 MEALS, [place] mg 00 :43 First dose Medical on Sat Branch 11/12/20 at 0145, Until Discontinu ed, Routine NaCl 0.9% 2020- No 1000mL at 125 Uni vers (NS) IV 11-12 04-10 mL/hr, IV ity of infusion 06:45: 13:10 Infusion, [place] 1,000 mL 00 :52 CONTINUOUS Medic al , Starting Branch 11/12/20 at 0145, Until 11/12/20 at 0810, Routine aspirin 81 Yes 81mg Take 81 mg U nivers mg chewable 4-10 by mouth ity of tablet 06:38: daily. [place] 18 Medical Branch aspirin 81 Yes 81mg Take 81 mg U nivers mg chewable 4-10 by mouth ity of tablet 06:38: daily. [place] 18 Medical Branch ondansetron 2021-0 Yes 4mg 4 mg, Slow Univers (ZOFRAN 4-10 IV Push, ity of (PF)) 06:37: Q6HPRN, [place] injection 4 47 Starting Medi mala mg Sat Branch 11/12/20 at 0137, Until Discontinu ed, Routine, Nausea and Vomiting (N/V) ondansetron 2021-0 Yes 4mg 4 mg, Slow Univers (ZOFRAN 4-10 IV Push, ity of (PF)) 06:37: Q6HPRN, [place] injection 4 47 Starting Medi mala mg Sat Branch 11/12/20 at 0137, Until Discontinu ed, Routine, Nausea and Vomiting (N/V) ondansetron 2021-0 Yes 4mg 4 mg, Slow Univers (ZOFRAN 4-10 IV Push, ity of (PF)) 06:37: Q6HPRN, [place] injection 4 47 Starting Medi mala mg Sat Branch 11/12/20 at 0137, Until Discontinu ed, Routine, Nausea and Vomiting (N/V) glucagon 2021-0 Yes 1mg 1 mg, Univers (GLUCAGEN 4-10 [...] IV ity of (D50W) 06:35: Push, PRN, [place] injection 31 Starting Medica l 25 mL Sat Branch 11/12/20 at 0135, Until Discontinu ed, LUPE, Blood Glucose < or = 70 mg/dL and patient is unable to swallow or has mental status changes. glucagon 2021-0 Yes 1mg 1 mg, Univers (GLUCAGEN 4-10 [...] No 50ug 50 mcg, Un angel (SUBLIMAZE 11-12 Slow IV ity o f (PF)) 02:45: 01:51 Push, [place] injection 00 :00 ONCE, 1 Medical 50 mcg dose, Fri Branch 11/11/20 at 2145, Routine piperacilli 2020- No 3.375g 3.375 g, Univers n-tazobacta 11-12 IV ity of m (ZOSYN) 02:45: 02:21 [place]back, [place] 3.375 g in 00 :00 ONCE, 1 Medica l NaCl 0.9% dose, Fri Branc h (NS) 100 mL 11/11/20 at MINI-BAG 2145, 100 mL
Reas on for Anti-Infec tive: Documented Infection< br>Documen cesar Infection Site: Skin / Soft Tissue
Duration of Therapy: Other (see Comments) vancomycin 2020-0 2021- No 1000mg 1,000 mg, Univers (VANCOCIN) 4-10 04-10 IV ity of 1,000 mg in 02:45: 06:33 [place], [place] NaCl 0.9% 00 :16 Q12H ABX, Medic al (NS) 250 mL First dose Br anch VIAL-MATE on Sat IV 11/11/20 at [facility] 2145, Until Discontinu ed, 250 mL
R pia for Anti-Infec tive: Documented Infection< br>Documen cesar Infection Site: Skin / Soft Tissue
Duration of Therapy: Other (see Comments) metformin 2020-0 No 1mg 500 mg 4-07 tablet 00:00: 00 metformin 2020-0 No 2mg 500 mg 4-07 tablet 00:00: 00 metformin 2020-0 No 1mg 500 mg 4-07 tablet 00:00: 00 metformin 2020-0 No 2mg 500 mg 4-07 tablet 00:00: 00 metformin 2020-0 No 1mg 500 mg 4-07 tablet 00:00: 00 metformin 2020-0 No 2mg 500 mg 4-07 tablet 00:00: 00 metformin 2020-0 No 1mg 500 mg 4-01 tablet 00:00: 00 metformin 2020-0 No 1mg 500 mg 4-01 tablet 00:00: 00 indomethaci 2020-0 No 1mg n 50 mg 4-01 capsule 00:00: 00 metformin 2020-0 No 1mg 500 mg 4-01 tablet 00:00: 00 metformin 2020-0 No 1mg 500 mg 4-01 tablet 00:00: 00 indomethaci 2020-0 No 1mg n 50 mg 4-01 capsule 00:00: 00 metformin 2020-0 No 1mg 500 mg 4-01 tablet 00:00: 00 metformin 202-0 No 1mg 500 mg 4-01 tablet 00:00: 00 indomethaci 1-0 No 1mg n 50 mg 4-01 capsule 00:00: 00 lisinopril 2018- Yes [id number] 10mg Take 1 Univers 10 mg 6-05 [id number] tablet by ity of tablet 00:00: mouth [place] 00 daily. Medical Branch lisinopril 2018- Yes [id number] 10mg Take 1 Univers 10 mg 6-05 [id number] tablet by ity of tablet 00:00: mouth [place] 00 daily. Medical Branch lisinopril 2018-2020- No [id number] 10mg Take 1 Univers 10 mg 6-05 11-16 [id number] tablet by ity of tablet 00:00: 00:00 mouth [place] 00 :00 daily. Medical Branch Insulin 2018- Yes [id number] Use as U nivers Syringe-Nee 01-06 [id number] directed it y of dle U-100 00:00: [place] 0.3 mL 30 00 Medical gauge x Branch 5/16 Syrg Insulin 2018- Yes [id number] Use as U nivers Syringe-Nee 01-06 [id number] directed it y of dle U-100 00:00: [place] 0.3 mL 30 00 Medical gauge x Branch 5/16 Syrg Insulin 2018- Yes [id number] Use as U nivers Syringe-Nee 6- [id number] directed it y of dle U-100 00:00: [place] 0.3 mL 30 00 Medical gauge x Branch 5/16 Syrg acetaminoph Yes [id number] 1{tbl} Take 1 Univers en-codeine 6-04 tablet by ity of (TYLENOL-CO 00:00: mouth [place] DEINE #3) 00 every 4 Medical 300-30 mg (four) Branch tablet hours as needed for Pain (scale 4-6). acetaminoph Yes [id number] 1{tbl} Take 1 Univers en-codeine 6-04 tablet by ity of (TYLENOL-CO 00:00: mouth [place] DEINE #3) 00 every 4 Medical 300-30 mg (four) Branch tablet hours as needed for Pain (scale 4-6). Insulin Yes [id number] Use as U nivers Syringe-Nee - [id number] directed it y of dle U-100 00:00: [place] 0.3 mL 30 00 Medical gauge x Branch 5/16 Syrg acetaminoph Yes [id number] 1{tbl} Take 1 Univers en-codeine 6-04 tablet by ity of (TYLENOL-CO 00:00: mouth [place] DEINE #3) 00 every 4 Medical 300-30 mg (four) Branch tablet hours as needed for Pain (scale 4-6). acetaminoph Yes [id number] 1{tbl} Take 1 Univers en-codeine 6-04 tablet by ity of (TYLENOL-CO 00:00: mouth [place] DEINE #3) 00 every 4 Medical 300-30 mg (four) Branch tablet hours as needed for Pain (scale 4-6). Insulin Yes [id number] Use as U nivers Syringe-Nee 6- [id number] directed it y of dle U-100 00:00: [place] 0.3 mL 30 00 Medical gauge x Branch 5/16 Syrg acetaminoph Yes [id number] 1{tbl} Take 1 Univers en-codeine 6-04 tablet by ity of (TYLENOL-CO 00:00: mouth [place] DEINE #3) 00 every 4 Medical 300-30 mg (four) Branch tablet hours as needed for Pain (scale 4-6). acetaminoph Yes [id number] 1{tbl} Take 1 Univers en-codeine 6-04 tablet by ity of (TYLENOL-CO 00:00: mouth [place] DEINE #3) 00 every 4 Medical 300-30 mg (four) Branch tablet hours as needed for Pain (scale 4-6). Insulin Yes [id number] Use as U nivers Syringe-Nee - [id number] directed it y of dle U-100 00:00: [place] 0.3 mL 30 00 Medical gauge x Branch 5/16 Syrg acetaminoph Yes [id number] 1{tbl} Take 1 Univers en-codeine 6-04 tablet by ity of (TYLENOL-CO 00:00: mouth [place] DEINE #3) 00 every 4 Medical 300-30 mg (four) Branch tablet hours as needed for Pain (scale 4-6). acetaminoph Yes [id number] 1{tbl} Take 1 Univers en-codeine 6-04 tablet by ity of (TYLENOL-CO 00:00: mouth [place] DEINE #3) 00 every 4 Medical 300-30 mg (four) Branch tablet hours as needed for Pain (scale 4-6). Insulin Yes [id number] Use as U nivers Syringe-Nee 6-04 [id number] directed it y of dle U-100 00:00: [place] 0.3 mL 30 00 Medical gauge x Branch 5/16 Syrg acetaminoph Yes [id number] 1{tbl} Take 1 Univers en-codeine 6-04 tablet by ity of (TYLENOL-CO 00:00: mouth [place] DEINE #3) 00 every 4 Medical 300-30 mg (four) Branch tablet hours as needed for Pain (scale 4-6). Insulin Yes [id number] Use as U nivers Syringe-Nee 6- [id number] directed it y of dle U-100 00:00: [place] 0.3 mL 30 00 Medical gauge x Branch 5/16 Syrg acetaminoph Yes [id number] 1{tbl} Take 1 Univers en-codeine 6-04 tablet by ity of (TYLENOL-CO 00:00: mouth [place] DEINE #3) 00 every 4 Medical 300-30 mg (four) Branch tablet hours as needed for Pain (scale 4-6). acetaminoph Yes [id number] 1{tbl} Take 1 Univers en-codeine 6-04 tablet by ity of (TYLENOL-CO 00:00: mouth [place] DEINE #3) 00 every 4 Medical 300-30 mg (four) Branch tablet hours as needed for Pain (scale 4-6). acetaminoph Yes [id number] 1{tbl} Take 1 Univers en-codeine 6-04 tablet by ity of (TYLENOL-CO 00:00: mouth [place] DEINE #3) 00 every 4 Medical 300-30 mg (four) Branch tablet hours as needed for Pain (scale 4-6). Insulin Yes [id number] Use as U nivers Syringe-Nee 6- [id number] directed it y of dle U-100 00:00: [place] 0.3 mL 30 00 Medical gauge x Branch 5/16 Syrg Insulin 2018- Yes [id number] Use as U nivers Syringe-Nee 6-04 [id number] directed it y of dle U-100 00:00: [place] 0.3 mL 30 00 Medical gauge x Branch 5/16 Syrg Insulin Yes [id number] Use as U nivers Syringe-Nee 6-04 [id number] directed it y of dle U-100 00:00: [place] 0.3 mL 30 00 Medical gauge x Branch 5/16 Syrg acetaminoph 2021- No [id number] 1{tbl} Take 1 Univers en-codeine 6-11 13- tablet by ity of (TYLENOL-CO 00:00[place] :00 every 4 Medical 300-30 mg (four) Branch tablet hours as needed for Pain (scale 4-6). acetaminoph 2021- No [id number] 1{tbl} Take 1 Univers en-codeine 6-11 13- tablet by ity of (TYLENOL-CO 00:00[place] :00 every 4 Medical 300-30 mg (four) Branch tablet hours as needed for Pain (scale 4-6). Immunizations Ordered Filled Immunization Date Status Comments [facility] Immunization Name Name Pneumococcal 2019-01-06 Completed University o f Polysaccharide, 00:00:00 [place] Med ical PPSV23 (PNEUMOVAX) Branch Pneumococcal 2019-01-06 Completed University o f Polysaccharide, 00:00:00 [place] Med ical PPSV23 (PNEUMOVAX) Branch Pneumococcal 2019-01-06 Completed University o f Polysaccharide, 00:00:00 [place] Med ical PPSV23 (PNEUMOVAX) Branch Pneumococcal 2019-01-06 Completed University o f Polysaccharide, 00:00:00 [place] Med ical PPSV23 (PNEUMOVAX) Branch Pneumococcal 2019-01-06 Completed University o f Polysaccharide, 00:00:00 [place] Med ical PPSV23 (PNEUMOVAX) Branch Pneumococcal 2019-01-06 Completed University o f Polysaccharide, 00:00:00 [place] Med ical PPSV23 (PNEUMOVAX) Branch Pneumococcal 2019-01-06 Completed University o f Polysaccharide, 00:00:00 [place] Med ical PPSV23 (PNEUMOVAX) Branch Pneumococcal 2019-01-06 Completed University o f Polysaccharide, 00:00:00 [place] Med ical PPSV23 (PNEUMOVAX) Branch Pneumococcal 2019-01-06 Completed University o f Polysaccharide, 00:00:00 [place] Med ical PPSV23 (PNEUMOVAX) Branch Pneumococcal 2019-01-06 Completed University o f Polysaccharide, 00:00:00 [place] Med ical PPSV23 (PNEUMOVAX) Branch Pneumococcal 2019-01-06 Completed University o f Polysaccharide, 00:00:00 [place] [facility] ical PPSV23 (PNEUMOVAX) Branch Vital Signs Vital Name Observation Time Observation Value Comments Source Systolic blood 2022-06-11 17:38:00 135 mm[Hg] Univer sity of [facility] [place] [facility] Diastolic blood 2022-06-11 17:38:00 89 mm[Hg] Unive rsity of pressure [place] [facility] Heart rate 2022-06-11 17:38:00 67 /min [facility] [place] [facility] Body temperature 2022-06-11 17:38:00 36.94 [place] [facility] ers[facility] [place] [facility] Respiratory rate 2022-06-11 17:38:00 18 /min Univ ers[facility] [place] [facility] Oxygen saturation in 2022-06-11 17:38:00 99 /min University of Arterial blood by [place] [employer] [facility] Pulse oximetry Branch Body weight 2022-06-09 17:45:00 76 kg [facility] [place] [facility] BMI 2022-06-09 17:45:00 27.04 kg/m2 [facility] [place] [facility] Body height 2022-06-01 18:13:00 167.6 cm [facility] [place] [facility] Systolic blood 2020-11-16 21:30:00 144 mm[Hg] Univer sity of pressure [place] [facility] Diastolic blood 2020-11-16 21:30:00 88 mm[Hg] Unive rsity of pressure [place] [facility] Heart rate 2020-11-16 21:30:00 68 /min [facility] [place] [facility] Body temperature 2020-11-16 21:30:00 36.39 [place] [facility] [place] [facility] Respiratory rate 2020-11-16 21:30:00 18 /min Univ [facility] [place] [facility] Oxygen saturation in 2020-11-16 21:30:00 96 /min University of Arterial blood by [place] [employer] [facility] Pulse oximetry Branch Body weight 2020-11-12 09:44:00 78.971 kg [facility] [place] [facility] BMI 2020-11-12 09:44:00 28.10 kg/m2 [facility] [place] [facility] Body height 2020-11-12 04:54:00 167.6 cm [facility] [place] [facility] Systolic blood 2020-11-14 17:28:00 177 mm[Hg] Univer sity of [facility] [place] [facility] Diastolic blood 2020-11-14 17:28:00 99 mm[Hg] Unive rsity of pressure [place] [facility] Heart rate 2020-11-14 17:28:00 73 /min [facility] [place] [facility] Body temperature 2020-11-14 17:28:00 36.61 [place] [facility] [place] [facility] Respiratory rate 2020-11-14 17:28:00 18 /min Univ [facility] [place] [facility] Oxygen saturation in 2020-11-14 17:28:00 98 /min University of Arterial blood by [facility] Pulse oximetry Branch Body weight 2020-11-12 09:44:00 78.971 kg [facility] [place] [facility] BMI 2020-11-12 09:44:00 28.10 kg/m2 [facility] [place] [facility] Body height 2020-11-12 04:54:00 167.6 cm [facility] [place] [facility] Systolic blood 2020-11-12 16:14:00 165 mm[Hg] Univer sity of pressure [place] [facility] Diastolic blood 2020-11-12 16:14:00 97 mm[Hg] Unive rsity of pressure [place] [facility] Heart rate 2020-11-12 16:14:00 97 /min [facility] [place] [facility] Body temperature 2020-11-12 16:14:00 36.94 [place] [facility] [place] [facility] Respiratory rate 2020-11-12 16:14:00 15 /min Univ [facility] [place] [facility] Oxygen saturation in 2020-11-12 16:14:00 100 /min University of Arterial blood by [facility] Pulse oximetry Branch Body weight 2020-11-12 09:44:00 78.971 kg [facility] [place] [facility] BMI 2020-11-12 09:44:00 28.10 kg/m2 [facility] [place] [facility] Body height 2020-11-12 04:54:00 167.6 cm [facility] [place] [facility] BP Systolic 2022-07-11 10:48:00 195 mm[Hg] BP Diastolic 2022-07-11 10:48:00 107 mm[Hg] Weight Measured 2022-07-11 10:48:00 175.40 pounds Height Measured 2022-07-11 10:48:00 66.00 inches Body Temperature 2022-07-11 10:48:00 98.40 degrees Heart Rate 2022-07-11 10:48:00 64.00 /min Respiratory Rate 2022-07-11 10:48:00 17.00 /min BP Systolic 2022-06-20 13:17:00 136 mm[Hg] BP Diastolic 2022-06-20 13:17:00 89 mm[Hg] Weight Measured 2022-06-20 13:17:00 176.20 pounds Height Measured 2022-06-20 13:17:00 66.00 inches Body Temperature 2022-06-20 13:17:00 98.00 degrees Heart Rate 2022-06-20 13:17:00 68.00 /min Respiratory Rate 2022-06-20 13:17:00 18.00 /min Systolic blood 2022-06-07 17:00:00 128 mm[Hg] Univer sity of pressure [facility] Diastolic blood 2022-06-07 17:00:00 82 mm[Hg] Unive rsity of [facility] Heart rate 2022-06-07 17:00:00 85 /min [facility] Body temperature 2022-06-07 12:46:00 37.11 [place] [facility] 2022-06-07 12:46:00 18 /min [facility] Body weight 2022-06-07 12:46:00 77.8 kg [facility] BMI 2022-06-07 12:46:00 27.68 kg/m2 [facility] Oxygen saturation in 2022-06-07 08:35:00 98 /min [facility] Arterial blood by [facility] Pulse oximetry Branch Body height 2022-06-01 18:13:00 167.6 cm [facility] BP Systolic 2022-01-29 10:48:00 153 mm[Hg] BP Diastolic 2022-01-29 10:48:00 88 mm[Hg] Weight Measured 2022-01-29 10:48:00 196.60 pounds Height Measured 2022-01-29 10:48:00 66.00 inches Body Temperature 2022-01-29 10:48:00 97.70 degrees Heart Rate 2022-01-29 10:48:00 73.00 /min Respiratory Rate 2022-01-29 10:48:00 16.00 /min BP Systolic 2022-01-27 15:31:00 165 mm[Hg] BP Diastolic 2022-01-27 15:31:00 91 mm[Hg] Weight Measured 2022-01-27 15:31:00 193.80 pounds Height Measured 2022-01-27 15:31:00 66.00 inches Body Temperature 2022-01-27 15:31:00 98.20 degrees Heart Rate 2022-01-27 15:31:00 85.00 /min Respiratory Rate 2022-01-27 15:31:00 BP Systolic 2022-01-27 14:51:00 165 mm[Hg] BP Diastolic 2022-01-27 14:51:00 91 mm[Hg] Weight Measured 2022-01-27 14:51:00 193.80 pounds Height Measured 2022-01-27 14:51:00 66.00 inches Body Temperature 2022-01-27 14:51:00 98.20 degrees Heart Rate 2022-01-27 14:51:00 85.00 /min Respiratory Rate 2022-01-27 14:51:00 BP Systolic 2021-04-05 09:18:00 BP Diastolic 2021-04-05 09:18:00 Weight Measured 2021-04-05 09:18:00 165.00 pounds Height Measured 2021-04-05 09:18:00 66.00 inches Body Temperature 2021-04-05 09:18:00 Heart Rate 2021-04-05 09:18:00 Respiratory Rate 2021-04-05 09:18:00 BP Systolic 2020-11-28 16:56:00 174 mm[Hg] BP Diastolic 2020-11-28 16:56:00 96 mm[Hg] Weight Measured 2020-11-28 16:56:00 173.40 pounds Height Measured 2020-11-28 16:56:00 66.00 inches Body Temperature 2020-11-28 16:56:00 99.10 degrees Heart Rate 2020-11-28 16:56:00 82.00 /min Respiratory Rate 2020-11-28 16:56:00 BP Systolic 2020-11-03 14:35:00 208 mm[Hg] BP Diastolic 2020-11-03 14:35:00 123 mm[Hg] Weight Measured 2020-11-03 14:35:00 177.20 pounds Height Measured 2020-11-03 14:35:00 66.00 inches Body Temperature 2020-11-03 14:35:00 98.30 degrees Heart Rate 2020-11-03 14:35:00 89.00 /min Respiratory Rate 2020-11-03 14:35:00 17.00 /min Procedures Procedure Date / Time Performing Clinician Source Performed EXTERNAL PROVIDER RECORDS 2022-06-19 06:01:00 Doctor Unassigned, [facility] Name [facility] POCT GLUCOSE (AUTOMATED) 2022-06-11 18:40:00 Steve Pardo [facility] POCT GLUCOSE (AUTOMATED) 2022-06-11 14:45:00 Steve Pardo [facility] PHOSPHORUS 2022-06-11 09:34:00 [facility] MAGNESIUM 2022-06-11 09:34:00 [facility] BASIC METABOLIC PANEL (NA, 2022-06-11 09:34:00 Bobbi Mills [facility] K, CL, CO2, GLUCOSE, BUN, Medica l Branch CREATININE, CA) POCT GLUCOSE (AUTOMATED) 2022-06-11 02:40:00 Steve Pardo [facility] POCT GLUCOSE (AUTOMATED) 2022-06-10 22:51:00 Steve Pardo [facility] POCT GLUCOSE (AUTOMATED) 2022-06-10 18:18:00 Steve Pardo [facility] POCT GLUCOSE (AUTOMATED) 2022-06-10 15:58:00 Steve Pardo [facility] PHOSPHORUS 2022-06-10 09:16:00 [facility] MAGNESIUM 2022-06-10 09:16:00 Andre [facility] BASIC METABOLIC PANEL (NA, 2022-06-10 09:16:00 Ramona Powell [facility] K, CL, CO2, GLUCOSE, BUN, Medica l Branch CREATININE, CA) CBC WITH DIFF 2022-06-10 09:16:00 AndreRamona moore [facility] POCT GLUCOSE (AUTOMATED) 2022-06-10 01:23:00 Steve Pardo [facility] POCT GLUCOSE (AUTOMATED) 2022-06-09 22:04:00 Steve Pardo [facility] POCT GLUCOSE (AUTOMATED) 2022-06-09 17:53:00 Steve Pardo [facility] POCT GLUCOSE (AUTOMATED) 2022-06-09 12:34:00 Steve Pardo [facility] POCT GLUCOSE (AUTOMATED) 2022-06-09 01:20:00 Steve Pardo [facility] POCT GLUCOSE (AUTOMATED) 2022-06-08 22:07:00 Steve Pardo [facility] POCT GLUCOSE (AUTOMATED) 2022-06-08 18:43:00 Steve Pardo [facility] POCT GLUCOSE (AUTOMATED) 2022-06-08 17:07:00 Steve Pardo [facility] POCT GLUCOSE (AUTOMATED) 2022-06-08 14:28:00 Steve Pardo [facility] PHOSPHORUS 2022-06-08 08:10:00 [facility] MAGNESIUM 2022-06-08 08:10:00 [facility] BASIC METABOLIC PANEL (NA, 2022-06-08 08:10:00 Bobbi Mills [facility] K, CL, CO2, GLUCOSE, BUN, Medica l Branch CREATININE, CA) CBC WITH DIFF 2022-06-08 08:10:00 [facility] POCT GLUCOSE (AUTOMATED) 2022-06-08 01:49:00 Steve Pardo [facility] POCT GLUCOSE (AUTOMATED) 2022-06-07 21:53:00 Steve Pardo [facility] POCT GLUCOSE (AUTOMATED) 2022-06-07 17:58:00 Steve Pardo [facility] POCT GLUCOSE (AUTOMATED) 2022-06-07 14:08:00 Steve Pardo [facility] POCT GLUCOSE (AUTOMATED) 2022-06-07 14:08:00 Steve Pardo [facility] BASIC METABOLIC PANEL (NA, 2022-06-07 09:13:00 [facility] K, CL, CO2, GLUCOSE, BUN, Medica l Branch CREATININE, CA) MAGNESIUM 2022-06-07 09:13:00 [facility] PHOSPHORUS 2022-06-07 09:13:00 [facility] PHOSPHORUS 2022-06-07 09:13:00 [facility] MAGNESIUM 2022-06-07 09:13:00 [facility] BASIC METABOLIC PANEL (NA, 2022-06-07 09:13:00 [facility] K, CL, CO2, GLUCOSE, BUN, Medica l Branch CREATININE, CA) POCT GLUCOSE (AUTOMATED) 2022-06-07 01:29:00 Steve Pardo [facility] POCT GLUCOSE (AUTOMATED) 2022-06-07 01:29:00 Steve Pardo [facility] POCT GLUCOSE (AUTOMATED) 2022-06-06 22:19:00 Steve Pardo [facility] POCT GLUCOSE (AUTOMATED) 2022-06-06 22:19:00 Steve Pardo [facility] POCT GLUCOSE (AUTOMATED) 2022-06-06 18:38:00 Steve Pardo [facility] POCT GLUCOSE (AUTOMATED) 2022-06-06 18:38:00 Steve Pardo [facility] CBC WITH DIFF 2022-06-06 11:00:00 [facility] CBC WITH DIFF 2022-06-06 11:00:00 [facility] COMP. METABOLIC PANEL 2022-06-06 10:59:00 Ramona Powell [facility] ([id number]) Medical Branch MAGNESIUM 2022-06-06 10:59:00 [facility] PHOSPHORUS 2022-06-06 10:59:00 [facility] PHOSPHORUS 2022-06-06 10:59:00 [facility] MAGNESIUM 2022-06-06 10:59:00 [facility] COMP. METABOLIC PANEL 2022-06-06 10:59:00 [facility] ([id number]) [facility] POCT GLUCOSE (AUTOMATED) 2022-06-06 00:43:00 Steve Pardo [facility] POCT GLUCOSE (AUTOMATED) 2022-06-06 00:43:00 Steve Pardo [facility] POCT GLUCOSE (AUTOMATED) 2022-06-05 23:51:00 Steve Pardo [facility] POCT GLUCOSE (AUTOMATED) 2022-06-05 23:51:00 Steve Pardo [facility] POCT GLUCOSE (AUTOMATED) 2022-06-05 21:12:00 [facility] Pardo [facility] POCT GLUCOSE (AUTOMATED) 2022-06-05 21:12:00 Steve Pardo [facility] IR CENTRALLY INSERTED 2022-06-05 19:16:36 Bobbi Mills [facility] DEVICE TUNNELED 5 OR OLDER Medic al Branch NO PORT/PUMP POCT GLUCOSE (AUTOMATED) 2022-06-05 16:23:00 Steve Pardo [facility] POCT GLUCOSE (AUTOMATED) 2022-06-05 16:23:00 Steve Pardo [facility] XR CHEST 1 VW 2022-06-05 13:46[facility] CHEST 1 VW 2022-06-05 13:46:00 [facility] POCT GLUCOSE (AUTOMATED) 2022-06-05 13:11:00 Steve Pardo [facility] POCT GLUCOSE (AUTOMATED) 2022-06-05 13:11:00 Steve Pardo [facility] COMP. METABOLIC PANEL 2022-06-05 10:50:00 [facility] ([id number]) [facility] CBC WITH DIFF 2022-06-05 10:50:00 [facility] MAGNESIUM 2022-06-05 10:50:00 [facility] PHOSPHORUS 2022-06-05 10:50:00 [facility] PHOSPHORUS 2022-06-05 10:50:00 [facility] MAGNESIUM 2022-06-05 10:50:00 [facility] COMP. METABOLIC PANEL 2022-06-05 10:50:00 [facility] ([id number]) [facility] CBC WITH DIFF 2022-06-05 10:50:00 [facility] DISCLOSURE AND CONSENT, 2022-06-05 05:01:00 [facility] [place] [facility] PROCEDURES DISCLOSURE AND CONSENT, 2022-06-05 05:01:00 [facility] [place] [facility] PROCEDURES POCT GLUCOSE (AUTOMATED) 2022-06-05 01:38:00 Steve Pardo [facility] POCT GLUCOSE (AUTOMATED) 2022-06-05 01:38:00 Steve Pardo [facility] POCT GLUCOSE (AUTOMATED) 2022-06-04 22:12:00 Steve Pardo [facility] POCT GLUCOSE (AUTOMATED) 2022-06-04 22:12:00 Steve Pardo [facility] POCT GLUCOSE (AUTOMATED) 2022-06-04 17:00:00 Steve Pardo [facility] POCT GLUCOSE (AUTOMATED) 2022-06-04 17:00:00 Steve Pardo [facility] POCT GLUCOSE (AUTOMATED) 2022-06-04 14:15:00 Steve Pardo [facility] POCT GLUCOSE (AUTOMATED) 2022-06-04 14:15:00 Steve Pardo [facility] BASIC METABOLIC PANEL (NA, 2022-06-04 08:27:00 Ramona Powell [facility] K, CL, CO2, GLUCOSE, BUN, Medica l Branch CREATININE, CA) CBC WITH DIFF 2022-06-04 08:27:00 Andre [facility] MAGNESIUM 2022-06-04 08:27:00 Andre [facility] PHOSPHORUS 2022-06-04 08:27[facility]00 [facility] HBC ANTIBODY (IGM & IGG) 2022-06-04 08:27:00 Ramona Powell [facility] PHOSPHORUS 2022-06-04 08:27:00 Andre [facility] MAGNESIUM 2022-06-04 08:27:00 Andre [facility] BASIC METABOLIC PANEL (NA, 2022-06-04 08:27:00 Ramona Powell [facility] K, CL, CO2, GLUCOSE, BUN, Medica l Branch CREATININE, CA) CBC WITH DIFF 2022-06-04 08:27:00 Andre [facility] HBC ANTIBODY (IGM & IGG) 2022-06-04 08:27:00 Andre Ramona [facility] POCT GLUCOSE (AUTOMATED) 2022-06-04 01:30:00 Steve Pardo [facility] POCT GLUCOSE (AUTOMATED) 2022-06-04 01:30:00 Steve Pardo [facility] POCT GLUCOSE (AUTOMATED) 2022-06-03 22:10:00 Steve Pardo [facility] POCT GLUCOSE (AUTOMATED) 2022-06-03 22:10:00 Steve Pardo [facility] POCT GLUCOSE (AUTOMATED) 2022-06-03 18:24:00 Steve Pardo [facility] POCT GLUCOSE (AUTOMATED) 2022-06-03 18:24:00 Steve Pardo [facility] POCT GLUCOSE (AUTOMATED) 2022-06-03 15:03:00 Steve Pardo [facility] POCT GLUCOSE (AUTOMATED) 2022-06-03 15:03:00 Steve Pardo [facility] BASIC METABOLIC PANEL (NA, 2022-06-03 10:00:00 Bobbi Mills [facility] K, CL, CO2, GLUCOSE, BUN, Medica l Branch CREATININE, CA) MAGNESIUM 2022-06-03 10:00:00 [facility] MAGNESIUM 2022-06-03 10:00:00 [facility] BASIC METABOLIC PANEL (NA, 2022-06-03 10:00:00 [facility], CO2, GLUCOSE, BUN, Medica l Branch CREATININE, CA) POCT GLUCOSE (AUTOMATED) 2022-06-03 01:31:00 Steve Pardo [facility] POCT GLUCOSE (AUTOMATED) 2022-06-03 01:31:00 Steve Pardo [facility] POCT GLUCOSE (AUTOMATED) 2022-06-02 23:31:00 Steve Pardo [facility] POCT GLUCOSE (AUTOMATED) 2022-06-02 23:31:00 Steve Pardo [facility] HAV ANTIBODY (IGG AND IGM) 2022-06-02 18:58:00 Bobbi Mills [facility] HAV ANTIBODY (IGG AND IGM) 2022-06-02 18:58:00 Bobbi Mills [facility] POCT GLUCOSE (AUTOMATED) 2022-06-02 18:21:00 Steve Pardo [facility] POCT GLUCOSE (AUTOMATED) 2022-06-02 18:21:00 Steve Pardo [facility] CREATININE, URINE RANDOM 2022-06-02 13:25:00 Bobbi Mills [facility] CREATININE, URINE RANDOM 2022-06-02 13:25:00 Amy Millsssa [facility] URIC ACID 2022-06-02 08:58:00 [facility] MAGNESIUM 2022-06-02 08:58:00 Shaw Sandoval [facility] TRANSFERRIN 2022-06-02 08:58[facility] [place] [facility] 2022-06-02 08:58:00 Shaw Sandoval [facility] ([id number]) [facility] ANTI-NUCLEAR ANTIBODY 2022-06-02 08:58:00 [facility] SCREEN [facility] HEPATITIS B SURFACE 2022-06-02 08:58:00 [facility] ANTIBODY Medical Branch HEPATITIS B SURFACE 2022-06-02 08:58:00 [facility] ANTIGEN [facility] Branch HCV ANTIBODY 2022-06-02 08:58:00 [facility] HEPATITIS B CORE ANTIBODY 2022-06-02 08:58:00 [facility] IGM [facility] ANTI-NUCLEAR 2022-06-02 08:58:00 [facility] ANTIBODY-PATHOLOGIST [facility] INTERPRETATION PHOSPHORUS 2022-06-02 08:58:00 [facility] [place] [facility] 2022-06-02 08:58:00 Jaime Shaw [facility] COMP. METABOLIC PANEL 2022-06-02 08:58:00 Shaw Sandoval [facility] ([id number]) [facility] TRANSFERRIN 2022-06-02 08:58:00 Chloe [facility] URIC ACID 2022-06-02 08:58:00 [facility] ANTI-NUCLEAR ANTIBODY 2022-06-02 08:58:00 [facility] SCREEN [facility] HCV ANTIBODY 2022-06-02 08:58:00 [facility] HEPATITIS B SURFACE 2022-06-02 08:58:00 [facility] ANTIBODY Medical Branch HEPATITIS B SURFACE 2022-06-02 08:58:00 [facility] ANTIGEN [facility] Branch HEPATITIS B CORE ANTIBODY 2022-06-02 08:58:00 Bobbi Mills [facility] ANTI-NUCLEAR 2022-06-02 08:58:00 Bobbi Mills [facility] ANTIBODY-PATHOLOGIST [facility] INTERPRETATION PHOSPHORUS 2022-06-02 08:58:00 Shireen Corona [facility] CBC WITH DIFF 2022-06-02 08:57:00 Shireen Corona [facility] IONIZED CALCIUM 2022-06-02 08:57:00 Shaw Sandoval [facility] IONIZED CALCIUM 2022-06-02 08:57:00 Shaw Sandoval [facility] CBC WITH DIFF 2022-06-02 08:57:00 [facility] 2022-06-02 05:29:07 Shaw Sandoval [facility] RETROPERITONEAL LIMITED 2022-06-02 05:29:07 Shaw Sandoval [facility] MRSA / MSSA SCREEN BY PCR, 2022-06-02 04:12:[address] [facility] MRSA / MSSA SCREEN BY PCR, 2022-06-02 04:12:[address] [facility] INTACT PTH CALCIUM GROUP 2022-06-02 04:07:00 Shaw Sandoval [facility] VITAMIN D, 25-[place] 2022-06-02 04:07:00 Shaw Sandoval [facility] IONIZED CALCIUM 2022-06-02 04:07:00 Shaw Sandoval [facility] IONIZED CALCIUM 2022-06-02 04:07:00 Shaw Sandoval [facility] INTACT PTH CALCIUM GROUP 2022-06-02 04:07:00 Shaw Sandoval [facility] VITAMIN D, 25-[place] 2022-06-02 04:07:00 Shaw Sandoval [facility] URINALYSIS 2022-06-02 04:00:00 Shireen Corona [facility] SODIUM, URINE RANDOM 2022-06-02 04:00:00 [facility] CALCIUM, URINE RANDOM 2022-06-02 04:00:00 Shaw Sandoval [facility] URINE DRUG (IMMUNOASSAY) - 2022-06-02 04:00:00 Shaw Sandoval [facility] COMPREHENSIVE DRUG [facility]CREEN [facility] PROTEIN CREAT RATIO URINE 2022-06-02 04:00:00 [facility] - 2022-06-02 04:00[facility]00 [facility] SCREEN [facility] Medica l Branch URINALYSIS 2022-06-02 04:00:00 Shireen Corona [facility] SODIUM, URINE RANDOM 2022-06-02 04:00:00 [facility] CALCIUM, URINE RANDOM 2022-06-02 04:00:00 Shaw Sandoval [facility] PROTEIN CREAT RATIO URINE 2022-06-02 04:00:00 Shireen Corona [facility] [facility] HB ECG ROUTINE & RHYTHM 2022-06-01 21:20:23 [facility] HB ECG ROUTINE & RHYTHM 2022-06-01 21:20:23 Mckinley [facility] IONIZED CALCIUM 2022-06-01 21:08:00 [facility] IONIZED CALCIUM 2022-06-01 21:08:00 Mckinley [facility] COMP. METABOLIC PANEL 2022-06-01 19:43:00 Allen Sen [facility] ([id number]) [facility] [place] CREATINE KINASE 2022-06-01 19:43:00 Shaw Sandoval [facility] LIPID PANEL ([id number])(TOTAL 2022-06-01 19:43:00 Shireen Corona [facility] CHOLESTEROL, Medical Branch TRIGLYCERIDES, HDL) CREATINE KINASE 2022-06-01 19:43:00 Shaw Sandoval [facility] Branch COMP. METABOLIC PANEL 2022-06-01 19:43:00 Allen Sen [facility] ([id number]) Medical Branch LIPID PANEL (05078)(TOTAL 2022-06-01 19:43:00 Shireen Corona [facility] CHOLESTEROL, Medical Branch TRIGLYCERIDES, HDL) CBC WITH DIFF 2022-06-01 18:43:00 Mckinley [facility] BASIC METABOLIC PANEL (NA, 2022-06-01 18:43:00 Allen Sen [facility] K, CL, CO2, GLUCOSE, BUN, Medica l Branch CREATININE, CA) GLYCOSYLATED HEMOGLOBIN 2022-06-01 18:43:00 Chloe [facility] (A1C) Medical Branch IRON PANEL 2022-06-01 18:43:00 Chloe [facility] FERRITIN SERUM 2022-06-01 18:43:00 Chloe [facility] FERRITIN SERUM 2022-06-01 18:43:00 Chloe [facility] BASIC METABOLIC PANEL (NA, 2022-06-01 18:43:00 Allen Sen [facility] K, CL, CO2, GLUCOSE, BUN, Medica l Branch CREATININE, CA) IRON PANEL 2022-06-01 18:43:00 [facility] 2022-06-01 18:43:00 Mckinley [facility] GLYCOSYLATED HEMOGLOBIN 2022-06-01 18:43[facility] NOTICE OF PRIVACY 2022-06-01 18:09:50 Doctor Unassigned, [facility] PRACTICES [place] [facility] NOTICE OF PRIVACY 2022-06-01 18:09:50 Doctor Unassigned, [facility] PRACTICES [place] [facility] [place] CONSENT/REFUSAL FOR 2022-06-01 18:08:35 Doctor Dixon [facility] DIAGNOSIS AND TREATMENT [place] [facility] [place] CONSENT/REFUSAL FOR 2022-06-01 18:08:35 Doctor Dixon [facility] DIAGNOSIS AND TREATMENT [facility] HOSPITAL ADMISSION 2022-06-01 05:01:00 Doctor Dixon [facility] AUTHORIZATION FOR RELEASE 2021-02-21 05:01:00 Doctor Dixon, [facility] [place] POCT GLUCOSE (AUTOMATED) 2020-11-16 21:51:00 Chava Oakes [facility] POCT GLUCOSE (AUTOMATED) 2020-11-16 16:23:00 Chava Oakes [facility] POCT GLUCOSE (AUTOMATED) 2020-11-16 12:34:00 Chava Oakes [facility] COMP. METABOLIC PANEL 2020-11-16 08:41:00 Derek Cintron [facility] ([id number]) Medical Branch CBC WITH DIFF 2020-11-16 08:41:00 [facility] [place] [facility] POCT GLUCOSE (AUTOMATED) 2020-11-16 00:38:00 Chava Oakes [facility] POCT GLUCOSE (AUTOMATED) 2020-11-15 21:08:00 Chava Oakes [facility] POCT GLUCOSE (AUTOMATED) 2020-11-15 16:39:00 Chava Oakes [facility] POCT GLUCOSE (AUTOMATED) 2020-11-15 16:39:00 Chava Oakes [facility] TRANSTHORACIC ECHO (TTE) 2020-11-15 13:25:00 [facility] ([facility]OMATED) 2020-11-15 12:32:00 Chava Oakes [facility] POCT GLUCOSE (AUTOMATED) 2020-11-15 12:32:00 Chava Oakes [facility] COMP. METABOLIC PANEL 2020-11-15 08:30:00 Derek Cintron [facility] ([id number]) [facility] Branch CBC WITH DIFF 2020-11-15 08:30:00 Neno litzy [facility] COMP. METABOLIC PANEL 2020-11-15 08:30:00 Derek Cintron [facility] ([id number]) [facility] Branch CBC WITH DIFF 2020-11-15 08:30:00 Neno litzy [facility] POCT GLUCOSE (AUTOMATED) 2020-11-15 08:11:00 Chava Oakes [facility] POCT GLUCOSE (AUTOMATED) 2020-11-15 08:11:00 Chava Oakes [facility] VANCOMYCIN TROUGH 2020-11-15 01:34:00 Neno [facility] VANCOMYCIN TROUGH 2020-11-15 01:34:00 Neno litzy [facility] POCT GLUCOSE (AUTOMATED) 2020-11-14 21:40:00 Chava Oakes [facility] POCT GLUCOSE (AUTOMATED) 2020-11-14 21:40:00 Chava Oakes [facility] POCT GLUCOSE (AUTOMATED) 2020-11-14 17:28:00 Chava Oakes [facility] POCT GLUCOSE (AUTOMATED) 2020-11-14 17:28:00 Chava Oakes [facility] POCT GLUCOSE (AUTOMATED) 2020-11-14 17:28:00 Chava Oakes [facility] [place] [facility] CLOSURE SURGICAL WOUND 2020-11-14 15:36:00 Ronnie Jaquez [facility] LOWER EXTREMITY Medical Branch INCISION AND DRAINAGE 2020-11-14 15:36:00 [facility] LOWER EXTREMITY Medical Branch CLOSURE SURGICAL WOUND 2020-11-14 15:36:00 Ronnie Jaquez [facility] [place] LOWER EXTREMITY Medical Branch INCISION AND DRAINAGE 2020-11-14 15:36:00 Ronnie Jaquez [facility] LOWER EXTREMITY Medical Branch US RETROPERITONEAL 2020-11-14 13:43:05 Derek Cintron [facility] COMPLETE Medical Branch US RETROPERITONEAL 2020-11-14 13:43:05 Derek Cintron [facility] COMPLETE Medical Branch US RETROPERITONEAL 2020-11-14 13:43:05 Neno litzy [facility] Branch POCT GLUCOSE (AUTOMATED) 2020-11-14 12:55:00 Chava Oakes [facility] [place] [facility] POCT GLUCOSE (AUTOMATED) 2020-11-14 12:55:00 Chava Oakes [facility] POCT GLUCOSE (AUTOMATED) 2020-11-14 12:55:00 Chava Oakes [facility] POCT GLUCOSE (AUTOMATED) 2020-11-14 08:26:00 Chava Oakes [facility] [place] [facility] POCT GLUCOSE (AUTOMATED) 2020-11-14 08:26:00 Chava Oakes [facility] [place] [facility] POCT GLUCOSE (AUTOMATED) 2020-11-14 08:26:00 Chava Oakes [facility] [place] [facility] COMP. METABOLIC PANEL 2020-11-14 08:21:00 Derek Cintron [facility] ([id number]) Medical Branch CBC WITH DIFF 2020-11-14 08:21:00 Derek Cintron [facility] COMP. METABOLIC PANEL 2020-11-14 08:21:00 Derek Cintron [facility] ([id number]) Medical Branch CBC WITH DIFF 2020-11-14 08:21:00 Derek Cintron [facility] COMP. METABOLIC PANEL 2020-11-14 08:21:00 Derek Cintron [facility] ([id number]) Medical Branch CBC WITH DIFF 2020-11-14 08:21:00 Neno litzy [facility] POCT GLUCOSE (AUTOMATED) 2020-11-13 21:30:00 Chava Oakes [facility] [place] [facility] POCT GLUCOSE (AUTOMATED) 2020-11-13 21:30:00 Chava Oakes [facility] [place] [facility] POCT GLUCOSE (AUTOMATED) 2020-11-13 21:30:00 Chava Oakes [facility] [place] [facility] POCT GLUCOSE (AUTOMATED) 2020-11-13 16:26:00 Chava Oakes [facility] [place] [facility] POCT GLUCOSE (AUTOMATED) 2020-11-13 16:26:00 Chava Oakes [facility] [place] [facility] POCT GLUCOSE (AUTOMATED) 2020-11-13 16:26:00 Chava Oakes [facility] [place] [facility] POCT GLUCOSE (AUTOMATED) 2020-11-13 12:32:00 Chava Oakes [facility] [place] [facility] POCT GLUCOSE (AUTOMATED) 2020-11-13 12:32:00 Chava Oakes [facility] [place] [facility] POCT GLUCOSE (AUTOMATED) 2020-11-13 12:32:00 Chava Oakes [facility] [place] [facility] POCT GLUCOSE (AUTOMATED) 2020-11-13 08:55:00 Chava Oakes [facility] [place] [facility] POCT GLUCOSE (AUTOMATED) 2020-11-13 08:55:00 Chava Oakes [facility] [place] [facility] POCT GLUCOSE (AUTOMATED) 2020-11-13 08:55:00 Chava Oakes [facility] [place] [facility] PHOSPHORUS 2020-11-13 08:51:00 Neno [facility] CREATINE KINASE 2020-11-13 08:51:00 Neno [facility] URIC ACID 2020-11-13 08:51:00 Neno [facility] MAGNESIUM 2020-11-13 08:51:00 Neno [facility] COMP. METABOLIC PANEL 2020-11-13 08:51:00 Neno [facility] ([id number]) Medical Branch CBC WITH DIFF 2020-11-13 08:51:00 Neno [facility] N-TERMINAL PRO-BNP 2020-11-13 08:51:00 Neno [facility] PHOSPHORUS 2020-11-13 08:51:00 Neno [facility] CREATINE KINASE 2020-11-13 08:51:00 Neno [facility] URIC ACID 2020-11-13 08:51:00 Neno [facility] MAGNESIUM 2020-11-13 08:51:00 Neno [facility] COMP. METABOLIC PANEL 2020-11-13 08:51:00 Neno [facility] ([id number]) [facility] CBC WITH DIFF 2020-11-13 08:51:00 Neno [facility] N-TERMINAL PRO-BNP 2020-11-13 08:51:00 Neno [facility] PHOSPHORUS 2020-11-13 08:51:00 Neno [facility] CREATINE KINASE 2020-11-13 08:51:00 Neno [facility] URIC ACID 2020-11-13 08:51:00 Neno [facility] MAGNESIUM 2020-11-13 08:51:00 Neno [facility] COMP. METABOLIC PANEL 2020-11-13 08:51:00 Neno [facility] ([id number]) [facility] CBC WITH DIFF 2020-11-13 08:51:00 Neno [facility] N-TERMINAL PRO-BNP 2020-11-13 08:51:00 Neno [facility] POCT GLUCOSE (AUTOMATED) 2020-11-12 21:39:00 [facility] POCT GLUCOSE (AUTOMATED) 2020-11-12 21:39:00 Chava Oakes [facility] POCT GLUCOSE (AUTOMATED) 2020-11-12 21:39:00 Chava Oakes [facility] POCT GLUCOSE (AUTOMATED) 2020-11-12 17:03:00 Chava Oakes [facility] POCT GLUCOSE (AUTOMATED) 2020-11-12 17:03:00 Chava Oakes [facility] POCT GLUCOSE (AUTOMATED) 2020-11-12 17:03:00 Chava Oakes [facility] ASPIRATE OR ABSCESS 2020-11-12 15:58:00 Ronnie Jaquez [facility] CULTURE(AEROBIC/ANAEROBIC) [facility] [employer] CULTURE 2020-11-12 15:58:00 Ronnie Jaquez [facility] FUNGUS (ROUTINE) CULTURE 2020-11-12 15:58:00 Ronnie Jaquez [facility] ASPIRATE OR ABSCESS 2020-11-12 15:58:00 Ronnie Jaquez [facility] ty [facility] CULTURE(AEROBIC/ANAEROBIC) [facility] [employer] CULTURE 2020-11-12 15:58:00 Ronnie Jaquez [facility] FUNGUS (ROUTINE) CULTURE 2020-11-12 15:58:00 Ronnie Jaquez [facility] ASPIRATE OR ABSCESS 2020-11-12 15:58:00 Ronnie Jaquez [facility] CULTURE(AEROBIC/ANAEROBIC) [facility] [employer] CULTURE 2020-11-12 15:58:00 Ronnie Jaquez [facility] FUNGUS (ROUTINE) CULTURE 2020-11-12 15:58:00 [facility] SURGICAL PATHOLOGY EXAM 2020-11-12 15:56:00 Ronnie [facility]aquez [facility] TO[facility] 2020-11-12 15:18:00 Ronnie Jaquez [facility] TOE AMPUTATION 2020-11-12 15:18:00 Ronnie Jaquez [facility] URINALYSIS 2020-11-12 14:10:00 Derek Cintron [facility] SODIUM, URINE RANDOM 2020-11-12 14:10:00 Derek Cintron [facility] PROTEIN CREAT RATIO URINE 2020-11-12 14:10:00 [facility] 2020-11-12 14:10:00 Neno litzy [facility] SODIUM, URINE RANDOM 2020-11-12 14:10:00 Derek Cintron [facility] PROTEIN CREAT RATIO URINE 2020-11-12 14:10:00 [facility]IN[facility]IS 2020-11-12 14:10:00 Derek Cintron [facility] SODIUM, URINE RANDOM 2020-11-12 14:10:00 Derek Cintron [facility] PROTEIN CREAT RATIO URINE 2020-11-12 14:10:00 [facility] POCT GLUCOSE (AUTOMATED) 2020-11-12 13:03:00 [facility] PO[facility]SE (AUTOMATED) 2020-11-12 13:03:00 [facility] PO[facility] GLUCOSE (AUTOMATED) 2020-11-12 13:03:00 [facility] ROUTINE & RHYTHM 2020-11-12 09:07:57 Derek Cintron [facility] HB ECG ROUTINE & RHYTHM 2020-11-12 09:07:57 Derek Cintron [facility] HB ECG ROUTINE & RHYTHM 2020-11-12 09:07:57 Derek Cintron [facility] PHOSPHORUS 2020-11-12 08:45:00 Derek Cintron [facility] CREATINE KINASE 2020-11-12 08:45:00 Neno [facility] URIC ACID 2020-11-12 08:45:00 Neno, Adnan [facility] MAGNESIUM 2020-11-12 08:45:00 Neno [facility] FERRITIN SERUM 2020-11-12 08:45:00 Neno [facility] VITAMIN B12, LEVEL 2020-11-12 08:45:00 Neno [facility] C-REACTIVE PROTEIN 2020-11-12 08:45:00 Neno [facility] THYROID STIMULATING 2020-11-12 08:45:00 Derek Cintron [facility] HORMONE [facility] COMP. METABOLIC PANEL 2020-11-12 08:45:00 Derek Cintron [facility] ([id number]) [facility] [place] LIPID PANEL (24189)(TOTAL 2020-11-12 08:45:00 Derek Cintron [facility] CHOLESTEROL, [facility] TRIGLYCERIDES, HDL) IRON PANEL 2020-11-12 08:45:00 Neno [facility] CBC WITH DIFF 2020-11-12 08:45:00 Neno [facility] PROTHROMBIN TIME / INR 2020-11-12 08:45:00 Neno litzy [facility] N-TERMINAL PRO-BNP 2020-11-12 08:45:00 Neno litzy [facility] LACTIC ACID WHOLE BLOOD 2020-11-12 08:45:00 Neno litzy [facility] PROCALCITONIN 2020-11-12 08:45:00 Neno [facility] PHOSPHORUS 2020-11-12 08:45:00 Neno [facility] CREATINE KINASE 2020-11-12 08:45:00 Neno [facility] URIC ACID 2020-11-12 08:45:00 Neno [facility] MAGNESIUM 2020-11-12 08:45:00 Neno [facility] FERRITIN SERUM 2020-11-12 08:45:00 Neno [facility] VITAMIN B12, LEVEL 2020-11-12 08:45:00 Neno [facility] C-REACTIVE PROTEIN 2020-11-12 08:45:00 eNno litzy [facility] THYROID STIMULATING 2020-11-12 08:45:00 Derek Cintron [facility] HORMONE [facility] COMP. METABOLIC PANEL 2020-11-12 08:45:00 Derek Cintron [facility] ([id number]) [facility] [place] LIPID PANEL (23253)(TOTAL 2020-11-12 08:45:00 Derek Cintron [facility] CHOLESTEROL, [facility] TRIGLYCERIDES, HDL) IRON PANEL 2020-11-12 08:45:00 Neno [facility] CBC WITH DIFF 2020-11-12 08:45:00 Neno [facility] PROTHROMBIN TIME / INR 2020-11-12 08:45:00 Neno litzy [facility] N-TERMINAL PRO-BNP 2020-11-12 08:45:00 Neno litzy [facility] VITAMIN D, 25-OH 2020-11-12 08:45:00 Neno [facility] LACTIC ACID WHOLE BLOOD 2020-11-12 08:45:00 Neno litzy [facility] PROCALCITONIN 2020-11-12 08:45:00 Neno [facility] PHOSPHORUS 2020-11-12 08:45:00 Neno [facility] CREATINE KINASE 2020-11-12 08:45:00 Neno [facility] URIC ACID 2020-11-12 08:45:00 Neno [facility] MAGNESIUM 2020-11-12 08:45:00 Neno [facility] FERRITIN SERUM 2020-11-12 08:45:00 Neno [facility] VITAMIN B12, LEVEL 2020-11-12 08:45:00 Neno [facility] C-REACTIVE PROTEIN 2020-11-12 08:45:00 Derek Cintron [facility] THYROID STIMULATING 2020-11-12 08:45:00 Derek Cintron [facility] HORMONE [facility] COMP. METABOLIC PANEL 2020-11-12 08:45:00 Derek Cintron [facility] ([id number]) [facility] [place] LIPID PANEL (67132)(TOTAL 2020-11-12 08:45:00 Derek Cintron [facility] CHOLESTEROL, [facility] TRIGLYCERIDES, HDL) IRON PANEL 2020-11-12 08:45:00 Neno litzy [facility] CBC WITH DIFF 2020-11-12 08:45:00 Neno [facility] PROTHROMBIN TIME / INR 2020-11-12 08:45:00 Derek Cintron [facility] N-TERMINAL PRO-BNP 2020-11-12 08:45:00 Derek Cintron [facility] VITAMIN D, 25-OH 2020-11-12 08:45:00 Neno litzy [facility] LACTIC ACID WHOLE BLOOD 2020-11-12 08:45:00 Derek Cintron [facility] PROCALCITONIN 2020-11-12 08:45:00 Neno [facility] SEDIMENTATION RATE 2020-11-12 08:38:00 Neno litzy [facility] SEDIMENTATION RATE 2020-11-12 08:38:00 Neno litzy [facility] SEDIMENTATION RATE 2020-11-12 08:38:00 Derek Cintron [facility] FOOT RIGHT WO CONTRAST 2020-11-12 07:09:41 [facility]AST 2020-11-12 07:09:41 Derek Cintron [facility] CT FOOT RIGHT WO CONTRAST 2020-11-12 07:09:41 Derek Cintron [facility] XR CHEST 1 VW 2020-11-12 07:09:23 Derek Cintron [facility] XR CHEST 1 VW 2020-11-12 07:09:23 Derek Cintron [facility] XR CHEST 1 VW 2020-11-12 07:09:23 Derek Cintron [facility] XR FOOT 3+ VW RIGHT 2020-11-12 01:44:18 Chava Oakes [facility] XR FOOT 3+ VW RIGHT 2020-11-12 01:44:18 Chava Oakes [facility] XR FOOT 3+ VW RIGHT 2020-11-12 01:44:18 Chava Oakes [facility] BLOOD CULTURE SCREEN 2020-11-12 01:37:00 Chava Oakes [facility] COMP. METABOLIC PANEL 2020-11-12 01:37:00 Chava Oakes [facility] ([id number]) [facility] CBC WITH DIFF 2020-11-12 01:37:00 Chava Oakes [facility] GLYCOSYLATED HEMOGLOBIN 2020-11-12 01:37:00 Derek Cintron [facility] (A1C) [facility] EXTRA TUBE LT. BLUE 2020-11-12 01:37:00 Chava Oakes [facility] EXTRA TUBE LT. GREEN 2020-11-12 01:37:00 Chava Oakes [facility] COVID-19 (ID NOW RAPID 2020-11-12 01:37:00 Chava Oakes [facility] TESTING) [facility] BLOOD CULTURE SCREEN 2020-11-12 01:37:00 Chava Oakes [facility] COMP. METABOLIC PANEL 2020-11-12 01:37:00 Chava Oakes [facility] ([id number]) [facility] CBC WITH DIFF 2020-11-12 01:37:00 Chava Oakes [facility] GLYCOSYLATED HEMOGLOBIN 2020-11-12 01:37:00 Derek Cintron [facility] (A1C) Medical Branch EXTRA TUBE LT. BLUE 2020-11-12 01:37:00 Chava Oakes [facility] EXTRA TUBE LT. GREEN 2020-11-12 01:37:00 Chava Oakes [facility] COVID-19 (ID NOW RAPID 2020-11-12 01:37:00 Chava Oakes [facility] TESTING) Medical Branch BLOOD CULTURE SCREEN 2020-11-12 01:37:00 Chava Oakes [facility] COMP. METABOLIC PANEL 2020-11-12 01:37:00 Chava Oakes [facility] ([id number]) Medical Branch CBC WITH DIFF 2020-11-12 01:37:00 Chava Oakes [facility] GLYCOSYLATED HEMOGLOBIN 2020-11-12 01:37:00 Derek Cintron [facility] (A1C) [facility] [place] EXTRA TUBE LT. BLUE 2020-11-12 01:37:00 Chava Oakes [facility] EXTRA TUBE LT. GREEN 2020-11-12 01:37:00 Chava Oakes [facility] COVID-19 (ID NOW RAPID 2020-11-12 01:37:00 Chava Oakes [facility] TESTING) Medical [facility] BLOOD CULTURE SCREEN 2020-11-12 01:22:00 Chava Oakes [facility] BLOOD CULTURE SCREEN 2020-11-12 01:22:00 Chava Oakes [facility] BLOOD CULTURE SCREEN 2020-11-12 01:22:00 Chava Oakes [facility] NOTICE OF PRIVACY 2020-11-12 00:41:02 Doctor Unassigned, [facility] PRACTICES [facility] [place] NOTICE OF PRIVACY 2020-11-12 00:41:02 Doctor Unassigned, [facility] NOTICE OF PRIVACY 2020-11-12 00:41:02 Doctor Unassigned, [facility] [place] PRACTICES [place] [facility] CONSENT/REFUSAL FOR 2020-11-12 00:40:11 [facility] [place] [facility] CONSENT/REFUSAL FOR 2020-11-12 00:40:11 Doctor Unassigned, [facility] [place] [facility] CONSENT/REFUSAL FOR 2020-11-12 00:40:11 Doctor [facility]reen [facility] [place] Plan of Care Planned Activity Planned Date Details Comments Source Goal Plan of Care Note [code = 75291-0] Goal Plan of Care Note [code = 00280-0] Goal Plan of Care Note [code = 15861-5] Goal Plan of Care Note [code = 89441-4] Goal Plan of Care Note [code = 23908-2] Goal Plan of Care Note [code = 99792-9] Goal Plan of Care Note [code = 44006-0] Goal Plan of Care Note [code = 96036-7] Goal Plan of Care Note [code = 32409-8] Goal Plan of Care Note [code = 43996-2] Goal Plan of Care Note [code = 08667-7] Goal Plan of Care Note [code = 70853-2] Goal Plan of Care Note [code = 34241-3] Goal Plan of Care Note [code = 67029-5] Goal Plan of Care Note [code = 80591-1] Goal Plan of Care Note [code = 57084-5] Goal Plan of Care Note [code = 34946-0] Goal Plan of Care Note [code = 68819-1] Goal Plan of Care Note [code = 54391-1] Goal Plan of Care Note [code = 99760-5] Goal Plan of Care Note [code = 34174-5] Goal Plan of Care Note [code = 80794-0] Goal Plan of Care Note [code = 05323-3] Goal Plan of Care Note [code = 15984-2] Goal Plan of Care Note [code = 34058-4] Goal Plan of Care Note [code = 70907-8] Goal Plan of Care Note [code = 92427-1] Goal Plan of Care Note [code = 24646-2] Goal Plan of Care Note [code = 67830-3] Goal Plan of Care Note [code = 33064-2] Goal Plan of Care Note [code = 97532-3] Goal Plan of Care Note [code = 10101-1] Goal Plan of Care Note [code = 84831-5] Goal Plan of Care Note [code = 05323-5] Goal Plan of Care Note [code = 19644-1] Goal Plan of Care Note [code = 91586-2] Goal Plan of Care Note [code = 34937-2] Goal Plan of Care Note [code = 87098-0] Goal Plan of Care Note [code = 47688-2] Goal Plan of Care Note [code = 21066-0] Goal Plan of Care Note [code = 03308-9] Goal Plan of Care Note [code = 91328-3] Goal Plan of Care Note [code = 24327-9] Goal Plan of Care Note [code = 95243-3] Goal Plan of Care Note [code = 06040-8] Encounters Start End Encounter Admission Attending Care Care Encounter Source Date/Time Date/Time Type Type Clinicians Facility Department ID 2022-08-26 2022-08-26 Outpatient R [facility] [id number] Univers 00:00:00 00:00:00 SHAH ity o f [facility] 2022-08-26 2022-08-26 Letter [facility] [id number] Univers 00:00:00 00:00:00 (Out) Haris A MULTISPEC [id number] ity of IALTY [id number] [facility] s [place] [id number] [facility] [facility] [address] [facility] 2022-08-25 2022-08-25 Telephone [facility] 1.2.840.114 [id number] Univers 00:00:00 00:00:00 Shah A MULTISPEC 350.1.13.10 ity of [place] 4.2.7.2.686 [facility] s [place] [id number] [facility] [address] [facility] 2022-07-18 2022-07-18 Outpatient YOLETTE SFA 95940-6 022 Puneet 13:41:20 13:41:20 1214 F Jovanny 2022-07-12 2022-07-12 Outpatient [id number]- [id number] d77gsm-j 00:00:00 00:00:00 Visit w57c-65o6 07a-48a2-9 -0p2e-72c f5k-94sidh xysu89169 p49242 2022-07-11 2022-07-11 Outpatient SFA SFA 53823-8 022 Puneet 10:38:38 10:38:38 1207 F Jovanny 2022-07-11 2022-07-11 Outpatient s2g1lh2h- [id number] c1 m5oi9d-x 00:00:00 00:00:00 Visit t1w4-05j3 8k3-61n2-h -yn78-puu t58-unb200 [id number] 2859-11-30 2022-07-04 Outpatient SFA SFA 60343-7 022 Puneet 16:06:42 16:06:42 1130 F Jovanny 2022-06-20 2022-06-20 Outpatient SFA SFA 11243-9 022 Puneet 13:09:21 13:09:21 1116 F Emerado 2022-06-20 2022-06-20 Outpatient [id number]- [id number] 9a 774t68-j 00:00:00 00:00:00 Visit i487-0034 140-4117-b -p2bd-a24 2cf-z28512 545pz7650 tz7847 2022-06-19 2022-06-19 Orders Doctor CATE 1.2.840.114 [id number] 00:00:00 00:00:00 Only Unassigned, SONIDO 350.1.13.10 ity of [facility] 4.2.7.2.686 Xavi as [phone] [facility] [address] 2022-06-12 2022-06-12 Transition MANNY Hood 1.2.840.114 [id number] Univers 00:00:00 00:00:00 of Care Leandra STARK 350.1.13.10 [place] [phone] [facility] [address] 2022-06-01 2022-06-11 Inpatient JAZLYN WHITE [facility] [id number] Univers 13:14:00 17:17:00 LOREE ity of [facility] 2022-06-01 2022-06-11 Hospital Allen Sen 1.2.840.11 [id number] Univers 13:14:00 17:17:00 Encounter Steve Pardo 350.1.1 3.10 ity of [facility] 4.2.7.2.686 [place] [phone] [facility] [address] 2022-06-04 2022-06-[address] 1.2.840.7 [id number] Univers 00:00:00 00:00:00 Management Care 07693.1.1 i ty of Transition 3.104.2.7 Xavi as .3.978447 Medica l .8 Branch 2022-06-01 2022-06-01 Travel 1.2.840.1 1.2.187.967 [id number] Univers 00:00:00 00:00:00 72612.1.1 350.1.13.10 ity of 3.104.2.7 [place].3.698 [place] .3.469635 084.8 Medica l .8 Branch 2021-04-03 2021-04-03 Outpatient Delta ORTIZ [facility] [id number] Univers 19:00:00 19:00:00 ETHAN ity of [facility] 2021-02-21 2021-02-21 Orders Doctor CATE 1.2.840.114 [id number] Univers 00:00:00 00:00:00 Only Unassigned, SONIDO 350.1.13.10 ity of [facility] 4.2.7.2.686 Xavi as [id number] [facility] mala [address] 2020-11-17 2020-11-17 Transition Manny Hood 1.2.840.114 [id number] Univers 00:00:00 00:00:00 of Care Leandraabbey Stark 350.1.13.10 it[place] [id number] [facility] [address] 2020-11-11 2020-11-16 [facility] Chava Oakes [facility] 1.2.840. 114 [id number] Univers 19:49:00 18:26:00 Encounter Derek Cintron 350.1.13.10 ity of [place] 4.2.7.2.686 [facility] [id number] [place] [id number] Branch 2020-11-11 2020-11-16 Inpatient X WARNER [facility] [id number] Univers 19:49:00 18:26:00 DANNY christian of [facility] 2020-11-14 2020-11-14 Surgery [facility] 1.2.840.114 [id number] Univers 10:50:00 12:42:00 Ronnie Goel 350.1.13.10 ity [place] 4.2.7.2.686 [facility] [id number] [facility] [address] 2020-11-12 2020-11-12 Surgery [facility] 1.2.840.114 [id number] Univers 10:10:00 11:17:00 Ronnie Goel 350.1.13.10 ity [place] 4.2.7.2.686 [facility] [id number] [address] Results Test Description Test Time Test Comments Results Result Comments Source HEMOGLOBIN A1c 2022-07-12 00:00:00 Test Item Value Reference Range Interpretation Comme nts HEMOGLOBIN A1c (test code = 63774) 6.0 % HEMOGLOBIN [id number] 00:00:00 Test Item Value Reference Range Interpretation Comments HEMOGLOBIN A1c (test code = 04029) 6.0 % LIPID [id number] 00:00:00 Test Item Value Reference Range Interpretation Comments CHOLESTEROL (test code = 2210) 196 MG/DL TRIGLYCERIDES (test code = 2232) 181 MG/DL HDL CHOLESTEROL (test code = 2220) 38 MG/DL CALC LDL CHOL (test code = 2237) 128 MG/DL RISK RATIO LDL/HDL (test code = 3.37 RATIO 2238) LIPID [id number] 00:00:00 Test Item Value Reference Range Interpretation Comments CHOLESTEROL (test code = 2210) 196 MG/DL TRIGLYCERIDES (test code = 2232) 181 MG/DL HDL CHOLESTEROL (test code = 2220) 38 MG/DL CALC LDL CHOL (test code = 2237) 128 MG/DL RISK RATIO LDL/HDL (test code = 3.37 RATIO 2238) COMPREHENSIVE METABOLIC [id number] 00:00:00 Test Item Value Reference Range Interpretation Comments GLUCOSE (test code = 2217) 130 MG/DL BUN (test code = 2208) 61 MG/DL CREATININE (test code = 2214) 9.22 MG/DL eGFR (2020 CKD-EPI) (test code 7 ML/MIN/1.73 = 18703) CALC BUN/CREAT (test code = 7 RATIO 2235) SODIUM (test code = 2231) 145 MEQ/L POTASSIUM (test code = 2228) 5.2 MEQ/L CHLORIDE (test code = 2215) 104 MEQ/L CARBON DIOXIDE (test code = 24 MEQ/L 2205) CALCIUM (test code = 2209) 9.0 MG/DL PROTEIN, TOTAL (test code = 7.6 G/DL 2228) ALBUMIN (test code = 2201) 4.1 G/DL CALC GLOBULIN (test code = 3.5 G/DL 2239) CALC A/G RATIO (test code = 1.2 RATIO 2233) BILIRUBIN, TOTAL (test code = 0.2 MG/DL 2206) ALKALINE PHOSPHATASE (test code 92 U/L = 2203) AST (test code = 2218) 29 U/L ALT (test code = 2219) 39 U/L COMPREHENSIVE METABOLIC [id number] 00:00:00 Test Item Value Reference Range Interpretation Comments GLUCOSE (test code = 2217) 130 MG/DL BUN (test code = 2208) 61 MG/DL CREATININE (test code = 2214) 9.22 MG/DL eGFR (2020 CKD-EPI) (test code 7 ML/MIN/1.73 = 61028) CALC BUN/CREAT (test code = 7 RATIO 2235) SODIUM (test code = 2231) 145 MEQ/L POTASSIUM (test code = 2228) 5.2 MEQ/L CHLORIDE (test code = 2215) 104 MEQ/L CARBON DIOXIDE (test code = 24 MEQ/L 2205) CALCIUM (test code = 2209) 9.0 MG/DL PROTEIN, TOTAL (test code = 7.6 G/DL 2228) ALBUMIN (test code = 2201) 4.1 G/DL CALC GLOBULIN (test code = 3.5 G/DL 2240) CALC A/G RATIO (test code = 1.2 RATIO 2234) BILIRUBIN, TOTAL (test code = 0.2 MG/DL 7) ALKALINE PHOSPHATASE (test code 92 U/L = 2204) AST (test code = 2218) 29 U/L ALT (test code = 2219) 39 U/L CBC W/AUTO [id number] 00:00:00 Test Item Value Reference Range Interpretation Comments WBC (test code = 1001) 8.0 K/UL RBC (test code = 1002) 3.80 M/UL HEMOGLOBIN (test code = 1003) 10.9 G/DL HEMATOCRIT (test code = 1004) 34.2 % MCV (test code = 1005) 90.0 fL MCH (test code = 1006) 28.7 PG MCHC (test code = 1007) 31.9 G/DL RDW (test code = 1038) 12.5 % NEUTROPHILS (test code = 1008) 58.6 % LYMPHOCYTES (test code = 1010) 26.1 % MONOCYTES (test code = 1011) 7.8 % EOSINOPHILS (test code = 1012) 5.9 % BASOPHILS (test code = 1013) 1.1 % IMMATURE GRANULOCYTES (test 0.5 % code = 1036) NUCLEATED RBCS (test code = 0.0 /100WBC'S 1065) PLATELET COUNT (test code = 357 K/UL 1015) ABSOLUTE NEUTROPHILS (test code 4.67 K/UL = 1066) ABSOLUTE LYMPHOCYTES (test code 2.08 K/UL = 1067) ABSOLUTE MONOCYTES (test code = 0.62 K/UL 1068) ABSOLUTE EOSINOPHILS (test code 0.47 K/UL = 1040) ABSOLUTE BASOPHILS (test code = 0.09 K/UL 1069) ABS IMMATURE GRANULOCYTES (test 0.04 K/UL code = 1020) ABS NUCLEATED RBCS (test code = 0.00 K/UL 85696) CBC W/AUTO [id number] 00:00:00 Test Item Value Reference Range Interpretation Comments WBC (test code = 1001) 8.0 K/UL RBC (test code = 1002) 3.80 M/UL HEMOGLOBIN (test code = 1003) 10.9 G/DL HEMATOCRIT (test code = 1004) 34.2 % MCV (test code = 1005) 90.0 fL MCH (test code = 1006) 28.7 PG MCHC (test code = 1007) 31.9 G/DL RDW (test code = 1038) 12.5 % NEUTROPHILS (test code = 1008) 58.6 % LYMPHOCYTES (test code = 1010) 26.1 % MONOCYTES (test code = 1011) 7.8 % EOSINOPHILS (test code = 1012) 5.9 % BASOPHILS (test code = 1013) 1.1 % IMMATURE GRANULOCYTES (test 0.5 % code = 1036) NUCLEATED RBCS (test code = 0.0 /100WBC'S 1065) PLATELET COUNT (test code = 357 K/UL 1015) ABSOLUTE NEUTROPHILS (test code 4.67 K/UL = 1066) ABSOLUTE LYMPHOCYTES (test code 2.08 K/UL = 1067) ABSOLUTE MONOCYTES (test code = 0.62 K/UL 1068) ABSOLUTE EOSINOPHILS (test code 0.47 K/UL = 1040) ABSOLUTE BASOPHILS (test code = 0.09 K/UL 1069) ABS IMMATURE GRANULOCYTES (test 0.04 K/UL code = 1020) ABS NUCLEATED RBCS (test code = 0.00 K/UL 80849) CBC W/AUTO [id number] 00:00:00 Test Item Value Reference Range Interpretation Comments WBC (test code = 1001) 8.0 K/UL RBC (test code = 1002) 3.80 M/UL HEMOGLOBIN (test code = 1003) 10.9 G/DL HEMATOCRIT (test code = 1004) 34.2 % MCV (test code = 1005) 90.0 fL MCH (test code = 1006) 28.7 PG MCHC (test code = 1007) 31.9 G/DL RDW (test code = 1038) 12.5 % NEUTROPHILS (test code = 1008) 58.6 % LYMPHOCYTES (test code = 1010) 26.1 % MONOCYTES (test code = 1011) 7.8 % EOSINOPHILS (test code = 1012) 5.9 % BASOPHILS (test code = 1013) 1.1 % IMMATURE GRANULOCYTES (test 0.5 % code = 1036) NUCLEATED RBCS (test code = 0.0 /100WBC'S 1065) PLATELET COUNT (test code = 357 K/UL 1015) ABSOLUTE NEUTROPHILS (test code 4.67 K/UL = 1066) ABSOLUTE LYMPHOCYTES (test code 2.08 K/UL = 1067) ABSOLUTE MONOCYTES (test code = 0.62 K/UL 1068) ABSOLUTE EOSINOPHILS (test code 0.47 K/UL = 1040) ABSOLUTE BASOPHILS (test code = 0.09 K/UL 1069) ABS IMMATURE GRANULOCYTES (test 0.04 K/UL code = 1020) ABS NUCLEATED RBCS (test code = 0.00 K/UL 25443) HEMOGLOBIN [id number] 00:00:00 Test Item Value Reference Range Interpretation Comments HEMOGLOBIN A1c (test code = 02196) 6.0 % HEMOGLOBIN [id number] 00:00:00 Test Item Value Reference Range Interpretation Comments HEMOGLOBIN A1c (test code = 16700) 6.0 % HEMOGLOBIN [id number] 00:00:00 Test Item Value Reference Range Interpretation Comments HEMOGLOBIN A1c (test code = 73164) 6.0 % LIPID [id number] 00:00:00 Test Item Value Reference Range Interpretation Comments CHOLESTEROL (test code = 2210) 196 MG/DL TRIGLYCERIDES (test code = 2232) 181 MG/DL HDL CHOLESTEROL (test code = 2220) 38 MG/DL CALC LDL CHOL (test code = 2237) 128 MG/DL RISK RATIO LDL/HDL (test code = 3.37 RATIO 2238) LIPID [id number] 00:00:00 Test Item Value Reference Range Interpretation Comments CHOLESTEROL (test code = 2210) 196 MG/DL TRIGLYCERIDES (test code = 2232) 181 MG/DL HDL CHOLESTEROL (test code = 2220) 38 MG/DL CALC LDL CHOL (test code = 2237) 128 MG/DL RISK RATIO LDL/HDL (test code = 3.37 RATIO 2238) COMPREHENSIVE METABOLIC [id number] 00:00:00 Test Item Value Reference Range Interpretation Comments GLUCOSE (test code = 2217) 130 MG/DL BUN (test code = 2208) 61 MG/DL CREATININE (test code = 2214) 9.22 MG/DL eGFR (2020 CKD-EPI) (test code 7 ML/MIN/1.73 = 65150) CALC BUN/CREAT (test code = 7 RATIO 2235) SODIUM (test code = 2231) 145 MEQ/L POTASSIUM (test code = 2228) 5.2 MEQ/L CHLORIDE (test code = 2215) 104 MEQ/L CARBON DIOXIDE (test code = 24 MEQ/L 2205) CALCIUM (test code = 2209) 9.0 MG/DL PROTEIN, TOTAL (test code = 7.6 G/DL 2228) ALBUMIN (test code = 2201) 4.1 G/DL CALC GLOBULIN (test code = 3.5 G/DL 2240) CALC A/G RATIO (test code = 1.2 RATIO 2234) BILIRUBIN, TOTAL (test code = 0.2 MG/DL 2206) ALKALINE PHOSPHATASE (test code 92 U/L = 2204) AST (test code = 2218) 29 U/L ALT (test code = 2219) 39 U/L COMPREHENSIVE METABOLIC [id number] 00:00:00 Test Item Value Reference Range Interpretation Comments GLUCOSE (test code = 2217) 130 MG/DL BUN (test code = 2208) 61 MG/DL CREATININE (test code = 2214) 9.22 MG/DL eGFR (2020 CKD-EPI) (test code 7 ML/MIN/1.73 = 33840) CALC BUN/CREAT (test code = 7 RATIO 2234) SODIUM (test code = 2231) 145 MEQ/L POTASSIUM (test code = 2228) 5.2 MEQ/L CHLORIDE (test code = 2215) 104 MEQ/L CARBON DIOXIDE (test code = 24 MEQ/L 2205) CALCIUM (test code = 2209) 9.0 MG/DL PROTEIN, TOTAL (test code = 7.6 G/DL 2228) ALBUMIN (test code = 2201) 4.1 G/DL CALC GLOBULIN (test code = 3.5 G/DL 2240) CALC A/G RATIO (test code = 1.2 RATIO 2234) BILIRUBIN, TOTAL (test code = 0.2 MG/DL 2206) ALKALINE PHOSPHATASE (test code 92 U/L = 2204) AST (test code = 2218) 29 U/L ALT (test code = 2219) 39 U/L CBC W/AUTO [id number] 00:00:00 Test Item Value Reference Range Interpretation Comments WBC (test code = 1001) 8.0 K/UL RBC (test code = 1002) 3.80 M/UL HEMOGLOBIN (test code = 1003) 10.9 G/DL HEMATOCRIT (test code = 1004) 34.2 % MCV (test code = 1005) 90.0 fL MCH (test code = 1006) 28.7 PG MCHC (test code = 1007) 31.9 G/DL RDW (test code = 1038) 12.5 % NEUTROPHILS (test code = 1008) 58.6 % LYMPHOCYTES (test code = 1010) 26.1 % MONOCYTES (test code = 1011) 7.8 % EOSINOPHILS (test code = 1012) 5.9 % BASOPHILS (test code = 1013) 1.1 % IMMATURE GRANULOCYTES (test 0.5 % code = 1036) NUCLEATED RBCS (test code = 0.0 /100WBC'S 1065) PLATELET COUNT (test code = 357 K/UL 1015) ABSOLUTE NEUTROPHILS (test code 4.67 K/UL = 1066) ABSOLUTE LYMPHOCYTES (test code 2.08 K/UL = 1067) ABSOLUTE MONOCYTES (test code = 0.62 K/UL 1068) ABSOLUTE EOSINOPHILS (test code 0.47 K/UL = 1040) ABSOLUTE BASOPHILS (test code = 0.09 K/UL 1069) ABS IMMATURE GRANULOCYTES (test 0.04 K/UL code = 1020) ABS NUCLEATED RBCS (test code = 0.00 K/UL 91003) CBC W/AUTO [id number] 00:00:00 Test Item Value Reference Range Interpretation Comments WBC (test code = 1001) 8.0 K/UL RBC (test code = 1002) 3.80 M/UL HEMOGLOBIN (test code = 1003) 10.9 G/DL HEMATOCRIT (test code = 1004) 34.2 % MCV (test code = 1005) 90.0 fL MCH (test code = 1006) 28.7 PG MCHC (test code = 1007) 31.9 G/DL RDW (test code = 1038) 12.5 % NEUTROPHILS (test code = 1008) 58.6 % LYMPHOCYTES (test code = 1010) 26.1 % MONOCYTES (test code = 1011) 7.8 % EOSINOPHILS (test code = 1012) 5.9 % BASOPHILS (test code = 1013) 1.1 % IMMATURE GRANULOCYTES (test 0.5 % code = 1036) NUCLEATED RBCS (test code = 0.0 /100WBC'S 1065) PLATELET COUNT (test code = 357 K/UL 1015) ABSOLUTE NEUTROPHILS (test code 4.67 K/UL = 1066) ABSOLUTE LYMPHOCYTES (test code 2.08 K/UL = 1067) ABSOLUTE MONOCYTES (test code = 0.62 K/UL 1068) ABSOLUTE EOSINOPHILS (test code 0.47 K/UL = 1040) ABSOLUTE BASOPHILS (test code = 0.09 K/UL 1069) ABS IMMATURE GRANULOCYTES (test 0.04 K/UL code = 1020) ABS NUCLEATED RBCS (test code = 0.00 K/UL 09912) CBC W/AUTO [id number] 00:00:00 Test Item Value Reference Range Interpretation Comments WBC (test code = 1001) 8.0 K/UL RBC (test code = 1002) 3.80 M/UL HEMOGLOBIN (test code = 1003) 10.9 G/DL HEMATOCRIT (test code = 1004) 34.2 % MCV (test code = 1005) 90.0 fL MCH (test code = 1006) 28.7 PG MCHC (test code = 1007) 31.9 G/DL RDW (test code = 1038) 12.5 % NEUTROPHILS (test code = 1008) 58.6 % LYMPHOCYTES (test code = 1010) 26.1 % MONOCYTES (test code = 1011) 7.8 % EOSINOPHILS (test code = 1012) 5.9 % BASOPHILS (test code = 1013) 1.1 % IMMATURE GRANULOCYTES (test 0.5 % code = 1036) NUCLEATED RBCS (test code = 0.0 /100WBC'S 1065) PLATELET COUNT (test code = 357 K/UL 1015) ABSOLUTE NEUTROPHILS (test code 4.67 K/UL = 1066) ABSOLUTE LYMPHOCYTES (test code 2.08 K/UL = 1067) ABSOLUTE MONOCYTES (test code = 0.62 K/UL 1068) ABSOLUTE EOSINOPHILS (test code 0.47 K/UL = 1040) ABSOLUTE BASOPHILS (test code = 0.09 K/UL 1069) ABS IMMATURE GRANULOCYTES (test 0.04 K/UL code = 1020) ABS NUCLEATED RBCS (test code = 0.00 K/UL 07536) HEMOGLOBIN [id number] 00:00:00 Test Item Value Reference Range Interpretation Comments HEMOGLOBIN A1c (test code = 91440) 6.0 % POCT GLUCOSE (AUTOMATED)2022-06-11 18:41:11 Test Item Value Reference Range Interpretation Comments POCT GLU (test code = 3716977504) 221 mg/dL 70-110 H Lab Interpretation (test code = Abnormal 73790-2) [facility] GLUCOSE (AUTOMATED)2022-06-11 14:47:59 Test Item Value Reference Range Interpretation Comments POCT GLU (test code = 2551364802) 145 mg/dL 70-110 H Lab Interpretation (test code = Abnormal 34402-9) [facility] GLUCOSE (AUTOMATED)2022-06-11 02:40:55 Test Item Value Reference Range Interpretation Comments POCT GLU (test code = 6972063735) 264 mg/dL 70-110 H Lab Interpretation (test code = Abnormal 54123-0) [facility] GLUCOSE (AUTOMATED)2022-06-10 22:53:11 Test Item Value Reference Range Interpretation Comments POCT GLU (test code = 0165753010) 207 mg/dL 70-110 H Lab Interpretation (test code = Abnormal 81956-8) [facility] GLUCOSE (AUTOMATED)2022-06-10 18:23:28 Test Item Value Reference Range Interpretation Comments POCT GLU (test code = 3184636676) 230 mg/dL 70-110 H Lab Interpretation (test code = Abnormal 02865-0) [facility] GLUCOSE (AUTOMATED)2022-06-10 16:00:35 Test Item Value Reference Range Interpretation Comments POCT GLU (test code = 8162505494) 149 mg/dL 70-110 H Lab Interpretation (test code = Abnormal 94661-1) [facility] GLUCOSE (AUTOMATED)2022-06-10 01:25:29 Test Item Value Reference Range Interpretation Comments POCT GLU (test code = 4909819435) 199 mg/dL 70-110 H Lab Interpretation (test code = Abnormal 08990-6) [facility] GLUCOSE (AUTOMATED)2022-06-09 22:05:22 Test Item Value Reference Range Interpretation Comments POCT GLU (test code = 4267690817) 228 mg/dL 70-110 H Lab Interpretation (test code = Abnormal 77727-6) [facility] GLUCOSE (AUTOMATED)2022-06-09 18:04:15 Test Item Value Reference Range Interpretation Comments POCT GLU (test code = 9494098557) 166 mg/dL 70-110 H Lab Interpretation (test code = Abnormal 78104-9) [facility] GLUCOSE (AUTOMATED)2022-06-09 12:34:55 Test Item Value Reference Range Interpretation Comments POCT GLU (test code = 5065774245) 133 mg/dL 70-110 H Lab Interpretation (test code = Abnormal 71647-8) [facility] GLUCOSE (AUTOMATED)2022-06-09 01:20:58 Test Item Value Reference Range Interpretation Comments POCT GLU (test code = 9118815043) 224 mg/dL 70-110 H Lab Interpretation (test code = Abnormal 39723-1) [facility] GLUCOSE (AUTOMATED)2022-06-08 22:09:59 Test Item Value Reference Range Interpretation Comments POCT GLU (test code = 5712093541) 189 mg/dL 70-110 H Lab Interpretation (test code = Abnormal 67842-5) [facility] GLUCOSE (AUTOMATED)2022-06-08 18:44:07 Test Item Value Reference Range Interpretation Comments POCT GLU (test code = 4117989529) 159 mg/dL 70-110 H Lab Interpretation (test code = Abnormal 45830-1) [facility] GLUCOSE (AUTOMATED)2022-06-08 17:09:25 Test Item Value Reference Range Interpretation Comments POCT GLU (test code = 4453007080) 200 mg/dL 70-110 H Lab Interpretation (test code = Abnormal 80674-8) [facility] GLUCOSE (AUTOMATED)2022-06-08 14:29:42 Test Item Value Reference Range Interpretation Comments POCT GLU (test code = 1630299341) 159 mg/dL 70-110 H Lab Interpretation (test code = Abnormal 83861-2) [facility] METABOLIC PANEL (NA, K, CL, CO2, GLUCOSE, BUN, CREATININE, CA)2022-06-08 08:44:11 Test Item Value Reference Range Interpretation Comments NA (test code = 137 mmol/L 135-145 5666784426) K (test code = 4.2 mmol/L 3.5-5.0 1465417674) CL (test code = 103 mmol/L 98-108 6635679387) CO2 TOTAL (test code = 27 mmol/L 23-31 0211796500) AGAP (test code = 2-16 0308090120) BUN (test code = 32 mg/dL 7-23 H 6291962952) GLUCOSE (test code = 126 mg/dL 70-110 H 8403679608) CREATININE (test code = 5.97 mg/dL 0.60-1.25 H 0144560732) CALCIUM (test code = 8.5 mg/dL 8.6-10.6 L 1637322548) eGFR (test code = mL/min/1.73m2 6927805002) REBECCA (test code = REBECCA) Association of [...] tests). Lab Interpretation Abnormal (test code = 19621-0) [facility] Test Item Value Reference Range Interpretation Comments MAGNESIUM (test code = 2872718898) 1.9 mg/dL 1.7-2.4 Lab Interpretation (test code = Normal 26520-5) [facility]11 Test Item Value Reference Range Interpretation Comments PHOSPHORUS (test code = 3245900250) 5.0 mg/dL 2.5-5.0 Lab Interpretation (test code = Normal 13077-1) [facility] WITH [id number] 08:35:48 Test Item Value Reference Range Interpretation Comments [...] as normal/abnormal . HGB (test code = 10.3 g/dL 12.2-16.4 L 718-7) HCT (test code = 30.0 % 38.4-49.3 L 4544-3) MCV (test code = 86.7 fL 81.7-95.6 787-2) MCH (test code = 29.8 pg 26.1-32.7 785-6) MCHC (test code = 34.3 g/dL 31.2-35.0 786-4) RDW-SD (test code = 41.4 fL 38.5-51.6 21594-9) RDW-CV (test code = 13.3 % 12.1-15.4 788-0) PLT (test code = See_Comment [Automated 777-3) message] The sy stem which generated this result transmitted reference range : 150 - 328 10*3/ ?L. The reference r rose was not used to interpret this result as normal/abnormal . MPV (test code = 10.1 fL 9.8-13.0 38788-2) NRBC/100 WBC (test See_Comment [Automat ed code = 9291017380) message] The system which generated this result transmitted reference range : 0.0 - 10.0 /100 WBCs. The refer ence range was not u sed to interpret th is result as normal/abnormal . NRBC x10^3 (test code See_Comment [Auto mated = [id number]) message] The s ystem which generated this result transmitted reference range : 10*3/?L. The reference range was not used to interpret this result as normal/abnormal . GRAN MAT (NEUT) % 61.7 % (test code = 770-8) IMM GRAN % (test code 0.50 % = 7123473842) LYMPH % (test code = 22.9 % 736-9) MONO % (test code = 10.1 % 5905-5) EOS % (test code = 4.3 % 713-8) BASO % (test code = 0.5 % 706-2) GRAN MAT x10^3(ANC) 6.73 10*3/uL 1.99-6.95 (test code = 8697408118) IMM GRAN x10^3 (test 0.05 10*3/uL 0.00-0.06 code = 6136247518) LYMPH x10^3 (test code 2.49 10*3/uL 1.09-3.23 = 731-0) MONO x10^3 (test code 1.10 10*3/uL 0.36-1.02 H = 742-7) EOS x10^3 (test code = 0.47 10*3/uL 0.06-0.53 711-2) BASO x10^3 (test code 0.05 10*3/uL 0.01-0.09 = 704-7) Lab Interpretation Abnormal (test code = 08109-3) [facility] GLUCOSE (AUTOMATED)2022-06-08 01:50:35 Test Item Value Reference Range Interpretation Comments POCT GLU (test code = 4075291000) 272 mg/dL 70-110 H Lab Interpretation (test code = Abnormal 17627-6) [facility] GLUCOSE (AUTOMATED)2022-06-07 21:54:50 Test Item Value Reference Range Interpretation Comments POCT GLU (test code = 5775764044) 221 mg/dL 70-110 H Lab Interpretation (test code = Abnormal 24448-7) [facility] GLUCOSE (AUTOMATED)2022-06-07 18:00:15 Test Item Value Reference Range Interpretation Comments POCT GLU (test code = 3643647591) 169 mg/dL 70-110 H Lab Interpretation (test code = Abnormal 33735-4) [facility] GLUCOSE (AUTOMATED)2022-06-07 14:09:38 Test Item Value Reference Range Interpretation Comments POCT GLU (test code = 4852103587) 127 mg/dL 70-110 H Lab Interpretation (test code = Abnormal 33711-8) [facility] GLUCOSE (AUTOMATED)2022-06-07 14:09:38 Test Item Value Reference Range Interpretation Comments POCT GLU (test code = 4132800787) 127 mg/dL 70-110 H Lab Interpretation (test code = Abnormal 32064-2) [facility] Test Item Value Reference Range Interpretation Comments PHOSPHORUS (test code = 2374705986) 5.5 mg/dL 2.5-5.0 H Lab Interpretation (test code = Abnormal 33384-5) [facility] Test Item Value Reference Range Interpretation Comments MAGNESIUM (test code = 2727968886) 1.8 mg/dL 1.7-2.4 Lab Interpretation (test code = Normal 13354-1) [facility] METABOLIC PANEL (NA, K, CL, CO2, GLUCOSE, BUN, CREATININE, CA)2022-06-07 09:55:36 Test Item Value Reference Range Interpretation Comments NA (test code = 140 mmol/L 135-145 2346673248) K (test code = 4.3 mmol/L 3.5-5.0 9822454082) CL (test code = 107 mmol/L 98-108 6753781105) CO2 TOTAL (test code = 27 mmol/L 23-31 5582281530) AGAP (test code = 2-16 1471515121) BUN (test code = 47 mg/dL 7-23 H 5935993013) GLUCOSE (test code = 168 mg/dL 70-110 H 4544632417) CREATININE (test code = 6.83 mg/dL 0.60-1.25 H 6258267829) CALCIUM (test code = 8.2 mg/dL 8.6-10.6 L 9857080265) eGFR (test code = mL/min/1.73m2 3788118518) REBECCA (test code = REBECCA) Association of [...] tests). Lab Interpretation Abnormal (test code = 28772-2) [facility] METABOLIC PANEL (NA, K, CL, CO2, GLUCOSE, BUN, CREATININE, CA)2022-06-07 09:55:36 Test Item Value Reference Range Interpretation Comments NA (test code = 140 mmol/L 135-145 5914797151) K (test code = 4.3 mmol/L 3.5-5.0 6319735945) CL (test code = 107 mmol/L 98-108 2797955881) CO2 TOTAL (test code = 27 mmol/L 23-31 2377392570) AGAP (test code = 2-16 5085675558) BUN (test code = 47 mg/dL 7-23 H 2502524223) GLUCOSE (test code = 168 mg/dL 70-110 H 3687406695) CREATININE (test code = 6.83 mg/dL 0.60-1.25 H 2887286838) CALCIUM (test code = 8.2 mg/dL 8.6-10.6 L 7361895246) eGFR (test code = mL/min/1.73m2 0861567710) REBECCA (test code = REBECCA) Association of [...] tests). Lab Interpretation Abnormal (test code = 93461-9) [facility] Test Item Value Reference Range Interpretation Comments MAGNESIUM (test code = 5538974651) 1.8 mg/dL 1.7-2.4 Lab Interpretation (test code = Normal 39543-6) [facility] 09[facility]55[facility]36 Test Item Value Reference Range Interpretation Comments PHOSPHORUS (test code = 9652761448) 5.5 mg/dL 2.5-5.0 H Lab Interpretation (test code = Abnormal 76561-7) [facility] 01:41:31 Test Item Value Reference Range Interpretation Comments POCT GLU (test code = 4591926727) 218 mg/dL 70-110 H Lab Interpretation (test code = Abnormal 80967-6) [facility] GLUCOSE (AUTOMATED)2022-06-06 22:20:34 Test Item Value Reference Range Interpretation Comments POCT GLU (test code = 0154139504) 248 mg/dL 70-110 H Lab Interpretation (test code = Abnormal 29453-7) [facility] GLUCOSE (AUTOMATED)2022-06-06 18:39:49 Test Item Value Reference Range Interpretation Comments POCT GLU (test code = 0016458360) 151 mg/dL 70-110 H Lab Interpretation (test code = Abnormal 76515-6) [facility] GLUCOSE (AUTOMATED)2022-06-06 00:44:41 Test Item Value Reference Range Interpretation Comments POCT GLU (test code = 5395009264) 139 mg/dL 70-110 H Lab Interpretation (test code = Abnormal 54399-1) [facility] GLUCOSE (AUTOMATED)2022-06-05 23:52:04 Test Item Value Reference Range Interpretation Comments POCT GLU (test code = 0448752930) 123 mg/dL 70-110 H Lab Interpretation (test code = Abnormal 93429-4) [facility] GLUCOSE (AUTOMATED)2022-06-05 21:13:30 Test Item Value Reference Range Interpretation Comments POCT GLU (test code = 5777296113) 176 mg/dL 70-110 H Lab Interpretation (test code = Abnormal 88641-8) [facility] GLUCOSE (AUTOMATED)2022-06-05 16:25:08 Test Item Value Reference Range Interpretation Comments POCT GLU (test code = 3708082216) 301 mg/dL 70-110 H Lab Interpretation (test code = Abnormal 92017-4) [facility] GLUCOSE (AUTOMATED)2022-06-05 13:19:02 Test Item Value Reference Range Interpretation Comments POCT GLU (test code = 0775663406) 121 mg/dL 70-110 H Lab Interpretation (test code = Abnormal 10551-8) [facility] GLUCOSE (AUTOMATED)2022-06-05 01:39:24 Test Item Value Reference Range Interpretation Comments POCT GLU (test code = 7437567393) 142 mg/dL 70-110 H Lab Interpretation (test code = Abnormal 01142-2) [facility] 22:13:59 Test Item Value Reference Range Interpretation Comments POCT GLU (test code = 9077374298) 121 mg/dL 70-110 H Lab Interpretation (test code = Abnormal 03093-4) [facility] GLUCOSE (AUTOMATED)2022-06-04 17:03:12 Test Item Value Reference Range Interpretation Comments POCT GLU (test code = 5409722623) 244 mg/dL 70-110 H Lab Interpretation (test code = Abnormal 01710-0) [facility] GLUCOSE (AUTOMATED)2022-06-04 14:17:00 Test Item Value Reference Range Interpretation Comments POCT GLU (test code = 6672617766) 150 mg/dL 70-110 H Lab Interpretation (test code = Abnormal 99763-5) [facility] GLUCOSE (AUTOMATED)2022-06-04 01:31:35 Test Item Value Reference Range Interpretation Comments POCT GLU (test code = 8596027061) 182 mg/dL 70-110 H Lab Interpretation (test code = Abnormal 00184-0) [facility] GLUCOSE (AUTOMATED)2022-06-03 22:11:48 Test Item Value Reference Range Interpretation Comments POCT GLU (test code = 3631238260) 152 mg/dL 70-110 H Lab Interpretation (test code = Abnormal 75682-2) [facility] GLUCOSE (AUTOMATED)2022-06-03 18:25:07 Test Item Value Reference Range Interpretation Comments POCT GLU (test code = 5003163376) 227 mg/dL 70-110 H Lab Interpretation (test code = Abnormal 82139-3) [facility] GLUCOSE (AUTOMATED)2022-06-03 15:05:03 Test Item Value Reference Range Interpretation Comments POCT GLU (test code = 4639950648) 165 mg/dL 70-110 H Lab Interpretation (test code = Abnormal 65672-4) [facility] GLUCOSE (AUTOMATED)2022-06-03 01:32:50 Test Item Value Reference Range Interpretation Comments POCT GLU (test code = 7615238282) 179 mg/dL 70-110 H Lab Interpretation (test code = Abnormal 55165-8) [facility] GLUCOSE (AUTOMATED)2022-06-02 23:32:34 Test Item Value Reference Range Interpretation Comments POCT GLU (test code = 1215100859) 170 mg/dL 70-110 H Lab Interpretation (test code = Abnormal 24615-5) [facility] GLUCOSE (AUTOMATED)2022-06-02 18:22:12 Test Item Value Reference Range Interpretation Comments POCT GLU (test code = 8598200942) 269 mg/dL 70-110 H Lab Interpretation (test code = Abnormal 24895-3) [facility]ERR[facility] [id number] 07:49:10 Test Item Value Reference Range Interpretation Comments FERRITIN (test code = 159.0 ng/mL 18.0-464.0 6148274462) REBECCA (test code = REBECCA) Biotin has been reported to cause a negative bias, interpret results relative to patient's use of biotin. Lab Interpretation (test Normal code = 50559-0) [facility] [id number] 07:49:10 Test Item Value Reference Range Interpretation Comments FERRITIN (test code = 159.0 ng/mL 18.0-464.0 0805860042) REBECCA (test code = REBECCA) Biotin has been reported to cause a negative bias, interpret results relative to patient's use of biotin. Lab Interpretation (test Normal code = 17742-2) [facility] [id number] 07:21:07 Test Item Value Reference Range Interpretation Comments IRON (test code = 8860523788) 107 ug/dL 50-160 TIBC (test code = 7954474122) 287 ug/dL 250-410 % FE SAT (test code = 9282065506) 37 % 20-50 Lab Interpretation (test code = Normal 78215-7) [facility] [id number] 07:21:07 Test Item Value Reference Range Interpretation Comments IRON (test code = 6830514915) 107 ug/dL 50-160 TIBC (test code = 1401454884) 287 ug/dL 250-410 % FE SAT (test code = 1191159935) 37 % 20-50 Lab Interpretation (test code = Normal 68741-9) [facility] (Total Cholesterol, Triglycerides, HDL) - [id number] 04:06:02 Test Item Value Reference Range Interpretation Comments CHOL (test code = 226 mg/dL 120-200 H 8903937038) HDL (test code = 47 mg/dL See_Comment [Automated message] 0833698665) The system [employer] generated this result transmit cesar reference range : >=40. The refer ence range was not u sed to interpret th is result as normal/abnormal . HDLC RATIO (test code = See_Comment [Au tomated message] 2969287633) The system [employer] generated this result transmit cesar reference range : <=5.0. The refe rence range was not u sed to interpret th is result as normal/abnormal . TRIG (test code = 214 mg/dL 30-170 H 2890193803) LDL CHOL (test code = 136 mg/dL See_Comment [Auto mated message] 03173-0) The system [employer] generated this result transmit cesar reference range : <=160. The refe rence range was not u sed to interpret th is result as normal/abnormal . VLDL (test code = 43 mg/dL 5-60 7361386260) Lab Interpretation (test Abnormal code = 50407-6) [facility] (Total Cholesterol, Triglycerides, HDL) - [id number] 04:06:02 Test Item Value Reference Range Interpretation Comments CHOL (test code = 226 mg/dL 120-200 H 9476946009) HDL (test code = 47 mg/dL See_Comment [Automated message] 3014808170) The system [employer] generated this result transmit cesar reference range : >=40. The refer ence range was not u sed to interpret th is result as normal/abnormal . HDLC RATIO (test code = See_Comment [Au tomated message] 6033107646) The system [employer] generated this result transmit cesar reference range : <=5.0. The refe rence range was not u sed to interpret th is result as normal/abnormal . TRIG (test code = 214 mg/dL 30-170 H 9108034724) LDL CHOL (test code = 136 mg/dL See_Comment [Auto mated message] 50285-3) The system [employer] generated this result transmit cesar reference range : <=160. The refe rence range was not u sed to interpret th is result as normal/abnormal . VLDL (test code = 43 mg/dL 5-60 6649291991) Lab Interpretation (test Abnormal code = 84417-9) [facility]cos[facility] (A1C)2022-06-02 04:00:13 Test Item Value Reference Range Interpretation Comments HGB A1C (test code = 5.6 % 4.0-5.7 4548-4) REBECCA (test code = REBECCA) Reference RangesNormal: <5.7%Prediabetes: 5.7 - 6.4%Diabetes: > 6.5% Lab Interpretation (test Normal code = 86712-9) [facility]2022-06-02 04:00:13 Test Item Value Reference Range Interpretation Comments HGB A1C (test code = 5.6 % 4.0-5.7 4548-4) REBECCA (test code = REBECCA) Reference RangesNormal: <5.7%Prediabetes: 5.7 - 6.4%Diabetes: > 6.5% Lab Interpretation (test Normal code = 55305-5) [facility]IONIZED [id number] 03:37:23 Test Item Value Reference Range Interpretation Comments IONIZED CA (test code = 2.90 mg/dL 4.50-5.30 LL 4334312997) PH SERUM (test code = 6317594143) 7.35-7.45 L Lab Interpretation (test code = Abnormal 67492-4) [facility]AT[facility] [id number] 01:09:46 Test Item Value Reference Range Interpretation Comments CK (test code = 6603921317) 2250 U/L 33-194 H Lab Interpretation (test code = Abnormal 04335-3) [facility] [id number] 01:09:46 Test Item Value Reference Range Interpretation Comments CK (test code = 2923911097) 2250 U/L 33-194 H Lab Interpretation (test code = Abnormal 92918-5) [facility] (00226)2022-06-01 20:51:07 Test Item Value Reference Range Interpretation Comments NA (test code = 136 mmol/L 135-145 6205615561) K (test code = 4.4 mmol/L 3.5-5.0 5320943117) CL (test code = 106 mmol/L 98-108 9415726604) CO2 TOTAL (test code = 17 mmol/L 23-31 L 9325344185) AGAP (test code = 2-16 5005650232) BUN (test code = 94 mg/dL 7-23 H 1035537506) GLUCOSE (test code = 178 mg/dL 70-110 H 2241531620) CREATININE (test code = 10.24 mg/dL 0.60-1.25 H 4517206755) TOTAL BILI (test code = 0.1 mg/dL 0.1-1.6 2777455806) CALCIUM (test code = 5.4 mg/dL 8.6-10.6 LL 8542252277) T PROTEIN (test code = 6.1 g/dL 6.3-8.2 L 8418162046) ALBUMIN (test code = 3.4 g/dL 3.5-5.0 L 5435186358) ALK PHOS (test code = 95 U/L 34-122 7282562311) ALTv (test code = 35 U/L 5-50 1742-6) AST(SGOT) (test code = 39 U/L 13-40 8200078454) eGFR (test code = mL/min/1.73m2 9282249929) REBECCA (test code = REBECCA) Association of [...] tests). Lab Interpretation Abnormal (test code = 04094-9) [facility] METABOLIC PANEL (NA, K, CL, CO2, GLUCOSE, BUN, CREATININE, CA)2022-06-01 19:29:17 Test Item Value Reference Range Interpretation Comments NA (test code = 137 mmol/L 135-145 5615655486) K (test code = 4.6 mmol/L 3.5-5.0 6357118790) CL (test code = 106 mmol/L 98-108 4363447006) CO2 TOTAL (test code = 17 mmol/L 23-31 L 7008231207) AGAP (test code = 2-16 0734501246) BUN (test code = 94 mg/dL 7-23 H 6239048692) GLUCOSE (test code = 135 mg/dL 70-110 H 8750406479) CREATININE (test code = 10.02 mg/dL 0.60-1.25 H 8005713386) CALCIUM (test code = 5.5 mg/dL 8.6-10.6 LL 1381882508) eGFR (test code = mL/min/1.73m2 2209408219) REBECCA (test code = REBECCA) Association of [...] tests). Lab Interpretation Abnormal (test code = 43421-2) [facility] WITH [id number] 18:59:16 Test Item Value Reference Range Interpretation Comments WBC (test code = See_Comment H [Automated 0890-2) message] The system which generated this result transmit cesar reference range : 4.20 - 10.70 10*3/?L. The reference range was not used to interpret this result as normal/abnormal . RBC (test code = See_Comment L [Automated 279-8) message] The system which generated this result transmit cesar reference range : 4.26 - 5.52 10*6/?L. The reference range was not used to interpret this result as normal/abnormal . HGB (test code = 10.9 g/dL 12.2-16.4 L 718-7) HCT (test code = 31.7 % 38.4-49.3 L 4544-3) MCV (test code = 87.6 fL 81.7-95.6 787-2) MCH (test code = 30.1 pg 26.1-32.7 785-6) MCHC (test code = 34.4 g/dL 31.2-35.0 786-4) RDW-SD (test code = 42.2 fL 38.5-51.6 71500-3) RDW-CV (test code = 13.1 % 12.1-15.4 788-0) PLT (test code = See_Comment [Automated 777-3) message] The system which generated this result transmit cesar reference range : 150 - 328 10*3/ ?L. The reference range was not u sed to interpret th is result as normal/abnormal . MPV (test code = 10.2 fL 9.8-13.0 83319-5) NRBC/100 WBC (test See_Comment [Automat ed code = 0020253772) message] The system which generated this result transmit cesar reference range : 0.0 - 10.0 /100 WBCs. The reference range was not used to interpret this result as normal/abnormal . NRBC x10^3 (test code See_Comment [Auto mated = 3201372589) message] The system which generated this result transmit ecsar reference range : 10*3/?L. The reference range was not used to interpret this result as normal/abnormal . GRAN MAT (NEUT) % 87.6 % (test code = 770-8) IMM GRAN % (test code 0.30 % = 7341106661) LYMPH % (test code = 6.7 % 736-9) MONO % (test code = 3.9 % 5905-5) EOS % (test code = 1.1 % 713-8) BASO % (test code = 0.4 % 706-2) GRAN MAT x10^3(ANC) 10.02 10*3/uL 1.99-6.95 H (test code = 7829853437) IMM GRAN x10^3 (test 0.04 10*3/uL 0.00-0.06 code = 2483440235) LYMPH x10^3 (test code 0.77 10*3/uL 1.09-3.23 L = 731-0) MONO x10^3 (test code 0.45 10*3/uL 0.36-1.02 = 742-7) EOS x10^3 (test code = 0.13 10*3/uL 0.06-0.53 711-2) BASO x10^3 (test code 0.05 10*3/uL 0.01-0.09 = 704-7) Lab Interpretation Abnormal (test code = 67225-5) [facility] [id number] 04:34:22 Test Item Value Reference Range Interpretation Comments GLUCOSE (test code = 169 MG/DL 70-99 H 2216) BUN (test code = 58 MG/DL 6-20 H 2207) CREATININE (test 6.78 MG/DL 0.80-1.40 H code = 221) eGFR (2020 CKD-EPI) 10 >60 L (test code = 63275) ML/MIN/1.73 CALC BUN/CREAT (test 9 RATIO 6-28 code = 2235) SODIUM (test code = 142 MEQ/L 028-594 3779) POTASSIUM (test code 4.9 MEQ/L 3.5-5.4 = 2227) CHLORIDE (test code 108 MEQ/L 95-107 H = 2214) CARBON DIOXIDE (test 22 MEQ/L 19-31 code = 2205) CALCIUM (test code = 7.5 MG/DL 8.5-10.5 L 2208) PROTEIN, TOTAL (test 6.1 G/DL 6.1-8.3 code = 2228) ALBUMIN (test code = 3.2 G/DL 3.5-5.2 L 2200) CALC GLOBULIN (test 2.9 G/DL 1.9-3.7 code = 224) CALC A/G RATIO (test 1.1 RATIO 1.0-2.6 code = 223) BILIRUBIN, TOTAL <0.2 MG/DL See_Comment [Automated message] (test code = 220) The syste m which generated this result transmitted ref erence range: <=1.2. T he reference range was not used to int erpret this result as normal/abnormal . ALKALINE PHOSPHATASE 119 U/L 40-119 (test code = 2203) AST (test code = 31 U/L 9-50 2217) ALT (test code = 42 U/L 5-50 UNLESS OTH ERWISE 2218) INDICATED, ALL TESTING PERFORM [facility] [place] [address] [facility], [place] [id number] [place] [address] DIRECTOR: RADHA ARGUELLES M.D. CLIA NUMBER [id number] CAP ACCREDITATION N O. [id number] HEMOGLOBIN [id number] 03:55:54 Test Item Value Reference Range Interpretation Comments HEMOGLOBIN A1c (test 7.0 % 4.2-5.6 H AMERIC AN DIABETES code = 28311) ASSOCIATION IDELINES FOR HGB A1C: PREDIABETES/INC REASED RISK . . . . . . . 5.7 -6.4% DIAGNOSIS OF DI ABETES . . . . . . . . . >=6 .5% WITH CONFIRMATION OR APPROPRIATE SYMPTOMS NOTE: ASSAY MAY BE AFFECTED BY HEMOGLOBINOPATH IES (SICKLE CELL ANEMIA, S- C DISEASE, OTHERS) OR IAM FICIALLY LOWERED BY DECR EASED RED CELL SURVIVAL ( HEMOLYTIC ANEMIAS, BLOOD LOSS, ETC.). CONSIDER ALTERN ATE TESTING OR LABORATORY C ONSULTATION. HEMOGLOBIN [id number] 00:00:00 Test Item Value Reference Range Interpretation Comments HEMOGLOBIN A1c (test code = 54370) 7.0 % HEMOGLOBIN [id number] 00:00:00 Test Item Value Reference Range Interpretation Comments HEMOGLOBIN A1c (test code = 10562) 7.0 % HEMOGLOBIN [id number] 00:00:00 Test Item Value Reference Range Interpretation Comments HEMOGLOBIN A1c (test code = 32085) 7.0 % COMPREHENSIVE METABOLIC [id number] 00:00:00 Test Item Value Reference Range Interpretation Comments GLUCOSE (test code = 2217) 169 MG/DL BUN (test code = 2208) 58 MG/DL CREATININE (test code = 2214) 6.78 MG/DL eGFR (2020 CKD-EPI) (test code 10 ML/MIN/1.73 = 56834) CALC BUN/CREAT (test code = 9 RATIO 2235) SODIUM (test code = 2231) 142 MEQ/L POTASSIUM (test code = 2228) 4.9 MEQ/L CHLORIDE (test code = 2215) 108 MEQ/L CARBON DIOXIDE (test code = 22 MEQ/L 2205) CALCIUM (test code = 2209) 7.5 MG/DL PROTEIN, TOTAL (test code = 6.1 G/DL 2228) ALBUMIN (test code = 2201) 3.2 G/DL CALC GLOBULIN (test code = 2.9 G/DL 2240) CALC A/G RATIO (test code = 1.1 RATIO 2234) BILIRUBIN, TOTAL (test code = <0.2 MG/DL 2206) ALKALINE PHOSPHATASE (test 119 U/L code = 2204) AST (test code = 2218) 31 U/L ALT (test code = 2219) 42 U/L COMPREHENSIVE METABOLIC [id number] 00:00:00 Test Item Value Reference Range Interpretation Comments GLUCOSE (test code = 2217) 169 MG/DL BUN (test code = 2208) 58 MG/DL CREATININE (test code = 2214) 6.78 MG/DL eGFR (2020 CKD-EPI) (test code 10 ML/MIN/1.73 = 26989) CALC BUN/CREAT (test code = 9 RATIO 2235) SODIUM (test code = 2231) 142 MEQ/L POTASSIUM (test code = 2228) 4.9 MEQ/L CHLORIDE (test code = 2215) 108 MEQ/L CARBON DIOXIDE (test code = 22 MEQ/L 2205) CALCIUM (test code = 2209) 7.5 MG/DL PROTEIN, TOTAL (test code = 6.1 G/DL 2228) ALBUMIN (test code = 2201) 3.2 G/DL CALC GLOBULIN (test code = 2.9 G/DL 2239) CALC A/G RATIO (test code = 1.1 RATIO 2233) BILIRUBIN, TOTAL (test code = <0.2 MG/DL 2206) ALKALINE PHOSPHATASE (test 119 U/L code = 2204) AST (test code = 2218) 31 U/L ALT (test code = 2219) 42 U/L HEMOGLOBIN [id number] 00:00:00 Test Item Value Reference Range Interpretation Comments HEMOGLOBIN A1c (test code = 28084) 7.0 % HEMOGLOBIN [id number] 00:00:00 Test Item Value Reference Range Interpretation Comments HEMOGLOBIN A1c (test code = 87078) 7.0 % HEMOGLOBIN [id number] 00:00:00 Test Item Value Reference Range Interpretation Comments HEMOGLOBIN A1c (test code = 53335) 7.0 % COMPREHENSIVE METABOLIC [id number] 00:00:00 Test Item Value Reference Range Interpretation Comments GLUCOSE (test code = 2217) 169 MG/DL BUN (test code = 2208) 58 MG/DL CREATININE (test code = 2214) 6.78 MG/DL eGFR (2020 CKD-EPI) (test code 10 ML/MIN/1.73 = 92709) CALC BUN/CREAT (test code = 9 RATIO 2235) SODIUM (test code = 2231) 142 MEQ/L POTASSIUM (test code = 2228) 4.9 MEQ/L CHLORIDE (test code = 2215) 108 MEQ/L CARBON DIOXIDE (test code = 22 MEQ/L 2205) CALCIUM (test code = 2209) 7.5 MG/DL PROTEIN, TOTAL (test code = 6.1 G/DL 2228) ALBUMIN (test code = 2201) 3.2 G/DL CALC GLOBULIN (test code = 2.9 G/DL 2240) CALC A/G RATIO (test code = 1.1 RATIO 2234) BILIRUBIN, TOTAL (test code = <0.2 MG/DL 2206) ALKALINE PHOSPHATASE (test 119 U/L code = 2204) AST (test code = 2218) 31 U/L ALT (test code = 2219) 42 U/L COMPREHENSIVE METABOLIC [id number] 00:00:00 Test Item Value Reference Range Interpretation Comments GLUCOSE (test code = 2217) 169 MG/DL BUN (test code = 2208) 58 MG/DL CREATININE (test code = 2214) 6.78 MG/DL eGFR (2020 CKD-EPI) (test code 10 ML/MIN/1.73 = 02631) CALC BUN/CREAT (test code = 9 RATIO 2235) SODIUM (test code = 2231) 142 MEQ/L POTASSIUM (test code = 2228) 4.9 MEQ/L CHLORIDE (test code = 2215) 108 MEQ/L CARBON DIOXIDE (test code = 22 MEQ/L 2205) CALCIUM (test code = 2209) 7.5 MG/DL PROTEIN, TOTAL (test code = 6.1 G/DL 2228) ALBUMIN (test code = 2201) 3.2 G/DL CALC GLOBULIN (test code = 2.9 G/DL 2240) CALC A/G RATIO (test code = 1.1 RATIO 2234) BILIRUBIN, TOTAL (test code = <0.2 MG/DL 2206) ALKALINE PHOSPHATASE (test 119 U/L code = 2204) AST (test code = 2218) 31 U/L ALT (test code = 2219) 42 U/L HEMOGLOBIN [id number] 00:00:00 Test Item Value Reference Range Interpretation Comments HEMOGLOBIN A1c (test code = 48126) 7.0 % HEMOGLOBIN [id number] 00:00:00 Test Item Value Reference Range Interpretation Comments HEMOGLOBIN A1c (test code = 39000) 7.0 % HEMOGLOBIN [id number] 00:00:00 Test Item Value Reference Range Interpretation Comments HEMOGLOBIN A1c (test code = 54289) 7.0 % COMPREHENSIVE METABOLIC [id number] 00:00:00 Test Item Value Reference Range Interpretation Comments GLUCOSE (test code = 2217) 169 MG/DL BUN (test code = 2208) 58 MG/DL CREATININE (test code = 2214) 6.78 MG/DL eGFR (2020 CKD-EPI) (test code 10 ML/MIN/1.73 = 62486) CALC BUN/CREAT (test code = 9 RATIO 2235) SODIUM (test code = 2231) 142 MEQ/L POTASSIUM (test code = 2228) 4.9 MEQ/L CHLORIDE (test code = 2215) 108 MEQ/L CARBON DIOXIDE (test code = 22 MEQ/L 220) CALCIUM (test code = 2209) 7.5 MG/DL PROTEIN, TOTAL (test code = 6.1 G/DL 2228) ALBUMIN (test code = 2201) 3.2 G/DL CALC GLOBULIN (test code = 2.9 G/DL 2240) CALC A/G RATIO (test code = 1.1 RATIO 2234) BILIRUBIN, TOTAL (test code = <0.2 MG/DL 2206) ALKALINE PHOSPHATASE (test 119 U/L code = 2204) AST (test code = 2218) 31 U/L ALT (test code = 2219) 42 U/L COMPREHENSIVE METABOLIC [id number] 00:00:00 Test Item Value Reference Range Interpretation Comments GLUCOSE (test code = 2217) 169 MG/DL BUN (test code = 2208) 58 MG/DL CREATININE (test code = 2214) 6.78 MG/DL eGFR (2020 CKD-EPI) (test code 10 ML/MIN/1.73 = 20712) CALC BUN/CREAT (test code = 9 RATIO 2235) SODIUM (test code = 2231) 142 MEQ/L POTASSIUM (test code = 2228) 4.9 MEQ/L CHLORIDE (test code = 2215) 108 MEQ/L CARBON DIOXIDE (test code = 22 MEQ/L 2206) CALCIUM (test code = 2209) 7.5 MG/DL PROTEIN, TOTAL (test code = 6.1 G/DL 2228) ALBUMIN (test code = 2201) 3.2 G/DL CALC GLOBULIN (test code = 2.9 G/DL 2240) CALC A/G RATIO (test code = 1.1 RATIO 2234) BILIRUBIN, TOTAL (test code = <0.2 MG/DL 2207) ALKALINE PHOSPHATASE (test 119 U/L code = 2204) AST (test code = 2218) 31 U/L ALT (test code = 2219) 42 U/L SARS-CoV-2 (COVID-19) by RT-PCR (HIGH RISK)2021-03-29 00:00:00 Test Item Value Reference Range Interpretation Comments SARS-CoV-2 INTERPRETATION (test POSITIVE code = 70308) SOURCE (test code = 31857) NOT SPECIFIED SARS-CoV-2 (COVID-19) by RT-PCR (HIGH RISK)2021-03-29 00:00:00 Test Item Value Reference Range Interpretation Comments SARS-CoV-2 INTERPRETATION (test POSITIVE code = 83149) SOURCE (test code = 10719) NOT SPECIFIED SARS-CoV-2 (COVID-19) by RT-PCR (HIGH RISK)2021-03-29 00:00:00 Test Item Value Reference Range Interpretation Comments SARS-CoV-2 INTERPRETATION (test POSITIVE code = 00902) SOURCE (test code = 52959) NOT SPECIFIED SARS-CoV-2 (COVID-19) by RT-PCR (HIGH RISK)2021-03-29 00:00:00 Test Item Value Reference Range Interpretation Comments SARS-CoV-2 INTERPRETATION (test POSITIVE code = 17020) SOURCE (test code = 72829) NOT SPECIFIED SARS-CoV-2 (COVID-19) by RT-PCR (HIGH RISK)2021-03-29 00:00:00 Test Item Value Reference Range Interpretation Comments SARS-CoV-2 INTERPRETATION (test POSITIVE code = 06849) SOURCE (test code = 24386) NOT SPECIFIED SARS-CoV-2 (COVID-19) by RT-PCR (HIGH RISK)2021-03-29 00:00:00 Test Item Value Reference Range Interpretation Comments SARS-CoV-2 INTERPRETATION (test POSITIVE code = 06622) SOURCE (test code = 12559) NOT SPECIFIED POCT GLUCOSE (AUTOMATED)2020-11-16 22:18:06 Test Item Value Reference Range Interpretation Comments POCT GLU (test code = [id number]) 108 mg/dL 70-110 Lab Interpretation (test code = Normal 47523-5) [facility] GLUCOSE (AUTOMATED)2020-11-16 16:49:24 Test Item Value Reference Range Interpretation Comments POCT GLU (test code = 4690214148) 93 mg/dL 70-110 Lab Interpretation (test code = Normal 55544-7) [facility] [id number] 14:39:00 Test Item Value Reference Range Interpretation Comments Case Report (test code Surgical Pathology ? ? = [id number]) ?Case: [id number] ? Authorizing Provider: ?Ronnie Jaquez Jr., KAREN ? Collected: ? 11/12/2020 1056 ?Ordering Location: ? ? [facility] ? ? ?Received: ?11/12/2020 1131 ? [facility] ?Pathologist: ? Kam Stovall, PHD ?Specimens: ? A) - TOE, FIFTH METATARSAL/TOE, RIGHT ? B) - BONE, FIFTH METATARSAL BONE BIOPSY, RIGHT ? Final Diagnosis (test g1uwgEIxIRDkm1niDXMqkHP code = 2954640984) uZzEwMzNcZnRuYmpcdWMxIH tccnRmMVxlcGljOTQwMlxhb sMqKJImfFFrW0LlyfepXEol GB0vWI1wrBzppQNecAFrWXF oJlUou0gzp644jTVtv0ddBJ QUpbjdfKy5eLqpR97zt1I1E hqmZ42bvWNaFRD8NPSsJFJa fLNkZERfYQV9VLYhnXKcE1o zMEHsQJ2truwuAVufUCgeVZ YymHF2KHQdcWUpP2HvJSUoY LnyDFKcdmb6HfCtDs4btRQa eTcyMFxwYXJkXHBsYWluXGZ zToJckKDzGPQfDLYHA4kMUH BSSUdIVCBGSUZUSCBNRVRBV PFCF5PFHQOIELSRO8EaNELZ TRVROSAHE210EZLlvnWhODP eIPYEG1XMJWCJG4OXS75UCU xGQLsDRKtJXVdiY3KFLqzDM O2ZBZSBH6ZDAGBEW80ziZRq ICAgICAtIEFSVElDVUxBUiB TVVJGQUNFIFdJVEggQUNVVE XgY1BMOF8LEKJJTKPZLgUCG HXEBBXUY8PJS5SsN5nCDWeZ LLMXDvXZAK3UYRLGLbPiXXN hciAgICAgICBUSVNTVUVccG XeZLOqZXAwBTALXF0qXF0QC VBGSqRcTEsKB3MCIJ6QQemT PdJDHHBVEMHIS4SRK2LePGW tladnUQKuEd1kFz7KQBcsEp lHSFQgRklGVEggTUVUQVRBU lNBTCwgQklPUFNZOlxwYXIg DQNhCR4xSi2gAJONBHBNIT1 TVEVPTVlFTElUSVMgSURFTl RJRklFRFxwYXJccGFyIEFyd 2vnCJG0yw4upasmHO5vZKDJ PCYmpopqMGD2t5xbbQTjOEP ieFDxRhFqMERpRLCuz1hvGD VmbGFuZzEwMzNcZnRuYmpcd ZAxCSAhHiGho0tro189rLUl t5amXHMrDfQ4mLMvLKRdbOk uxma9lZisEfHnKKXfu9yrqm BcZmNoYXJzZXQwIEFyaWFsO 908XQZoLHror3fhh0KfVJYa mXIdv7E2UJEVGVpoEbFaY60 0r2bdw8mrzcWtwQX9FVEpOJ A8WIdhxtHmqbP2PYrunSYhN vX7VWndyiTkSYzdrpPiihMy Jzd2ZOWnM846XXZ1bQbjm7v hOJH5XXKiGNZlWzqhUh0nsJ IqQ414CALtLZSUTZXrzUm4E VZrbaQqiqZjlJSWy130E077 b5gyAOWhurPpeZvYynxkb2k mV011LTKdnESoibZvIpQlRB WguDJfePH3OMYaGB1nodcfV JyrNWunJVMrazN8MSZssSDx G1XzZPHhYH2ktluzLXI3QMr zAIEtFYP8AfAiMTPes6Dljo g7PcWrqq2ozq95TEP8g8Mpn XexIXS2IOK2PqOmMr1urONc RPOqEG6rEgXeoYRaNWDuer9 0nMfhALirhdJakL0rUsBgLO JhgSSeQDNzFH2hkJRnKBIhu A8ywyscVKLtBqAycqezPTQu dBwfhzShEz2jzGbwFDK9QXd gZ6wkuP6vGvJ0SHvsO8hcxM 2jLVe8XXdnoOX7FMUyhA4oJ L6suxzku3fvIGkwPJosVFWu dtX3egB6VRMiaHWlU7WsaM5 rAAIrVX4bkjoki2pqEOD5RI gtALDbAYI4HcXqLQVpg4Rup be1RqXzh8NujQSyJRoeJ53x b231KDRssyDuM9wubYDzfqj ceZUoxxkuSZgbccU0REYeXX BsYWluXGYxXGZzMjBcbGFuZ zEwMzNcaGljaFxmMVxkYmNo VJXkLUphX7urDhLrE2AkDZP uTtKqxCBkWLaiyTA7IMFlIP Oth00feQz1EUDdcqlyo0OsW KYfsLEhuMIvnS9pctRww7mk NVRtYTSwKQXeB1FtELO9cPK oWAJshWRynUX6UG8udcSvFK 1hZGUgYnkgcmVzaWRlbnRzL FMfETdat1whUK7dNDUldNfz eW2xxPO0JQXhi6mecFIdcSE rv5swe7MxgqHdUHdxBADwAV vyLNCtGSToHE7qFQHokRAdt aUbr0F1LpxwuWWchqxwZuhl qyN9LEkfhzsbQGXvHXekT6c pPqBeRGVjhWyeAdswo5QhNA YyXGZzMjhccGFyfX0= Clinical Information RIGHT FIFTH DIGIT (test code = OSTEOMYELITIS WITH FOOT 4614300380) ABSCESS Gross Description u6jpeDUlFIWmoDXFMDVtPop (test code = ikfXuUAWalRJuT7NuvwbkUD 3243267574) clPI2vMB6waAnkzLBnrHKsH S1URMOnKjHyZKWjgULxxzFo EeFaFGWjpOYxhSO4GAXeZR6 iclybXTrsWEskTEPmpsP8HO BzjEBsW6YhXFUsQB3jbdhtI TY6FFugrI6abxKJFdemLf9m dHRibHtcZjFcZmNoYXJzZXQ tABLlcGmfUUEpQGl2yN8APa elGWN4WDHAZmspNTAwAN6Ti 4eiJRYynLEmFMM5FQfcpAJr LKKvISGvWUu6ODGgMDegyFU qIT5ckXbbIqwbfBrex3DhsS BcXGlkIDUxMDAyIFxcZGIgI E7KZpAzZHa3ZaW4LeLsYRk1 LAy5DD3MPgMnLCYfPPo3UgG 4EMBbXVb6GCflCM8PITElPT N8EQj9DQAtCDG8LVGgIWv6C DIgXFxmIEFyaWFsIFxcZnMg BFUwEOjjvUBuXE8snZzddVG pblxmczIwXHBhciANClxwbG FpblxlcGljTmVzdERvYzEgD QpcbHRycGFyXGxpbjBccmlu MCANClxsdHJjaFxmczIyIFN wZWNpbWVuIEEgaXMgcmVjZW v4QRGxrK0oKw3asLEgqN7op SWkGFgrJKM8oGZkPIFfOUJf LWOnCR75Q1BfscDsBOhbOAw xzyAuHeViAAVylKT3tPJgAH EcjXMgj5NdS7OcBAcqgmswm XZoWSDoshQqR82rw9emnNDu e0JkKEConBK0wGEutCsfvXM nCE9gYJbeKg8aETqhNW08NX LhDYFdkKOnnuDoQ8DjDPSyV MVztSD1zBPizNC1YFEyunYf qHwcrWVxA6EjhPWlc9bewB2 eKTXmNASxd2rmPAxsYWJfvk 6zcW4sIJJkTZNcl4I6aDYnA TwmhOkwRRY4YG6lfUUfqJ53 BRM7jHtve0MjQGFrdaFtfB8 hUAnqVCLlU2b5KXgoOYTmV9 Hic96tLAI5qsRoIFMfRJywJ WA6BI3xaUKeuT53QBAdn5V3 QZ9iZWEswfEuLAerAwQjpYG pYyOfuLXoUdzzB99cYWQoWB SqBPV6qWKhqXzsOMYoozJqp 44feIiaTQPuDO38MTTcu5dy TZGxarAqF7Hhs2RmyJYzocF kcWAeagD8tJVat0sxgsPofu Lex67edIE8hCPbeTVwcjXuH VN8eY1lVE6hbkefvhIpesAl qWYma5GaVBLpEH66PSIfZNX tx85hfWffPKDphuPeKIwnCY U3fTD3yQX5HXQsd9EfLoOjC F0yKWgsZEF0yLAswGQpMAEz mvKvHcC7vOXsZa6uZWLsmkQ xjLduss29JGsiw7azXW7sFW Uktf4sMUKPKIYuOSKbmoJgn Tp2EGNhJGQ0lL7zcaFxcpMp t2IbyJj8gIPyMWfdXWUwFMN vDEQgg9rsw6evvwkvRTDqGQ kzqVLnB5B6sV2zDW1gVJTaX TRaBjqjBZLxNMqxcLDxUJ1Z N9MnfTvjnmFvt3VbButsZRJ pZTnPBDvhQ7kcxbVdnzReh3 1dnPG7lBMmhPTrfhRvSTG6i M8rCT3tywaroconPN71yZCn yVtxSFYiGLUnX3JtvXVoXT7 IZHI1MXUqlcAtQOjpHRT1hZ Y5qBA9QUBof6WmOkCbCHatG L52mDAegBunVMZqPXZdY3Bc IYLevJnvr5dnIyKvTWFsgQJ tUvjaSQUjm49hyJAkYI8DMJ F7RIVcuODuv7GnpLP4oYTfL GCxr4KhWBWsZ3Kqw18yf9Gj JZwwyBBzIFKicAzqz4ftWbR tPQUnqNIbSvofUODys66RDm xwbGFpblxlcGljTmVzdERvY lDlnLglyK91HDQfsBKeBBO1 DB5fWIVfdictHZZfJWWwNMM 7QCixwS68tKHxXXXlTVKdpQ PfoB5Ei2nsADZqxPOkLHA1X FxcaWQgNTEwMDIgXFxkYiAg H8RBOPXmJKlfYIl3FfRuQAp 4ZYuuR7IPFWQjIYT9VZe4GU QoGpS9NXg3KYDOVb6mHQZ3G RZ3YNQ3TcE4EPU9FNWoITRt MiBcXGYgQXJpYWwgXFxmcyA oGJLyWURcSSkeapH2FYDgSb PnbWEfHH6SYXLpTWgiUQRru AQOIAU0TS8dVNQBBsctzVDv TSDpuLgbCExwaP3qKT7ROPz 7fjNdUMFnLwZhV7OiI5lvJV 4gQiBpcyByZWNpZXZlZCBpb oEnu6NrVYlwveZpCOLgwNWq IHdpdGggdGhlIHBhdGllbnQ fasUhJS4pXPZNZKQbfZ6hNB WzLaCbnKJ9rLGyMTQkqUJup 4UlGJMqlpDfDczeoNK4FXHg yJhmcHBoLF2gVVIgblGjb0K mHB2qKLWvh4scU9ncZEOsqe 4tqX5mDQJvpsEpQnGvX15il vIzZKKbQjW1BKXgTlD4THCx MiBjbSkuIFRoZSBzcGVjaW1 ebtKvavMsuYr3EYGeCZP8mY UzrLtwBVMnDepsaGT1LFLuQ uEforTvz3VngRb0yBTdDDnz ROZxcE7zkS7tXgYcPDTreCa uo2ggKfQpRQHdiFVnCswtQX Zfl19fPIIlpsRDIjxgJWBvK XrDSXN4BOShvzOepMkxLWRY DUTiHXVgX4M5ELKlwNyiXMF cCDkRiBbbVQOLZ0tlgOYfNI mfKZTGHFhZH9BEOV6XSSAnO UzzFBLbsKUQYDV2IB3gYUgu hOOhyoulMYRtR6RjE3DvjmY igSSdDFCrriIct4ghZAT9VE LvgYEjfUDuLbAkHvcwHZG6Q Nwdw9ppRKL3UMGafKMlbDTu CWxmOnDsIpipNVXyK6VrJ0G gewF6AMk4 Embedded Images (test code = 1558239956) [facility] 12:40:09 Test Item Value Reference Range Interpretation Comments POCT GLU (test code = 5066893604) 179 mg/dL 70-110 H Lab Interpretation (test code = Abnormal 42590-3) [facility]. METABOLIC PANEL ([id number])2020-11-16 09:53:25 Test Item Value Reference Range Interpretation Comments NA (test code = 137 mmol/L 135-145 9419613824) K (test code = 3.9 mmol/L 3.5-5.0 9494272761) CL (test code = 107 mmol/L 98-108 7898931353) CO2 TOTAL (test code = 24 mmol/L 23-31 3904927862) AGAP (test code = 2-16 2125761416) BUN (test code = 25 mg/dL 7-23 H 2758056302) GLUCOSE (test code = 161 mg/dL 70-110 H 1418402328) CREATININE (test code = 2.03 mg/dL 0.60-1.25 H 4558955675) TOTAL BILI (test code = 0.3 mg/dL 0.1-1.4 4983218461) CALCIUM (test code = 8.4 mg/dL 8.6-10.6 L 1055090557) T PROTEIN (test code = 5.7 g/dL 6.3-8.2 L 3930016544) ALBUMIN (test code = 2.6 g/dL 3.5-5.0 L 7186397651) ALK PHOS (test code = 74 U/L 34-122 7462249070) ALTv (test code = 23 U/L 5-50 1742-6) AST(SGOT) (test code = 38 U/L 13-40 3884009213) eGFR (test code = mL/min/1.73m2 1991742389) REBECCA (test code = REBECCA) Association of [...] tests). Lab Interpretation Abnormal (test code = 88286-9) [facility] WITH [id number] 09:10:57 Test Item Value Reference Range Interpretation Comments WBC (test code = See_Comment [Automated 5990-2) message] The sy stem which generated this result transmitted reference range : 4.20 - 10.70 10*3/?L. The reference range was not used to interpret this result as normal/abnormal . RBC (test code = See_Comment L [Automated 579-8) message] The sy stem which generated this [...] (test code = 36.2 fL 38.5-51.6 L 54640-3) RDW-CV (test code = 11.7 % 12.1-15.4 L 788-0) PLT (test code = See_Comment H [Automated 777-3) message] The sy stem which generated this result transmitted reference range : 150 - 328 10*3/ ?L. The reference r rose was not used to interpret this result as normal/abnormal . MPV (test code = 9.7 fL 9.8-13.0 L 15268-2) NRBC/100 WBC (test See_Comment [Automat ed code = 7294200485) message] The system which generated this result transmitted reference range : 0.0 - 10.0 /100 WBCs. The refer ence range was not u sed to interpret th is result as normal/abnormal . NRBC x10^3 (test code <0.01 See_Comment [Auto mated = 3701074657) message] The s ystem which generated this result transmitted reference range : 10*3/?L. The reference range was not used to interpret this result as normal/abnormal . GRAN MAT (NEUT) % 68.8 % (test code = 770-8) IMM GRAN % (test code 0.50 % = 0047709901) LYMPH % (test code = 17.8 % 736-9) MONO % (test code = 7.2 % 5905-5) EOS % (test code = 5.0 % 713-8) BASO % (test code = 0.7 % 706-2) GRAN MAT x10^3(ANC) 7.09 10*3/uL 1.99-6.95 H (test code = 7108755673) IMM GRAN x10^3 (test 0.05 10*3/uL 0.00-0.06 code = 6742542897) LYMPH x10^3 (test code 1.83 10*3/uL 1.09-3.23 = 731-0) MONO x10^3 (test code 0.74 10*3/uL 0.36-1.02 = 742-7) EOS x10^3 (test code = 0.51 10*3/uL 0.06-0.53 711-2) BASO x10^3 (test code 0.07 10*3/uL 0.01-0.09 = 704-7) Lab Interpretation Abnormal (test code = 69087-1) [facility] GLUCOSE (AUTOMATED)2020-11-16 01:41:59 Test Item Value Reference Range Interpretation Comments POCT GLU (test code = 2796530801) 101 mg/dL 70-110 Lab Interpretation (test code = Normal 92342-5) [facility] GLUCOSE (AUTOMATED)2020-11-15 21:10:22 Test Item Value Reference Range Interpretation Comments POCT GLU (test code = 6431843172) 100 mg/dL 70-110 Lab Interpretation (test code = Normal 37309-1) [facility] GLUCOSE (AUTOMATED)2020-11-15 16:46:17 Test Item Value Reference Range Interpretation Comments POCT GLU (test code = 3436267401) 164 mg/dL 70-110 H Lab Interpretation (test code = Abnormal 01743-4) [facility] GLUCOSE (AUTOMATED)2020-11-15 16:46:17 Test Item Value Reference Range Interpretation Comments POCT GLU (test code = 8252009779) 164 mg/dL 70-110 H Lab Interpretation (test code = Abnormal 30092-8) [facility]EROBIC) 2020-11-15 14:19:34 Test Item Value Reference Range Interpretation Comments Aspirate or Abscess No aerobic/anaerobic Culture (test code = organisms isolated 37168-8) Gram stain (test code No PMNs or Mononuclear = 664-3) cells observed [facility](AEROBIC/ANAEROBIC) 2020-11-15 14:19:34 Test Item Value Reference Range Interpretation Comments Aspirate or Abscess No aerobic/anaerobic Culture (test code = organisms isolated 65486-9) Gram stain (test code No PMNs or Mononuclear = 664-3) cells observed [facility] GLUCOSE (AUTOMATED)2020-11-15 12:59:29 Test Item Value Reference Range Interpretation Comments POCT GLU (test code = 5763542083) 162 mg/dL 70-110 H Lab Interpretation (test code = Abnormal 10425-5) [facility] 12:59:29 Test Item Value Reference Range Interpretation Comments POCT GLU (test code = 8502867075) 162 mg/dL 70-110 H Lab Interpretation (test code = Abnormal 76401-1) [facility] (45845)2020-11-15 09:57:17 Test Item Value Reference Range Interpretation Comments NA (test code = 137 mmol/L 135-145 6986453816) K (test code = 3.9 mmol/L 3.5-5.0 6791552024) CL (test code = 109 mmol/L 98-108 H 5883085521) CO2 TOTAL (test code = 24 mmol/L 23-31 8945553348) AGAP (test code = 2-16 5818919699) BUN (test code = 23 mg/dL 7-23 1070007789) GLUCOSE (test code = 162 mg/dL 70-110 H 6455281028) CREATININE (test code = 1.98 mg/dL 0.60-1.25 H 1206168523) TOTAL BILI (test code = 0.3 mg/dL 0.1-1.1 0914439081) CALCIUM (test code = 8.0 mg/dL 8.6-10.6 L 2105786660) T PROTEIN (test code = 5.3 g/dL 6.3-8.2 L 1270248380) ALBUMIN (test code = 2.4 g/dL 3.5-5.0 L 8450846842) ALK PHOS (test code = 63 U/L 34-122 1625716029) ALTv (test code = 10 U/L 5-50 1742-6) AST(SGOT) (test code = 19 U/L 13-40 3790981955) eGFR (test code = mL/min/1.73m2 2669286257) REBECCA (test code = REBECCA) Association of [...] tests). Lab Interpretation Abnormal (test code = 87941-9) [facility]. METABOLIC PANEL (93707)2020-11-15 09:57:17 Test Item Value Reference Range Interpretation Comments NA (test code = 137 mmol/L 135-145 2130508653) K (test code = 3.9 mmol/L 3.5-5.0 0531426671) CL (test code = 109 mmol/L 98-108 H 1731535789) CO2 TOTAL (test code = 24 mmol/L 23-31 3120425721) AGAP (test code = 2-16 1130859541) BUN (test code = 23 mg/dL 7-23 3358175362) GLUCOSE (test code = 162 mg/dL 70-110 H 8366726850) CREATININE (test code = 1.98 mg/dL 0.60-1.25 H 3452414564) TOTAL BILI (test code = 0.3 mg/dL 0.1-1.5 7200499433) CALCIUM (test code = 8.0 mg/dL 8.6-10.6 L 3749230275) T PROTEIN (test code = 5.3 g/dL 6.3-8.2 L 1885424339) ALBUMIN (test code = 2.4 g/dL 3.5-5.0 L 0715362522) ALK PHOS (test code = 63 U/L 34-122 0568618691) ALTv (test code = 10 U/L 5-50 1742-6) AST(SGOT) (test code = 19 U/L 13-40 0263784029) eGFR (test code = mL/min/1.73m2 1123507276) REBECCA (test code = REBECCA) Association of [...] tests). Lab Interpretation Abnormal (test code = 41926-4) [facility] WITH [id number] 09:20:14 Test Item Value Reference Range Interpretation [...] (test code = 37.5 fL 38.5-51.6 L 76632-3) RDW-CV (test code = 11.9 % 12.1-15.4 L 788-0) PLT (test code = See_Comment H [Automated 777-3) message] The sy stem which generated this result transmitted reference range : 150 - 328 10*3/ ?L. The reference r rose was not used to interpret this result as normal/abnormal . MPV (test code = 9.8 fL 9.8-13.0 20916-5) NRBC/100 WBC (test See_Comment [Automat ed code = 7425629438) message] The system which generated this result transmitted reference range : 0.0 - 10.0 /100 WBCs. The refer ence range was not u sed to interpret th is result as normal/abnormal . NRBC x10^3 (test code <0.01 See_Comment [Auto mated = 3155293308) message] The s ystem which generated this result transmitted reference range : 10*3/?L. The reference range was not used to interpret this result as normal/abnormal . GRAN MAT (NEUT) % 69.2 % (test code = 770-8) IMM GRAN % (test code 0.20 % = 2032553550) LYMPH % (test code = 18.2 % 736-9) MONO % (test code = 8.3 % 5905-5) EOS % (test code = 3.4 % 713-8) BASO % (test code = 0.7 % 706-2) GRAN MAT x10^3(ANC) 7.42 10*3/uL 1.99-6.95 H (test code = 7494367904) IMM GRAN x10^3 (test <0.03 0.00-0.06 code = 6039864805) LYMPH x10^3 (test code 1.95 10*3/uL 1.09-3.23 = 731-0) MONO x10^3 (test code 0.89 10*3/uL 0.36-1.02 = 742-7) EOS x10^3 (test code = 0.36 10*3/uL 0.06-0.53 711-2) BASO x10^3 (test code 0.07 10*3/uL 0.01-0.09 = 704-7) Lab Interpretation Abnormal (test code = 47613-8) [facility] WITH [id number] 09:20:14 Test Item Value Reference Range Interpretation [...] (test code = 37.5 fL 38.5-51.6 L 11288-9) RDW-CV (test code = 11.9 % 12.1-15.4 L 788-0) PLT (test code = See_Comment H [Automated 777-3) message] The sy stem which generated this result transmitted reference range : 150 - 328 10*3/ ?L. The reference r rose was not used to interpret this result as normal/abnormal . MPV (test code = 9.8 fL 9.8-13.0 47376-3) NRBC/100 WBC (test See_Comment [Automat ed code = 7614061853) message] The system which generated this result transmitted reference range : 0.0 - 10.0 /100 WBCs. The refer ence range was not u sed to interpret th is result as normal/abnormal . NRBC x10^3 (test code <0.01 See_Comment [Auto mated = 6449716637) message] The s ystem which generated this result transmitted reference range : 10*3/?L. The reference range was not used to interpret this result as normal/abnormal . GRAN MAT (NEUT) % 69.2 % (test code = 770-8) IMM GRAN % (test code 0.20 % = 8870588412) LYMPH % (test code = 18.2 % 736-9) MONO % (test code = 8.3 % 5905-5) EOS % (test code = 3.4 % 713-8) BASO % (test code = 0.7 % 706-2) GRAN MAT x10^3(ANC) 7.42 10*3/uL 1.99-6.95 H (test code = 3924658350) IMM GRAN x10^3 (test <0.03 0.00-0.06 code = 6371569614) LYMPH x10^3 (test code 1.95 10*3/uL 1.09-3.23 = 731-0) MONO x10^3 (test code 0.89 10*3/uL 0.36-1.02 = 742-7) EOS x10^3 (test code = 0.36 10*3/uL 0.06-0.53 711-2) BASO x10^3 (test code 0.07 10*3/uL 0.01-0.09 = 704-7) Lab Interpretation Abnormal (test code = 37607-6) [facility] GLUCOSE (AUTOMATED)2020-11-15 08:17:07 Test Item Value Reference Range Interpretation Comments POCT GLU (test code = 4201769832) 187 mg/dL 70-110 H Lab Interpretation (test code = Abnormal 68018-2) [facility] GLUCOSE (AUTOMATED)2020-11-15 08:17:07 Test Item Value Reference Range Interpretation Comments POCT GLU (test code = 1418135788) 187 mg/dL 70-110 H Lab Interpretation (test code = Abnormal 86198-9) [facility] Draw immediately prior to the 2100 dose, but, no more than 60 minutes [id number] 03:04:05 Test Item Value Reference Range Interpretation Comments VANCO TROUGH (test code 8.8 ug/mL 10.0-20.0 L = 0994913255) REBECCA (test code = REBECCA) Toxic Range: ?>20 ug/mL 15-20 ug/mL is recommended for severe infection or when Vancomycin KVNG is greater than or equal to 2. Lab Interpretation (test Abnormal code = 62851-8) [facility] - Draw immediately prior to the 2100 dose, but, no more than 60 minutes [id number] 03:04:05 Test Item Value Reference Range Interpretation Comments VANCO TROUGH (test code 8.8 ug/mL 10.0-20.0 L = 7799969552) REBECCA (test code = REBECCA) Toxic Range: ?>20 ug/mL 15-20 ug/mL is recommended for severe infection or when Vancomycin KVNG is greater than or equal to 2. Lab Interpretation (test Abnormal code = 47911-8) [facility] GLUCOSE (AUTOMATED)2020-11-14 21:55:02 Test Item Value Reference Range Interpretation Comments POCT GLU (test code = 4320473123) 218 mg/dL 70-110 H Lab Interpretation (test code = Abnormal 03169-9) [facility] GLUCOSE (AUTOMATED)2020-11-14 21:55:02 Test Item Value Reference Range Interpretation Comments POCT GLU (test code = 0783336055) 218 mg/dL 70-110 H Lab Interpretation (test code = Abnormal 27418-8) [id number]:00 Test Item Value Reference Range Interpretation Comments VIT D 25OH (test code = <13 25-80 L 03882-8) REBECCA (test code = REBECCA) Deficiency: <20 ng/mLInsufficiency: 20-24 ng/mLOptimal: 25-80 ng/mL Lab Interpretation (test Abnormal code = 86195-1) [id number] 21:08:00 Test Item Value Reference Range Interpretation Comments VIT D 25OH (test code = <13 25-80 L 36513-7) REBECCA (test code = REBECCA) Deficiency: <20 ng/mLInsufficiency: 20-24 ng/mLOptimal: 25-80 ng/mL Lab Interpretation (test Abnormal code = 14355-6) [facility] GLUCOSE (AUTOMATED)2020-11-14 17:35:51 Test Item Value Reference Range Interpretation Comments POCT GLU (test code = 9012188243) 161 mg/dL 70-110 H Lab Interpretation (test code = Abnormal 05867-2) [facility] GLUCOSE (AUTOMATED)2020-11-14 17:35:51 Test Item Value Reference Range Interpretation Comments POCT GLU (test code = 3488532259) 161 mg/dL 70-110 H Lab Interpretation (test code = Abnormal 37558-5) [facility] GLUCOSE (AUTOMATED)2020-11-14 17:35:51 Test Item Value Reference Range Interpretation Comments POCT GLU (test code = 0940818640) 161 mg/dL 70-110 H Lab Interpretation (test code = Abnormal 41462-8) [facility] GLUCOSE (AUTOMATED)2020-11-14 17:19:43 Test Item Value Reference Range Interpretation Comments POCT GLU (test code = 1182003464) 174 mg/dL 70-110 H Lab Interpretation (test code = Abnormal 37227-6) [facility] GLUCOSE (AUTOMATED)2020-11-14 17:19:43 Test Item Value Reference Range Interpretation Comments POCT GLU (test code = 1590682372) 174 mg/dL 70-110 H Lab Interpretation (test code = Abnormal 97362-2) [facility] 17:19:43 Test Item Value Reference Range Interpretation Comments POCT GLU (test code = 1824321333) 174 mg/dL 70-110 H Lab Interpretation (test code = Abnormal 94839-5) [facility] [id number] 14:06:58 Unremarkable sonographic appearance of the kidneys. No hydronephrosis ornephrolithiasis seen. Hepatomegaly. Preliminary Report Dictated by Resident: Roland Coffman. Demetria, Fabian Cabrera MD., have reviewed this study and agree with theabove report.EXAM: US RETROPERITONEAL COMPLETE HISTORY: 40 years- old Male with BRYCE. TECHNIQUE: Survey ultrasound of the kidneys and bladder was performed withgrayscale and selected color Doppler imaging. [employer] images wereobtained for the record. COMPARISON: Ultrasound kidneys 01/02/2019. FINDINGS: RIGHT KIDNEY:Size: The right kidney is normal in size, and measures 11.2 x 5.9 x 5.6.Parenchyma: The renal parenchyma exhibits normal cortical echogenicity andthickness. No focal solid or cystic renal lesion is detected.Collecting System: No hydronephrosis isseen. LEFT KIDNEY:Size: The left kidney is normal in size, and measures 1.1 x 6.0 x 5.0.Parenchyma: The renal parenchyma exhibits normal cortical echogenicity andthickness. No focal solid or cystic renal lesion is detected.Collecting System: No hydronephrosis is seen. Bladder: The urinary bladder is unremarkable. OTHER: The liver is enlarged measuring 18.4 cm in length. [facility], Radiant Results Inft User - 11/14/2020 9:08 AM CDTEXAM: US RETROPERITONEAL COMPLETEHISTORY: 40 years-old Male with BRYCE.TECHNIQUE: Survey ultrasound of the kidneys and bladder was performed withgrayscale and selected color Doppler imaging. [employer] images wereobtained for the record.COMPARISON: Ultrasound kidneys 01/02/2019.FINDINGS: RIGHT KIDNEY:Size: The right kidney is normal in size, and measures 11.2 x 5.9 x 5.6.Parenchyma: The renal parenchyma exhibits normal cortical echogenicity andthickness. No focal solid or cystic renal lesion is detected.Collecting System: No hydronephrosis is seen.LEFT KIDNEY:Size: The left kidney is normal in size, and measures 1.1 x 6.0 x 5.0.Parenchyma: The renal parenchyma exhibits nor mal cortical echogenicity andthickness. No focal solid or cystic renal lesion is detected.CollectingSystem: No hydronephrosis is seen.Bladder: The urinary bladder is unremarkable. OTHER: The liver is enlarged measuring 18.4 cm in length.IMPRESSIONUnremarkable sonographic appearance of the kidneys. No hydronephrosis ornephrolithiasis seen.Hepatomegaly.Preliminary Report Dictated by Resident: Fabian Nichole MD., have reviewed this study and agree with theabove report.[facility] RETROPERITONEAL [id number] 14:06:58 Unremarkable sonographic appearance of the kidneys. No hydronephrosis ornephrolithiasis seen. Hepatomegaly. Preliminary Report Dictated by Resident: Fabian Sotelo MD., have reviewed this study and agree with theabove report.EXAM: US RETROPERITONEAL COMPLETE HISTORY: 40 years-old Male with BRYCE. TECHNIQUE: Survey ultrasound of the kidneys and bladder was performed withgrayscale and selected color Doppler imaging. [employer] images wereobtained for the record. COMPARISON: Ultrasound kidneys 01/02/2019. FINDINGS: RIGHT KIDNEY:Size: The right kidney is normal in size, and measures 11.2 x 5.9 x 5.6.Parenchyma: The renal parenchyma exhibits normal cortical echogenicity andthickness. No focal solid or cystic renal lesion is detected.Collecting System: No hydronephrosis isseen. LEFT KIDNEY:Size: The left kidney is normal in size, and measures 1.1 x 6.0 x 5.0.Parenchyma: The renal parenchyma exhibits normal cortical echogenicity andthickness. No focal solid or cystic renal lesion is detected.Collecting System: No hydronephrosis is seen. Bladder: The urinary bladder is unremarkable. OTHER: The liver is enlarged measuring 18.4 cm in length. [facility], Radiant Results Inft User - 11/14/2020 9:08 AM CDTEXAM: US RETROPERITONEAL COMPLETEHISTORY: 40 years-old Male with BRYCE.TECHNIQUE: Survey ultrasound of the kidneys and bladder was performed withgrayscale and selected color Doppler imaging. [employer] images wereobtained for the record.COMPARISON: Ultrasound kidneys 01/02/2019.FINDINGS: RIGHT KIDNEY:Size: The right kidney is normal in size, and measures 11.2 x 5.9 x 5.6.Parenchyma: The renal parenchyma exhibits normal cortical echogenicity andthickness. No focal solid or cystic renal lesion is detected.Collecting System: No hydronephrosis is seen.LEFT KIDNEY:Size: The left kidney is normal in size, and measures 1.1 x 6.0 x 5.0.Parenchyma: The renal parenchyma exhibits normal cortical echogenicity andthickness. No focal solid or cystic renal lesion is detected.Collecting System: No hydronephrosis is seen.Bladder: The urinary bladder is unremarkable. OTHER: The liver is enlarged measuring 18.4 cm in length.IMPRESSIONUnremarkable sonographic appearance of the kidneys. Nohydronephrosis ornephrolithiasis seen.Hepatomegaly.Preliminary Report Dictated by Resident: Fabian Nichole MD., have reviewed this study and agree with theabove report.[facility] RETROPERITONEAL [id number] 14:06:58 Unremarkable sonographic appearance of the kidneys. No hydronephrosis ornephrolithiasis seen. Hepatomegaly. Preliminary Report Dictated by Resident: Roland Byers I, Fabian Cabrera MD., have reviewed this study and agree with theabove report.EXAM: US RETROPERITONEAL COMPLETE HISTORY: 40 years- old Male with BRYCE. TECHNIQUE: Survey ultrasound of the kidneys and bladder was performed withgrayscale and selected color Doppler imaging. [employer] images wereobtained for the record. COMPARISON: Ultrasound kidneys 01/02/2019. FINDINGS: RIGHT KIDNEY:Size: The right kidney is normal in size, and measures 11.2 x 5.9 x 5.6.Parenchyma: The renal parenchyma exhibits normal cortical echogenicity andthickness. No focal solid or cystic renal lesion is detected.Collecting System: No hydronephrosis isseen. LEFT KIDNEY:Size: The left kidney is normal in size, and measures 1.1 x 6.0 x 5.0.Parenchyma: The renal parenchyma exhibits normal cortical echogenicity andthickness. No focal solid or cystic renal lesion is detected.Collecting System: No hydronephrosis is seen. Bladder: The urinary bladder is unremarkable. OTHER: The liver is enlarged measuring 18.4 cm in length. [facility], Radiant Results Inft User - 11/14/2020 9:08 AM CDTEXAM: US RETROPERITONEAL COMPLETEHISTORY: 40 years-old Male with BRYCE.TECHNIQUE: Survey ultrasound of the kidneys and bladder was performed withgrayscale and selected color Doppler imaging. [employer] images wereobtained for the record.COMPARISON: Ultrasound kidneys 01/02/2019.FINDINGS: RIGHT KIDNEY:Size: The right kidney is normal in size, and measures 11.2 x 5.9 x 5.6.Parenchyma: The renal parenchyma exhibits normal cortical echogenicity andthickness. No focal solid or cystic renal lesion is detected.Collecting System: No hydronephrosis is seen.LEFT KIDNEY:Size: The left kidney is normal in size, and measures 1.1 x 6.0 x 5.0.Parenchyma: The renal parenchyma exhibits nor mal cortical echogenicity andthickness. No focal solid or cystic renal lesion is detected.CollectingSystem: No hydronephrosis is seen.Bladder: The urinary bladder is unremarkable. OTHER: The liver is enlarged measuring 18.4 cm in length.IMPRESSIONUnremarkable sonographic appearance of the kidneys. No hydronephrosis ornephrolithiasis seen.Hepatomegaly.Preliminary Report Dictated by Resident: Roland Coffman.I, Fabian Tiwari MD., have reviewed this study and agree with theabove report.[facility] GLUCOSE (AUTOMATED)2020-11-14 11:07:45 Test Item Value Reference Range Interpretation Comments POCT GLU (test code = 2929463615) 175 mg/dL 70-110 H Lab Interpretation (test code = Abnormal 69145-0) [facility] GLUCOSE (AUTOMATED)2020-11-14 11:07:45 Test Item Value Reference Range Interpretation Comments POCT GLU (test code = 9620367175) 175 mg/dL 70-110 H Lab Interpretation (test code = Abnormal 27603-4) [facility] GLUCOSE (AUTOMATED)2020-11-14 11:07:45 Test Item Value Reference Range Interpretation Comments POCT GLU (test code = 1923192402) 175 mg/dL 70-110 H Lab Interpretation (test code = Abnormal 17065-3) [facility] WITH [id number] 11:00:52 Test Item Value Reference Range Interpretation [...] (test code = 37.6 fL 38.5-51.6 L 81271-9) RDW-CV (test code = 11.9 % 12.1-15.4 L 788-0) PLT (test code = See_Comment H [Automated 777-3) message] The sy stem which generated this result transmitted reference range : 150 - 328 10*3/ ?L. The reference r rose was not used to interpret this result as normal/abnormal . MPV (test code = 10.0 fL 9.8-13.0 03809-6) NRBC/100 WBC (test See_Comment [Automat ed code = 1207776169) message] The system which generated this result transmitted reference range : 0.0 - 10.0 /100 WBCs. The refer ence range was not u sed to interpret th is result as normal/abnormal . NRBC x10^3 (test code <0.01 See_Comment [Auto mated = 7878252742) message] The s ystem which generated this result transmitted reference range : 10*3/?L. The reference range was not used to interpret this result as normal/abnormal . GRAN MAT (NEUT) % 66.7 % (test code = 770-8) IMM GRAN % (test code 0.40 % = 6432862493) LYMPH % (test code = 21.0 % 736-9) MONO % (test code = 7.7 % 5905-5) EOS % (test code = 3.4 % 713-8) BASO % (test code = 0.8 % 706-2) GRAN MAT x10^3(ANC) 7.10 10*3/uL 1.99-6.95 H (test code = 7293869168) IMM GRAN x10^3 (test 0.04 10*3/uL 0.00-0.06 code = 5167437081) LYMPH x10^3 (test code 2.23 10*3/uL 1.09-3.23 = 731-0) MONO x10^3 (test code 0.82 10*3/uL 0.36-1.02 = 742-7) EOS x10^3 (test code = 0.36 10*3/uL 0.06-0.53 711-2) BASO x10^3 (test code 0.09 10*3/uL 0.01-0.09 = 704-7) Lab Interpretation Abnormal (test code = 63233-8) [facility] WITH [id number] 11:00:52 Test Item Value Reference Range Interpretation Comments WBC (test code = See_Comment [Automated 7090-2) message] The sy stem which generated this result transmitted reference range : 4.20 - 10.70 10*3/?L. The reference range was not used to interpret this result as normal/abnormal . RBC (test code = See_Comment L [Automated 569-8) message] The sy stem which generated this [...] (test code = 37.6 fL 38.5-51.6 L 16181-2) RDW-CV (test code = 11.9 % 12.1-15.4 L 788-0) PLT (test code = See_Comment H [Automated 777-3) message] The sy stem which generated this result transmitted reference range : 150 - 328 10*3/ ?L. The reference r rose was not used to interpret this result as normal/abnormal . MPV (test code = 10.0 fL 9.8-13.0 42779-2) NRBC/100 WBC (test See_Comment [Automat ed code = 2637639225) message] The system which generated this result transmitted reference range : 0.0 - 10.0 /100 WBCs. The refer ence range was not u sed to interpret th is result as normal/abnormal . NRBC x10^3 (test code <0.01 See_Comment [Auto mated = 9813143585) message] The s ystem which generated this result transmitted reference range : 10*3/?L. The reference range was not used to interpret this result as normal/abnormal . GRAN MAT (NEUT) % 66.7 % (test code = 770-8) IMM GRAN % (test code 0.40 % = 7280534132) LYMPH % (test code = 21.0 % 736-9) MONO % (test code = 7.7 % 5905-5) EOS % (test code = 3.4 % 713-8) BASO % (test code = 0.8 % 706-2) GRAN MAT x10^3(ANC) 7.10 10*3/uL 1.99-6.95 H (test code = 3877917480) IMM GRAN x10^3 (test 0.04 10*3/uL 0.00-0.06 code = 3192480520) LYMPH x10^3 (test code 2.23 10*3/uL 1.09-3.23 = 731-0) MONO x10^3 (test code 0.82 10*3/uL 0.36-1.02 = 742-7) EOS x10^3 (test code = 0.36 10*3/uL 0.06-0.53 711-2) BASO x10^3 (test code 0.09 10*3/uL 0.01-0.09 = 704-7) Lab Interpretation Abnormal (test code = 68992-2) [facility] WITH [id number] 11:00:52 Test Item Value Reference Range Interpretation [...] (test code = 37.6 fL 38.5-51.6 L 42753-2) RDW-CV (test code = 11.9 % 12.1-15.4 L 788-0) PLT (test code = See_Comment H [Automated 777-3) message] The sy stem which generated this result transmitted reference range : 150 - 328 10*3/ ?L. The reference r rose was not used to interpret this result as normal/abnormal . MPV (test code = 10.0 fL 9.8-13.0 54028-6) NRBC/100 WBC (test See_Comment [Automat ed code = 8292730573) message] The system which generated this result transmitted reference range : 0.0 - 10.0 /100 WBCs. The refer ence range was not u sed to interpret th is result as normal/abnormal . NRBC x10^3 (test code <0.01 See_Comment [Auto mated = 8973888224) message] The s ystem which generated this result transmitted reference range : 10*3/?L. The reference range was not used to interpret this result as normal/abnormal . GRAN MAT (NEUT) % 66.7 % (test code = 770-8) IMM GRAN % (test code 0.40 % = 0037256770) LYMPH % (test code = 21.0 % 736-9) MONO % (test code = 7.7 % 5905-5) EOS % (test code = 3.4 % 713-8) BASO % (test code = 0.8 % 706-2) GRAN MAT x10^3(ANC) 7.10 10*3/uL 1.99-6.95 H (test code = 5360176025) IMM GRAN x10^3 (test 0.04 10*3/uL 0.00-0.06 code = 7515086394) LYMPH x10^3 (test code 2.23 10*3/uL 1.09-3.23 = 731-0) MONO x10^3 (test code 0.82 10*3/uL 0.36-1.02 = 742-7) EOS x10^3 (test code = 0.36 10*3/uL 0.06-0.53 711-2) BASO x10^3 (test code 0.09 10*3/uL 0.01-0.09 = 704-7) Lab Interpretation Abnormal (test code = 12526-8) [facility] 09:48:42 Test Item Value Reference Range Interpretation Comments NA (test code = 137 mmol/L 135-145 1491560637) K (test code = 4.0 mmol/L 3.5-5.0 8513206529) CL (test code = 111 mmol/L 98-108 H 2135282031) CO2 TOTAL (test code = 22 mmol/L 23-31 L 0795254263) AGAP (test code = 2-16 7761847081) BUN (test code = 29 mg/dL 7-23 H 3011297470) GLUCOSE (test code = 174 mg/dL 70-110 H 2748788217) CREATININE (test code = 2.22 mg/dL 0.60-1.25 H 8487983267) TOTAL BILI (test code = 0.4 mg/dL 0.1-1.7 4504252829) CALCIUM (test code = 8.0 mg/dL 8.6-10.6 L 9122821985) T PROTEIN (test code = 5.3 g/dL 6.3-8.2 L 8147025248) ALBUMIN (test code = 2.4 g/dL 3.5-5.0 L 6104874660) ALK PHOS (test code = 59 U/L 34-122 8511019679) ALTv (test code = 11 U/L 5-50 2-6) AST(SGOT) (test code = 20 U/L 13-40 5882746131) eGFR (test code = mL/min/1.73m2 8433741325) REBECCA (test code = REBECCA) Association of [...] tests). Lab Interpretation Abnormal (test code = 21791-8) [facility]. METABOLIC PANEL (51358)2020-11-14 09:48:42 Test Item Value Reference Range Interpretation Comments NA (test code = 137 mmol/L 135-145 5535553403) K (test code = 4.0 mmol/L 3.5-5.0 2690732084) CL (test code = 111 mmol/L 98-108 H 5297941311) CO2 TOTAL (test code = 22 mmol/L 23-31 L 3105165742) AGAP (test code = 2-16 9719365953) BUN (test code = 29 mg/dL 7-23 H 6569264993) GLUCOSE (test code = 174 mg/dL 70-110 H 5160681382) CREATININE (test code = 2.22 mg/dL 0.60-1.25 H 4287873766) TOTAL BILI (test code = 0.4 mg/dL 0.1-1.8 5415455059) CALCIUM (test code = 8.0 mg/dL 8.6-10.6 L 3213807997) T PROTEIN (test code = 5.3 g/dL 6.3-8.2 L 9408288472) ALBUMIN (test code = 2.4 g/dL 3.5-5.0 L 1002270604) ALK PHOS (test code = 59 U/L 34-122 6892388222) ALTv (test code = 11 U/L 5-50 2-6) AST(SGOT) (test code = 20 U/L 13-40 4887802323) eGFR (test code = mL/min/1.73m2 5148738750) REBECCA (test code = REBECCA) Association of [...] tests). Lab Interpretation Abnormal (test code = 39610-0) [facility]. METABOLIC PANEL (04952)2020-11-14 09:48:42 Test Item Value Reference Range Interpretation Comments NA (test code = 137 mmol/L 135-145 7906778733) K (test code = 4.0 mmol/L 3.5-5.0 0404256844) CL (test code = 111 mmol/L 98-108 H 7727497819) CO2 TOTAL (test code = 22 mmol/L 23-31 L 3397915869) AGAP (test code = 2-16 8306714275) BUN (test code = 29 mg/dL 7-23 H 4916012876) GLUCOSE (test code = 174 mg/dL 70-110 H 5595175952) CREATININE (test code = 2.22 mg/dL 0.60-1.25 H 3552604654) TOTAL BILI (test code = 0.4 mg/dL 0.1-1.0 3602634314) CALCIUM (test code = 8.0 mg/dL 8.6-10.6 L 4450540025) T PROTEIN (test code = 5.3 g/dL 6.3-8.2 L 8133963661) ALBUMIN (test code = 2.4 g/dL 3.5-5.0 L 0406864799) ALK PHOS (test code = 59 U/L 34-122 1275049690) ALTv (test code = 11 U/L 5-50 1742-6) AST(SGOT) (test code = 20 U/L 13-40 8065911439) eGFR (test code = mL/min/1.73m2 5667603725) REBECCA (test code = REBECCA) Association of [...] tests). Lab Interpretation Abnormal (test code = 45295-1) [facility] GLUCOSE (AUTOMATED)2020-11-13 21:54:23 Test Item Value Reference Range Interpretation Comments POCT GLU (test code = 8898283154) 204 mg/dL 70-110 H Lab Interpretation (test code = Abnormal 25650-5) [facility] GLUCOSE (AUTOMATED)2020-11-13 21:54:23 Test Item Value Reference Range Interpretation Comments POCT GLU (test code = 7611869783) 204 mg/dL 70-110 H Lab Interpretation (test code = Abnormal 87934-5) [facility] GLUCOSE (AUTOMATED)2020-11-13 21:54:23 Test Item Value Reference Range Interpretation Comments POCT GLU (test code = 2094847539) 204 mg/dL 70-110 H Lab Interpretation (test code = Abnormal 95911-8) [facility] GLUCOSE (AUTOMATED)2020-11-13 17:00:50 Test Item Value Reference Range Interpretation Comments POCT GLU (test code = 4872253928) 222 mg/dL 70-110 H Lab Interpretation (test code = Abnormal 31033-3) [facility] GLUCOSE (AUTOMATED)2020-11-13 17:00:50 Test Item Value Reference Range Interpretation Comments POCT GLU (test code = 8661268249) 222 mg/dL 70-110 H Lab Interpretation (test code = Abnormal 25405-1) [facility] GLUCOSE (AUTOMATED)2020-11-13 17:00:50 Test Item Value Reference Range Interpretation Comments POCT GLU (test code = 2105761712) 222 mg/dL 70-110 H Lab Interpretation (test code = Abnormal 32485-1) [facility] GLUCOSE (AUTOMATED)2020-11-13 12:56:35 Test Item Value Reference Range Interpretation Comments POCT GLU (test code = 0006646682) 182 mg/dL 70-110 H Lab Interpretation (test code = Abnormal 39053-1) [facility] GLUCOSE (AUTOMATED)2020-11-13 12:56:35 Test Item Value Reference Range Interpretation Comments POCT GLU (test code = 4131759061) 182 mg/dL 70-110 H Lab Interpretation (test code = Abnormal 98365-3) [facility] GLUCOSE (AUTOMATED)2020-11-13 12:56:35 Test Item Value Reference Range Interpretation Comments POCT GLU (test code = 9072345796) 182 mg/dL 70-110 H Lab Interpretation (test code = Abnormal 79725-9) [id number] 09:53:52 Test Item Value Reference Range Interpretation Comments NT-proBNP (test code 495 pg/mL See_Comment H [Autom ated = 7372689279) message] The system which generated this result transmitted reference range : <=125. The reference range was not used to interpret this result as normal/abnormal . REBECCA (test code = REBECCA) Biotin has been reported to cause a negative bias, interpret results relative to patient's use of biotin. Lab Interpretation Abnormal (test code = 84115-0) [id number] 09:53:52 Test Item Value Reference Range Interpretation Comments NT-proBNP (test code 495 pg/mL See_Comment H [Autom ated = 4756363765) message] The system which generated this result transmitted reference range : <=125. The reference range was not used to interpret this result as normal/abnormal . REBECCA (test code = REBECCA) Biotin has been reported to cause a negative bias, interpret results relative to patient's use of biotin. Lab Interpretation Abnormal (test code = 73422-0) [facility] [id number] 09:53:52 Test Item Value Reference Range Interpretation Comments NT-proBNP (test code 495 pg/mL See_Comment H [Autom ated = 5863624988) message] The system which generated this result transmitted reference range : <=125. The reference range was not used to interpret this result as normal/abnormal . REBECCA (test code = REBECCA) Biotin has been reported to cause a negative bias, interpret results relative to patient's use of biotin. Lab Interpretation Abnormal (test code = 66477-6) [facility]2021-04-11 09:48:32 Test Item Value Reference Range Interpretation Comments MAGNESIUM (test code = 9597243800) 1.8 mg/dL 1.7-2.4 Lab Interpretation (test code = Normal 66123-0) [facility]2021-04-11 09:48:32 Test Item Value Reference Range Interpretation Comments MAGNESIUM (test code = 6149975252) 1.8 mg/dL 1.7-2.4 Lab Interpretation (test code = Normal 70170-9) [facility]2021-04-11 09:48:32 Test Item Value Reference Range Interpretation Comments MAGNESIUM (test code = 4033177573) 1.8 mg/dL 1.7-2.4 Lab Interpretation (test code = Normal 65245-2) [facility]. METABOLIC PANEL (99601)2020-11-13 09:48:31 Test Item Value Reference Range Interpretation Comments NA (test code = 140 mmol/L 135-145 7245084153) K (test code = 4.1 mmol/L 3.5-5.0 1400063638) CL (test code = 113 mmol/L 98-108 H 7260440431) CO2 TOTAL (test code = 24 mmol/L 23-31 8694920858) AGAP (test code = 2-16 8813142890) BUN (test code = 34 mg/dL 7-23 H 6302052796) GLUCOSE (test code = 209 mg/dL 70-110 H 0877317662) CREATININE (test code = 2.54 mg/dL 0.60-1.25 H 0302882270) TOTAL BILI (test code = 0.3 mg/dL 0.1-1.4 1330014888) CALCIUM (test code = 8.0 mg/dL 8.6-10.6 L 1204471586) T PROTEIN (test code = 6.1 g/dL 6.3-8.2 L 8376200825) ALBUMIN (test code = 2.9 g/dL 3.5-5.0 L 2187965368) ALK PHOS (test code = 67 U/L 34-122 6990572738) ALTv (test code = 14 U/L 5-50 1742-6) AST(SGOT) (test code = 22 U/L 13-40 9999201468) eGFR (test code = mL/min/1.73m2 5739152770) REBECCA (test code = REBECCA) Association of [...] tests). Lab Interpretation Abnormal (test code = 33961-5) [facility]. METABOLIC PANEL (70028)2020-11-13 09:48:31 Test Item Value Reference Range Interpretation Comments NA (test code = 140 mmol/L 135-145 6144619319) K (test code = 4.1 mmol/L 3.5-5.0 2325459193) CL (test code = 113 mmol/L 98-108 H 2978220462) CO2 TOTAL (test code = 24 mmol/L 23-31 1976250622) AGAP (test code = 2-16 8842257152) BUN (test code = 34 mg/dL 7-23 H 9731588062) GLUCOSE (test code = 209 mg/dL 70-110 H 6323210816) CREATININE (test code = 2.54 mg/dL 0.60-1.25 H 7037213001) TOTAL BILI (test code = 0.3 mg/dL 0.1-1.1 0592251891) CALCIUM (test code = 8.0 mg/dL 8.6-10.6 L 4854543247) T PROTEIN (test code = 6.1 g/dL 6.3-8.2 L 6208704538) ALBUMIN (test code = 2.9 g/dL 3.5-5.0 L 0576913360) ALK PHOS (test code = 67 U/L 34-122 3136525885) ALTv (test code = 14 U/L 5-50 1742-6) AST(SGOT) (test code = 22 U/L 13-40 6836724212) eGFR (test code = mL/min/1.73m2 1410691213) REBECCA (test code = REBECCA) Association of [...] tests). Lab Interpretation Abnormal (test code = 12842-0) [facility]. METABOLIC PANEL (11390)2020-11-13 09:48:31 Test Item Value Reference Range Interpretation Comments NA (test code = 140 mmol/L 135-145 5861743116) K (test code = 4.1 mmol/L 3.5-5.0 3127945092) CL (test code = 113 mmol/L 98-108 H 0673022787) CO2 TOTAL (test code = 24 mmol/L 23-31 3697774651) AGAP (test code = 2-16 9334250997) BUN (test code = 34 mg/dL 7-23 H 0756815228) GLUCOSE (test code = 209 mg/dL 70-110 H 7579956148) CREATININE (test code = 2.54 mg/dL 0.60-1.25 H 3603423645) TOTAL BILI (test code = 0.3 mg/dL 0.1-1.1 0163656927) CALCIUM (test code = 8.0 mg/dL 8.6-10.6 L 6597312361) T PROTEIN (test code = 6.1 g/dL 6.3-8.2 L 2907696354) ALBUMIN (test code = 2.9 g/dL 3.5-5.0 L 8196993504) ALK PHOS (test code = 67 U/L 34-122 4221111300) ALTv (test code = 14 U/L 5-50 2-6) AST(SGOT) (test code = 22 U/L 13-40 1180944766) eGFR (test code = mL/min/1.73m2 0798628378) REBECCA (test code = REBECCA) Association of [...] tests). Lab Interpretation Abnormal (test code = 93496-0) [facility] Test Item Value Reference Range Interpretation Comments PHOSPHORUS (test code = 7403888008) 4.5 mg/dL 2.5-5.0 Lab Interpretation (test code = Normal 52492-6) [facility] 09:48:11 Test Item Value Reference Range Interpretation Comments PHOSPHORUS (test code = 6654043737) 4.5 mg/dL 2.5-5.0 Lab Interpretation (test code = Normal 43199-0) [facility] 09:48:11 Test Item Value Reference Range Interpretation Comments PHOSPHORUS (test code = 2018075982) 4.5 mg/dL 2.5-5.0 Lab Interpretation (test code = Normal 25436-4) [id number] 09:47:51 Test Item Value Reference Range Interpretation Comments URIC ACID (test code = 5399552241) 5.6 mg/dL 3.6-8.0 Lab Interpretation (test code = Normal 94125-3) [facility] [id number] 09:47:51 Test Item Value Reference Range Interpretation Comments URIC ACID (test code = 0968093225) 5.6 mg/dL 3.6-8.0 Lab Interpretation (test code = Normal 32774-5) [facility] [id number] 09:47:51 Test Item Value Reference Range Interpretation Comments URIC ACID (test code = 9252463600) 5.6 mg/dL 3.6-8.0 Lab Interpretation (test code = Normal 38452-7) [facility] [id number] 09:47:50 Test Item Value Reference Range Interpretation Comments CK (test code = 2596859198) 121 U/L 33-194 Lab Interpretation (test code = Normal 42877-1) [facility] [id number] 09:47:50 Test Item Value Reference Range Interpretation Comments CK (test code = 7190803528) 121 U/L 33-194 Lab Interpretation (test code = Normal 83825-1) [facility] [id number] 09:47:50 Test Item Value Reference Range Interpretation Comments CK (test code = 4318926917) 121 U/L 33-194 Lab Interpretation (test code = Normal 49521-2) [facility] [id number] 09:30:30 Test Item Value Reference Range Interpretation [...] RDW-SD (test code = 38.5 fL 38.5-51.6 59285-8) RDW-CV (test code = 11.9 % 12.1-15.4 L 788-0) PLT (test code = See_Comment H [Automated 777-3) message] The sy stem which generated this result transmitted reference range : 150 - 328 10*3/ ?L. The reference r rose was not used to interpret this result as normal/abnormal . MPV (test code = 9.8 fL 9.8-13.0 72053-3) NRBC/100 WBC (test See_Comment [Automat ed code = 1453144931) message] The system which generated this result transmitted reference range : 0.0 - 10.0 /100 WBCs. The refer ence range was not u sed to interpret th is result as normal/abnormal . NRBC x10^3 (test code <0.01 See_Comment [Auto mated = 3989970534) message] The s ystem which generated this result transmitted reference range : 10*3/?L. The reference range was not used to interpret this result as normal/abnormal . GRAN MAT (NEUT) % 71.0 % (test code = 770-8) IMM GRAN % (test code 0.40 % = 8294105316) LYMPH % (test code = 17.4 % 736-9) MONO % (test code = 7.9 % 5905-5) EOS % (test code = 2.7 % 713-8) BASO % (test code = 0.6 % 706-2) GRAN MAT x10^3(ANC) 8.76 10*3/uL 1.99-6.95 H (test code = 2827774802) IMM GRAN x10^3 (test 0.05 10*3/uL 0.00-0.06 code = 5881310732) LYMPH x10^3 (test code 2.15 10*3/uL 1.09-3.23 = 731-0) MONO x10^3 (test code 0.97 10*3/uL 0.36-1.02 = 742-7) EOS x10^3 (test code = 0.33 10*3/uL 0.06-0.53 711-2) BASO x10^3 (test code 0.07 10*3/uL 0.01-0.09 = 704-7) Lab Interpretation Abnormal (test code = 40723-8) [facility] WITH [id number] 09:30:30 Test Item Value Reference Range Interpretation Comments WBC (test code = See_Comment H [Automated 7690-2) message] The sy stem which generated this result transmitted reference range : 4.20 - 10.70 10*3/?L. The reference range was not used to interpret this result as normal/abnormal . RBC (test code = See_Comment L [Automated 689-8) message] The sy stem which generated this [...] RDW-SD (test code = 38.5 fL 38.5-51.6 15690-7) RDW-CV (test code = 11.9 % 12.1-15.4 L 788-0) PLT (test code = See_Comment H [Automated 777-3) message] The sy stem which generated this result transmitted reference range : 150 - 328 10*3/ ?L. The reference r rose was not used to interpret this result as normal/abnormal . MPV (test code = 9.8 fL 9.8-13.0 17137-8) NRBC/100 WBC (test See_Comment [Automat ed code = 8598363573) message] The system which generated this result transmitted reference range : 0.0 - 10.0 /100 WBCs. The refer ence range was not u sed to interpret th is result as normal/abnormal . NRBC x10^3 (test code <0.01 See_Comment [Auto mated = 5787234425) message] The s ystem which generated this result transmitted reference range : 10*3/?L. The reference range was not used to interpret this result as normal/abnormal . GRAN MAT (NEUT) % 71.0 % (test code = 770-8) IMM GRAN % (test code 0.40 % = 7586841734) LYMPH % (test code = 17.4 % 736-9) MONO % (test code = 7.9 % 5905-5) EOS % (test code = 2.7 % 713-8) BASO % (test code = 0.6 % 706-2) GRAN MAT x10^3(ANC) 8.76 10*3/uL 1.99-6.95 H (test code = 0609211417) IMM GRAN x10^3 (test 0.05 10*3/uL 0.00-0.06 code = 7133547617) LYMPH x10^3 (test code 2.15 10*3/uL 1.09-3.23 = 731-0) MONO x10^3 (test code 0.97 10*3/uL 0.36-1.02 = 742-7) EOS x10^3 (test code = 0.33 10*3/uL 0.06-0.53 711-2) BASO x10^3 (test code 0.07 10*3/uL 0.01-0.09 = 704-7) Lab Interpretation Abnormal (test code = 09804-2) [facility] WITH [id number] 09:30:30 Test Item Value Reference Range Interpretation Comments WBC (test code = See_Comment H [Automated 7590-2) message] The sy stem which generated this [...] RDW-SD (test code = 38.5 fL 38.5-51.6 95677-8) RDW-CV (test code = 11.9 % 12.1-15.4 L 788-0) PLT (test code = See_Comment H [Automated 777-3) message] The sy stem which generated this result transmitted reference range : 150 - 328 10*3/ ?L. The reference r rose was not used to interpret this result as normal/abnormal . MPV (test code = 9.8 fL 9.8-13.0 88179-0) NRBC/100 WBC (test See_Comment [Automat ed code = 1025327431) message] The system which generated this result transmitted reference range : 0.0 - 10.0 /100 WBCs. The refer ence range was not u sed to interpret th is result as normal/abnormal . NRBC x10^3 (test code <0.01 See_Comment [Auto mated = 0111437979) message] The s ystem which generated this result transmitted reference range : 10*3/?L. The reference range was not used to interpret this result as normal/abnormal . GRAN MAT (NEUT) % 71.0 % (test code = 770-8) IMM GRAN % (test code 0.40 % = 2950743955) LYMPH % (test code = 17.4 % 736-9) MONO % (test code = 7.9 % 5905-5) EOS % (test code = 2.7 % 713-8) BASO % (test code = 0.6 % 706-2) GRAN MAT x10^3(ANC) 8.76 10*3/uL 1.99-6.95 H (test code = 7278259028) IMM GRAN x10^3 (test 0.05 10*3/uL 0.00-0.06 code = 8712969312) LYMPH x10^3 (test code 2.15 10*3/uL 1.09-3.23 = 731-0) MONO x10^3 (test code 0.97 10*3/uL 0.36-1.02 = 742-7) EOS x10^3 (test code = 0.33 10*3/uL 0.06-0.53 711-2) BASO x10^3 (test code 0.07 10*3/uL 0.01-0.09 = 704-7) Lab Interpretation Abnormal (test code = 27165-8) [facility]58:39 Test Item Value Reference Range Interpretation Comments POCT GLU (test code = 9055055870) 203 mg/dL 70-110 H Lab Interpretation (test code = Abnormal 60615-4) [facility] GLUCOSE (AUTOMATED)2020-11-13 08:58:39 Test Item Value Reference Range Interpretation Comments POCT GLU (test code = 6112552067) 203 mg/dL 70-110 H Lab Interpretation (test code = Abnormal 93576-9) [facility] GLUCOSE (AUTOMATED)2020-11-13 08:58:39 Test Item Value Reference Range Interpretation Comments POCT GLU (test code = 6731045214) 203 mg/dL 70-110 H Lab Interpretation (test code = Abnormal 34953-5) [facility] GLUCOSE (AUTOMATED)2020-11-12 21:41:59 Test Item Value Reference Range Interpretation Comments POCT GLU (test code = 8810211949) 228 mg/dL 70-110 H Lab Interpretation (test code = Abnormal 95536-5) [facility] GLUCOSE (AUTOMATED)2020-11-12 21:41:59 Test Item Value Reference Range Interpretation Comments POCT GLU (test code = 1160169810) 228 mg/dL 70-110 H Lab Interpretation (test code = Abnormal 89917-4) [facility] GLUCOSE (AUTOMATED)2020-11-12 21:41:59 Test Item Value Reference Range Interpretation Comments POCT GLU (test code = 2780040632) 228 mg/dL 70-110 H Lab Interpretation (test code = Abnormal 40148-6) [facility] [id number] 19:53:58 Test Item Value Reference Range Interpretation Comments VIT B12 (test code = 686 pg/mL 240-930 5312411277) REBECCA (test code = REBECCA) Biotin has been reported to cause a positive bias, interpret results relative to patient's use of biotin. Lab Interpretation (test Normal code = 89830-9) [facility] [id number] 19:53:58 Test Item Value Reference Range Interpretation Comments VIT B12 (test code = 686 pg/mL 240-930 8558762165) REBECCA (test code = REBECCA) Biotin has been reported to cause a positive bias, interpret results relative to patient's use of biotin. Lab Interpretation (test Normal code = 42439-5) [facility], [id number] 19:53:58 Test Item Value Reference Range Interpretation Comments VIT B12 (test code = 686 pg/mL 240-930 1598864478) REBECCA (test code = REBECCA) Biotin has been reported to cause a positive bias, interpret results relative to patient's use of biotin. Lab Interpretation (test Normal code = 24151-2) [facility]-REACTIVE [id number] 18:41:36 Test Item Value Reference Range Interpretation Comments CRP (test code = 6315329951) 7.6 mg/dL <0.8 H Lab Interpretation (test code = Abnormal 91329-6) [facility]-RE[facility] [id number] 18:41:36 Test Item Value Reference Range Interpretation Comments CRP (test code = 3014678759) 7.6 mg/dL <0.8 H Lab Interpretation (test code = Abnormal 24381-5) [facility]-REACT[facility] [id number] 18:41:36 Test Item Value Reference Range Interpretation Comments CRP (test code = 9918211454) 7.6 mg/dL <0.8 H Lab Interpretation (test code = Abnormal 96040-3) [facility] GLUCOSE (AUTOMATED)2020-11-12 17:10:56 Test Item Value Reference Range Interpretation Comments POCT GLU (test code = 7776653055) 164 mg/dL 70-110 H Lab Interpretation (test code = Abnormal 24188-7) [facility] GLUCOSE (AUTOMATED)2020-11-12 17:10:56 Test Item Value Reference Range Interpretation Comments POCT GLU (test code = 7185729311) 164 mg/dL 70-110 H Lab Interpretation (test code = Abnormal 51001-2) [facility] GLUCOSE (AUTOMATED)2020-11-12 17:10:56 Test Item Value Reference Range Interpretation Comments POCT GLU (test code = 1294641110) 164 mg/dL 70-110 H Lab Interpretation (test code = Abnormal 78869-1) [facility] 16:49:34 Test Item Value Reference Range Interpretation Comments Procalcitonin (test 0.09 ng/mL <0.07 H code = 3959200838) REBECCA (test code = REBECCA) INTERPRETATION OF [...] lung abscess/empyema. For further information please refer to:[email or web address] Lab Interpretation Abnormal (test code = 73652-3) [facility] 16:49:34 Test Item Value Reference Range Interpretation Comments Procalcitonin (test 0.09 ng/mL <0.07 H code = 4967368246) REBECCA (test code = REBECCA) INTERPRETATION OF [...] lung abscess/empyema. For further information please refer to:[email or web address] Lab Interpretation Abnormal (test code = 88795-6) [facility] 16:49:34 Test Item Value Reference Range Interpretation Comments Procalcitonin (test 0.09 ng/mL <0.07 H code = 1430723352) REBECCA (test code = REBECCA) INTERPRETATION OF [...] lung abscess/empyema. For further information please refer to:[email or web address] Lab Interpretation Abnormal (test code = 29503-4) [facility] [id number] 16:33:00 Test Item Value Reference Range Interpretation Comments T. PROT U (test code = 2888-6) 793 mg/dL CREAT U (test code = 4502325343) 85.4 mg/dL Protein/Creatinine Ratio Urine 0.0-2.0 H (test code = 0322954143) Lab Interpretation (test code = Abnormal 86898-3) [facility] [id number] 16:33:00 Test Item Value Reference Range Interpretation Comments T. PROT U (test code = 2888-6) 793 mg/dL CREAT U (test code = 9118280883) 85.4 mg/dL Protein/Creatinine Ratio Urine 0.0-2.0 H (test code = 2582274409) Lab Interpretation (test code = Abnormal 88823-4) [facility] [id number] 16:33:00 Test Item Value Reference Range Interpretation Comments T. PROT U (test code = 2888-6) 793 mg/dL CREAT U (test code = 3069769265) 85.4 mg/dL Protein/Creatinine Ratio Urine 0.0-2.0 H (test code = 1227499155) Lab Interpretation (test code = Abnormal 65507-9) [facility] 15:39:39 Test Item Value Reference Range Interpretation Comments APPEARANCE (test code = Clear Clear 7924578387) COLOR (test code = Yellow Yellow 9484927498) PH (test code = 4.8-8.0 6045291337) SP GRAVITY (test code = 1.003-1.030 1522345549) GLU U QUAL (test code = 500 mg/dL Normal A 1040251083) BLOOD (test code = Negative Negative 5835598024) KETONES (test code = Negative Negative 3484254874) PROTEIN (test code = 100 mg/dL Negative A 2887-8) UROBILIN (test code = Normal Normal 8225766667) BILIRUBIN (test code = Negative Negative 1571314385) NITRITE (test code = Negative Negative 3215649093) LEUK ABDULKADIR (test code = Negative Negative 1991770904) RBC/HPF (test code = See_Comment H [Autom ated message] 6929005808) The system [employer] generated this result transmit cesar reference range : 0 - 3 HPF. The refe rence range was not u sed to interpret th is result as normal/abnormal . WBC/HPF (test code = See_Comment [Autom ated message] 7840857815) The system [employer] generated this result transmit cesar reference range : 0 - 5 HPF. The refe rence range was not u sed to interpret th is result as normal/abnormal . BACTERIA (test code = Negative Negative 4749929107) MUCOUS (test code = Slight Negative LPF A 3324727689) AMORPHOUS (test code = Rare Rare HPF 1750250871) SQ EPITH (test code = <1 HPF 1530204627) Lab Interpretation (test Abnormal code = 60578-0) [facility] 15:39:39 Test Item Value Reference Range Interpretation Comments APPEARANCE (test code = Clear Clear 2750140373) COLOR (test code = Yellow Yellow 8550639930) PH (test code = 4.8-8.0 8552037628) SP GRAVITY (test code = 1.003-1.030 1806053248) GLU U QUAL (test code = 500 mg/dL Normal A 6863170868) BLOOD (test code = Negative Negative 3721261080) KETONES (test code = Negative Negative 7395203551) PROTEIN (test code = 100 mg/dL Negative A 2887-8) UROBILIN (test code = Normal Normal 7615316062) BILIRUBIN (test code = Negative Negative 5814164756) NITRITE (test code = Negative Negative 8583323835) LEUK ABDULKADIR (test code = Negative Negative 9993033038) RBC/HPF (test code = See_Comment H [Autom ated message] 7758624804) The system [employer] generated this result transmit cesar reference range : 0 - 3 HPF. The refe rence range was not u sed to interpret th is result as normal/abnormal . WBC/HPF (test code = See_Comment [Autom ated message] 3982888960) The system [employer] generated this result transmit cesar reference range : 0 - 5 HPF. The refe rence range was not u sed to interpret th is result as normal/abnormal . BACTERIA (test code = Negative Negative 3182287489) MUCOUS (test code = Slight Negative LPF A 5563424055) AMORPHOUS (test code = Rare Rare HPF 1132326713) SQ EPITH (test code = <1 HPF 4343866359) Lab Interpretation (test Abnormal code = 28270-7) [facility] 15:39:39 Test Item Value Reference Range Interpretation Comments APPEARANCE (test code = Clear Clear 3054396729) COLOR (test code = Yellow Yellow 5516722860) PH (test code = 4.8-8.0 2747699928) SP GRAVITY (test code = 1.003-1.030 4158950401) GLU U QUAL (test code = 500 mg/dL Normal A 9936250090) BLOOD (test code = Negative Negative 4673655505) KETONES (test code = Negative Negative 7226793764) PROTEIN (test code = 100 mg/dL Negative A 2887-8) UROBILIN (test code = Normal Normal 4206659728) BILIRUBIN (test code = Negative Negative 7100029857) NITRITE (test code = Negative Negative 6292442233) LEUK ABDULKADIR (test code = Negative Negative 5463405560) RBC/HPF (test code = See_Comment H [Autom ated message] 6205283173) The system [employer] generated this result transmit cesar reference range : 0 - 3 HPF. The refe rence range was not u sed to interpret th is result as normal/abnormal . WBC/HPF (test code = See_Comment [Autom ated message] 6264575515) The system [employer] generated this result transmit cesar reference range : 0 - 5 HPF. The refe rence range was not u sed to interpret th is result as normal/abnormal . BACTERIA (test code = Negative Negative 8143090136) MUCOUS (test code = Slight Negative LPF A 8100520355) AMORPHOUS (test code = Rare Rare HPF 6203486850) SQ EPITH (test code = <1 HPF 8543427572) Lab Interpretation (test Abnormal code = 72237-9) [facility], URINE [id number] 15:29:18 Test Item Value Reference Range Interpretation Comments NA URINE (test code = 7153960010) 83 mmol/L [facility], URINE [id number] 15:29:18 Test Item Value Reference Range Interpretation Comments NA URINE (test code = 4886728314) 83 mmol/L [facility], URINE [id number] 15:29:18 Test Item Value Reference Range Interpretation Comments NA URINE (test code = 7282509595) 83 mmol/L [facility] GLUCOSE (AUTOMATED)2020-11-12 13:14:12 Test Item Value Reference Range Interpretation Comments POCT GLU (test code = 1915310155) 186 mg/dL 70-110 H Lab Interpretation (test code = Abnormal 45351-3) [facility] GLUCOSE (AUTOMATED)2020-11-12 13:14:12 Test Item Value Reference Range Interpretation Comments POCT GLU (test code = 0203138934) 186 mg/dL 70-110 H Lab Interpretation (test code = Abnormal 51704-4) [facility] GLUCOSE (AUTOMATED)2020-11-12 13:14:12 Test Item Value Reference Range Interpretation Comments POCT GLU (test code = 3579953711) 186 mg/dL 70-110 H Lab Interpretation (test code = Abnormal 62733-7) [facility]FERR[facility]IN [id number] 11:15:35 Test Item Value Reference Range Interpretation Comments FERRITIN (test code = 129.0 ng/mL 18.0-464.0 5834728020) REBECCA (test code = REBECCA) Biotin has been reported to cause a negative bias, interpret results relative to patient's use of biotin. Lab Interpretation (test Normal code = 91892-8) [facility] [id number] 11:15:35 Test Item Value Reference Range Interpretation Comments FERRITIN (test code = 129.0 ng/mL 18.0-464.0 5621411431) REBECCA (test code = REBECCA) Biotin has been reported to cause a negative bias, interpret results relative to patient's use of biotin. Lab Interpretation (test Normal code = 53153-0) [facility]ERR[facility] [id number] 11:15:35 Test Item Value Reference Range Interpretation Comments FERRITIN (test code = 129.0 ng/mL 18.0-464.0 9537739976) REBECCA (test code = REBECCA) Biotin has been reported to cause a negative bias, interpret results relative to patient's use of biotin. Lab Interpretation (test Normal code = 40344-0) [facility]XR [facility] VW [id number] 11:15:00 Small toe distal phalanx osteomyelitis. Preliminary [...] forefoot. Extensive diabetic type vascularcalcifications are visualized. Ut, Radiant Results Inft User - 11/12/2020 6:16 AM CDTEXAM: XR FOOT 3+ VW RIGHTHISTORY: Right Fifth toe pain, erthema, swelling. R/O Osteo COMPARISON: None.FINDINGS: Radiographs of the right footdemonstrate cystic resorption of the smalltoe distal phalanx. Prominent talar beaking is noted. An os peroneum isnoted. Joint spaces are preserved. Alignment is within normal limits. Softtissue swelling over the lateral forefoot. Extensive diabetic type vascularcalcifications are visualized.IMPRESSIONSmall toe distal phalanx osteomyelitis.Preliminary Report Dictated by Resident: Zaki Mejía MD., have reviewed this study and agree with the abovereport.[facility] [id number] 11:15:00 Small toe distal phalanx osteomyelitis. Preliminary [...] Osteo COMPARISON: None.FINDINGS: Radiographs of the right footdemonstrate cystic resorption of the smalltoe distal phalanx. Prominent talar beaking is noted. An os peroneum isnoted. Joint spaces are preserved. Alignment is within normal limits. Softtissue swelling over the lateral forefoot. Extensive diabetic type vascularcalcifications are visualized.IMPRESSIONSmall toe distal phalanx osteomyelitis.Preliminary Report Dictated by Resident: Zaki Mejía MD., have reviewed this study and agree with the abovereport.[facility] [id number] 11:15:00 Small toe distal phalanx osteomyelitis. Preliminary [...] Osteo COMPARISON: None.FINDINGS: Radiographs of the right footdemonstrate cystic resorption of the smalltoe distal phalanx. Prominent talar beaking is noted. An os peroneum isnoted. Joint spaces are preserved. Alignment is within normal limits. Softtissue swelling over the lateral forefoot. Extensive diabetic type vascularcalcifications are visualized.IMPRESSIONSmall toe distal phalanx osteomyelitis.Preliminary Report Dictated by Resident: Zaki Mejía MD., have reviewed this study and agree with the abovereport.[facility] [id number] 11:11:36 Test Item Value Reference Range Interpretation Comments TSH (test code = See_Comment [Automated message] 4499386056) The system [employer] generated this result transmitted ref erence range: 0.45 - 4 .70 mIU/L. The refe rence range was not u sed to interpret this result as normal/abnor mal. Lab Interpretation (test Normal code = 40471-4) [facility] [id number] 11:11:36 Test Item Value Reference Range Interpretation Comments TSH (test code = See_Comment [Automated message] 5920575818) The system [employer] generated this result transmitted ref erence range: 0.45 - 4 .70 mIU/L. The refe rence range was not u sed to interpret this result as normal/abnor mal. Lab Interpretation (test Normal code = 06242-4) [facility] [id number] 11:11:36 Test Item Value Reference Range Interpretation Comments TSH (test code = See_Comment [Automated message] 4182524450) The system [employer] generated this result transmitted ref erence range: 0.45 - 4 .70 mIU/L. The refe rence range was not u sed to interpret this result as normal/abnor mal. Lab Interpretation (test Normal code = 83399-8) [facility] [id number] 11:02:44 Test Item Value Reference Range Interpretation Comments ESR (test code = See_Comment [Automated message] 4619577807) The system [employer] generated this result transmitted ref erence range: 0 - 10 m m/HR. The reference r rose was not used to interpret this result as normal/abnor mal. Lab Interpretation (test Normal code = 81534-9) [facility] [id number] 11:02:44 Test Item Value Reference Range Interpretation Comments ESR (test code = See_Comment [Automated message] 2533853769) The system [employer] generated this result transmitted ref erence range: 0 - 10 m m/HR. The reference r rose was not used to interpret this result as normal/abnor mal. Lab Interpretation (test Normal code = 14218-5) [facility] [id number] 11:02:44 Test Item Value Reference Range Interpretation Comments ESR (test code = See_Comment [Automated message] 7608470698) The system [employer] generated this result transmitted ref erence range: 0 - 10 m m/HR. The reference r rose was not used to interpret this result as normal/abnor mal. Lab Interpretation (test Normal code = 02202-9) [facility] WITH [id number] 10:55:36 Test Item Value Reference Range Interpretation [...] (test code = 38.0 fL 38.5-51.6 L 35102-5) RDW-CV (test code = 11.9 % 12.1-15.4 L 788-0) PLT (test code = See_Comment H [Automated 777-3) message] The system which generated this result transmit cesar reference range : 150 - 328 10*3/ ?L. The reference range was not u sed to interpret th is result as normal/abnormal . MPV (test code = 9.9 fL 9.8-13.0 84238-9) NRBC/100 WBC (test See_Comment [Automat ed code = 9850462869) message] The system which generated this result transmit cesar reference range : 0.0 - 10.0 /100 WBCs. The reference range was not used to interpret this result as normal/abnormal . NRBC x10^3 (test code <0.01 See_Comment [Auto mated = 3091596980) message] The system which generated this result transmit cesar reference range : 10*3/?L. The reference range was not used to interpret this result as normal/abnormal . GRAN MAT (NEUT) % 77.8 % (test code = 770-8) IMM GRAN % (test code 0.50 % = 5608468501) LYMPH % (test code = 11.4 % 736-9) MONO % (test code = 6.7 % 5905-5) EOS % (test code = 3.1 % 713-8) BASO % (test code = 0.5 % 706-2) GRAN MAT x10^3(ANC) 11.98 10*3/uL 1.99-6.95 H (test code = 8678294458) IMM GRAN x10^3 (test 0.08 10*3/uL 0.00-0.06 H code = 6940034317) LYMPH x10^3 (test code 1.76 10*3/uL 1.09-3.23 = 731-0) MONO x10^3 (test code 1.03 10*3/uL 0.36-1.02 H = 742-7) EOS x10^3 (test code = 0.47 10*3/uL 0.06-0.53 711-2) BASO x10^3 (test code 0.08 10*3/uL 0.01-0.09 = 704-7) Lab Interpretation Abnormal (test code = 48107-0) [facility] WITH [id number] 10:55:36 Test Item Value Reference Range Interpretation Comments WBC (test code = See_Comment H [Automated 5490-2) message] The system which generated this result transmit cesar reference range : 4.20 - 10.70 10*3/?L. The reference range was not used to interpret this result as normal/abnormal . RBC (test code = See_Comment L [Automated 589-8) message] The system which generated this result [...] (test code = 38.0 fL 38.5-51.6 L 89710-9) RDW-CV (test code = 11.9 % 12.1-15.4 L 788-0) PLT (test code = See_Comment H [Automated 777-3) message] The system which generated this result transmit cesar reference range : 150 - 328 10*3/ ?L. The reference range was not u sed to interpret th is result as normal/abnormal . MPV (test code = 9.9 fL 9.8-13.0 94663-4) NRBC/100 WBC (test See_Comment [Automat ed code = 5484372560) message] The system which generated this result transmit cesar reference range : 0.0 - 10.0 /100 WBCs. The reference range was not used to interpret this result as normal/abnormal . NRBC x10^3 (test code <0.01 See_Comment [Auto mated = 4414282488) message] The system which generated this result transmit cesar reference range : 10*3/?L. The reference range was not used to interpret this result as normal/abnormal . GRAN MAT (NEUT) % 77.8 % (test code = 770-8) IMM GRAN % (test code 0.50 % = 8787726745) LYMPH % (test code = 11.4 % 736-9) MONO % (test code = 6.7 % 5905-5) EOS % (test code = 3.1 % 713-8) BASO % (test code = 0.5 % 706-2) GRAN MAT x10^3(ANC) 11.98 10*3/uL 1.99-6.95 H (test code = 0368973224) IMM GRAN x10^3 (test 0.08 10*3/uL 0.00-0.06 H code = 3491754167) LYMPH x10^3 (test code 1.76 10*3/uL 1.09-3.23 = 731-0) MONO x10^3 (test code 1.03 10*3/uL 0.36-1.02 H = 742-7) EOS x10^3 (test code = 0.47 10*3/uL 0.06-0.53 711-2) BASO x10^3 (test code 0.08 10*3/uL 0.01-0.09 = 704-7) Lab Interpretation Abnormal (test code = 69545-9) [facility] WITH [id number] 10:55:36 Test Item Value Reference Range Interpretation [...] (test code = 38.0 fL 38.5-51.6 L 84271-1) RDW-CV (test code = 11.9 % 12.1-15.4 L 788-0) PLT (test code = See_Comment H [Automated 777-3) message] The system which generated this result transmit cesar reference range : 150 - 328 10*3/ ?L. The reference range was not u sed to interpret th is result as normal/abnormal . MPV (test code = 9.9 fL 9.8-13.0 57623-0) NRBC/100 WBC (test See_Comment [Automat ed code = 2425419105) message] The system which generated this result transmit cesar reference range : 0.0 - 10.0 /100 WBCs. The reference range was not used to interpret this result as normal/abnormal . NRBC x10^3 (test code <0.01 See_Comment [Auto mated = 2429260101) message] The system which generated this result transmit cesar reference range : 10*3/?L. The reference range was not used to interpret this result as normal/abnormal . GRAN MAT (NEUT) % 77.8 % (test code = 770-8) IMM GRAN % (test code 0.50 % = 1862300371) LYMPH % (test code = 11.4 % 736-9) MONO % (test code = 6.7 % 5905-5) EOS % (test code = 3.1 % 713-8) BASO % (test code = 0.5 % 706-2) GRAN MAT x10^3(ANC) 11.98 10*3/uL 1.99-6.95 H (test code = 8427399606) IMM GRAN x10^3 (test 0.08 10*3/uL 0.00-0.06 H code = 8651952784) LYMPH x10^3 (test code 1.76 10*3/uL 1.09-3.23 = 731-0) MONO x10^3 (test code 1.03 10*3/uL 0.36-1.02 H = 742-7) EOS x10^3 (test code = 0.47 10*3/uL 0.06-0.53 711-2) BASO x10^3 (test code 0.08 10*3/uL 0.01-0.09 = 704-7) Lab Interpretation Abnormal (test code = 28319-7) [facility] [id number] 10:51:55 Test Item Value Reference Range Interpretation Comments IRON (test code = 1742590943) 29 ug/dL 50-160 L TIBC (test code = 4543655433) 245 ug/dL 250-410 L % FE SAT (test code = 4046942830) 12 % 20-50 L Lab Interpretation (test code = Abnormal 41943-7) [facility] [id number] 10:51:55 Test Item Value Reference Range Interpretation Comments IRON (test code = 5817288952) 29 ug/dL 50-160 L TIBC (test code = 1576840007) 245 ug/dL 250-410 L % FE SAT (test code = 9492992750) 12 % 20-50 L Lab Interpretation (test code = Abnormal 26488-3) [facility] [id number] 10:51:55 Test Item Value Reference Range Interpretation Comments IRON (test code = 8043969602) 29 ug/dL 50-160 L TIBC (test code = 5465665995) 245 ug/dL 250-410 L % FE SAT (test code = 3545881458) 12 % 20-50 L Lab Interpretation (test code = Abnormal 99451-9) [facility] [id number] 10:49:53 Test Item Value Reference Range Interpretation Comments NT-proBNP (test code 439 pg/mL See_Comment H [Autom ated = 1009752817) message] The system which generated this result transmitted reference range : <=125. The reference range was not used to interpret this result as normal/abnormal . REBECCA (test code = REBECCA) Biotin has been reported to cause a negative bias, interpret results relative to patient's use of biotin. Lab Interpretation Abnormal (test code = 02233-7) [facility] [id number] 10:49:53 Test Item Value Reference Range Interpretation Comments NT-proBNP (test code 439 pg/mL See_Comment H [Autom ated = 3737960604) message] The system which generated this result transmitted reference range : <=125. The reference range was not used to interpret this result as normal/abnormal . REBECCA (test code = REBECCA) Biotin has been reported to cause a negative bias, interpret results relative to patient's use of biotin. Lab Interpretation Abnormal (test code = 99683-9) [id number] 10:49:53 Test Item Value Reference Range Interpretation Comments NT-proBNP (test code 439 pg/mL See_Comment H [Autom ated = 6543766270) message] The system which generated this result transmitted reference range : <=125. The reference range was not used to interpret this result as normal/abnormal . REBECCA (test code = REBECCA) Biotin has been reported to cause a negative bias, interpret results relative to patient's use of biotin. Lab Interpretation Abnormal (test code = 64900-2) [facility]2021-04-10 10:48:12 Test Item Value Reference Range Interpretation Comments MAGNESIUM (test code = 0552365493) 1.8 mg/dL 1.7-2.4 Lab Interpretation (test code = Normal 91392-7) [facility]TOTAL CHOLESTEROL, TRIGLYCERIDES, HDL)2020-11-12 10:48:12 Test Item Value Reference Range Interpretation Comments CHOL (test code = 199 mg/dL 120-200 4440244593) HDL (test code = 33 mg/dL >40 L 2968266464) HDLC RATIO (test code = See_Comment H [Au tomated message] 1174558435) The system [employer] generated this result transmit cesar reference range : <=5.0. The refe rence range was not u sed to interpret th is result as normal/abnormal . TRIG (test code = 219 mg/dL 30-170 H 3409533946) LDL CHOL (test code = 122 mg/dL See_Comment [Auto mated message] 69738-7) The system [employer] generated this result transmit cesar reference range : <=160. The refe rence range was not u sed to interpret th is result as normal/abnormal . VLDL (test code = 44 mg/dL 5-60 2891043234) Lab Interpretation (test Abnormal code = 26764-8) [facility]2021-04-10 10:48:12 Test Item Value Reference Range Interpretation Comments MAGNESIUM (test code = 1660067092) 1.8 mg/dL 1.7-2.4 Lab Interpretation (test code = Normal 64823-4) [facility]TOTAL CHOLESTEROL, TRIGLYCERIDES, HDL)2020-11-12 10:48:12 Test Item Value Reference Range Interpretation Comments CHOL (test code = 199 mg/dL 120-200 0505354434) HDL (test code = 33 mg/dL >40 L 9379164080) HDLC RATIO (test code = See_Comment H [Au tomated message] 9507132682) The system [employer] generated this result transmit cesar reference range : <=5.0. The refe rence range was not u sed to interpret th is result as normal/abnormal . TRIG (test code = 219 mg/dL 30-170 H 3524524953) LDL CHOL (test code = 122 mg/dL See_Comment [Auto mated message] 14035-8) The system [employer] generated this result transmit cesar reference range : <=160. The refe rence range was not u sed to interpret th is result as normal/abnormal . VLDL (test code = 44 mg/dL 5-60 8438520565) Lab Interpretation (test Abnormal code = 67861-6) [facility] 10:48:12 Test Item Value Reference Range Interpretation Comments MAGNESIUM (test code = 8876791558) 1.8 mg/dL 1.7-2.4 Lab Interpretation (test code = Normal 20518-8) [facility] (82498[facility]TOTAL CHOLESTEROL, TRIGLYCERIDES, HDL)2020-11-12 10:48:12 Test Item Value Reference Range Interpretation Comments CHOL (test code = 199 mg/dL 120-200 5463375070) HDL (test code = 33 mg/dL >40 L 8528414150) HDLC RATIO (test code = See_Comment H [Au tomated message] 3626975787) The system [employer] generated this result transmit cesar reference range : <=5.0. The refe rence range was not u sed to interpret th is result as normal/abnormal . TRIG (test code = 219 mg/dL 30-170 H 3676016034) LDL CHOL (test code = 122 mg/dL See_Comment [Auto mated message] 84975-3) The system [employer] generated this result transmit cesar reference range : <=160. The refe rence range was not u sed to interpret th is result as normal/abnormal . VLDL (test code = 44 mg/dL 5-60 7068443198) Lab Interpretation (test Abnormal code = 44720-5) [facility] [id number] 10:47:51 Test Item Value Reference Range Interpretation Comments URIC ACID (test code = 3135976795) 6.2 mg/dL 3.6-8.0 Lab Interpretation (test code = Normal 94990-6) [facility] 10:47:51 Test Item Value Reference Range Interpretation Comments PHOSPHORUS (test code = 9953243578) 5.3 mg/dL 2.5-5.0 H Lab Interpretation (test code = Abnormal 71133-2) [facility] [id number] 10:47:51 Test Item Value Reference Range Interpretation Comments URIC ACID (test code = 3776311157) 6.2 mg/dL 3.6-8.0 Lab Interpretation (test code = Normal 64640-7) [facility] 10:47:51 Test Item Value Reference Range Interpretation Comments PHOSPHORUS (test code = 6453744846) 5.3 mg/dL 2.5-5.0 H Lab Interpretation (test code = Abnormal 08767-0) [facility] [id number] 10:47:51 Test Item Value Reference Range Interpretation Comments URIC ACID (test code = 3594576958) 6.2 mg/dL 3.6-8.0 Lab Interpretation (test code = Normal 83495-3) [facility] 10:47:51 Test Item Value Reference Range Interpretation Comments PHOSPHORUS (test code = 9940332147) 5.3 mg/dL 2.5-5.0 H Lab Interpretation (test code = Abnormal 83306-2) [facility] [id number] 10:47:31 Test Item Value Reference Range Interpretation Comments CK (test code = 3983906400) 368 U/L 33-194 H Lab Interpretation (test code = Abnormal 94639-1) [facility] [id number] 10:47:31 Test Item Value Reference Range Interpretation Comments CK (test code = 9702332578) 368 U/L 33-194 H Lab Interpretation (test code = Abnormal 74273-2) [facility] [id number] 10:47:31 Test Item Value Reference Range Interpretation Comments CK (test code = 1287361371) 368 U/L 33-194 H Lab Interpretation (test code = Abnormal 66566-7) [facility]. METABOLIC PANEL (29442)2020-11-12 10:42:51 Test Item Value Reference Range Interpretation Comments NA (test code = 138 mmol/L 135-145 9229015729) K (test code = 4.3 mmol/L 3.5-5.0 3217443929) CL (test code = 108 mmol/L 98-108 5791447756) CO2 TOTAL (test code = 22 mmol/L 23-31 L 8303986033) AGAP (test code = 2-16 3852437629) BUN (test code = 37 mg/dL 7-23 H 7472970218) GLUCOSE (test code = 256 mg/dL 70-110 H 2137697295) CREATININE (test code = 2.96 mg/dL 0.60-1.25 H 8338508700) TOTAL BILI (test code = 0.3 mg/dL 0.1-1.5 6694446763) CALCIUM (test code = 8.0 mg/dL 8.6-10.6 L 9570406151) T PROTEIN (test code = 5.9 g/dL 6.3-8.2 L 3537521110) ALBUMIN (test code = 2.8 g/dL 3.5-5.0 L 5394457423) ALK PHOS (test code = 90 U/L 34-122 1907785392) ALTv (test code = 18 U/L 5-50 1742-6) AST(SGOT) (test code = 25 U/L 13-40 4822341076) eGFR (test code = mL/min/1.73m2 8078679722) REBECCA (test code = REBECCA) Association of [...] tests). Lab Interpretation Abnormal (test code = 52244-0) [facility]. METABOLIC PANEL (80678)2020-11-12 10:42:51 Test Item Value Reference Range Interpretation Comments NA (test code = 138 mmol/L 135-145 4775640546) K (test code = 4.3 mmol/L 3.5-5.0 0810418017) CL (test code = 108 mmol/L 98-108 0326997605) CO2 TOTAL (test code = 22 mmol/L 23-31 L 4405426990) AGAP (test code = 2-16 3097399459) BUN (test code = 37 mg/dL 7-23 H 8092718806) GLUCOSE (test code = 256 mg/dL 70-110 H 9988913497) CREATININE (test code = 2.96 mg/dL 0.60-1.25 H 5476772785) TOTAL BILI (test code = 0.3 mg/dL 0.1-1.3 2552514818) CALCIUM (test code = 8.0 mg/dL 8.6-10.6 L 6467895232) T PROTEIN (test code = 5.9 g/dL 6.3-8.2 L 6999440206) ALBUMIN (test code = 2.8 g/dL 3.5-5.0 L 0767004032) ALK PHOS (test code = 90 U/L 34-122 2312066329) ALTv (test code = 18 U/L 5-50 1742-6) AST(SGOT) (test code = 25 U/L 13-40 0270429448) eGFR (test code = mL/min/1.73m2 8140165649) REBECCA (test code = REBECCA) Association of [...] tests). Lab Interpretation Abnormal (test code = 72896-3) [facility]. METABOLIC PANEL (26979)2020-11-12 10:42:51 Test Item Value Reference Range Interpretation Comments NA (test code = 138 mmol/L 135-145 1347409148) K (test code = 4.3 mmol/L 3.5-5.0 3107815394) CL (test code = 108 mmol/L 98-108 3714396195) CO2 TOTAL (test code = 22 mmol/L 23-31 L 0640148428) AGAP (test code = 2-16 2329569298) BUN (test code = 37 mg/dL 7-23 H 3119101031) GLUCOSE (test code = 256 mg/dL 70-110 H 0677703672) CREATININE (test code = 2.96 mg/dL 0.60-1.25 H 3055595823) TOTAL BILI (test code = 0.3 mg/dL 0.1-1.5 4156993321) CALCIUM (test code = 8.0 mg/dL 8.6-10.6 L 0368788565) T PROTEIN (test code = 5.9 g/dL 6.3-8.2 L 4362355346) ALBUMIN (test code = 2.8 g/dL 3.5-5.0 L 4232061271) ALK PHOS (test code = 90 U/L 34-122 8201358677) ALTv (test code = 18 U/L 5-50 1742-6) AST(SGOT) (test code = 25 U/L 13-40 8261803216) eGFR (test code = mL/min/1.73m2 3200273404) REBECCA (test code = REBECCA) Association of [...] tests). Lab Interpretation Abnormal (test code = 05861-1) [facility] / [id number] 10:19:48 Test Item Value Reference Range Interpretation Comments PROTIME PATIENT (test See_Comment [Auto mated message] code = 5964-2) The system [employer] generated this result transmitted ref erence range: 12.0 - 1 4.7 Seconds. The re ference range was not u sed to interpret this result as normal/abnor mal. INR (test code = 6301-6) Nor mal INR <1.1; Warfarin Therap eutic range 2.0 to 3. 0 or 2.5 to 3.5, dep ending upon the indica tions. Lab Interpretation (test Normal code = 54567-3) [facility] / [id number] 10:19:48 Test Item Value Reference Range Interpretation Comments PROTIME PATIENT (test See_Comment [Auto mated message] code = 5964-2) The system [employer] generated this result transmitted ref erence range: 12.0 - 1 4.7 Seconds. The re ference range was not u sed to interpret this result as normal/abnor mal. INR (test code = 6301-6) Nor mal INR <1.1; Warfarin Therap eutic range 2.0 to 3. 0 or 2.5 to 3.5, dep ending upon the indica tions. Lab Interpretation (test Normal code = 37661-7) [facility] / [id number] 10:19:48 Test Item Value Reference Range Interpretation Comments PROTIME PATIENT (test See_Comment [Auto mated message] code = 5964-2) The system [employer] generated this result transmitted ref erence range: 12.0 - 1 4.7 Seconds. The re ference range was not u sed to interpret this result as normal/abnor mal. INR (test code = 6301-6) Nor mal INR <1.1; Warfarin Therap eutic range 2.0 to 3. 0 or 2.5 to 3.5, dep ending upon the indica tions. Lab Interpretation (test Normal code = 17025-1) [facility] (A1C)2020-11-12 09:34:14 Test Item Value Reference Range Interpretation Comments HGB A1C (test code = 9.7 % 4.0-6.0 H 4548-4) REBECCA (test code = REBECCA) %A1C (NGSP) Interpretation (ADA)4.8-5.6 ? ? Normal or (Non-Diabetic Range)5.7-6.4 ? ? Increased Risk (Pre-Diabetic)>6.5 ?Diabetes Indicated Lab Interpretation Abnormal (test code = 50281-6) [facility] (A1C)2020-11-12 09:34:14 Test Item Value Reference Range Interpretation Comments HGB A1C (test code = 9.7 % 4.0-6.0 H 4548-4) REBECCA (test code = REBECCA) %A1C (NGSP) Interpretation (ADA)4.8-5.6 ? ? Normal or (Non-Diabetic Range)5.7-6.4 ? ? Increased Risk (Pre-Diabetic)>6.5 ?Diabetes Indicated Lab Interpretation Abnormal (test code = 07141-8) [facility]A1C)2020-11-12 09:34:14 Test Item Value Reference Range Interpretation Comments HGB A1C (test code = 9.7 % 4.0-6.0 H 4548-4) REBECCA (test code = REBECCA) %A1C (NGSP) Interpretation (ADA)4.8-5.6 ? ? Normal or (Non-Diabetic Range)5.7-6.4 ? ? Increased Risk (Pre-Diabetic)>6.5 ?Diabetes Indicated Lab Interpretation Abnormal (test code = 89943-3) [facility] CenterL[facility] Whole [id number] 08:57:48 Test Item Value Reference Range Interpretation Comments LACTIC ACID (test code = 0.71 mmol/L 0.50-2.20 2954349429) Lab Interpretation (test code = Normal 81086-6) [facility] CenterL[facility] Whole [id number] 08:57:48 Test Item Value Reference Range Interpretation Comments LACTIC ACID (test code = 0.71 mmol/L 0.50-2.20 8176226379) Lab Interpretation (test code = Normal 57438-4) [facility] CenterL[facility] Whole [id number] 08:57:48 Test Item Value Reference Range Interpretation Comments LACTIC ACID (test code = 0.71 mmol/L 0.50-2.20 3696711046) Lab Interpretation (test code = Normal 03884-2) [facility] CenterCT [facility] RIGHT WO [id number] 07:41:31 Destruction of the plantar aspect of the fifth distal phalanx, suggestiveof osteomyelitis. No soft tissue air is appreciated. RL: 460 AFC: 69476 Ordering physician: DEREK CINTRON INDICATION: Right foot [...] were reformatted in thecoronal and sagittal plane. CTscan was performed according to ALARA (aslow as reasonably achievable) policy.FINDINGS: No acute fracture or dislocation of the right foot isappreciated. There is destruction of the plantar aspect of the fifth distalphalanx (series 6, image 11). There is no soft tissue air.IMPRESSIONDestruction of theplantar aspect of the fifth distal phalanx, suggestiveof osteomyelitis. No soft tissue air is appreciated.RL: 460AFC: 40662Xzteoozmysegza signed by Radha Cunningham MD, PhD at 11/12/2020 2:41 AM [facility] CenterCT [facility] RIGHT WO [id number] 07:41:31 Destruction of the plantar aspect of the fifth distal phalanx, suggestiveof osteomyelitis. No soft tissue air is appreciated. RL: 460 AFC: 60976 Ordering physician: DEREK CINTRON INDICATION: Right foot [...] were reformatted in thecoronal and sagittal plane. CTscan was performed according to ALARA (aslow as reasonably achievable) policy.FINDINGS: No acute fracture or dislocation of the right foot isappreciated. There is destruction of the plantar aspect of the fifth distalphalanx (series 6, image 11). There is no soft tissue air.IMPRESSIONDestruction of theplantar aspect of the fifth distal phalanx, suggestiveof osteomyelitis. No soft tissue air is appreciated.RL: 460AFC: [id number] signed by Radha Cunningham MD, PhD at 11/12/2020 2:41 AM [facility]CT [facility] WO [id number] 07:41:31 Destruction of the plantar aspect of the fifth distal phalanx, suggestiveof osteomyelitis. No soft tissue air is appreciated. RL: 460 AFC: 38691 Ordering physician: DEREK CINTRON INDICATION: Right foot [...] 11). There is no soft tissue air. [facility], Radiant Results Inft User- 11/12/2020 2:42 AM CDTOrdering physician: DEREK FELIXNDICATION: Right foot woundCOMPARISON: Right foot radiographs dated 11/11/2020TECHNIQUE: Axial images of the right foot were performed without theadministration of intravenous contrast. Images were reformatted in thecoronal and sagittal plane. CTscan was performed according to ALARA (aslow as reasonably achievable) policy.FINDINGS: No acute fracture or dislocation of the right foot isappreciated. There is destruction of the plantar aspect of the fifth distalphalanx (series 6, image 11). There is no soft tissue air.IMPRESSIONDestruction of theplantar aspect of the fifth distal phalanx, suggestiveof osteomyelitis. No soft tissue air is appreciated.RL: 460AFC: 05719Kuokddqczjssuk signed by Radha Cunningham MD, PhD at 11/12/2020 2:41 AM [facility] CenterXR [facility] 1 [id number] 07:34:361. ?No radiographic evidence of acute cardiopulmonary process. RL: 6214AFC: 48572 End of Report EXAM: XR CHEST 1 ORDERING PHYSICIAN: Isabel BECKHAM HISTORY: Preoperative exam. COMPARISON: none TECHNICAL QUALITY: Adequate FINDINGS:Portable semiupright frontal view of the chest. ?The lungs are clear. ?Theheart is normal in size. Me diastinal and hilar contours are normal. Pulmonary vascularity [...] Pulmonary vascularity is normal. Osseous structures are unremarkab le.IMPRESSION1. No radiographic evidence of acute cardiopulmonary process.RL: 6214AFC: 78580Vtu of Report [facility] [id number] 07:34:361. ?No radiographic evidence of acute cardiopulmonary process. RL: 6214AFC: 33395 End of Report EXAM: XR CHEST 1 [...] Pulmonary vascularity is normal. Osseous structures are unremarkab le.IMPRESSION1. No radiographic evidence of acute cardiopulmonary process.RL: 6214AFC: 06923Erg of Report [facility] 1 [id number] 07:34:361. ?No radiographic evidence of acute cardiopulmonary process. RL: 6214AFC: 95070 End of Report EXAM: XR CHEST 1 VW ORDERING PHYSICIAN: ? ADNAN ?NENO HISTORY: Preoperative exam. COMPARISON: none TECHNICAL QUALITY: [...] Pulmonary vascularity is normal. Osseous structures are unremarka ble.IMPRESSION1. No radiographic evidence of acute cardiopulmonary process.RL: 6214AF: 96810Qco of Report [facility]. METABOLIC PANEL (34104) 2020-11-12 02:53:14 Test Item Value Reference Range Interpretation Comments NA (test code = 138 mmol/L 135-145 6855138717) K (test code = 4.2 mmol/L 3.5-5.0 1604592082) CL (test code = 105 mmol/L 98-108 2786609914) CO2 TOTAL (test code = 23 mmol/L 23-31 2331790897) AGAP (test code = 2-16 0065661418) BUN (test code = 39 mg/dL 7-23 H 6209641522) GLUCOSE (test code = 284 mg/dL 70-110 H 6607772875) CREATININE (test code = 3.38 mg/dL 0.60-1.25 H 9196689146) TOTAL BILI (test code = 0.3 mg/dL 0.1-1.8 7259986229) CALCIUM (test code = 8.0 mg/dL 8.6-10.6 L 4053710994) T PROTEIN (test code = 7.3 g/dL 6.3-8.2 2284294543) ALBUMIN (test code = 3.4 g/dL 3.5-5.0 L 8193080354) ALK PHOS (test code = 105 U/L 34-122 6912140550) ALTv (test code = 21 U/L 5-50 1742-6) AST(SGOT) (test code = 33 U/L 13-40 2772925485) eGFR (test code = mL/min/1.73m2 0983252700) REBECCA (test code = REBECCA) Association of [...] tests). Lab Interpretation Abnormal (test code = 63854-0) [facility]. METABOLIC PANEL (63572)2020-11-12 02:53:14 Test Item Value Reference Range Interpretation Comments NA (test code = 138 mmol/L 135-145 6125858145) K (test code = 4.2 mmol/L 3.5-5.0 8539883032) CL (test code = 105 mmol/L 98-108 4947915679) CO2 TOTAL (test code = 23 mmol/L 23-31 5065515162) AGAP (test code = 2-16 7703450930) BUN (test code = 39 mg/dL 7-23 H 2914583418) GLUCOSE (test code = 284 mg/dL 70-110 H 2122205421) CREATININE (test code = 3.38 mg/dL 0.60-1.25 H 9034393715) TOTAL BILI (test code = 0.3 mg/dL 0.1-1.7 4596730444) CALCIUM (test code = 8.0 mg/dL 8.6-10.6 L 6672646998) T PROTEIN (test code = 7.3 g/dL 6.3-8.2 7920081527) ALBUMIN (test code = 3.4 g/dL 3.5-5.0 L 3961123279) ALK PHOS (test code = 105 U/L 34-122 3906561519) ALTv (test code = 21 U/L 5-50 1742-6) AST(SGOT) (test code = 33 U/L 13-40 6827908623) eGFR (test code = mL/min/1.73m2 7037217861) REBECCA (test code = REBECCA) Association of [...] tests). Lab Interpretation Abnormal (test code = 29694-6) [facility]. METABOLIC PANEL (75678)2020-11-12 02:53:14 Test Item Value Reference Range Interpretation Comments NA (test code = 138 mmol/L 135-145 8283105011) K (test code = 4.2 mmol/L 3.5-5.0 4719871241) CL (test code = 105 mmol/L 98-108 6365107762) CO2 TOTAL (test code = 23 mmol/L 23-31 7681105552) AGAP (test code = 2-16 1948371348) BUN (test code = 39 mg/dL 7-23 H 5934829552) GLUCOSE (test code = 284 mg/dL 70-110 H 7952726347) CREATININE (test code = 3.38 mg/dL 0.60-1.25 H 5081819139) TOTAL BILI (test code = 0.3 mg/dL 0.1-1.3 5430879032) CALCIUM (test code = 8.0 mg/dL 8.6-10.6 L 5437313776) T PROTEIN (test code = 7.3 g/dL 6.3-8.2 8218066071) ALBUMIN (test code = 3.4 g/dL 3.5-5.0 L 6120107034) ALK PHOS (test code = 105 U/L 34-122 7179364197) ALTv (test code = 21 U/L 5-50 1742-6) AST(SGOT) (test code = 33 U/L 13-40 0141410486) eGFR (test code = mL/min/1.73m2 0413807049) REBECCA (test code = REBECCA) Association of [...] tests). Lab Interpretation Abnormal (test code = 81073-5) [facility]2020-11[facility]12 02:03:46 Test Item Value Reference Range Interpretation Comments SARS-CoV-2 Rapid ID NOW Not Detected Not Detected (test code = 86520-1) REBECCA (test code = REBECCA) ID NOW COVID-19 Assay is an isothermal nucleic acid amplification test intended for the qualitative detection of nucleic acid from SARS-CoV-2 viral RNA in nasopharyngeal (LAND CLASSIFIER) specimens. It is used under Emergency Use [...] indicated. Lab Interpretation Normal (test code = 67000-3) [facility]2020-11-12 02:03:46 Test Item Value Reference Range Interpretation Comments SARS-CoV-2 Rapid ID NOW Not Detected Not Detected (test code = 40015-7) REBECCA (test code = REBECCA) ID NOW COVID-19 Assay is an isothermal nucleic acid amplification test intended for the qualitative detection of nucleic acid from SARS-CoV-2 viral RNA in nasopharyngeal (LAND CLASSIFIER) specimens. It is used under Emergency Use [...] indicated. Lab Interpretation Normal (test code = 00663-8) [facility]2020-11-12 02:03:46 Test Item Value Reference Range Interpretation Comments SARS-CoV-2 Rapid ID NOW Not Detected Not Detected (test code = 33423-5) REBECCA (test code = REBECCA) ID NOW COVID-19 Assay is an isothermal nucleic acid amplification test intended for the qualitative detection of nucleic acid from SARS-CoV-2 viral RNA in nasopharyngeal (LAND CLASSIFIER) specimens. It is used under Emergency Use [...] indicated. Lab Interpretation Normal (test code = 98558-4) [facility] WITH [id number] 01:49:45 Test Item Value Reference Range Interpretation [...] (test code = 36.7 fL 38.5-51.6 L 11733-8) RDW-CV (test code = 11.9 % 12.1-15.4 L 788-0) PLT (test code = See_Comment H [Automated 777-3) message] The system which generated this result transmit cesar reference range : 150 - 328 10*3/ ?L. The reference range was not u sed to interpret th is result as normal/abnormal . MPV (test code = 9.3 fL 9.8-13.0 L 22527-5) NRBC/100 WBC (test See_Comment [Automat ed code = [id number]) message] The system which generated this result transmit cesar reference range : 0.0 - 10.0 /100 WBCs. The reference range was not used to interpret this result as normal/abnormal . NRBC x10^3 (test code <0.01 See_Comment [Auto mated = [id number]) message] The system which generated this result transmit cesar reference range : 10*3/?L. The reference range was not used to interpret this result as normal/abnormal . GRAN MAT (NEUT) % 73.8 % (test code = 770-8) IMM GRAN % (test code 0.60 % = 4719724711) LYMPH % (test code = 14.3 % 736-9) MONO % (test code = 7.9 % 5905-5) EOS % (test code = 2.8 % 713-8) BASO % (test code = 0.6 % 706-2) GRAN MAT x10^3(ANC) 11.28 10*3/uL 1.99-6.95 H (test code = 3715614197) IMM GRAN x10^3 (test 0.09 10*3/uL 0.00-0.06 H code = 6661690177) LYMPH x10^3 (test code 2.18 10*3/uL 1.09-3.23 = 731-0) MONO x10^3 (test code 1.21 10*3/uL 0.36-1.02 H = 742-7) EOS x10^3 (test code = 0.43 10*3/uL 0.06-0.53 711-2) BASO x10^3 (test code 0.09 10*3/uL 0.01-0.09 = 704-7) Lab Interpretation Abnormal (test code = 49964-3) [facility] WITH [id number] 01:49:45 Test Item Value Reference Range Interpretation [...] (test code = 36.7 fL 38.5-51.6 L 95190-8) RDW-CV (test code = 11.9 % 12.1-15.4 L 788-0) PLT (test code = See_Comment H [Automated 777-3) message] The system which generated this result transmit cesar reference range : 150 - 328 10*3/ ?L. The reference range was not u sed to interpret th is result as normal/abnormal . MPV (test code = 9.3 fL 9.8-13.0 L 78350-3) NRBC/100 WBC (test See_Comment [Automat ed code = 5685856490) message] The system which generated this result transmit cesar reference range : 0.0 - 10.0 /100 WBCs. The reference range was not used to interpret this result as normal/abnormal . NRBC x10^3 (test code <0.01 See_Comment [Auto mated = [id number]) message] The system which generated this result transmit cesar reference range : 10*3/?L. The reference range was not used to interpret this result as normal/abnormal . GRAN MAT (NEUT) % 73.8 % (test code = 770-8) IMM GRAN % (test code 0.60 % = 4495564165) LYMPH % (test code = 14.3 % 736-9) MONO % (test code = 7.9 % 5905-5) EOS % (test code = 2.8 % 713-8) BASO % (test code = 0.6 % 706-2) GRAN MAT x10^3(ANC) 11.28 10*3/uL 1.99-6.95 H (test code = 6536804986) IMM GRAN x10^3 (test 0.09 10*3/uL 0.00-0.06 H code = 5079407523) LYMPH x10^3 (test code 2.18 10*3/uL 1.09-3.23 = 731-0) MONO x10^3 (test code 1.21 10*3/uL 0.36-1.02 H = 742-7) EOS x10^3 (test code = 0.43 10*3/uL 0.06-0.53 711-2) BASO x10^3 (test code 0.09 10*3/uL 0.01-0.09 = 704-7) Lab Interpretation Abnormal (test code = 41942-3) [facility] WITH [id number] 01:49:45 Test Item Value Reference Range Interpretation [...] (test code = 36.7 fL 38.5-51.6 L 92211-7) RDW-CV (test code = 11.9 % 12.1-15.4 L 788-0) PLT (test code = See_Comment H [Automated 777-3) message] The system which generated this result transmit cesar reference range : 150 - 328 10*3/ ?L. The reference range was not u sed to interpret th is result as normal/abnormal . MPV (test code = 9.3 fL 9.8-13.0 L 40835-2) NRBC/100 WBC (test See_Comment [Automat ed code = 8311446845) message] The system which generated this result transmit cesar reference range : 0.0 - 10.0 /100 WBCs. The reference range was not used to interpret this result as normal/abnormal . NRBC x10^3 (test code <0.01 See_Comment [Auto mated = [id number]) message] The system which generated this result transmit cesar reference range : 10*3/?L. The reference range was not used to interpret this result as normal/abnormal . GRAN MAT (NEUT) % 73.8 % (test code = 770-8) IMM GRAN % (test code 0.60 % = 1298777045) LYMPH % (test code = 14.3 % 736-9) MONO % (test code = 7.9 % 5905-5) EOS % (test code = 2.8 % 713-8) BASO % (test code = 0.6 % 706-2) GRAN MAT x10^3(ANC) 11.28 10*3/uL 1.99-6.95 H (test code = 1960683933) IMM GRAN x10^3 (test 0.09 10*3/uL 0.00-0.06 H code = 6036913625) LYMPH x10^3 (test code 2.18 10*3/uL 1.09-3.23 = 731-0) MONO x10^3 (test code 1.21 10*3/uL 0.36-1.02 H = 742-7) EOS x10^3 (test code = 0.43 10*3/uL 0.06-0.53 711-2) BASO x10^3 (test code 0.09 10*3/uL 0.01-0.09 = 704-7) Lab Interpretation Abnormal (test code = 25396-6) [facility] [id number] [facility]:00:00 Test Item Value Reference Range Interpretation Comments GLUCOSE (test code = 2217) 259 MG/DL BUN (test code = 2208) 35 MG/DL CREATININE (test code = 2214) 2.85 MG/DL eGFR AMER. (test code 23 ML/MIN/1.73 = 91222) eGFR NON- AMER. (test 20 ML/MIN/1.73 code = 81270) CALC BUN/CREAT (test code = 12 RATIO 2235) SODIUM (test code = 2231) 138 MEQ/L POTASSIUM (test code = 2228) 5.0 MEQ/L CHLORIDE (test code = 2215) 105 MEQ/L CARBON DIOXIDE (test code = 23 MEQ/L 220) CALCIUM (test code = 2209) 9.0 MG/DL PROTEIN, TOTAL (test code = 6.7 G/DL 2228) ALBUMIN (test code = 2201) 2.9 G/DL CALC GLOBULIN (test code = 3.8 G/DL 2240) CALC A/G RATIO (test code = 0.8 RATIO 2234) BILIRUBIN, TOTAL (test code = <0.2 MG/DL 2206) ALKALINE PHOSPHATASE (test 92 U/L code = 2204) AST (test code = 2218) 27 U/L ALT (test code = 2219) 26 U/L COMPREHENSIVE METABOLIC [id number] 00:00:00 Test Item Value Reference Range Interpretation Comments GLUCOSE (test code = 2217) 259 MG/DL BUN (test code = 2208) 35 MG/DL CREATININE (test code = 2214) 2.85 MG/DL eGFR AMER. (test code 23 ML/MIN/1.73 = 71804) eGFR NON- AMER. (test 20 ML/MIN/1.73 code = 45469) CALC BUN/CREAT (test code = 12 RATIO 2235) SODIUM (test code = 2231) 138 MEQ/L POTASSIUM (test code = 2228) 5.0 MEQ/L CHLORIDE (test code = 2215) 105 MEQ/L CARBON DIOXIDE (test code = 23 MEQ/L 2205) CALCIUM (test code = 2209) 9.0 MG/DL PROTEIN, TOTAL (test code = 6.7 G/DL 2228) ALBUMIN (test code = 2201) 2.9 G/DL CALC GLOBULIN (test code = 3.8 G/DL 2240) CALC A/G RATIO (test code = 0.8 RATIO 2234) BILIRUBIN, TOTAL (test code = <0.2 MG/DL 2206) ALKALINE PHOSPHATASE (test 92 U/L code = 2204) AST (test code = 2218) 27 U/L ALT (test code = 2219) 26 U/L LIPID [id number] 00:00:00 Test Item Value Reference Range Interpretation Comments CHOLESTEROL (test code = 2210) 211 MG/DL TRIGLYCERIDES (test code = 2232) 263 MG/DL HDL CHOLESTEROL (test code = 2220) 40 MG/DL CALC LDL CHOL (test code = 2237) 131 MG/DL RISK RATIO LDL/HDL (test code = 3.28 RATIO 2238) LIPID [id number] 00:00:00 Test Item Value Reference Range Interpretation Comments CHOLESTEROL (test code = 2210) 211 MG/DL TRIGLYCERIDES (test code = 2232) 263 MG/DL HDL CHOLESTEROL (test code = 2220) 40 MG/DL CALC LDL CHOL (test code = 2237) 131 MG/DL RISK RATIO LDL/HDL (test code = 3.28 RATIO 2238) URIC [id number] 00:00:00 Test Item Value Reference Range Interpretation Comments URIC ACID (test code = 2233) 5.3 MG/DL URIC [id number] 00:00:00 Test Item Value Reference Range Interpretation Comments URIC ACID (test code = 2233) 5.3 MG/DL HEMOGLOBIN [id number] 00:00:00 Test Item Value Reference Range Interpretation Comments HEMOGLOBIN A1c (test code = 93763) 9.3 % HEMOGLOBIN [id number] 00:00:00 Test Item Value Reference Range Interpretation Comments HEMOGLOBIN A1c (test code = 99923) 9.3 % HEMOGLOBIN [id number] 00:00:00 Test Item Value Reference Range Interpretation Comments HEMOGLOBIN A1c (test code = 13058) 9.3 % COMPREHENSIVE METABOLIC [id number] 00:00:00 Test Item Value Reference Range Interpretation Comments GLUCOSE (test code = 2217) 259 MG/DL BUN (test code = 2208) 35 MG/DL CREATININE (test code = 2214) 2.85 MG/DL eGFR AMER. (test code 23 ML/MIN/1.73 = 54554) eGFR NON- AMER. (test 20 ML/MIN/1.73 code = 75636) CALC BUN/CREAT (test code = 12 RATIO 2235) SODIUM (test code = 2231) 138 MEQ/L POTASSIUM (test code = 2228) 5.0 MEQ/L CHLORIDE (test code = 2215) 105 MEQ/L CARBON DIOXIDE (test code = 23 MEQ/L 2205) CALCIUM (test code = 2209) 9.0 MG/DL PROTEIN, TOTAL (test code = 6.7 G/DL 2229) ALBUMIN (test code = 2201) 2.9 G/DL CALC GLOBULIN (test code = 3.8 G/DL 2240) CALC A/G RATIO (test code = 0.8 RATIO 2234) BILIRUBIN, TOTAL (test code = <0.2 MG/DL 220) ALKALINE PHOSPHATASE (test 92 U/L code = 2204) AST (test code = 2218) 27 U/L ALT (test code = 2219) 26 U/L COMPREHENSIVE METABOLIC [id number] 00:00:00 Test Item Value Reference Range Interpretation Comments GLUCOSE (test code = 2217) 259 MG/DL BUN (test code = 2208) 35 MG/DL CREATININE (test code = 2214) 2.85 MG/DL eGFR AMER. (test code 23 ML/MIN/1.73 = 08888) eGFR NON- AMER. (test 20 ML/MIN/1.73 code = 06176) CALC BUN/CREAT (test code = 12 RATIO 2235) SODIUM (test code = 2231) 138 MEQ/L POTASSIUM (test code = 2228) 5.0 MEQ/L CHLORIDE (test code = 2215) 105 MEQ/L CARBON DIOXIDE (test code = 23 MEQ/L 2206) CALCIUM (test code = 2209) 9.0 MG/DL PROTEIN, TOTAL (test code = 6.7 G/DL 2228) ALBUMIN (test code = 2201) 2.9 G/DL CALC GLOBULIN (test code = 3.8 G/DL 2240) CALC A/G RATIO (test code = 0.8 RATIO 2234) BILIRUBIN, TOTAL (test code = <0.2 MG/DL 2206) ALKALINE PHOSPHATASE (test 92 U/L code = 2204) AST (test code = 2218) 27 U/L ALT (test code = 2219) 26 U/L LIPID [id number] 00:00:00 Test Item Value Reference Range Interpretation Comments CHOLESTEROL (test code = 2210) 211 MG/DL TRIGLYCERIDES (test code = 2232) 263 MG/DL HDL CHOLESTEROL (test code = 2220) 40 MG/DL CALC LDL CHOL (test code = 2237) 131 MG/DL RISK RATIO LDL/HDL (test code = 3.28 RATIO 2238) LIPID [id number] 00:00:00 Test Item Value Reference Range Interpretation Comments CHOLESTEROL (test code = 2210) 211 MG/DL TRIGLYCERIDES (test code = 2232) 263 MG/DL HDL CHOLESTEROL (test code = 2220) 40 MG/DL CALC LDL CHOL (test code = 2237) 131 MG/DL RISK RATIO LDL/HDL (test code = 3.28 RATIO 2238) URIC [id number] 00:00:00 Test Item Value Reference Range Interpretation Comments URIC ACID (test code = 2233) 5.3 MG/DL URIC [id number] 00:00:00 Test Item Value Reference Range Interpretation Comments URIC ACID (test code = 2233) 5.3 MG/DL HEMOGLOBIN [id number] 00:00:00 Test Item Value Reference Range Interpretation Comments HEMOGLOBIN A1c (test code = 41842) 9.3 % HEMOGLOBIN [id number] 00:00:00 Test Item Value Reference Range Interpretation Comments HEMOGLOBIN A1c (test code = 60874) 9.3 % HEMOGLOBIN [id number] 00:00:00 Test Item Value Reference Range Interpretation Comments HEMOGLOBIN A1c (test code = 96847) 9.3 % COMPREHENSIVE METABOLIC [id number] 00:00:00 Test Item Value Reference Range Interpretation Comments GLUCOSE (test code = 7) 259 MG/DL BUN (test code = 2208) 35 MG/DL CREATININE (test code = 2214) 2.85 MG/DL eGFR AMER. (test code 23 ML/MIN/1.73 = 88419) eGFR NON- AMER. (test 20 ML/MIN/1.73 code = 83360) CALC BUN/CREAT (test code = 12 RATIO 2234) SODIUM (test code = 2231) 138 MEQ/L POTASSIUM (test code = 2228) 5.0 MEQ/L CHLORIDE (test code = 2215) 105 MEQ/L CARBON DIOXIDE (test code = 23 MEQ/L 2205) CALCIUM (test code = 2209) 9.0 MG/DL PROTEIN, TOTAL (test code = 6.7 G/DL 2228) ALBUMIN (test code = 220) 2.9 G/DL CALC GLOBULIN (test code = 3.8 G/DL 2239) CALC A/G RATIO (test code = 0.8 RATIO 2233) BILIRUBIN, TOTAL (test code = <0.2 MG/DL 2206) ALKALINE PHOSPHATASE (test 92 U/L code = 2204) AST (test code = 2218) 27 U/L ALT (test code = 2219) 26 U/L COMPREHENSIVE METABOLIC [id number] 00:00:00 Test Item Value Reference Range Interpretation Comments GLUCOSE (test code = 2217) 259 MG/DL BUN (test code = 2208) 35 MG/DL CREATININE (test code = 2214) 2.85 MG/DL eGFR AMER. (test code 23 ML/MIN/1.73 = 72898) eGFR NON- AMER. (test 20 ML/MIN/1.73 code = 47637) CALC BUN/CREAT (test code = 12 RATIO 2235) SODIUM (test code = 2231) 138 MEQ/L POTASSIUM (test code = 2228) 5.0 MEQ/L CHLORIDE (test code = 2215) 105 MEQ/L CARBON DIOXIDE (test code = 23 MEQ/L 220) CALCIUM (test code = 2209) 9.0 MG/DL PROTEIN, TOTAL (test code = 6.7 G/DL 2228) ALBUMIN (test code = 2201) 2.9 G/DL CALC GLOBULIN (test code = 3.8 G/DL 2240) CALC A/G RATIO (test code = 0.8 RATIO 2234) BILIRUBIN, TOTAL (test code = <0.2 MG/DL 2206) ALKALINE PHOSPHATASE (test 92 U/L code = 2204) AST (test code = 2218) 27 U/L ALT (test code = 2219) 26 U/L LIPID [id number] 00:00:00 Test Item Value Reference Range Interpretation Comments CHOLESTEROL (test code = 2210) 211 MG/DL TRIGLYCERIDES (test code = 2232) 263 MG/DL HDL CHOLESTEROL (test code = 2220) 40 MG/DL CALC LDL CHOL (test code = 2237) 131 MG/DL RISK RATIO LDL/HDL (test code = 3.28 RATIO 2238) LIPID [id number] 00:00:00 Test Item Value Reference Range Interpretation Comments CHOLESTEROL (test code = 2210) 211 MG/DL TRIGLYCERIDES (test code = 2232) 263 MG/DL HDL CHOLESTEROL (test code = 2220) 40 MG/DL CALC LDL CHOL (test code = 2237) 131 MG/DL RISK RATIO LDL/HDL (test code = 3.28 RATIO 2238) URIC [id number] 00:00:00 Test Item Value Reference Range Interpretation Comments URIC ACID (test code = 2233) 5.3 MG/DL URIC [id number] 00:00:00 Test Item Value Reference Range Interpretation Comments URIC ACID (test code = 2233) 5.3 MG/DL HEMOGLOBIN [id number] 00:00:00 Test Item Value Reference Range Interpretation Comments HEMOGLOBIN A1c (test code = 04214) 9.3 % HEMOGLOBIN [id number] 00:00:00 Test Item Value Reference Range Interpretation Comments HEMOGLOBIN A1c (test code = 81002) 9.3 % HEMOGLOBIN [id number] 00:00:00 Test Item Value Reference Range Interpretation Comments HEMOGLOBIN A1c (test code = 20477) 9.3 %"
[2022-08-28 07:38] LABS: Absolute Lymphocytes (CBC) 0.4 K/uL (0.7-4.9); Hematocrit 36.3 % (39.6-49.0); Lymphocytes % 3.7 % (15.3-44.8); MPV 7.9 fL (7.6-11.3); RBC Red Blood Cell Count 3.95 M/uL (4.33-5.43)
[2022-08-28 07:58] LABS: Albumin 3.9 g/dL (3.4-5.0); Bilirubin Total 0.3 mg/dL (0.2-1.0); Potassium 5.1 mmol/L (3.5-5.1); Protein, Total 8.2 g/dL (6.4-8.2)
--- NOTE | 2022-08-28 08:13 | RAD REPORT ---
EXAM DESCRIPTION: RAD - Chest Single View - 08/28/2022 7:56 am CLINICAL HISTORY: FEVER COMPARISON: Portable 01/22/2022 TECHNIQUE: AP portable chest image was obtained 08/28/2022 7:56 am . FINDINGS: Lungs are clear. Heart and vasculature are normal. No measurable pleural effusion and no p neumothorax. No acute bony abnormality seen. No acute aortic findings suspected. Double-lumen dialysi s catheter has been placed on the right side since prior imaging. IMPRESSION: No acute cardiopulmonary process.
[2022-08-28 08:30] LABS: SARS-COV-2 RT PCR POSITIVE (NEGATIVE)
[2022-08-28] MEDS ORDERED: CEFEPIME 1 GM/VIAL ONE (09:05)
[2022-08-28] MEDS ORDERED: NA CHLORIDE 0.9% 100 ML IV ONE (09:05)
[2022-08-28] MEDS ORDERED: VANCOMYCIN 1.5 GM in NA CHLORIDE 0.9% 500 ML IVPB ONE (09:15)
[2022-08-28 12:03] LABS: Protime INR 1.11
--- NOTE | 2022-08-28 12:19 | EDPHYS ---
Physician Documentation [facility] Name: Piyush Sauer Age: 42 yrs Sex: Male : 1980 Arrival Date: 08/28/2022 Time: 06:51 Bed 8 Private MD: ED Physician Shaw Robbins HPI: 08/28 07:13 This 42 yrs old Male presents to ER via Ambulatory with complaints of fever. ms3 07:16 42-year-old male with past medical history of end-stage renal disease presents for ms3 fever. Patient states he went to [facility] for dialysis today and was unable to receive dialysis secondary to fever. Patient was referred to the emergency department. Patient denies pain. Patient endorses sneezing. Patient denies abdominal pain, nausea, vomiting, shortness of breath.. Historical: - Allergies: 07:59 No Known Allergies; ph - PMHx: 07:15 Diabetes - NIDDM; Hypertensive disorder; Dialysis T TH Sat; ss - PSHx: 07:15 right foot; ss - Immunization history:: Adult Immunizations unknown. - Social history:: Smoking status: unknown. ROS: 07:16 Neck: Negative for injury, pain, and swelling, Abdomen/GI: Negative for abdominal pain, ms3 nausea, vomiting, diarrhea, and constipation, Skin: Negative for injury, rash, and discoloration. 07:16 Constitutional: Positive for fever. 07:16 ENT: Positive for sneezing. 07:16 All other systems are negative. Exam: 07:16 Constitutional: This is a well developed, well nourished patient who is awake, alert, ms3 and in no acute distress. Head/Face: Normocephalic, atraumatic. Eyes: Pupils equal round and reactive to light, extra-ocular motions intact. Lids and lashes normal. Conjunctiva and sclera are non-icteric and not injected. Periorbital areas with no swelling, redness, or edema. Chest/axilla: Normal chest wall appearance and motion. Nontender with no deformity. Cardiovascular: Regular rate and rhythm with a normal S1 and S2. No gallops, murmurs, or rubs. Normal PMI, no JVD. No pulse deficits. Respiratory: Lungs have equal breath sounds bilaterally, clear to auscultation and percussion. No rales, rhonchi or wheezes noted. No increased work of breathing, no retractions or nasal flaring. Abdomen/GI: Soft, non-tender, with normal bowel sounds. No distension or tympany. No guarding or rebound. No evidence of tenderness throughout. Skin: Warm, dry with normal turgor. Normal color with no rashes, no lesions, and no evidence of cellulitis. MS/ Extremity: Pulses equal, no cyanosis. Neurovascular intact. Full, normal range of motion. 08:08 ECG was reviewed by the Attending Physician. ms3 Vital Signs: 06:57 BP 139 / 82; Pulse 91; Resp 18; Temp 102.7; Pulse Ox 98% on R/A; Weight 78 kg; Height 5 pf1 ft. 7 in. (170.18 cm); Pain 0/10; 08:03 BP 121 / 75; Pulse 75; Resp 18; Pulse Ox 97% on R/A; ph 08:22 Temp 99.2(O); ph 09:00 BP 113 / 68; Pulse 65; Resp 18; Pulse Ox 99% on R/A; ph 10:06 BP 132 / 79; Pulse 73; Resp 18; Pulse Ox 98% on R/A; ph 12:01 BP 149 / 86; Pulse 83; Resp 18; Pulse Ox 98% on R/A; ph 06:57 Body Mass Index 26.93 (78.00 kg, 170.18 cm) pf1 MDM: 07:06 Patient medically screened. ms3 07:16 Differential diagnosis: viral Infection, bacterial infection, URI, pneumonia UTI. ms3 08:56 ED course: Discussed case with Dr Faulkner, Nephrology, and he would like patient to get ms3 Cefepime 1 gm and Vancomycin 1.5 gm while blood cultures are pending. Patient can do dialysis on isolation shift on T, TR, Sat.. 19:24 Data reviewed: vital signs, nurses notes, lab test result(s), EKG, radiologic studies, ms3 and as a result, I will discharge patient. Consideration of Admission/Observation Escalation of care including admission/observation considered. No emergent medical condition necessitating admission found at this time. Management of patient was discussed with the following: Licensed Master Social Worker: Dr Faulkner. I considered the following discharge prescriptions or medication management in the emergency department Medications were administered in the Emergency Department. See MAR. Independent interpretation of the following test(s) in the Emergency Department EKG: See my EKG interpretation above secured entrance monitor: rate is 84 beats/min, Rhythm is normal sinus rhythm, regular, with no ectopy, Interpretation: normal rate, normal rhythm. Counseling: I had a detailed discussion with the patient and/or guardian regarding: the historical points, exam findings, and any diagnostic results supporting the discharge/admit diagnosis, lab results, radiology results, the need for outpatient follow up, to return to the emergency department if symptoms worsen or persist or if there are any questions or concerns that arise at home. 08/28 07:07 Order name: Blood Culture Adult (2) 08/28 07:07 Order name: CBC with Diff; Complete Time: 08:06 08/28 07:07 Order name: CMP; Complete Time: 08:06 08/28 07:07 Order name: Lactate w/ 2H reflex if indic.; Complete Time: 08:06 08/28 07:07 Order name: Protime (+inr) 08/28 07:07 Order name: Ptt, Activated 08/28 07:07 Order name: Chest Single View XRAY; Complete Time: 08:20 08/28 07:07 Order name: EKG; Complete Time: 07:08 08/28 07:07 Order name: Accucheck; Complete Time: 07:49 08/28 07:07 Order name: Cardiac monitoring; Complete Time: 07:49 08/28 07:15 Order name: COVID-19/FLU A+B/RSV; Complete Time: 08:51 08/28 07:07 Order name: EKG - Nurse/Tech; Complete Time: 08:18 08/28 07:07 Order name: IV Saline Lock - Large Bore; Complete Time: 07:49 08/28 07:07 Order name: Labs collected and sent; Complete Time: 07:49 08/28 07:07 Order name: O2 Per Protocol; Complete Time: 07:49 08/28 07:07 Order name: O2 Sat Monitoring; Complete Time: 07:49 08/28 07:07 Order name: Urine Dipstick-Ancillary (obtain specimen) 08/28 07:07 Order name: Vital Signs; Complete Time: 07:48 ms3 EC:08 Rate is 73 beats/min. Rhythm is regular. QRS Central is Normal. PA interval is normal. QRS ms3 interval is normal. Clinical impression: Normal ECG. Interpreted by me. Reviewed by me. Administered Medications: 09:17 Drug: Cefepime 1 grams Route: IVPB; Rate: 200 ml/hr; Infused Over: 30 mins; Site: right ph forearm; 09:50 Follow up: Response: No adverse reaction; IV Status: Completed infusion; IV Intake: ph 100ml 09:50 Drug: vancoMYCIN 1.5 grams Route: IVPB; Rate: calculated rate; Site: right forearm; ph 12:32 Follow up: Response: No adverse reaction; IV Status: Completed infusion ph Disposition Summary: 08/28/22 12:19 Discharge Ordered Location: Home ms3 Condition: Stable ms3 Diagnosis - SARS-associated coronavirus as the cause of diseases classified elsewhere ms3 - Fever, unspecified ms3 - End stage renal disease ms3 Followup: ms3 - With: Private Physician - When: 2 - 3 days - Reason: Re-evaluation by your physician Discharge Instructions: - Discharge Summary Sheet ms3 - Fever, Adult ms3 - COVID-19 ms3 - COVID-19: Quarantine vs. Isolation - [facility] ms3 - Prevent the Spread of COVID-19 if You Are Sick - [facility] ms3 Forms: - Medication Reconciliation Form ms3 - Thank You Letter ms3 - Antibiotic Education ms3 - Prescription Opioid Use ms3 Signatures: Dispatcher [employer] Ramona Penaloza RN RN Rachael Stoner RN RN Shaw Robbins DO DO ms3
--- NOTE | 2022-08-28 12:19 | ER ---
Nurse's Notes [facility] Name: Piyush Sauer Age: 42 yrs Sex: Male : 1980 Arrival Date: 08/28/2022 Time: 06:51 Bed 8 Private MD: Diagnosis: SARS-associated coronavirus as the cause of diseases classified elsewhere;Fever, unspecified;End stage renal disease Presentation: 08/28 06:57 Chief complaint: Patient states: Patient C/O possible infection to right anterior chest pf1 dialysis catheter,onset yesterday with fever of highest temp 103F. Patient stated went to [facility] today and was sent here to R/O infection to dialysis catheter. Patient stated did not receive dialysis today. 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 Coronavirus screen: Vaccine status: Patient reports being unvaccinated. Client denies travel out of the [place] in the last 14 days. Client presents with at least one sign or symptom that may indicate coronavirus-19. Standard/surgical mask placed on the client. Ebola Screen: Patient negative for fever greater than or equal to 101.5 degrees Fahrenheit, and additional compatible Ebola Virus Disease symptoms. Initial Sepsis Screen: Does the patient meet any 2 criteria? Temp <36.0*C (96.8*F)) or > 38.3*C (100.9*F). HR > 90 bpm. Yes Does the patient have a suspected source of infection? No. Patient's initial sepsis screen is negative. Risk Assessment: Do you want to hurt yourself or someone else? Patient reports no desire to harm self or others. Onset of symptoms was August 27, 2022. 06:57 Method Of Arrival: Ambulatory pf1 06:57 Acuity: DEEPA 3 pf1 Historical: - Allergies: 07:59 No Known Allergies; ph - PMHx: 07:15 Diabetes - NIDDM; Hypertensive disorder; Dialysis T TH Sat; ss - PSHx: 07:15 right foot; ss - Immunization history:: Adult Immunizations unknown. - Social history:: Smoking status: unknown. Screenin:58 [facility] ED Fall Risk Assessment (Adult) History of falling in the last 3 months, ph including since admission No falls in past 3 months (0 pts) Confusion or Disorientation No (0 pts) Intoxicated or Sedated No (0 pts) Impaired Gait No (0 pts) Mobility Assist Device Used No (0 pt) Altered Elimination No (0 pt) Score/Fall Risk Level 0 - 2 = Low Risk Oriented to surroundings, Maintained a safe environment, Hourly rounding (assess needs \T\ fall precautionary measures) done. Abuse screen: Denies threats or abuse. Denies injuries from another. Nutritional screening: No deficits noted. Tuberculosis screening: No symptoms or risk factors identified. Assessment: 07:30 General: Appears in no apparent distress. comfortable, well groomed, Behavior is calm, ph cooperative, appropriate for age, Reports fever for 0-12 hours. Pain: Complains of pain in body aches. Neuro: Level of Consciousness is awake, alert, obeys commands, Oriented to person, place, time, situation. Cardiovascular: Capillary refill < 3 seconds in bilateral fingers Patient's skin is warm and dry. Cardiovascular: Dialysis shunt: in the chest. Respiratory: Reports cough that is Airway is patent Respiratory effort is even, unlabored, Respiratory pattern is regular, symmetrical, Breath sounds are clear bilaterally. Denies shortness of breath labored breathing, pain with cough. GI: No signs and/or symptoms were reported involving the gastrointestinal system. EENT: Reports nasal congestion sneezing. Derm: Skin is healthy with good turgor, Skin is pink, warm \T\ dry. Vital Signs: 06:57 BP 139 / 82; Pulse 91; Resp 18; Temp 102.7; Pulse Ox 98% on R/A; Weight 78 kg; Height 5 pf1 ft. 7 in. (170.18 cm); Pain 0/10; 08:03 BP 121 / 75; Pulse 75; Resp 18; Pulse Ox 97% on R/A; ph 08:22 Temp 99.2(O); ph 09:00 BP 113 / 68; Pulse 65; Resp 18; Pulse Ox 99% on R/A; ph 10:06 BP 132 / 79; Pulse 73; Resp 18; Pulse Ox 98% on R/A; ph 12:01 BP 149 / 86; Pulse 83; Resp 18; Pulse Ox 98% on R/A; ph 06:57 Body Mass Index 26.93 (78.00 kg, 170.18 cm) pf1 ED Course: 06:51 Patient arrived in ED. ja2 06:59 Shaw Robbins DO is Attending Physician. ms3 07:07 Triage completed. pf1 07:07 Samson Wray, RN is Primary Nurse. jl7 07:25 Initial lab(s) drawn, by me, sent to lab. First set of blood cultures drawn. Inserted ph saline lock: 22 gauge in right forearm, using aseptic technique. 07:48 Rachael Stoner, RN is Primary Nurse. ph 07:58 Chest Single View XRAY In Process Unspecified. EDMS 07:58 Arm band placed on Patient placed in an exam room, on a stretcher. ph 08:03 Patient has correct armband on for positive identification. Bed in low position. Call ph light in reach. Side rails up X 1. Client placed on continuous cardiac and pulse oximetry monitoring. NIBP monitoring applied. 10:07 No provider procedures requiring assistance completed. ph Administered Medications: 09:17 Drug: Cefepime 1 grams Route: IVPB; Rate: 200 ml/hr; Infused Over: 30 mins; Site: right ph forearm; 09:50 Follow up: Response: No adverse reaction; IV Status: Completed infusion; IV Intake: ph 100ml 09:50 Drug: vancoMYCIN 1.5 grams Route: IVPB; Rate: calculated rate; Site: right forearm; ph 12:32 Follow up: Response: No adverse reaction; IV Status: Completed infusion ph Medication: 07:59 VIS not applicable for this client. ph Intake: 09:50 IV: 100ml; Total: 100ml. ph Outcome: 12:19 Discharge ordered by MD. ms3 12:36 Patient left the ED. ph Signatures: Dispatcher [employer] EDMS Ramona Hernadez RN RN Rachael Stoner, CECILY RN ph Samson Wray, RN RN jl7 Shaw Robbins DO DO ms3 Hiral Peralta Ning sanchez, RN RN pf1
--- NOTE | 2022-08-28 12:25 | EKG ---
Test Date: 2022-08-28 Test Time: 07:55:20 Safety Sitter: JR Sorenson MEASUREMENT RESULTS: Intervals: Rate: 73 UT: 128 QRSD: 94 QT: 376 QTc: 414 [place]: P: 70 UT: 128 QRS: 70 T: 79 INTERPRETIVE STATEMENTS: Normal sinus rhythm Normal ECG Compared to ECG 01/22/2022 12:29:12 No significant changes Electronically Signed On 08-28-22 12:24:24 VICE PRESIDENT OF TALENT MANAGEMENT by Dean Perez
[2022-08-28 12:45] VITALS: TEMP 99.2
[2022-08-28 12:47] VITALS: O2SAT 98
[2022-08-28 12:48] VITALS: BP 149/86
== END 2022-08-28 12:36 | disposition home or self-care (01) ==
LOC: ER 06:47
DX: U07.1 COVID-19 (principal); E11.22 Type 2 diabetes mellitus with diabetic chronic kidney disease; I12.0 Hypertensive chronic kidney disease with stage 5 chronic kidney disease or end stage renal disease; N18.6 End stage renal disease; Z99.2 Dependence on renal dialysis
CPT/HCPCS: 93005; 87040 ×2; 85025; 36415; 85610; 83605; 85730; 80053; 0241U; 71045; J3370; J7040; J0692; 96365; 96366; 96367; 99284